=== PATIENT | male | born 1950 | race Hispanic/Latino ===

== ENCOUNTER 2016-12-25 22:29 | Observation (INO) | payer BC, MEDICARE ==
[2016-12-25 23:52] LABS: Basophils % (Auto) 1.1 % (0.0-1.8); Eosinophils % (Auto) 2.7 % (0.0-4.3); Hematocrit 34.3 % (35.5-45.6); Hemoglobin 12.1 gm/dl (11.8-15.2); Mean Corpuscular HGB Conc 35 % (32-34); Mean Corpuscular Hemoglobin 33 pg (28-32); Mean Corpuscular Volume 93 fl (84-94); Platelet Count 126 K/mm3 (140-440); Red Blood Count 3.67 M/mm3 (3.65-5.03); White Blood Count 7.4 K/mm3 (4.5-11.0)
[2016-12-26] LABS: BUN/Creatinine Ratio 14.28; Blood Urea Nitrogen 10 mg/dL (9-20); Calcium 8.1 mg/dL (8.4-10.2); Carbon Dioxide 18 mmol/L (22-30); Glucose 130 mg/dL (75-100)
[2016-12-26 00:01] LABS: Anion Gap 23 mmol/L; Chloride 103.8 mmol/L (98-107); Potassium 4.1 mmol/L (3.6-5.0); Sodium 141 mmol/L (137-145)
--- NOTE | 2016-12-26 00:54 | Emergency Department Report ---
HPI - General Chief Complaint: Chest Pain Time Seen by Provider: 12/26/16 00:36 - HPI HPI: Patient is a 66-year-old white male states that he is an alcoholic, started having chest pain today after drinking. Patient denies nausea, vomiting, diaphoresis or shortness of breath. Patient denies any alleviating or exacerbating factors. Patient is not taking any medication for his symptoms. Described pain as sharp epigastric area without radiation. ED Past Medical Hx - Past Medical History Previous Medical History?: Yes Hx Heart Attack/AMI: No Hx Congestive Heart Failure: No Hx Diabetes: Yes Hx Seizures: Yes Hx Asthma: No Hx COPD: No Additional medical history: Alcoholism, depression - Surgical History Past Surgical History?: Yes Additional Surgical History: appendix - Social History Smoking Status: Current Some Day Smoker Substance Use Type: Alcohol - Medications Home Medications: Home Medications Medication Instructions Recorded Confirmed Last Taken Type ALPRAZolam [Xanax TAB] 1 mg PO BID 09/02/15 09/02/15 Unknown History Citalopram [Celexa] 40 mg PO QDAY 09/02/15 09/02/15 Unknown History Enalapril Maleate [Vasotec] 2.5 mg PO DAILY 09/02/15 09/02/15 Unknown History Galantamine [Razadyne] 4 mg PO BID 09/02/15 09/02/15 Unknown History Ibuprofen [Motrin 800 MG tab] 800 mg PO Q8HR PRN 09/02/15 09/02/15 Unknown History hydrOXYzine PAMOATE [Vistaril] 50 mg PO Q6HR PRN 09/02/15 09/02/15 Unknown History ALPRAZolam [Xanax TAB] 1 mg PO BID #24 tablet 09/03/15 Unknown Rx Citalopram [Celexa] 40 mg PO QDAY tablet 09/03/15 Unknown Rx Enalapril Maleate [Vasotec] 2.5 mg PO DAILY 09/03/15 Unknown Rx Famotidine [Pepcid] 20 mg PO BID #60 tablet 09/03/15 Unknown Rx metFORMIN [Glucophage] 500 mg PO TID tablet 09/03/15 Unknown Rx rOPINIRole [Requip] 1 mg PO BID tablet 09/03/15 Unknown Rx traZODone [Desyrel] 50 mg PO QHS tablet 09/03/15 Unknown Rx oxyCODONE /ACETAMINOPHEN [Percocet 1 tab PO Q12H PRN #10 tablet 12/01/15 Unknown Rx 5/325 mg] ED Review of Systems ROS: Stated complaint: CHEST PAIN Other details as noted in HPI Physical Exam - Physical Exam Vital Signs: Vital Signs 12/25/16 12/26/16 22:52 00:29 Temperature 99.0 F Pulse Rate 88 81 Respiratory 18 16 Rate Blood Pressure 90/52 105/59 [Right] O2 Sat by Pulse 97 95 Oximetry Physical Exam: GENERAL APPEARANCE: Well developed, well nourished, alert and cooperative, and appears to be in no acute distress. HEAD: normocephalic. EYES: PERRL, EOMI. Fundi normal, vision is grossly intact. EARS: External auditory canals and tympanic membranes clear, hearing grossly intact. NOSE: No nasal discharge. THROAT: Oral cavity and pharynx normal. No inflammation, swelling, exudate, or lesions. Teeth and gingiva in good general condition. NECK: Neck supple, non-tender without lymphadenopathy, masses or thyromegaly. CARDIAC: Normal S1 and S2. No S3, S4 or murmurs. Rhythm is regular. There is no peripheral edema, cyanosis or pallor. Extremities are warm and well perfused. Capillary refill is less than 2 seconds. No carotid bruits. LUNGS: Clear to auscultation and percussion without rales, rhonchi, wheezing or diminished breath sounds. ABDOMEN: Positive bowel sounds. Soft, nondistended, nontender. No guarding or rebound. No masses. MUSKULOSKELETAL: Adequately aligned spine. ROM intact spine and extremities. No joint erythema or tenderness. Normal muscular development. Normal gait. BACK: Examination of the spine reveals normal gait and posture, no spinal deformity, symmetry of spinal muscles, without tenderness, decreased range of motion or muscular spasm. EXTREMITIES: No significant deformity or joint abnormality. No edema. Peripheral pulses intact. No varicosities. LOWER EXTREMITY: Examination of both feet reveals all toes to be normal in size and symmetry, normal range of motion, normal sensation with distal capillary filling of less than 2 seconds without tenderness, swelling, discoloration, nodules, weakness or deformity; examination of both ankles, knees, legs, and hips reveals normal range of motion, normal sensation without tenderness, swelling, discoloration, crepitus, weakness or deformity. NEUROLOGICAL: CN II-XII intact. Strength and sensation symmetric and intact throughout. Reflexes 2+ throughout. Cerebellar testing normal. SKIN: Skin normal color, texture and turgor with no lesions or eruptions. PSYCHIATRIC: The mental examination revealed the patient was oriented to person , place, and time. He feels depressed and suicidal with no plan ED Course Vital Signs 12/25/16 12/26/16 22:52 00:29 Temperature 99.0 F Pulse Rate 88 81 Respiratory 18 16 Rate Blood Pressure 90/52 105/59 [Right] O2 Sat by Pulse 97 95 Oximetry ED Medical Decision Making - Lab Data Result diagrams: 12/25/16 23:04 12/25/16 23:04 Critical care attestation.: If time is entered above; I have spent that time in minutes in the direct care of this critically ill patient, excluding procedure time. ED Disposition Clinical Impression: Chest pain, Chest pain, Depression, Suicidal ideations Disposition: 09 OP ADMIT IP TO THIS HOSP Is pt being admited?: Yes Does the pt Need Aspirin: Yes Condition: Stable Instructions: Chest Pain (ED) Referrals: PRIMARY CARE, [Primary Care Provider] - 3-5 Days
[2016-12-26] MEDS ORDERED: ZOFRAN IV PRN (03:58)
[2016-12-26] MEDS ORDERED: MORPHINE IV PRN (03:58)
[2016-12-26] MEDS ORDERED: VITAMIN B-1 100 MG, FOLVITE 1 MG, INFUVITE 10 ML in NACL 0.9% 1000 ML 1,000 ML IV SCH (05:00)
--- NOTE | 2016-12-26 06:06 | History and Physical Report ---
CHIEF COMPLAINT: Chest pain. HISTORY OF PRESENT ILLNESS: The patient is a 66-year-old white male who is having chest pain that started yesterday 12/25/2016 after having some alcohol ingestion. The patient said he is an alcoholic and drinks on a daily basis. He denies history of nausea or vomiting. He denies history of shortness of breath or diaphoresis. The patient described the pain as sharp in consistency and is located in the retrosternal and epigastric area. There was no associated fever or chills. No nausea or vomiting. PAST MEDICAL HISTORY: Pertinent for diabetes mellitus, seizure disorder. Also, the patient has past history of alcohol abuse or alcoholism and depression: Noncontributory. PAST SURGICAL HISTORY: Pertinent for appendectomy. SOCIAL HISTORY: The patient drinks alcohol on daily basis, smokes cigarettes, does not use illicit drugs. MEDICATIONS: The patient is on the following medications: Xanax 1 mg by mouth twice daily, Celexa 40 mg by mouth daily, Vasotec 2.5 mg by mouth daily, Razadyne or galantamine 4 mg by mouth twice daily, Motrin 800 mg by mouth every 8 hours as needed for pain, hydroxyzine pamoate or Vistaril 50 mg p.o. q.6 hours as needed for itching, famotidine or Pepcid 20 mg p.o. b.i.d., Glucophage 500 mg p.o. t.i.d., Requip or ropinirole 1 mg p.o. b.i.d., trazodone 50 mg at bedtime, and Percocet 5/325 mg 1 by mouth every 12 hours as needed for pain. ALLERGIES: There are no known drug allergies. REVIEW OF SYSTEMS: CONSTITUTIONAL: There is no fever, no chills, no diaphoresis. HEENT: There is no headache or sore throat. CARDIOVASCULAR: There is chest pain. No orthopnea. RESPIRATORY: There is no shortness of breath or cough. GASTROINTESTINAL: Epigastric abdominal pain noted. No nausea, no vomiting, no diarrhea or constipation. NEUROLOGICAL: There is no numbness, no dizziness, no altered mental status. MUSCULOSKELETAL: There is no joint pain or swelling. DERMATOLOGICAL: There is no skin rash or itching. GENITOURINARY: There is no dysuria, hematuria, or flank pain. Rest of system review is normal. PHYSICAL EXAMINATION: GENERAL: At the time of exam, the patient was found to be alert and oriented x 3 and not in acute distress. VITAL SIGNS: Shows temperature of 99 degrees Fahrenheit, pulse of 81, respirations 16, blood pressure 105/59, O2 sat of 95% on room air. HEENT: Showed pupils to be equal, round, reactive to light and accommodation. Extraocular muscles are intact. NECK: Supple with no JVD or carotid bruit. CARDIOVASCULAR: Showed normal first and second heart sounds with no gallops or murmur. RESPIRATORY: Showed good air entry on both sides of the lung with no abnormal breath sounds. GASTROINTESTINAL SYSTEM: Showed abdomen to be full, soft, nontender with no organomegaly or rigidity. NEUROLOGICAL: Shows no focal deficit. MUSCULOSKELETAL: Shows no joint swelling or tenderness. DERMATOLOGICAL: Shows no skin rash. GENITOURINARY: Showing no costovertebral angle tenderness. PERTINENT LABORATORY DATA AND IMAGING STUDIES: The patient had the following lab test done CBC showed normal white count, normal hemoglobin and slightly low hematocrit of 34.3 with an unremarkable CBC differential. Chemistry shows a slightly low CO2 with an unremarkable renal function test. Lipase level was elevated with a value of 221, troponin level came back normal. Alcohol level showed an increased level of 0.3. DIAGNOSES: 1. Chest pain. 2. Alcohol abuse. 3. Acute pancreatitis. PLAN: The patient will be admitted to medical floor on telemetry and will have cardiac enzymes checked q.6 hours x2 more levels. The patient will be on IV morphine 2 mg every 3 hours as needed for chest pain. The patient will be on nitro paste half inch to anterior chest wall t.i.d. and will be on IV Zofran 4 mg every 6 hours as needed for nausea and vomiting and will be on aspirin 325 mg by mouth daily. The patient will be on banana bag made up of thiamine 100 mg, folic acid 1 mg and multivitamin all in 1 liter of normal saline to be given once daily and patient will have a lipase level checked morning and will have Lexiscan stress test done this morning and will remain n.p.o. for the Lexiscan stress test. The patient's home medications will be reconciled and applied. JOB# [id number] OCN/NTS
[2016-12-26] MEDS: NITRO-BID 2% TP SCH ×4 (06:33→19:05)
--- NOTE | 2016-12-26 07:33 | XRay Report ---
AP CHEST: HISTORY: chest pain Compared to 11/27/15. Heart size is borderline. Normal pulmonary vascularity. The lungs are clear. No evidence for pneumonia, CHF or pneumothorax. The bony structures are within normal limits. IMPRESSION: Borderline heart size. Lungs clear.
[2016-12-26 08:59] LABS: Creatine Kinase MB 1.2 ng/mL (0.0-4.0)
[2016-12-26 09:00] LABS: Creatine Kinase 73 units/L (55-170)
[2016-12-26] MEDS ORDERED: LEXISCAN IV ONE (09:05)
--- NOTE | 2016-12-26 09:46 | Admit Criteria Form ---
Admission Criteria Documentation: CARDIOLOGY GRG Clinical Indications for Admission to Inpatient Care ( Place 'X' for any and all applicable criteria): Hospital admission is needed for appropriate care of the patient because of ANY ONE of the following (1): [ ] I. Hemodynamic instability as indicated by ALL of the following (1)(2)(3) (4)(5) [ ]a) Vital signs or other findings not as expected for chronic patient condition or baseline [ ]b) Instability indicated by ANY ONE of the following: [ ]i) Hypotension [ ]ii) Symptomatic Tachycardia unresponsive to treatment ( e.g., analgesia, fluids, sedation as indicated) [ ]iii) Inadequate perfusion indicated by ANY ONE of the following: [ ] 1) Lactic acidosis (> 2 mmol/L) [ ] 2) New abnormal capillary refill (> 3 seconds) [ ] 3) Reduced urine output [ ] 4) New altered mental status [ ]iv) Orthostatic vital sign changes unresponsive to treatment (e.g., fluids) [ ]v) IV inotropic or vasopressor medication required to maintain adequate blood pressure or perfusion [ ] II. Severe heart failure as indicated by ANY ONE of the following(17)(18) [ ]a) Respiratory distress [ ]b) Hypotension [ ]c) Anasarca (refractory to outpatient therapy) [ ]d) Cardiac arrhythmias of immediate concern [ ]e) Myocardial ischemia [ ] III. Cardiac arrhythmias or findings of immediate concern indicated by ANY ONE of the following (19)(20): [ ] a) Heart rhythms that are inherently dangerous or unstable indicated by ANY ONE of the following (21)(22)(23): [ ] i) Resuscitated ventricular fibrillation or cardiac arrest [ ] ii) Ventricular escape rhythm [ ] iii) Sustained ventricular tachycardia (30 seconds or more of ventricular rhythm at greater than 100 beats per minute) [ ] iv) Nonsustained ventricular tachycardia and ANY ONE of the following: [ ] 1) Suspected cardiac ischemia as cause or consequence of ventricular tachycardia [ ] 2) In setting of acute myocarditis [ ] b) Unstable cardiac conduction defects indicated by ANY ONE of the following(23)(24)(25) [ ] i) Type II second-degree atrioventricular block [ ]ii) Third-degree atrioventricular block [ ]iii) New-onset left bundle branch block with suspected myocardial ischemia [ ]c) Any heart rhythm and ANY ONE of the following (21)(22)(26)(27) (28) [ ] i) Continuous long-term ECG monitoring needed (e.g., initiation of drug requiring monitoring for more than 24 hours) [ ] ii) Patient has automatic implanted cardioverter defibrillator that is repeatedly firing, malfunctioning, or in need of immediate adjustment of settings beyond the scope of ambulatory or observation care [ ]d) Heart rhythms of concern due to ANY ONE of the following: [ ] i) Hypotension [ ] ii) Respiratory distress [ ] iii) Association with other significant symptoms (e.g., bradycardia with syncope or ongoing dizziness, supraventricular tachycardia with chest pain (14)(15)(17) [ ] IV. Monitoring for cardiac contusion beyond the scope of observation care needed [A](30)(31)(32) [ ] V. Surgical or device complication (e.g., valve replacement complication , pacemaker dysfunction) (35)(41)(44)(45)(46) [ ] . Inpatient palliative care needed. [B](49) Also use Inpatient Palliative Care Criteria [ ] VII. Nonbacterial thrombotic (marantic) endocarditis (36)(43)(47)(48) [X ] VIII. Cardiology condition, symptom, or finding for which emergency and observation care has failed or are not considered appropriate. [ ] IX. Acute valvular disease requiring inpatient as indicated by ANY ONE of the following (41) [ ]a) Acute valvular regurgitation (42) [ ]b) Noninfectious valvulitis (43) [ ]c) Obstructive valve thrombosis [ ]d) Paravalvular leak [ ]e) Other significant valvular disorder remaining after emergency or observation level of care (as appropriate) [ ]X. Pericardial disease requiring inpatient treatment as indicated by ANY ONE of the following (33)(34)(35)(36)(37) [ ]a) Suspected tamponade (38)(39)(40) [ ]b) Hemopericardium [ ]c) Other significant pericardial disorder remaining after emergency or observation level of care (as appropriate) [ ] XI. Cardiac ischemia beyond scope of emergency and observation care. [ ] XII. Hypertension requiring inpatient treatment as indicated by ANY ONE of the following (6)(7)(8) [ ]a) SBP greater than 220 mm Hg or DBP greater than 120 mmHg despite treatment [ ]b) SBP greater than 140 mm Hg or DBP greater than 100 mm Hg with evidence of acute end organ damage as indicated by ANY ONE of the following [ ] i) Altered mental status [ ] ii) Acute renal failure as indicated by new onset of ANY ONE of the following (9)(10)(11)(12)(13) [ ]1) 3-fold rise in serum creatinine from baseline [ ]2) Serum creatinine greater than 4 mg/dL ( 354 micromoles/L) with acute rise greater than 0.5 mg/dL (44.2 micromoles/L) [ ]3) Reduction of more than 75% in estimated glomerular filtration rate from baseline [ ]4) Estimated glomerular filtration rate less than 35 mL/min/1.73m2 (0.59 mL/sec/1.73m2) in child up to 18 years of age [ ]5) Cessation of urine output indicated by ALL of the following [ ]A. Adequate volume status [ ]B. Inadequate urine output as indicated by ANY ONE of the following [ ]a. Urine output less than 0.3 mL/kg/hr for 24 hours [ ]b. Anuria (urine output less than 0.1 mL/kg/hr) for 12 hours [ ] iii) Aortic dissection [ ] iv) Myocardial Ischemia [ ] v) Left ventricular heart failure [ ]vi) Retinal Hemorrhage [ ]vii) Other significant finding [ ]c) Hypertension in child requiring inpatient treatment as indicated by ALL of the following(14)(15)(16) [ ] i) Outpatient treatment not effective, not available, or not appropriate [ ]ii) SBP or DBP greater than 95th percentile for age [ ]iii) Evidence of acute end organ damage as indicated by ANY ONE of the following [ ]1) Altered mental status [ ]2) Acute renal failure as indicated by new onset of ANY ONE of the following(9)(10)(11)(12)(13) [ ]A. 3-fold rise in serum creatinine from baseline [ ]B. Serum creatinine greater than 4 mg/dL (354 micromoles/L) with acute rise greater than 0.5 mg/dL (44.2 micromoles/L) [ ]C. Reduction of more than 75% in estimated glomerular filtration rate from baseline [ ]D. Estimated glomerular filtration rate less than 35 mL/min/1.73m2 (0.59 mL/sec/1.73m2) in child up to 18 years of age [ ]E. Cessation of urine output indicated by ALL of the following [ ]a. Adequate volume status [ ]b. Inadequate urine output as indicated by ANY ONE of the following [ ]i) Urine output less than 0.3 mL/kg/hr for 24 hours [ ]ii) Anuria ( urine output less than 0.1 mL/kg/hr) for 12 hours [ ]3) Severe headache [ ]4) Visual disturbance [ ]5) Retinal hemorrhage [ ]6) Other significant finding [ ]XIII. Complications of transplanted heart indicated by ANY ONE of the following(61): [ ]a) Acute graft rejection requiring inpatient management (eg, intravenous immunosuppression)(62)(63) [ ]b) Acute graft heart failure indicated by ANY ONE of the following(64): [ ]i) Hemodynamic instability [ ]ii) Cardiac arrhythmias of immediate concern [ ]iii) Pulmonary edema that is very severe (eg, mechanical ventilation needed, imminent or likely, need for 100% oxygen to keep oxygen saturation above 90%) [ ]iv) Pulmonary edema that is persistent as indicated by ALL of the following: [ ]1) New need for oxygen therapy to keep oxygen saturation above 90% (or increased FiO2 need from baseline) [ ]2) Has not improved sufficiently with emergency department or observation care IV diuretics or other heart failure treatments[E] [ ]v) Altered mental status that is severe or persistent [ ]vi) Increased creatinine (new on laboratory test) with reduction of more than 50% in estimated glomerular filtration rate from baseline [ ]vii) Progressively (ongoing) rising creatinine (known from past laboratory test) with reduction of more than 25% in estimated glomerular filtration rate from baseline [ ]viii) Acute renal failure [ ]ix) Acute peripheral ischemia (eg, examination shows pulseless, cool, mottled, or cyanotic extremity) [ ]x) Pulmonary artery catheter monitoring needed [ ]xi) Other sign or symptom of heart failure requiring inpatient treatment (ie, too severe or not responsive to outpatient and observation care treatment) [ ]c) Infection requiring inpatient management (eg, Hemodynamic instability, need for intravenous antimicrobial treatment)(66)(67)(68)(69)(70) [ ]d) Cardiac allograft vasculopathy requiring inpatient management ( eg evidence of cardiac ischemia)(71) [ ]e) Other complication of transplanted heart (eg, stroke, severe pulmonary hypertension, severe valvular dysfunction) requiring inpatient management(72) The original [facility] [employer] content created by [facility] [employer] has been revised. The portions of the content which have been revised are identified through the use of italic text or in bold, and [facility] has neither reviewed nor approved the modified material. All other unmodified content is copyright [facility] [employer]. Please see references footnoted in the original [facility] [employer] edition 2016 Admission Criteria Met: Yes
[2016-12-26] MEDS ORDERED: ASPIRIN PO SCH (10:00)
[2016-12-26] MEDS: HEPARIN SUB-Q SCH ×2 (10:42→21:34)
[2016-12-26] MEDS ORDERED: ATIVAN IV PRN ×2 (11:39)
[2016-12-26 12:33] LABS: Creatine Kinase MB 1.3 ng/mL (0.0-4.0)
[2016-12-26 12:37] LABS: Creatine Kinase 83 units/L (55-170)
[2016-12-26] MEDS: ASPIRIN PO SCH (14:43)
--- NOTE | 2016-12-26 14:44 | Event Note ---
Date: 12/26/16 Patient seen and examined in no acute distress but noted with tremor and diaphoresis. Started CIWA protocol. Mental health consult placed. We'll monitor
--- NOTE | 2016-12-26 15:45 | Consultation ---
History of Present Illness - Reason for Consult Consult date: 12/26/16 Reason for consult: psychiatric evaluation - Chief Complaint Chief complaint: "I said I wanted to give up." Patient is a 66-year-old white male who presented to the hospital after calling 911 for chest pain after alcohol use. He reports relapsing on 11/24/16 after a 7 month period of sobriety. He was drinking twelve 24 oz. beers daily. He is currently on [facility] for alcohol withdrawal. He has a history of withdrawal related seizure and DTs. He reports making the comment about giving up in response to feelings of guilt about drinking. He denies suicidal ideation. He denies auditory or visual hallucinations. No signs of psychosis present. He coplains of short term memory loss. He scored 0/3 word recall. He denies having a depressed mood but reports he is unable to do anything social like he once did due to finances. He retired from [employer]. Medications and Allergies Allergies Allergy/AdvReac Type Severity Reaction Status Date / Time No Known Allergies Allergy Verified 02/27/15 02:13 Home Medications Medication Instructions Recorded Confirmed Last Taken Type ALPRAZolam [Xanax TAB] 1 mg PO BID 09/02/15 12/26/16 Unknown History Citalopram [Celexa] 40 mg PO QDAY 09/02/15 12/26/16 Unknown History Enalapril Maleate [Vasotec] 2.5 mg PO DAILY 09/02/15 12/26/16 Unknown History Galantamine [Razadyne] 4 mg PO BID 09/02/15 12/26/16 Unknown History Ibuprofen [Motrin 800 MG tab] 800 mg PO Q8HR PRN 09/02/15 12/26/16 Unknown History hydrOXYzine PAMOATE [Vistaril] 50 mg PO Q6HR PRN 09/02/15 12/26/16 Unknown History ALPRAZolam [Xanax TAB] 1 mg PO BID #24 tablet 09/03/15 12/26/16 Unknown Rx Citalopram [Celexa] 40 mg PO QDAY tablet 09/03/15 12/26/16 Unknown Rx Enalapril Maleate [Vasotec] 2.5 mg PO DAILY 09/03/15 12/26/16 Unknown Rx Famotidine [Pepcid] 20 mg PO BID #60 tablet 09/03/15 12/26/16 Unknown Rx metFORMIN [Glucophage] 500 mg PO TID tablet 09/03/15 12/26/16 Unknown Rx rOPINIRole [Requip] 1 mg PO BID tablet 09/03/15 12/26/16 Unknown Rx traZODone [Desyrel] 50 mg PO QHS tablet 09/03/15 12/26/16 Unknown Rx oxyCODONE /ACETAMINOPHEN [Percocet 1 tab PO Q12H PRN #10 tablet 12/01/15 Unknown Rx 5/325 mg] Active Meds: Active Medications Aspirin (Aspirin) 325 mg PO QDAY REPLACED BY [facility] Last Admin: 12/26/16 14:43 Dose: 325 mg Heparin Sodium (Porcine) (Heparin) 5,000 unit SUB-Q Q12HR REPLACED BY [facility] Last Admin: 12/26/16 10:42 Dose: Not Given Thiamine HCl 100 mg/ Folic Acid 1 mg/ Multivitamins/Minerals 10 ml/ Sodium Chloride 1,011.2 mls @ 125 mls/hr IV DAILY REPLACED BY [facility] Last Admin: 12/26/16 05:32 Dose: 125 mls/hr Lorazepam (Ativan) 2 mg IV Q1HR PRN PRN Reason: CIWA-Ar 8-15 Lorazepam (Ativan) 4 mg IV Q1HR PRN PRN Reason: CIWA-Ar 16-25 Last Admin: 12/26/16 12:01 Dose: 4 mg Lorazepam (Ativan) 4 mg IV Q15MIN PRN PRN Reason: CIWA-Ar >25 Morphine Sulfate (Morphine) 3 mg IV Q3H PRN PRN Reason: Pain , Severe (7-10) Nitroglycerin (Nitro-Bid 2%) 0.5 inch TP QIDNTG REPLACED BY [facility] PRN Reason: Protocol Last Admin: 12/26/16 14:57 Dose: 0.5 inch Ondansetron HCl (Zofran) 4 mg IV Q6H PRN PRN Reason: Nausea And Vomiting Past psychiatric history - Past Medical History Past Medical History: diabetes, seizures Past Surgical History: appendectomy - past Psychiatric treatment and history psychiatric treatment history: no previous suicide attempts began drinking at age 14 Longest period of sobriety was 18 months x 2 (once with treatment and once without) He denies illicit substance use Last treatment was 05/06/16. Denies history of manic symptoms He states he relapsed because his of his birthday. His live in girlfriend drinks. - Social History Social history: alcohol abuse Mental Status Exam - Vital signs Last Vital Signs Temp 98.4 F 12/26/16 11:11 Pulse 72 12/26/16 11:11 Resp 19 12/26/16 11:11 BP 134/81 12/26/16 11:11 Pulse Ox 97 12/26/16 13:19 - Exam Orientation: time, place, person Affect: normal Mood: other (guilt) Thought content: other (no suicidal or homicidal thoughts) Thought Process: Intact Perceptions: none Speech: normal rate and pattern Concentration: focused Motor activity: other (mild tremors, restless) Level of consciousness: alert Memory: Intact Sleep Symptoms: Difficulty Falling Asleep Appetite: decreased Interaction: cooperative Results Result Diagrams: 12/25/16 23:04 12/25/16 23:04 Abnormal lab results 12/26/16 Range/Units 08:10 Lipase 73 H (13-60) units/L All other labs normal. Assessment and Plan Assessment and plan: Impression: Alcohol use disorder, with withdrawal (detox by the medical team) depressive disorder, unspecified r/o MDD Recommendations: He voices the intention of going to AA meetings. He has a home group and a sponsor. At this time he is not interested in rehab Continue detox per the medical team We will follow to determine suicidal risk. Consider rescinding the 1013 if he maintains denial of SI in 24 hours.
[2016-12-26] MEDS: ATIVAN IV PRN (19:33)
[2016-12-26] MEDS ORDERED: D50W (25GM) Syringe IV PRN (20:09)
[2016-12-26] MEDS: NOVOLOG SUB-Q SCH (22:00)
--- NOTE | 2016-12-27 01:38 | Treadmill Report ---
FINDINGS: There is no scintigraphic evidence of myocardial ischemia. The left ventricle is normal in size and systolic function. The left ventricular ejection fraction is measured at 69%. Normal wall motion and wall thickening is noted on gated imaging. CONCLUSION: Normal perfusion scan. JOB# [id number] BELA/CAPRICE
[2016-12-27] MEDS: ATIVAN IV PRN (03:03)
[2016-12-27] MEDS: NITRO-BID 2% TP SCH ×2 (06:16→10:31)
[2016-12-27] MEDS: NOVOLOG SUB-Q SCH ×2 (07:30→12:00)
--- NOTE | 2016-12-27 09:28 | Discharge Summary ---
Providers - Providers Date of Admission: 12/26/16 01:18 Attending physician: JANN HINSON MD 12/26/16 11:31 Consult to Mental Health [CONS] Routine Reason For Exam: suicidal ideation Place consult to:: mental health Notified:: VANESA Phone number called:: [phone] Was contact made?: Yes If yes, spoke with:: VANESA Time called:: 11:49 Comment:: CONSULT COMPLETED - ERLIN Primary care physician: SKI MAKER Hospitalization Reason for admission: acute pancreatitis Condition: Stable Hospital course: Patient is a 66-year-old white male states that he is an alcoholic, started having chest pain today after drinking. Patient was admitted and noted to be in mild DT, started on CIWA protocol, stress test was done and was negative. Patient denies nausea, vomiting, diaphoresis or shortness of breath. Patient denies any alleviating or exacerbating factors. Patient is not taking any medication for his symptoms. Described pain as sharp epigastric area without radiation. chest and epigastric pain resolved. Patient was offered inpatient detox and seen by [facility] team. They rescinded 1013. Pateint states He will follow at the AA meetings. He resides with his girlfriend Zamzam Vargas and is very supportive. No evidence of tremor at this time. Discharge Diagnosis Atypical chest pain secondary to costochondritis Alcohol use disorder, with withdrawal Acute Pancreatits secondary to ETOH depressive disorder, unspecified Disposition: DC-01 TO HOME OR SELFCARE Time spent for discharge: 35 MINS Core Measure Documentation - Palliative Care Palliative Care/ Comfort Measures: Not Applicable - Core Measures Any of the following diagnoses?: none - VTE Discharge Requirements Deep Vein Thrombosis/Pulmonary Embolism Present on Admission: No Exam - Physical Exam Narrative exam: VITAL SIGNS: Reviewed. GENERAL: The patient appeared well nourished and normally developed. Vital signs as documented. HEAD: No signs of head trauma. EYES: Pupils are equal. Extraocular motions intact. EARS: Hearing grossly intact. MOUTH: Oropharynx is normal. NECK: No adenopathy, no JVD. CHEST: Chest with clear breath sounds bilaterally. No wheezes, rales, or rhonchi. CARDIAC: Regular rate and rhythm. S1 and S2, without murmurs, gallops, or rubs. VASCULAR: No Edema. Peripheral pulses normal and equal in all extremities. ABDOMEN: Soft, without detectable tenderness. No sign of distention. No rebound or guarding, and no masses palpated. Bowel Sounds normal. MUSCULOSKELETAL: Good range of motion of all major joints. Extremities without clubbing, cyanosis or edema. NEUROLOGIC EXAM: Alert and oriented x 3. No focal sensory or strength deficits. Speech normal. Follows commands. PSYCHIATRIC: Mood normal. SKIN: No rash or lesions. - Constitutional Vitals: Temp Pulse Resp BP Pulse Ox 98.4 F 72 20 175/83 98 12/27/16 08:29 12/27/16 08:29 12/27/16 08:29 12/27/16 08:12/27/16 08:15 Plan Activity: advance as tolerated, fall precautions Diet: low fat Special Instructions: smoking cessation, other (MUST QUIT ETOH, STRONGLY RECOMMEND INPATIENT DETOX PROGRAM) Follow up with: PRIMARY CARE,MD [Primary Care Provider] - 3-5 Days Prescriptions: ALPRAZolam [Xanax TAB] 1 mg PO BID #10 tablet hydrOXYzine PAMOATE [Vistaril] 50 mg PO Q6HR PRN #14 capsule PRN Reason: Anxiety Multivitamin with Folic Acid [One Daily Multivitamin Tablet] 400 mcg PO DAILY # 30 tablet Thiamine [Vitamin B-1] 100 mg PO QDAY #30 tablet
[2016-12-27] MEDS ORDERED: ZESTRIL PO SCH (10:00)
[2016-12-27] MEDS ORDERED: PEPCID PO SCH (10:00)
[2016-12-27] MEDS: ASPIRIN PO SCH (10:32)
[2016-12-27] MEDS: HEPARIN SUB-Q SCH (10:35)
[2016-12-27] MEDS ORDERED: GLUCOPHAGE PO SCH (11:30)
[2016-12-27 13:01] VITALS: BP 152/78
--- NOTE | 2016-12-27 14:41 | Progress Note ---
Subjective - Reason for Consult Consult date: 12/27/16 Reason for consult: Psychiatry Follow-up - Chief Complaint Chief complaint: "I definitely don't want to kill myself" Patient is a 66-year-old white male who presented to the hospital after calling 911 for chest pain after alcohol use. He reports relapsing on 11/24/16 after a 7 month period of sobriety. He was drinking twelve 24 oz. beers daily. He is currently on CIWA for alcohol withdrawal. He has a history of withdrawal related seizure and DTs. Today patient is calm and cooperative during assessment. He stated that he want to stop drinking alcohol (etoh), but know it' s a hard task to do. He stated that he have done rehab multiple times and was sober 9 months before relapsing recently. He stated that his health problems and other issues exacerbate his drinking. He stated that his depression is triggered because of lack of money and not being able to enjoy his social life like he did in the past. He rate his depression 4/10, with 10 being the worse. He denies SI/HI's and AVH's. Spoke with his girlfriend Zamzam Vargas who stated that he has never mentioned being suicidal in the past. She stated that he does attend AA weekly. Mental Status Exam - Vital signs Last Vital Signs Temp 98.7 F 12/27/16 12:56 Pulse 70 12/27/16 12:56 Resp 20 12/27/16 12:56 BP 152/78 12/27/16 12:56 Pulse Ox 97 12/27/16 12:56 - Exam Narrative exam: MSE: Appearance: calm, cooperative Behavior: regular eye contact Speech: regular rate and tone Mood: "okay" Affect: congruent to mood Thought Process: linear Thought Content: denies SI/HI's and AVH's Motor Activity: ambulatory Cognition: A/Ox 3 Insight: fair Judgment: fair Assessment and Plan Impression: Historical Dx: Depression. Alcohol Use DO, with withdrawal (detox by the medical team). Today patient is calm and cooperative during assessment. Patient is no threat to self. Patient will reside with his girlfriend Zamzam Vargas once he is discharged. Recommendation/Plan: Rescind 1013. Patient will continue to attend AA meetings. He stated that he will consider rehab for alcohol in the future. Patient prefer therapy and spiritual guidance from his [employer] than medication therapy for depression. Discussed the risk and benefits of medication therapy with patient. Patient can follow-up with his psychiatrist for outpatient psy services.
== END 2016-12-27 17:30 | disposition home or self-care (01) ==
LOC: ED 22:29 → INTOOBSV 12-26 01:18 → 4A 12-26 01:18
PROVIDERS: ADMIT Internal Medicine; ATTEND Internal Medicine
DX: R07.9 Chest pain, unspecified (principal); F10.221 Alcohol dependence with intoxication delirium; K85.20 Alcohol induced acute pancreatitis without necrosis or infection; M94.0 Chondrocostal junction syndrome [Tietze]; F10.239 Alcohol dependence with withdrawal, unspecified; E11.9 Type 2 diabetes mellitus without complications; F32.9 Major depressive disorder, single episode, unspecified; F17.200 Nicotine dependence, unspecified, uncomplicated; G40.909 Epilepsy, unspecified, not intractable, without status epilepticus
CPT/HCPCS: 36415; 71010; 78452; 80048; 82150; 82550; 82553; 82962; 83690; 84484; 85025; 93005; 93010; 93017; 96365; 96366; 96372; 96375; 96376; 99285; 99406; A9502; G0378; G0480; J1644; J2060; J2785; J3411; J7030; 80320

== ENCOUNTER 2017-02-26 02:36 | Inpatient (IN) | payer BC, MEDICARE ==
[2017-02-26 04:00] LABS: Basophils % (Auto) 0.2 % (0.0-1.8); Hematocrit 35.4 % (35.5-45.6); Hemoglobin 12.7 gm/dl (11.8-15.2); Mean Corpuscular HGB Conc 36 % (32-34); Mean Corpuscular Hemoglobin 32 pg (28-32); Mean Corpuscular Volume 89 fl (84-94); Platelet Count 135 K/mm3 (140-440); Red Blood Count 3.98 M/mm3 (3.65-5.03); Red Cell Distribution Width 15.2 % (13.2-15.2); White Blood Count 18.1 K/mm3 (4.5-11.0)
[2017-02-26 04:12] LABS: INR 1.06 (0.87-1.13)
[2017-02-26 04:13] LABS: Alanine Aminotransferase 28 units/L (7-56); Albumin 4.5 g/dL (3.9-5); Albumin/Globulin Ratio 1.4 %; Alkaline Phosphatase 74 units/L (35-129); Anion Gap 31 mmol/L; BUN/Creatinine Ratio 15; Blood Urea Nitrogen 9 mg/dL (9-20); Calcium 8.6 mg/dL (8.4-10.2); Carbon Dioxide 16 mmol/L (22-30); Chloride 70.5 mmol/L (98-107); Glucose 196 mg/dL (75-100); Partial Thromboplastin Time 27.9 Sec. (24.2-36.6); Potassium 4.2 mmol/L (3.6-5.0); Total Protein 7.8 g/dL (6.3-8.2)
[2017-02-26 04:29] LABS: Sodium 113 mmol/L (137-145)
[2017-02-26] MEDS ORDERED: ATIVAN IV ONE (04:32)
[2017-02-26] MEDS ORDERED: NACL ONE (05:15)
--- NOTE | 2017-02-26 05:31 | Emergency Department Report ---
ED Chest Pain HPI - General Chief Complaint: Chest Pain Stated Complaint: CHEST PAIN Time Seen by Provider: 02/26/17 03:02 Source: patient, EMS Mode of arrival: Stretcher Limitations: No Limitations - History of Present Illness Initial Comments: 66-year-old male presents to the emergency department by EMS from home with a complaint of some left-sided chest pain as well as left arm pain and shortness of breath as being along for the past 1-2 hours prior to presentation. It is associated with some nausea and vomiting and diaphoresis. He has a past medical history of [id number] diabetes, seizures and alcoholism. Patient received 324 mg of aspirin, 3 mg of morphine and a sublingual nitroglycerin in route without much relief. The patient had a stress test in December of this year that was negative at that time. He does admit to some alcohol use earlier in the day. He denies any history of NC, CVA , PE/DVT. - Related Data Home Medications Medication Instructions Recorded Confirmed Last Taken Citalopram [Celexa] 40 mg PO QDAY 09/02/15 12/26/16 Unknown Enalapril Maleate [Vasotec] 2.5 mg PO DAILY 09/02/15 12/26/16 Unknown Galantamine [Razadyne] 4 mg PO BID 09/02/15 12/26/16 Unknown Previous Rx's Medication Instructions Recorded Last Taken Type Famotidine [Pepcid] 20 mg PO BID #60 tablet 09/03/15 Unknown Rx metFORMIN [Glucophage] 500 mg PO TID tablet 09/03/15 Unknown Rx rOPINIRole [Requip] 1 mg PO BID tablet 09/03/15 Unknown Rx traZODone [Desyrel] 50 mg PO QHS tablet 09/03/15 Unknown Rx ALPRAZolam [Xanax TAB] 1 mg PO BID #10 tablet 12/27/16 Unknown Rx Multivitamin with Folic Acid [One 400 mcg PO DAILY #30 tablet 12/27/16 Unknown Rx Daily Multivitamin Tablet] Thiamine [Vitamin B-1] 100 mg PO QDAY #30 tablet 12/27/16 Unknown Rx hydrOXYzine PAMOATE [Vistaril] 50 mg PO Q6HR PRN #14 capsule 12/27/16 Unknown Rx Allergies Allergy/AdvReac Type Severity Reaction Status Date / Time No Known Allergies Allergy Verified 02/27/15 02:13 Heart Score - HEART Score History: Moderately suspicious EKG: Non-specific Age: 45-65 Risk factors: 1-2 risk factors Troponin: < normal limit HEART Score: 4 - Critical Actions Critical Actions: 4-6 pts:12-16.6% risk of adverse cardiac event. Should be admitted ED Review of Systems ROS: Stated complaint: CHEST PAIN Other details as noted in HPI Comment: All other systems reviewed and negative Constitutional: diaphoresis. denies: chills, fever Eyes: denies: eye pain, eye discharge, vision change ENT: denies: ear pain, throat pain Respiratory: cough, shortness of breath Cardiovascular: chest pain. denies: edema Gastrointestinal: nausea, vomiting Genitourinary: denies: urgency, dysuria Musculoskeletal: denies: back pain, joint swelling, arthralgia Skin: denies: rash, lesions Neurological: denies: headache, weakness, paresthesias ED Past Medical Hx - Past Medical History Previous Medical History?: Yes Hx Heart Attack/AMI: No Hx Congestive Heart Failure: No Hx Diabetes: Yes Hx Seizures: Yes Hx Asthma: No Hx COPD: No Additional medical history: Alcoholism, depression - Surgical History Past Surgical History?: Yes Additional Surgical History: appendix - Social History Smoking Status: Never Smoker Substance Use Type: Alcohol - Medications Home Medications: Home Medications Medication Instructions Recorded Confirmed Last Taken Type Citalopram [Celexa] 40 mg PO QDAY 09/02/15 12/26/16 Unknown History Enalapril Maleate [Vasotec] 2.5 mg PO DAILY 09/02/15 12/26/16 Unknown History Galantamine [Razadyne] 4 mg PO BID 09/02/15 12/26/16 Unknown History Famotidine [Pepcid] 20 mg PO BID #60 tablet 09/03/15 12/26/16 Unknown Rx metFORMIN [Glucophage] 500 mg PO TID tablet 09/03/15 12/26/16 Unknown Rx rOPINIRole [Requip] 1 mg PO BID tablet 09/03/15 12/26/16 Unknown Rx traZODone [Desyrel] 50 mg PO QHS tablet 09/03/15 12/26/16 Unknown Rx ALPRAZolam [Xanax TAB] 1 mg PO BID #10 tablet 12/27/16 Unknown Rx Multivitamin with Folic Acid [One 400 mcg PO DAILY #30 tablet 12/27/16 Unknown Rx Daily Multivitamin Tablet] Thiamine [Vitamin B-1] 100 mg PO QDAY #30 tablet 12/27/16 Unknown Rx hydrOXYzine PAMOATE [Vistaril] 50 mg PO Q6HR PRN #14 capsule 12/27/16 Unknown Rx ED Physical Exam - General Limitations: No Limitations - Other Other exam information: GENERAL: Patient is ill-appearing. HENT: Normocephalic. Atraumatic. Patient has moist mucous membranes. EYES: Extraocular motions are intact. Pupils equal reactive to light bilaterally. NECK: Supple. Trachea is midline. CHEST/LUNGS: Clear to auscultation. There is no respiratory distress noted. HEART/CARDIOVASCULAR: Regular. There is no tachycardia. There is no gallop rub or murmur. ABDOMEN: Abdomen is soft, nontender. Patient has normal bowel sounds. There is no abdominal distention. SKIN: Diaphoretic. NEURO: The patient is awake, alert, and oriented. The patient is cooperative. The patient has no focal neurologic deficits. The patient has normal speech. Patient has tremors. Otherwise cranial nerves II through XII grossly intact. MUSCULOSKELETAL: There is no tenderness or deformity. There is no limitation range of motion. There is no evidence of acute injury. ED Course Vital Signs 02/26/17 02/26/17 02/26/17 03:30 03:47 04:00 Temperature 98.7 F Pulse Rate 101 H 98 H 99 H Respiratory 24 26 H 23 Rate Blood Pressure 156/70 Blood Pressure 151/63 [Right] O2 Sat by Pulse 97 97 96 Oximetry 02/26/17 02/26/17 02/26/17 04:15 04:30 04:46 Temperature Pulse Rate 99 H 97 H 99 H Respiratory 30 H 18 22 Rate Blood Pressure 149/72 149/72 167/39 Blood Pressure [Right] O2 Sat by Pulse 95 95 Oximetry 02/26/17 02/26/17 02/26/17 05:00 05:16 05:30 Temperature Pulse Rate 108 H 108 H 107 H Respiratory 31 H 26 H 26 H Rate Blood Pressure 167/39 135/51 135/51 Blood Pressure [Right] O2 Sat by Pulse 97 96 97 Oximetry 02/26/17 02/26/17 02/26/17 06:32 06:46 07:00 Temperature Pulse Rate 138 H 120 H Respiratory 22 26 H Rate Blood Pressure 131/79 131/79 157/93 Blood Pressure [Right] O2 Sat by Pulse 96 97 Oximetry 02/26/17 02/26/17 02/26/17 07:12 07:16 07:30 Temperature Pulse Rate 134 H 135 H Respiratory 24 33 H Rate Blood Pressure 131/79 131/79 Blood Pressure 118/72 [Right] O2 Sat by Pulse 82 L 83 L Oximetry 02/26/17 02/26/17 02/26/17 07:46 08:05 09:00 Temperature Pulse Rate 124 H 108 H Respiratory 20 Rate Blood Pressure 118/96 Blood Pressure 136/82 [Right] O2 Sat by Pulse 78 L 98 99 Oximetry 02/26/17 02/26/17 02/26/17 09:34 11:01 12:44 Temperature 98.4 F Pulse Rate 126 H 86 86 Respiratory 24 Rate Blood Pressure Blood Pressure 96/62 [Right] O2 Sat by Pulse 97 99 99 Oximetry 02/26/17 02/26/17 02/26/17 12:57 13:47 14:00 Temperature Pulse Rate 82 77 75 Respiratory 20 18 25 H Rate Blood Pressure 91/61 91/61 Blood Pressure 155/89 [Right] O2 Sat by Pulse 99 99 99 Oximetry 02/26/17 02/26/17 02/26/17 14:14 14:16 14:30 Temperature Pulse Rate 74 75 104 H Respiratory 26 H 26 H 21 Rate Blood Pressure 94/60 94/60 Blood Pressure 94/60 [Right] O2 Sat by Pulse 99 99 98 Oximetry 02/26/17 02/26/17 02/26/17 14:46 15:00 15:16 Temperature Pulse Rate 79 76 74 Respiratory 21 24 24 Rate Blood Pressure 141/94 141/94 93/58 Blood Pressure [Right] O2 Sat by Pulse 100 100 100 Oximetry 02/26/17 02/26/17 02/26/17 15:30 15:46 16:00 Temperature Pulse Rate 73 73 71 Respiratory 24 24 24 Rate Blood Pressure 93/58 90/58 90/58 Blood Pressure [Right] O2 Sat by Pulse 99 100 100 Oximetry 02/26/17 02/26/17 02/26/17 16:16 16:30 16:46 Temperature Pulse Rate 73 73 73 Respiratory 24 24 24 Rate Blood Pressure 89/56 89/56 93/59 Blood Pressure [Right] O2 Sat by Pulse 100 99 100 Oximetry 02/26/17 02/26/17 02/26/17 17:00 17:16 17:30 Temperature Pulse Rate 70 103 H 100 H Respiratory 24 21 19 Rate Blood Pressure 93/59 88/55 136/78 Blood Pressure [Right] O2 Sat by Pulse 99 98 Oximetry 02/26/17 02/26/17 02/26/17 17:39 17:47 17:51 Temperature 99.1 F Pulse Rate 100 H 82 82 Respiratory 23 19 Rate Blood Pressure 93/59 Blood Pressure 136/78 [Right] O2 Sat by Pulse 98 99 Oximetry 02/26/17 02/26/17 02/26/17 18:00 18:15 18:30 Temperature Pulse Rate 79 76 77 Respiratory 24 24 24 Rate Blood Pressure 93/54 93/53 95/58 Blood Pressure [Right] O2 Sat by Pulse 99 100 Oximetry 02/26/17 02/26/17 02/26/17 18:45 19:00 19:15 Temperature Pulse Rate 76 76 72 Respiratory 24 24 24 Rate Blood Pressure 92/53 100/60 95/54 Blood Pressure [Right] O2 Sat by Pulse 99 99 100 Oximetry 02/26/17 02/26/17 02/26/17 19:30 19:45 19:55 Temperature Pulse Rate 72 73 97 H Respiratory 24 24 Rate Blood Pressure 102/58 97/56 150/73 Blood Pressure [Right] O2 Sat by Pulse 100 100 98 Oximetry 02/26/17 02/26/17 02/26/17 20:01 20:15 20:30 Temperature Pulse Rate 94 H 95 H 81 Respiratory 17 17 18 Rate Blood Pressure 135/72 131/73 97/56 Blood Pressure [Right] O2 Sat by Pulse 90 91 91 Oximetry 02/26/17 02/26/17 02/26/17 20:45 21:00 21:15 Temperature Pulse Rate 77 74 75 Respiratory 24 24 24 Rate Blood Pressure 88/52 83/49 85/48 Blood Pressure [Right] O2 Sat by Pulse 97 96 95 Oximetry 02/26/17 02/26/17 02/26/17 22:00 23:00 23:50 Temperature Pulse Rate 69 65 93 H Respiratory 24 24 Rate Blood Pressure 87/50 84/49 108/48 Blood Pressure [Right] O2 Sat by Pulse 94 95 98 Oximetry 02/27/17 02/27/1702/27/17 00:00 01:00 01:43 Temperature 99.1 F Pulse Rate 73 68 68 Respiratory 24 24 24 Rate Blood Pressure 86/47 88/50 Blood Pressure 136/78 [Right] O2 Sat by Pulse 93 91 91 Oximetry 02/27/17 02/27/17 02/27/17 01:45 02:00 02:15 Temperature Pulse Rate 69 68 69 Respiratory 24 24 24 Rate Blood Pressure 92/53 88/50 86/52 Blood Pressure [Right] O2 Sat by Pulse 89 Oximetry 02/27/17 02/27/17 02/27/17 02:30 02:45 03:01 Temperature Pulse Rate 66 66 101 H Respiratory 24 24 12 Rate Blood Pressure 88/51 86/50 86/52 Blood Pressure [Right] O2 Sat by Pulse 93 Oximetry 02/27/17 02/27/17 02/27/17 03:15 03:30 03:45 Temperature Pulse Rate 86 76 72 Respiratory 12 24 24 Rate Blood Pressure 107/59 88/51 87/51 Blood Pressure [Right] O2 Sat by Pulse Oximetry 02/27/17 02/27/17 02/27/17 04:00 04:15 04:30 Temperature Pulse Rate 69 67 65 Respiratory 24 24 24 Rate Blood Pressure 83/49 81/47 87/50 Blood Pressure [Right] O2 Sat by Pulse Oximetry 02/27/17 02/27/17 02/27/17 04:45 05:01 05:15 Temperature Pulse Rate 94 H 93 H 95 H Respiratory 17 18 19 Rate Blood Pressure 87/50 137/73 117/56 Blood Pressure [Right] O2 Sat by Pulse Oximetry 02/27/17 02/27/17 02/27/17 05:30 05:33 05:45 Temperature Pulse Rate 82 77 77 Respiratory 22 20 Rate Blood Pressure 96/56 96/56 88/53 Blood Pressure [Right] O2 Sat by Pulse 97 Oximetry 02/27/17 02/27/17 02/27/17 06:00 06:15 06:30 Temperature Pulse Rate 72 71 74 Respiratory 20 20 20 Rate Blood Pressure 85/52 89/52 86/52 Blood Pressure [Right] O2 Sat by Pulse Oximetry 02/27/17 02/27/17 02/27/17 06:45 07:01 07:15 Temperature Pulse Rate 70 110 H Respiratory 20 22 11 L Rate Blood Pressure 92/55 116/88 116/88 Blood Pressure [Right] O2 Sat by Pulse Oximetry 02/27/17 02/27/17 02/27/17 07:20 07:30 07:45 Temperature Pulse Rate 70 76 71 Respiratory 21 20 Rate Blood Pressure 95/54 101/56 95/54 Blood Pressure [Right] O2 Sat by Pulse 100 Oximetry 02/27/17 02/27/17 02/27/17 08:00 08:15 08:30 Temperature Pulse Rate 68 67 65 Respiratory 20 20 20 Rate Blood Pressure 94/53 91/55 94/53 Blood Pressure [Right] O2 Sat by Pulse Oximetry 02/27/17 02/27/17 02/27/17 08:45 09:01 09:15 Temperature Pulse Rate 91 H 82 88 Respiratory 11 L 19 13 Rate Blood Pressure 94/53 124/80 115/71 Blood Pressure [Right] O2 Sat by Pulse 99 Oximetry 02/27/17 02/27/17 02/27/17 09:38 09:43 09:45 Temperature 98.4 F Pulse Rate 86 94 H Respiratory 20 15 Rate Blood Pressure 115/71 108/60 Blood Pressure 115/71 [Right] O2 Sat by Pulse 98 99 98 Oximetry 02/27/17 02/27/17 02/27/17 10:00 10:15 10:31 Temperature Pulse Rate 79 70 86 Respiratory 20 15 16 Rate Blood Pressure 95/54 89/51 89/51 Blood Pressure [Right] O2 Sat by Pulse 98 98 99 Oximetry 02/27/17 02/27/17 02/27/17 10:45 11:00 11:15 Temperature Pulse Rate 92 H 93 H 86 Respiratory 14 14 12 Rate Blood Pressure 112/65 118/58 110/67 Blood Pressure [Right] O2 Sat by Pulse 99 99 99 Oximetry 02/27/17 02/27/17 02/27/17 11:29 11:31 11:35 Temperature Pulse Rate 90 95 H Respiratory 14 15 Rate Blood Pressure 98/30 113/47 Blood Pressure [Right] O2 Sat by Pulse 99 Oximetry 02/27/17 02/27/17 02/27/17 11:45 12:00 12:14 Temperature Pulse Rate 81 91 H Respiratory 21 11 L Rate Blood Pressure 112/65 104/59 Blood Pressure [Right] O2 Sat by Pulse 96 Oximetry 02/27/17 02/27/17 12:15 12:30 Temperature Pulse Rate 88 75 Respiratory 12 16 Rate Blood Pressure 104/59 94/57 Blood Pressure [Right] O2 Sat by Pulse 97 99 Oximetry STEPHANE score - Stephane Score Age > 65: (0) No Aspirin use within the Past 7 Days: (1) Yes 3 or more CAD Risk Factors: (0) No 2 or more Angina events in past 24 hrs: (1) Yes Known CAD with more than 50% Stenosis: (0) No Elevated Cardiac Markers: (0) No ST Deviation Greater than 0.5mm: (0) No STEPHANE Score: 2 ED Medical Decision Making - Lab Data Result diagrams: 02/27/17 04:50 02/27/17 08:20 - EKG Data -: EKG Interpreted by Me EKG shows normal: sinus rhythm, axis, intervals (slightly prolonged QTC), QRS complexes, ST-T waves (peaked or hyperacute T waves) Rate: normal - EKG Data When compared to previous EKG there are: changes noted (the T waves are slightly more peaked or hyperacute than previous EKG) Interpretation: other (sinus rhythm, normal rate, normal axis, slightly prolonged QTC, hyperacute or peaked T waves) - Radiology Data Radiology results: report reviewed, image reviewed interpreted by me: Chest x-ray does not show any acute process. There are no pleural effusions, obvious pneumonia and there is no pneumothorax. EXAM: CT ANGIO CHEST HISTORY: CP, SOB, Elevated dimer TECHNIQUE: CT imaging obtained through the chest in pulmonary angiographic phase following intravenous administration of contrast. Transaxial, Coronal and sagittal reformats with maximal intensity projections are provided. PRIORS: None. FINDINGS: Normal caliber main pulmonary artery. Well opacified pulmonary arterial tree. No pulmonary embolism. No pericardial effusion. Coronary artery disease. Dilated fluid-filled esophagus with mucosal enhancement and surrounding edema and stranding. No pneumomediastinum or adjacent focal fluid collection to suggest abscess formation. Thoracic aorta is mildly tortuous and normal in caliber. Mediastinal edema and stranding is most closely associated with the abnormal esophagus. No aortic wall abnormality to suggest findings of acute aortic syndrome. No pneumothorax. Small left pleural effusion. Right upper and and lower and left lower lobe nodular ground-glass attenuating airspace disease. Imaged portion of the upper abdomen is unremarkable. The superficial soft tissues are unremarkable. No acute bony abnormality or worrisome osseous lesions identified. IMPRESSION: Findings of diffuse esophagitis with surrounding stranding and edema may be infectious, inflammatory or neoplastic in etiology. Developing mediastinitis is a possibility. There is no adjacent abscess identified and no pneumomediastinum. Multifocal ground-glass nodularity involving the right upper lower lobe submitted left lower lung with small left pleural effusion is most consistent with infection. No pulmonary embolism. Coronary artery disease. - Medical Decision Making 66-year-old male presented with some shortness of breath, left-sided chest pain and radiation down the left arm. He is also diaphoretic and having some shakes/ tremors. EKG does not appear to meet criteria for ST elevation NC. First troponin was negative. Chest x-ray did not show any acute process. Throughout his ED course it became more apparent that he was suffering from alcohol withdrawals. He was placed on CIWA protocol. He had elevated d-dimer so a CT angiography of the chest was done that resulted showing esophagitis and mediastinitis. He will be admitted to the hospital for serial troponins, continued monitoring and at least a gastroenterology consult if not cardiology. - Differential Diagnosis NC, PE, esophagitis, pneumonia Critical Care Time: No Critical care attestation.: If time is entered above; I have spent that time in minutes in the direct care of this critically ill patient, excluding procedure time. ED Disposition Clinical Impression: Acute dyspnea, Hyponatremia syndrome, Esophagitis, Mediastinitis Alcohol withdrawal Qualifiers: Complication of substance-induced condition: with unspecified complication Qualified Code(s): F10.239 - Alcohol dependence with withdrawal, unspecified Chest pain Qualifiers: Chest pain type: unspecified Qualified Code(s): R07.9 - Chest pain, unspecified Disposition: 09 OP ADMIT IP TO THIS HOSP Is pt being admited?: Yes Condition: Serious Time of Disposition: 06:15
[2017-02-26] MEDS ORDERED: ROCEPHIN/NS 1 GM/50 ML 1 GM/50 ML BAG IV SCH (06:31)
--- NOTE | 2017-02-26 06:31 | Cat Scan Report ---
FINAL REPORT EXAM: CT ANGIO CHEST HISTORY: CP, SOB, Elevated dimer TECHNIQUE: CT imaging obtained through the chest in pulmonary angiographic phase following intravenous administration of contrast. Transaxial, Coronal and sagittal reformats with maximal intensity projections are provided. PRIORS: None. FINDINGS: Normal caliber main pulmonary artery. Well opacified pulmonary arterial tree. No pulmonary embolism. No pericardial effusion. Coronary artery disease. Dilated fluid-filled esophagus with mucosal enhancement and surrounding edema and stranding. No pneumomediastinum or adjacent focal fluid collection to suggest abscess formation. Thoracic aorta is mildly tortuous and normal in caliber. Mediastinal edema and stranding is most closely associated with the abnormal esophagus. No aortic wall abnormality to suggest findings of acute aortic syndrome. No pneumothorax. Small left pleural effusion. Right upper and and lower and left lower lobe nodular ground-glass attenuating airspace disease. Imaged portion of the upper abdomen is unremarkable. The superficial soft tissues are unremarkable. No acute bony abnormality or worrisome osseous lesions identified. IMPRESSION: Findings of diffuse esophagitis with surrounding stranding and edema may be infectious, inflammatory or neoplastic in etiology. Developing mediastinitis is a possibility. There is no adjacent abscess identified and no pneumomediastinum. Multifocal ground-glass nodularity involving the right upper lower lobe submitted left lower lung with small left pleural effusion is most consistent with infection. No pulmonary embolism. Coronary artery disease. Notification initiated via [facility] life support technician immediately following this dictation on 02/26/2017.
[2017-02-26] MEDS ORDERED: DULCOLAX PR PRN (06:33)
[2017-02-26] MEDS ORDERED: MILK OF MAGNESIA PO PRN (06:33)
[2017-02-26] MEDS ORDERED: TYLENOL PO PRN (06:33)
[2017-02-26] MEDS ORDERED: D50W (25GM) Syringe IV PRN (06:33)
[2017-02-26] MEDS ORDERED: ZOFRAN IV PRN (06:33)
--- NOTE | 2017-02-26 06:45 | History and Physical Report ---
History of Present Illness Date of examination: 02/26/17 History of present illness: 66-year-old man with a history of diabetes, anxiety, depression, hyperlipidemia comes emergency room with complaints of chest pain located in the left chest which she describes as a sharp pain, intermittent in nature lasting for an hour , intensity 5/10, radiating to the left arm, he cannot identify exacerbating or relieving factors. He denies nausea vomiting, shortness breath, palpitation. Patient is very tremulous, diaphoretic, his last drink was 2 days ago Review Of Systems: Constitutional: no weight loss Ears, eyes, nose, mouth and throat: no nasal congestion, no nasal discharge, no sinus pressure, blurry vision, diplopia Neck: No neck pain or rigidity. Cardiovascular: no orthopnea, palpitations Respiratory: No shortness of breath, cough Gastrointestinal: abdominal pain, hematochezia Genitourinary : no dysuria, frequency , hematuria Musculoskeletal: no muscle ache Integumentary: no rash, no pruritis Neurological: no parathesias, focal weakness Endocrine: no cold or heat intolerance, no polyuria or polydipsia Hematologic/Lymphatic: no easy bruising, no easy bleeding, no gland swelling Allergic/Immunologic: no urticaria, no angioedema. PAST MEDICAL HISTORY:diabetes, anxiety, depression, hyperlipidemia PAST SURGICAL HISTORY: Tender to me FAMILY HISTORY: Diabetes SOCIAL HISTORY: DRINK 3 tall beers a day, no tobacco or chart Medications and Allergies Allergies Allergy/AdvReac Type Severity Reaction Status Date / Time No Known Allergies Allergy Verified 02/27/15 02:13 Home Medications Medication Instructions Recorded Confirmed Last Taken Type Citalopram [Celexa] 40 mg PO QDAY 09/02/15 12/26/16 Unknown History Enalapril Maleate [Vasotec] 2.5 mg PO DAILY 09/02/15 12/26/16 Unknown History Galantamine [Razadyne] 4 mg PO BID 09/02/15 12/26/16 Unknown History Famotidine [Pepcid] 20 mg PO BID #60 tablet 09/03/15 12/26/16 Unknown Rx metFORMIN [Glucophage] 500 mg PO TID tablet 09/03/15 12/26/16 Unknown Rx rOPINIRole [Requip] 1 mg PO BID tablet 09/03/15 12/26/16 Unknown Rx traZODone [Desyrel] 50 mg PO QHS tablet 09/03/15 12/26/16 Unknown Rx ALPRAZolam [Xanax TAB] 1 mg PO BID #10 tablet 12/27/16 Unknown Rx Multivitamin with Folic Acid [One 400 mcg PO DAILY #30 tablet 12/27/16 Unknown Rx Daily Multivitamin Tablet] Thiamine [Vitamin B-1] 100 mg PO QDAY #30 tablet 12/27/16 Unknown Rx hydrOXYzine PAMOATE [Vistaril] 50 mg PO Q6HR PRN #14 capsule 12/27/16 Unknown Rx Active Meds: Active Medications Acetaminophen (Tylenol) 650 mg PO Q4H PRN PRN Reason: Pain MILD(1-3)/Fever >100.5/JOE Bisacodyl (Dulcolax) 10 mg AR QDAY PRN PRN Reason: Constipation unrelieved by MOM Citalopram Hydrobromide (Celexa) 40 mg PO QDAY IVANA Dextrose (D50w (25gm) Syringe) 50 ml IV PRN PRN PRN Reason: Hypoglycemia Famotidine (Pepcid) 20 mg PO BID IVANA Galantamine Hydrobromide (Razadyne) 4 mg PO BID IVANA Ceftriaxone Sodium (Rocephin/Ns 1 Gm/50 Ml) 1 gm in 50 mls @ 100 mls/hr IV Q24HR IVANA PRN Reason: Protocol Sodium Chloride (Nacl 0.9% 1000 Ml) 1,000 mls @ 50 mls/hr IV DIRECT IVANA Insulin Aspart (Novolog) 0 units SUB-Q ACHS IVANA PRN Reason: Protocol Lorazepam (Ativan) 2 mg IV Q1HR PRN PRN Reason: CIWA-Ar 8-15 Lorazepam (Ativan) 4 mg IV Q1HR PRN PRN Reason: CIWA-Ar 16-25 Lorazepam (Ativan) 4 mg IV Q15MIN PRN PRN Reason: CIWA-Ar >25 Magnesium Hydroxide (Milk Of Magnesia) 30 ml PO Q4H PRN PRN Reason: Constipation Miscellaneous Medication (Enalapril Maleate [Vasotec]) 2.5 mg PO DAILY IVANA Miscellaneous Medication (Multivitamin With Folic Acid [One Daily Multivitamin Tablet]) 400 mcg PO DAILY IVANA Ondansetron HCl (Zofran) 4 mg IV Q8H PRN PRN Reason: N/V unrelieved by Reglan Ropinirole HCl (Requip) 1 mg PO BID IVANA Thiamine HCl (Vitamin B-1) 100 mg PO QDAY IVANA Exam - Physical Exam Narrative exam: Gen. appearance: Patient lying in bed in no acute distress, diaphoretic HEENT: Normocephalic/atraumatic, pupils equal round reactive to light, extra alkaline movement intact, no scleral icterus, no JVD or thyromegaly or nodule, neck is supple, mucous membrane moist, no erythema or exudate Heart: S1-S2, regular rate and rhythm Lungs: Clear to auscultation bilateral breathing comfortable Abdomen: Positive bowel sounds, nontender, nondistended, no organomegaly Extremities: No edema, cyanosis, clubbing Neuro:: Tremulous, Oriented 3 , cranial nerves II-12 intact, speech, motor intact Skin: No rash, nodules, warm dry - Constitutional Vitals: Temp Pulse Resp BP Pulse Ox 98.7 F 101 H 24 151/63 97 02/26/17 03:30 02/26/17 03:30 02/26/17 03:30 02/26/17 03:30 02/26/17 03:30 Results - Labs CBC & Chem 7: 02/26/17 03:29 02/26/17 03:29 Labs: Abnormal lab results 02/26/17 02/26/17 02/26/17 Range/Units 03:29 03:29 03:29 WBC 18.1 H (4.5-11.0) K/mm3 Hct 35.4 L (35.5-45.6) % MCHC 36 H (32-34) % Plt Count 135 L (140-440) K/mm3 Lymph % (Auto) 7.2 L (13.4-35.0) % Sawyer % (Auto) 9.5 H (0.0-7.3) % Sawyer # 1.7 H (0.0-0.8) K/mm3 Seg Neutrophils % 83.1 H (40.0-70.0) % Seg Neutrophils # 15.0 H (1.8-7.7) K/mm3 D-Dimer 1145.32 H (0-234) ng/mlDDU Sodium 113 L* (137-145) mmol/L Chloride 70.5 L (98-107) mmol/L Carbon Dioxide 16 L (22-30) mmol/L Creatinine 0.6 L (0.8-1.5) mg/dL Glucose 196 H (75-100) mg/dL Total Bilirubin 1.30 H (0.1-1.2) mg/dL AST 49 H (5-40) units/L - Imaging and Cardiology Chest x-ray: image reviewed CT scan - chest: report reviewed Assessment and Plan Assessment Alcohol withdrawal with DTs Acute severe hyponatremia Esophagitis with stranding and possible infectious Chest pain, possible secondary to #3 diabetes type 2 Thrombocytopenia Plan Admit medicine Start ciwa protocol with IV Ativan , IV fluid, check serial sodium level consult renal, AWAITING CALL BACK FROM RENAL Start IV Zosyn, consult GI Check cardiac enzymes, fingersticks and initiate insulin sliding scale DVT prophylaxis
[2017-02-26] MEDS: ATIVAN IV PRN ×7 (06:56→19:55)
[2017-02-26] MEDS ORDERED: NACL 0.9% 1000 ML 1,000 ML IV SCH (07:00)
[2017-02-26] MEDS ORDERED: VITAMIN B-1 ONE (07:19)
[2017-02-26 07:47] LABS: Anion Gap 28 mmol/L; BUN/Creatinine Ratio 18; Blood Urea Nitrogen 14 mg/dL (9-20); Calcium 8.8 mg/dL (8.4-10.2); Carbon Dioxide 19 mmol/L (22-30); Chloride 72.3 mmol/L (98-107); Glucose 223 mg/dL (75-100)
--- NOTE | 2017-02-26 07:49 | XRay Report ---
PORTABLE CHEST: Chest pain An AP portable view of the chest demonstrates a normal cardiac contour considering the limits of this technique. The lungs are clear with no evidence of infiltrate, fluid or failure. No change compared to December 26, 2016. IMPRESSION: Normal portable chest.
[2017-02-26 07:56] LABS: Potassium 5.5 mmol/L (3.6-5.0); Sodium 114 mmol/L (137-145)
[2017-02-26] MEDS ORDERED: VITAMIN B-1 100 MG in NACL 0.9% 50 ML IV ONE (08:00)
[2017-02-26] MEDS ORDERED: VASELINE LIP THERAPY TP PRN (08:04)
[2017-02-26] MEDS ORDERED: ARTIFICIAL TEARS OPHTH OINT OU PRN (08:04)
[2017-02-26 08:08] LABS: Creatine Kinase MB 28.6 ng/mL (0.0-4.0)
--- NOTE | 2017-02-26 08:08 | Emergency Department Report ---
ED General Adult HPI - General Chief complaint: Chest Pain Stated complaint: CHEST PAIN Time Seen by Provider: 02/26/17 03:02 Source: patient, EMS Mode of arrival: Stretcher Limitations: No Limitations - Related Data Home Medications Medication Instructions Recorded Confirmed Last Taken Citalopram [Celexa] 40 mg PO QDAY 09/02/15 02/28/17 1 Day Ago Enalapril Maleate [Vasotec] 2.5 mg PO DAILY 09/02/15 02/28/17 1 Day Ago Galantamine [Razadyne] 4 mg PO BID 09/02/15 02/28/17 1 Day Ago Previous Rx's Medication Instructions Recorded Last Taken Type Famotidine [Pepcid] 20 mg PO BID #60 tablet 09/03/15 1 Day Ago Rx metFORMIN [Glucophage] 500 mg PO TID tablet 09/03/15 1 Day Ago Rx rOPINIRole [Requip] 1 mg PO BID tablet 09/03/15 1 Day Ago Rx traZODone [Desyrel] 50 mg PO QHS tablet 09/03/15 1 Day Ago Rx ALPRAZolam [Xanax TAB] 1 mg PO BID #10 tablet 12/27/16 1 Day Ago Rx Multivitamin with Folic Acid [One 400 mcg PO DAILY #30 tablet 12/27/16 1 Day Ago Rx Daily Multivitamin Tablet] Thiamine [Vitamin B-1] 100 mg PO QDAY #30 tablet 12/27/16 1 Day Ago Rx hydrOXYzine PAMOATE [Vistaril] 50 mg PO Q6HR PRN #14 capsule 12/27/16 1 Day Ago Rx Allergies Allergy/AdvReac Type Severity Reaction Status Date / Time No Known Allergies Allergy Verified 02/27/15 02:13 ED Review of Systems ROS: Stated complaint: CHEST PAIN Other details as noted in HPI Constitutional: diaphoresis. denies: chills, fever Eyes: denies: eye pain, eye discharge, vision change ENT: denies: ear pain, throat pain Respiratory: cough, shortness of breath Cardiovascular: chest pain. denies: edema Gastrointestinal: nausea, vomiting Genitourinary: denies: urgency, dysuria Musculoskeletal: denies: back pain, joint swelling, arthralgia Skin: denies: rash, lesions Neurological: denies: headache, weakness, paresthesias ED Past Medical Hx - Past Medical History Previous Medical History?: Yes Hx Heart Attack/AMI: No Hx Congestive Heart Failure: No Hx Diabetes: Yes Hx Seizures: Yes Hx Asthma: No Hx COPD: No Additional medical history: Alcoholism, depression - Surgical History Past Surgical History?: Yes Additional Surgical History: appendix - Social History Smoking Status: Never Smoker Substance Use Type: Alcohol - Medications Home Medications: Home Medications Medication Instructions Recorded Confirmed Last Taken Type Citalopram [Celexa] 40 mg PO QDAY 09/02/15 02/28/17 1 Day Ago History Enalapril Maleate [Vasotec] 2.5 mg PO DAILY 09/02/15 02/28/17 1 Day Ago History Galantamine [Razadyne] 4 mg PO BID 09/02/15 02/28/17 1 Day Ago History Famotidine [Pepcid] 20 mg PO BID #60 tablet 09/03/15 02/28/17 1 Day Ago Rx metFORMIN [Glucophage] 500 mg PO TID tablet 09/03/15 02/28/17 1 Day Ago Rx rOPINIRole [Requip] 1 mg PO BID tablet 09/03/15 02/28/17 1 Day Ago Rx traZODone [Desyrel] 50 mg PO QHS tablet 09/03/15 02/28/17 1 Day Ago Rx ALPRAZolam [Xanax TAB] 1 mg PO BID #10 tablet 12/27/16 02/28/17 1 Day Ago Rx Multivitamin with Folic Acid [One 400 mcg PO DAILY #30 tablet 12/27/16 02/28/17 1 Day Ago Rx Daily Multivitamin Tablet] Thiamine [Vitamin B-1] 100 mg PO QDAY #30 tablet 12/27/16 02/28/17 1 Day Ago Rx hydrOXYzine PAMOATE [Vistaril] 50 mg PO Q6HR PRN #14 capsule 12/27/16 02/28/17 1 Day Ago Rx ED Physical Exam - General Limitations: No Limitations ED Course Vital Signs 02/26/17 02/26/17 02/26/17 03:30 03:47 04:00 Temperature 98.7 F Pulse Rate 101 H 98 H 99 H Respiratory 24 26 H 23 Rate Blood Pressure 156/70 Blood Pressure 151/63 [Right] O2 Sat by Pulse 97 97 96 Oximetry 02/26/17 02/26/17 02/26/17 04:15 04:30 04:46 Temperature Pulse Rate 99 H 97 H 99 H Respiratory 30 H 18 22 Rate Blood Pressure 149/72 149/72 167/39 Blood Pressure [Right] O2 Sat by Pulse 95 95 Oximetry 02/26/17 02/26/17 02/26/17 05:00 05:16 05:30 Temperature Pulse Rate 108 H 108 H 107 H Respiratory 31 H 26 H 26 H Rate Blood Pressure 167/39 135/51 135/51 Blood Pressure [Right] O2 Sat by Pulse 97 96 97 Oximetry 02/26/17 02/26/17 02/26/17 06:32 06:46 07:00 Temperature Pulse Rate 138 H 120 H Respiratory 22 26 H Rate Blood Pressure 131/79 131/79 157/93 Blood Pressure [Right] O2 Sat by Pulse 96 97 Oximetry 02/26/17 02/26/17 02/26/17 07:12 07:16 07:30 Temperature Pulse Rate 134 H 135 H Respiratory 24 33 H Rate Blood Pressure 131/79 131/79 Blood Pressure 118/72 [Right] O2 Sat by Pulse 82 L 83 L Oximetry 02/26/17 02/26/17 02/26/17 07:46 08:05 09:00 Temperature Pulse Rate 124 H 108 H Respiratory 20 Rate Blood Pressure 118/96 Blood Pressure 136/82 [Right] O2 Sat by Pulse 78 L 98 99 Oximetry 02/26/17 02/26/17 02/26/17 09:34 11:01 12:44 Temperature 98.4 F Pulse Rate 126 H 86 86 Respiratory 24 Rate Blood Pressure Blood Pressure 96/62 [Right] O2 Sat by Pulse 97 99 99 Oximetry 02/26/17 02/26/17 02/26/17 12:57 13:47 14:00 Temperature Pulse Rate 82 77 75 Respiratory 20 18 25 H Rate Blood Pressure 91/61 91/61 Blood Pressure 155/89 [Right] O2 Sat by Pulse 99 99 99 Oximetry 02/26/17 02/26/17 02/26/17 14:14 14:16 14:30 Temperature Pulse Rate 74 75 104 H Respiratory 26 H 26 H 21 Rate Blood Pressure 94/60 94/60 Blood Pressure 94/60 [Right] O2 Sat by Pulse 99 99 98 Oximetry 02/26/17 02/26/17 02/26/17 14:46 15:00 15:16 Temperature Pulse Rate 79 76 74 Respiratory 21 24 24 Rate Blood Pressure 141/94 141/94 93/58 Blood Pressure [Right] O2 Sat by Pulse 100 100 100 Oximetry 02/26/17 02/26/17 02/26/17 15:30 15:46 16:00 Temperature Pulse Rate 73 73 71 Respiratory 24 24 24 Rate Blood Pressure 93/58 90/58 90/58 Blood Pressure [Right] O2 Sat by Pulse 99 100 100 Oximetry 02/26/17 02/26/17 02/26/17 16:16 16:30 16:46 Temperature Pulse Rate 73 73 73 Respiratory 24 24 24 Rate Blood Pressure 89/56 89/56 93/59 Blood Pressure [Right] O2 Sat by Pulse 100 99 100 Oximetry 02/26/17 02/26/17 02/26/17 17:00 17:16 17:30 Temperature Pulse Rate 70 103 H 100 H Respiratory 24 21 19 Rate Blood Pressure 93/59 88/55 136/78 Blood Pressure [Right] O2 Sat by Pulse 99 98 Oximetry 02/26/17 02/26/17 02/26/17 17:39 17:47 17:51 Temperature 99.1 F Pulse Rate 100 H 82 82 Respiratory 23 19 Rate Blood Pressure 93/59 Blood Pressure 136/78 [Right] O2 Sat by Pulse 98 99 Oximetry 02/26/17 02/26/17 02/26/17 18:00 18:15 18:30 Temperature Pulse Rate 79 76 77 Respiratory 24 24 24 Rate Blood Pressure 93/54 93/53 95/58 Blood Pressure [Right] O2 Sat by Pulse 99 100 Oximetry 02/26/17 02/26/17 02/26/17 18:45 19:00 19:15 Temperature Pulse Rate 76 76 72 Respiratory 24 24 24 Rate Blood Pressure 92/53 100/60 95/54 Blood Pressure [Right] O2 Sat by Pulse 99 99 100 Oximetry 02/26/17 02/26/17 02/26/17 19:30 19:45 19:55 Temperature Pulse Rate 72 73 97 H Respiratory 24 24 Rate Blood Pressure 102/58 97/56 150/73 Blood Pressure [Right] O2 Sat by Pulse 100 100 98 Oximetry 02/26/17 02/26/17 02/26/17 20:01 20:15 20:30 Temperature Pulse Rate 94 H 95 H 81 Respiratory 17 17 18 Rate Blood Pressure 135/72 131/73 97/56 Blood Pressure [Right] O2 Sat by Pulse 90 91 91 Oximetry 02/26/17 02/26/17 02/26/17 20:45 21:00 21:15 Temperature Pulse Rate 77 74 75 Respiratory 24 24 24 Rate Blood Pressure 88/52 83/49 85/48 Blood Pressure [Right] O2 Sat by Pulse 97 96 95 Oximetry 02/26/17 02/26/17 02/26/17 22:00 23:00 23:50 Temperature Pulse Rate 69 65 93 H Respiratory 24 24 Rate Blood Pressure 87/50 84/49 108/48 Blood Pressure [Right] O2 Sat by Pulse 94 95 98 Oximetry 02/27/17 02/27/17 02/27/17 00:00 01:00 01:43 Temperature 99.1 F Pulse Rate 73 68 68 Respiratory 24 24 24 Rate Blood Pressure 86/47 88/50 Blood Pressure 136/78 [Right] O2 Sat by Pulse 93 91 91 Oximetry 02/27/17 02/27/17 02/27/17 01:45 02:00 02:15 Temperature Pulse Rate 69 68 69 Respiratory 24 24 24 Rate Blood Pressure 92/53 88/50 86/52 Blood Pressure [Right] O2 Sat by Pulse 89 Oximetry 02/27/17 02/27/17 02/27/17 02:30 02:45 03:01 Temperature Pulse Rate 66 66 101 H Respiratory 24 24 12 Rate Blood Pressure 88/51 86/50 86/52 Blood Pressure [Right] O2 Sat by Pulse 93 Oximetry 02/27/17 02/27/17 02/27/17 03:15 03:30 03:45 Temperature Pulse Rate 86 76 72 Respiratory 12 24 24 Rate Blood Pressure 107/59 88/51 87/51 Blood Pressure [Right] O2 Sat by Pulse Oximetry 02/27/17 02/27/17 02/27/17 04:00 04:15 04:30 Temperature Pulse Rate 69 67 65 Respiratory 24 24 24 Rate Blood Pressure 83/49 81/47 87/50 Blood Pressure [Right] O2 Sat by Pulse Oximetry 02/27/17 02/27/17 02/27/17 04:45 05:01 05:15 Temperature Pulse Rate 94 H 93 H 95 H Respiratory 17 18 19 Rate Blood Pressure 87/50 137/73 117/56 Blood Pressure [Right] O2 Sat by Pulse Oximetry 02/27/17 02/27/17 02/27/17 05:30 05:33 05:45 Temperature Pulse Rate 82 77 77 Respiratory 22 20 Rate Blood Pressure 96/56 96/56 88/53 Blood Pressure [Right] O2 Sat by Pulse 97 Oximetry 02/27/17 02/27/17 02/27/17 06:00 06:15 06:30 Temperature Pulse Rate 72 71 74 Respiratory 20 20 20 Rate Blood Pressure 85/52 89/52 86/52 Blood Pressure [Right] O2 Sat by Pulse Oximetry 02/27/17 02/27/17 02/27/17 06:45 07:01 07:15 Temperature Pulse Rate 70 110 H Respiratory 20 22 11 L Rate Blood Pressure 92/55 116/88 116/88 Blood Pressure [Right] O2 Sat by Pulse Oximetry 02/27/17 02/27/17 02/27/17 07:20 07:30 07:45 Temperature Pulse Rate 70 76 71 Respiratory 21 20 Rate Blood Pressure 95/54 101/56 95/54 Blood Pressure [Right] O2 Sat by Pulse 100 Oximetry 02/27/17 02/27/17 02/27/17 08:00 08:15 08:30 Temperature Pulse Rate 68 67 65 Respiratory 20 20 20 Rate Blood Pressure 94/53 91/55 94/53 Blood Pressure [Right] O2 Sat by Pulse Oximetry 02/27/17 02/27/17 02/27/17 08:45 09:01 09:15 Temperature Pulse Rate 91 H 82 88 Respiratory 11 L 19 13 Rate Blood Pressure 94/53 124/80 115/71 Blood Pressure [Right] O2 Sat by Pulse 99 Oximetry 02/27/17 02/27/17 02/27/17 09:38 09:43 09:45 Temperature 98.4 F Pulse Rate 86 94 H Respiratory 20 15 Rate Blood Pressure 115/71 108/60 Blood Pressure 115/71 [Right] O2 Sat by Pulse 98 99 98 Oximetry 02/27/17 02/27/17 02/27/17 10:00 10:15 10:31 Temperature Pulse Rate 79 70 86 Respiratory 20 15 16 Rate Blood Pressure 95/54 89/51 89/51 Blood Pressure [Right] O2 Sat by Pulse 98 98 99 Oximetry 02/27/17 02/27/17 02/27/17 10:45 11:00 11:15 Temperature Pulse Rate 92 H 93 H 86 Respiratory 14 14 12 Rate Blood Pressure 112/65 118/58 110/67 Blood Pressure [Right] O2 Sat by Pulse 99 99 99 Oximetry 02/27/17 02/27/17 02/27/17 11:29 11:31 11:35 Temperature Pulse Rate 90 95 H Respiratory 14 15 Rate Blood Pressure 98/30 113/47 Blood Pressure [Right] O2 Sat by Pulse 99 Oximetry 02/27/17 02/27/17 02/27/17 11:45 12:00 12:14 Temperature Pulse Rate 81 91 H Respiratory 21 11 L Rate Blood Pressure 112/65 104/59 Blood Pressure [Right] O2 Sat by Pulse 96 Oximetry 02/27/17 02/27/17 02/27/17 12:15 12:30 12:45 Temperature Pulse Rate 88 75 72 Respiratory 12 16 15 Rate Blood Pressure 104/59 94/57 83/51 Blood Pressure [Right] O2 Sat by Pulse 97 99 100 Oximetry 02/27/17 02/27/17 02/27/17 13:00 13:15 13:31 Temperature Pulse Rate 72 83 79 Respiratory 15 13 18 Rate Blood Pressure 97/54 97/54 115/51 Blood Pressure [Right] O2 Sat by Pulse 100 98 97 Oximetry 02/27/17 02/27/17 02/27/17 13:45 14:01 14:15 Temperature Pulse Rate 89 90 88 Respiratory 20 13 14 Rate Blood Pressure 115/51 115/51 106/59 Blood Pressure [Right] O2 Sat by Pulse 99 99 97 Oximetry 02/27/17 02/27/17 02/27/17 14:31 14:45 15:00 Temperature Pulse Rate 100 H 91 H 93 H Respiratory 17 15 15 Rate Blood Pressure 125/88 96/55 115/60 Blood Pressure [Right] O2 Sat by Pulse 99 97 100 Oximetry 02/27/17 02/27/17 02/27/17 15:15 15:30 15:45 Temperature Pulse Rate 76 87 87 Respiratory 15 13 11 L Rate Blood Pressure 104/58 107/69 109/65 Blood Pressure [Right] O2 Sat by Pulse 99 98 98 Oximetry 02/27/17 02/27/17 02/27/17 16:01 16:15 16:30 Temperature Pulse Rate 101 H 75 75 Respiratory 16 17 15 Rate Blood Pressure 105/73 111/57 104/56 Blood Pressure [Right] O2 Sat by Pulse 98 96 100 Oximetry - Intubation Time Out Performed: Yes Sedative: Etomidate Paralytic: Succinylcholine Laryngoscope: fiberoptic video scope Size: 4 ET Tube Size: 8 Tube Secured Depth (cm): 23 Tube Secured Location: lips Tube Placement Confirmation: visualized tube passing t, equal breath sounds bilat, no breath sounds over epi, confirmation by capnometr Patient Tolerated Procedure: well Intubation Complications: none, other (significant amount of vomit in airway) ED Medical Decision Making - Lab Data Result diagrams: 02/28/17 06:39 02/28/17 06:39 Laboratory Results - last 24 hr 02/26/17 02/26/17 02/26/17 03:29 03:29 03:29 WBC 18.1 H RBC 3.98 Hgb 12.7 Hct 35.4 L MCV 89 MCH 32 MCHC 36 H RDW 15.2 Plt Count 135 L Lymph % (Auto) 7.2 L Clark % (Auto) 9.5 H Eos % (Auto) 0.0 Baso % (Auto) 0.2 Lymph # 1.3 Clark # 1.7 H Eos # 0.0 Baso # 0.0 Seg Neutrophils % 83.1 H Seg Neutrophils # 15.0 H PT 14.3 INR 1.06 APTT 27.9 D-Dimer 1145.32 H Sodium 113 L* Potassium 4.2 Chloride 70.5 L Carbon Dioxide 16 L Anion Gap 31 BUN 9 Creatinine 0.6 L Estimated GFR > 60 BUN/Creatinine Ratio 15 Glucose 196 H Calcium 8.6 Total Bilirubin 1.30 H AST 49 H ALT 28 Alkaline Phosphatase 74 Troponin T < 0.010 NT-Pro-B Natriuret Pep 351.1 Total Protein 7.8 Albumin 4.5 Albumin/Globulin Ratio 1.4 Plasma/Serum Alcohol 02/26/17 02/26/17 02/26/17 03:29 06:33 07:12 WBC RBC Hgb Hct MCV MCH MCHC RDW Plt Count Lymph % (Auto) Clark % (Auto) Eos % (Auto) Baso % (Auto) Lymph # Clark # Eos # Baso # Seg Neutrophils % Seg Neutrophils # PT INR APTT D-Dimer Sodium 114 L* Potassium 5.5 H D Chloride 72.3 L Carbon Dioxide 19 L Anion Gap 28 BUN 14 Creatinine 0.8 Estimated GFR > 60 BUN/Creatinine Ratio 18 Glucose 223 H Calcium 8.8 Total Bilirubin AST ALT Alkaline Phosphatase Troponin T < 0.010 NT-Pro-B Natriuret Pep Total Protein Albumin Albumin/Globulin Ratio Plasma/Serum Alcohol 0.04 - Medical Decision Making I was called to evaluate the patient given his continued worsening mental deterioration. He was not alert and oriented at all. He cannot answer any questions. He was agitated and moving around the bed. Nurse administered him 12mg of Ativan over the last 45 minutes and he continued to do deteriorate. Decision was made to intubate the patient for safety. Patient intubated with video laryngoscopy. Patient will be started on an Ativan drip and admitted to the ICU. Critical Care Time: Yes (45) Critical care attestation.: If time is entered above; I have spent that time in minutes in the direct care of this critically ill patient, excluding procedure time. Critical Care Time: 45 mins ED Disposition Clinical Impression: Acute dyspnea, Hyponatremia syndrome, Esophagitis, Mediastinitis Alcohol withdrawal Qualifiers: Complication of substance-induced condition: with unspecified complication Qualified Code(s): F10.239 - Alcohol dependence with withdrawal, unspecified Chest pain Qualifiers: Chest pain type: unspecified Qualified Code(s): R07.9 - Chest pain, unspecified Disposition: DC-09 OP ADMIT IP TO THIS HOSP Is pt being admited?: Yes Condition: Serious
[2017-02-26 08:09] LABS: Urine Drugs of Abuse Note Disclamer
[2017-02-26 08:09] LABS: Creatine Kinase 837 units/L (55-170)
[2017-02-26 08:23] LABS: Bilirubin,Urine NEG (Negative); Blood,Urine SM (Negative); Ketones,Urine 20 mg/dL (Negative); Leukocyte Esterase,Urine NEG (Negative); Mucus,Urine FEW /HPF; Nitrite,Urine NEG (Negative); Urobilinogen,Urine < 2.0 mg/dL (<2.0)
[2017-02-26] MEDS ORDERED: ZOFRAN IV ONE (08:23)
[2017-02-26] MEDS: ATIVAN 100 MG in NACL 0.9% 50 ML, VIAFLEX EMPTY CONTAINER 0 ML IV SCH ×2 (09:00→14:18)
[2017-02-26] MEDS: ZOSYN/NS 4.5GM/100ML 4.5 GM/100 ML VIAL IV SCH ×2 (09:00→15:51)
[2017-02-26] MEDS ORDERED: NORCURON IV ONE (09:00)
[2017-02-26] MEDS ORDERED: NACL 0.9% 500 ML IV SCH (09:00)
[2017-02-26 09:04] LABS: ISTAT Base Excess -3; ISTAT HCO3 23.8; ISTAT PCO2 50.3 (35-45); ISTAT PH 7.283 (7.35-7.45); ISTAT PO2 76 (80-105); ISTAT SO2 93; ISTAT TCO2 25
--- NOTE | 2017-02-26 09:27 | Consultation ---
History of Present Illness Consult date: 02/26/17 Requesting physician: RAYMOND REID Reason for consult: other (Severe hyponatremia, alcohol abuse disorder, thrombocytopenia ...critical care management) History of present illness: 66-year-old man with a history of diabetes, anxiety, depression, hyperlipidemia comes emergency room with complaints of chest pain located in the left chest which he describes as a sharp pain, intermittent in nature lasting for an hour, intensity 5/10, radiating to the left arm, he cannot identify exacerbating or relieving factors. He denies nausea vomiting, shortness breath, palpitation. Patient is very tremulous, diaphoretic, his last drink was 2 days ago. At the time of my evaluation, patient vomited as per ED physician became encephalopathic and required endotracheal intubation with mechanical ventilatory support. History is as obtained from the medical records and in discussion with the ED staff Medications and Allergies Allergies Allergy/AdvReac Type Severity Reaction Status Date / Time No Known Allergies Allergy Verified 02/27/15 02:13 Home Medications Medication Instructions Recorded Confirmed Last Taken Type Citalopram [Celexa] 40 mg PO QDAY 09/02/15 12/26/16 Unknown History Enalapril Maleate [Vasotec] 2.5 mg PO DAILY 09/02/15 12/26/16 Unknown History Galantamine [Razadyne] 4 mg PO BID 09/02/15 12/26/16 Unknown History Famotidine [Pepcid] 20 mg PO BID #60 tablet 09/03/15 12/26/16 Unknown Rx metFORMIN [Glucophage] 500 mg PO TID tablet 09/03/15 12/26/16 Unknown Rx rOPINIRole [Requip] 1 mg PO BID tablet 09/03/15 12/26/16 Unknown Rx traZODone [Desyrel] 50 mg PO QHS tablet 09/03/15 12/26/16 Unknown Rx ALPRAZolam [Xanax TAB] 1 mg PO BID #10 tablet 12/27/16 Unknown Rx Multivitamin with Folic Acid [One 400 mcg PO DAILY #30 tablet 12/27/16 Unknown Rx Daily Multivitamin Tablet] Thiamine [Vitamin B-1] 100 mg PO QDAY #30 tablet 12/27/16 Unknown Rx hydrOXYzine PAMOATE [Vistaril] 50 mg PO Q6HR PRN #14 capsule 12/27/16 Unknown Rx Active Meds: Active Medications Acetaminophen (Tylenol) 650 mg PO Q4H PRN PRN Reason: Pain MILD(1-3)/Fever >100.5/JOE Bisacodyl (Dulcolax) 10 mg [place] QDAY PRN PRN Reason: Constipation unrelieved by MOM Citalopram Hydrobromide (Celexa) 40 mg PO QDAY IVANA Dextrose (D50w (25gm) Syringe) 50 ml IV PRN PRN PRN Reason: Hypoglycemia Famotidine (Pepcid) 20 mg PO BID IVANA Galantamine Hydrobromide (Razadyne) 4 mg PO BID IVANA Hydrophilic Ointment (Vaseline Lip Therapy) 1 applic TP Q2HR PRN PRN Reason: Dry Lips Sodium Chloride (Nacl 0.9% 1000 Ml) 1,000 mls @ 50 mls/hr IV DIRECT VIANA Piperacillin Sod/Tazobactam Sod (Zosyn/Ns 4.5gm/100ml) 4.5 gm in 100 mls @ 200 mls/hr IV Q8HR IVANA Lorazepam 100 mg/ Sodium Chloride/ Miscellaneous Information 100 mls @ 20 mls/ hr IV TITR IVANA; 20 MG/HR PRN Reason: Protocol Insulin Aspart (Novolog) 0 units SUB-Q ACHS IVANA PRN Reason: Protocol Lisinopril (Zestril) 2.5 mg PO QDAY IVANA Lorazepam (Ativan) 2 mg IV Q1HR PRN PRN Reason: CIWA-Ar 8-15 Lorazepam (Ativan) 4 mg IV Q1HR PRN PRN Reason: CIWA-Ar 16-25 Lorazepam (Ativan) 4 mg IV Q15MIN PRN PRN Reason: CIWA-Ar >25 Last Admin: 02/26/17 06:56 Dose: 4 mg Magnesium Hydroxide (Milk Of Magnesia) 30 ml PO Q4H PRN PRN Reason: Constipation Multi-Ingred Cream/Lotion/Oil/Oint (Artificial Tears Ophth Oint) 1 applic OU Q4HR PRN PRN Reason: Dry Eye(s) Multivitamins (Theragran Tab) 1 each PO DAILY IVANA Ondansetron HCl (Zofran) 4 mg IV Q8H PRN PRN Reason: N/V unrelieved by Reglan Ropinirole HCl (Requip) 1 mg PO BID IVANA Sodium Chloride (Nacl 0.9% 500 Ml) 1 ml IV DIRECT IVANA Thiamine HCl (Vitamin B-1) 100 mg PO QDAY [facility] Review of Systems ROS unobtainable: due to endotracheal tube Physical Examination Vital signs: Vital Signs Temp Pulse Resp BP Pulse Ox 98.7 F 101 H 24 151/63 97 02/26/17 03:30 02/26/17 03:30 02/26/17 03:30 02/26/17 03:30 02/26/17 03:30 General appearance: no acute distress, other (intubated, sedated) Eyes: non-icteric ENT: oropharynx moist, other (nasogastric tube to low intermittent suction) Neck: supple, no lymphadenopathy, no JVD Effort: normal (No patietn ventilatory dyssynchrony, Size 7.5 ETT in position) Ascultation: Bilateral: diminished breath sounds, other (rhonchi bilateral upper lobes anteriorly) Cardiovascular: regular rate and rhythm, other (S1, S2, no murmurs gallops or rubs) Gastrointestinal: normoactive bowel sounds, soft, non-tender, non-distended Integumentary: normal Extremities: no cyanosis, no edema, pulses normal, no ischemia or petechiae unable to assess (sedated) Results - Laboratory Findings CBC and BMP: 02/27/17 04:50 02/27/17 08:20 ABG POC ABG pH 7.283 (7.35-7.45) L 02/26/17 09:01 POC ABG pCO2 50.3 (35-45) H 02/26/17 09:01 POC ABG pO2 76 (80-105) L 02/26/17 09:01 POC ABG HCO3 23.8 02/26/17 09:01 POC ABG Total CO2 25 02/26/17 09:01 POC ABG O2 Sat 93 02/26/17 09:01 PT/INR, D-dimer PT 14.3 Sec. (12.2-14.9) 02/26/17 03:29 INR 1.06 (0.87-1.13) 02/26/17 03:29 D-Dimer 1145.32 ng/mlDDU (0-234) H 02/26/17 03:29 Abnormal lab findings: Abnormal Labs 02/26/17 09:01 POC ABG pH 7.283 L POC ABG pCO2 50.3 H POC ABG pO2 76 L - Diagnostic Findings Chest x-ray: report reviewed Assessment and Plan - Patient Problems (1) Acute respiratory failure with hypoxia and hypercapnia Current Visit: Yes Status: Acute Plan to address problem: Adjust minute ventilation for better gas exchange Lung protective strategies Analgesia Agitation management SCD for VTE prophylaxis, documented hematemesis Sarah catheter in this critically ill patient VAP bundle addressed Therapeutic dosing of proton pump inhibitor Daily SBT and SATs to assess readiness for weaning/liberation from the ventilator Delirium management (2) Hyponatremia syndrome Current Visit: Yes Status: Acute Plan to address problem: Send urine osmolality, serum osmolality and urine sodium Start NSaline infusion while monitoring serial BMPs Renal has been consulted. (3) Alcohol withdrawal Current Visit: Yes Status: Acute Qualifiers: Complication of substance-induced condition: with unspecified complication Qualified Code(s): F10.239 - Alcohol dependence with withdrawal, unspecified Plan to address problem: Alcohol withdrawal precautions Substance abuse counselling once patient is liberated from mechanical ventilatory support (4) GI bleeding Current Visit: Yes Status: Acute Qualifiers: GI bleed type/associated pathology: unspecified gastrointestinal hemorrhage type Gastritis type: G Qualified Code(s): K92.2 - Gastrointestinal hemorrhage, unspecified Plan to address problem: PPI (5) Thrombocytopenia concurrent with and due to alcoholism Current Visit: Yes Status: Acute Plan to address problem: Monitor closely and for any bleeding tendencies. SCDs for VTE prophylaxis (6) Hypokalemia Current Visit: Yes Status: Acute Plan to address problem: Replete potassium, keep potassium levels at 4 Critical care time in (mins) excluding proc time.: 65 Critical care attestation.: If time is entered above; I have spent that time in minutes in the direct care of this critically ill patient, excluding procedure time.
--- NOTE | 2017-02-26 09:40 | XRay Report ---
Portable chest: Line placement. The lungs are clear. The aorta is tortuous with a probably normal size heart. There is no vascular congestion. The cardiopulmonary findings appear unchanged prior study of 3:13 AM. There has been interval placement of nasogastric and endotracheal tubes in good positions. Impressions: Well-positioned life support tubes.
[2017-02-26] MEDS ORDERED: ENALAPRIL MALEATE 2.5 MG PO SCH (10:00)
[2017-02-26] MEDS ORDERED: MULTIVITAMIN WITH FOLIC ACID PO SCH (10:00)
--- NOTE | 2017-02-26 10:40 | Consultation ---
History of Present Illness - Reason for Consult Consult date: 02/26/17 hyponatremia Requesting physician: ROBERT SCHNEIDER - History of Present Illness 66-year-old male presents to the emergency department by EMS from home with a complaint of some left-sided chest pain as well as left arm pain in association with shortness of breath x 1 day duration. No aggravating or relieving factors. We are consulted after initial labs showed that his sodium was at 114 and potassium of 5.5. He is now intubated in ER. Past History Past Medical History: hypertension, other ( [id number] diabetes, seizures and alcoholism) Past Surgical History: Other (none) Social history: smoking, alcohol abuse. denies: IV drug use Family history: no significant family history Medications and Allergies Allergies Allergy/AdvReac Type Severity Reaction Status Date / Time No Known Allergies Allergy Verified 02/27/15 02:13 Home Medications Medication Instructions Recorded Confirmed Last Taken Type Citalopram [Celexa] 40 mg PO QDAY 09/02/15 12/26/16 Unknown History Enalapril Maleate [Vasotec] 2.5 mg PO DAILY 09/02/15 12/26/16 Unknown History Galantamine [Razadyne] 4 mg PO BID 09/02/15 12/26/16 Unknown History Famotidine [Pepcid] 20 mg PO BID #60 tablet 09/03/15 12/26/16 Unknown Rx metFORMIN [Glucophage] 500 mg PO TID tablet 09/03/15 12/26/16 Unknown Rx rOPINIRole [Requip] 1 mg PO BID tablet 09/03/15 12/26/16 Unknown Rx traZODone [Desyrel] 50 mg PO QHS tablet 09/03/15 12/26/16 Unknown Rx ALPRAZolam [Xanax TAB] 1 mg PO BID #10 tablet 12/27/16 Unknown Rx Multivitamin with Folic Acid [One 400 mcg PO DAILY #30 tablet 12/27/16 Unknown Rx Daily Multivitamin Tablet] Thiamine [Vitamin B-1] 100 mg PO QDAY #30 tablet 12/27/16 Unknown Rx hydrOXYzine PAMOATE [Vistaril] 50 mg PO Q6HR PRN #14 capsule 12/27/16 Unknown Rx Active Meds: Active Medications Acetaminophen (Tylenol) 650 mg PO Q4H PRN PRN Reason: Pain MILD(1-3)/Fever >100.5/JOE Bisacodyl (Dulcolax) 10 mg [place] QDAY PRN PRN Reason: Constipation unrelieved by MOM Citalopram Hydrobromide (Celexa) 40 mg PO QDAY IVANA Dextrose (D50w (25gm) Syringe) 50 ml IV PRN PRN PRN Reason: Hypoglycemia Famotidine (Pepcid) 20 mg PO BID IVANA Galantamine Hydrobromide (Razadyne) 4 mg PO BID IVANA Hydrophilic Ointment (Vaseline Lip Therapy) 1 applic TP Q2HR PRN PRN Reason: Dry Lips Piperacillin Sod/Tazobactam Sod (Zosyn/Ns 4.5gm/100ml) 4.5 gm in 100 mls @ 200 mls/hr IV Q8HR IVANA Last Admin: 02/26/17 09:00 Dose: 200 mls/hr Lorazepam 100 mg/ Sodium Chloride/ Miscellaneous Information 100 mls @ 20 mls/ hr IV TITR IVANA; 20 MG/HR PRN Reason: Protocol Sodium Chloride (Nacl 0.9% 1000 Ml) 1,000 mls @ 75 mls/hr IV DIRECT IVANA Insulin Aspart (Novolog) 0 units SUB-Q ACHS IVANA PRN Reason: Protocol Lisinopril (Zestril) 2.5 mg PO QDAY IVANA Lorazepam (Ativan) 2 mg IV Q1HR PRN PRN Reason: CIWA-Ar 8-15 Lorazepam (Ativan) 4 mg IV Q1HR PRN PRN Reason: CIWA-Ar 16-25 Lorazepam (Ativan) 4 mg IV Q15MIN PRN PRN Reason: CIWA-Ar >25 Last Admin: 02/26/17 07:00 Dose: 4 mg Magnesium Hydroxide (Milk Of Magnesia) 30 ml PO Q4H PRN PRN Reason: Constipation Multi-Ingred Cream/Lotion/Oil/Oint (Artificial Tears Ophth Oint) 1 applic OU Q4HR PRN PRN Reason: Dry Eye(s) Multivitamins (Theragran Tab) 1 each PO DAILY IVANA Ondansetron HCl (Zofran) 4 mg IV Q8H PRN PRN Reason: N/V unrelieved by Reglan Ropinirole HCl (Requip) 1 mg PO BID IVANA Sodium Chloride (Nacl 0.9% 500 Ml) 1 ml IV DIRECT IVANA Thiamine HCl (Vitamin B-1) 100 mg PO QDAY IVANA Review of Systems ROS unobtainable: due to endotracheal tube Exam - Vital Signs Vital signs: Vital Signs Temp Pulse Resp BP Pulse Ox 98.7 F 101 H 24 151/63 97 02/26/17 03:30 02/26/17 03:30 02/26/17 03:30 02/26/17 03:30 02/26/17 03:30 - General Appearance General appearance: well-developed, well-nourished, appears stated age, intubated EENT: PERRL, mucous membranes moist Neck: Present: neck supple, trachea midline. Absent: JVD/HJR, Masses Respiratory: Clear to Ascultation, Other (no wheezing ) Heart: regular, normal heart rate, S1S2, no murmurs Gastrointestinal: Present: normoactive bowel sounds, other (+ BS ). Absent: tenderness, distended, masses, guarding Integumentary: no rash, warm and dry Neurologic: no focal deficit, alert and oriented x3, gait normal, strength 5/5, obtunded Musculoskeletal: Absent: deformities, joint swelling Psychiatric: mood/affect appropriate, cooperative Results - Lab Results 02/26/17 03:29 02/26/17 10:08 Most recent lab results Calcium 8.8 mg/dL (8.4-10.2) 02/26/17 07:12 Assessment and Plan 1. Severe Hyponatremia possible causes include beer potomania/ SIADH 2. Acute respiratory failure, hypoxia 3. Hyperkalemia 4. Alcohol withdrawal with DTs 5. GI bleeding 6. Chest pain, possible secondary to #3 7. Thrombocytopenia Plan: -Start IVF -Obtain Urine studies including urinelytes and OSM -Serum OSM, TSH, uric acid levels -Check sodium level Q 4 hrs -Goal is to raise sodium by 10meQ in the next 24 hrs -Further recommendations to follow.
[2017-02-26 10:42] LABS: Anion Gap 21 mmol/L; BUN/Creatinine Ratio 21; Blood Urea Nitrogen 15 mg/dL (9-20); Calcium 8.4 mg/dL (8.4-10.2); Carbon Dioxide 23 mmol/L (22-30); Chloride 73.6 mmol/L (98-107); Glucose 216 mg/dL (75-100); Potassium 4.3 mmol/L (3.6-5.0)
[2017-02-26 10:44] LABS: Creatine Kinase MB 28.4 ng/mL (0.0-4.0); Sodium 113 mmol/L (137-145)
[2017-02-26 10:45] LABS: Creatine Kinase 1053 units/L (55-170)
[2017-02-26] MEDS: NOVOLOG SUB-Q SCH ×2 (11:22→18:39)
--- NOTE | 2017-02-26 11:40 | Gastroenterology Consultation ---
<IHSAN NEVES - Last Filed: 02/26/17 11:52> History of Present Illness - Reason for Consult Consult date: 02/26/17 esophagitis w/stranding Requesting physician: RAYMOND REID - History of Present Illness Patient is a 66 y/o male with PMH of diabetes, anxiety, depression, and hyperlipidemia who was admitted with alcohol withdrawal with DTs, acute severe hyponatremia, and CP. GI has been consulted for an abnormal chest CTA that showed esophagitis w/ stranding. Currently pt is intubated and sedated on an Ativan drip. He is unable to given history and no family at bedside. Information received via chart review. OG tube to LIS with coffee-ground gastric material noted. Abd soft, non-distended. Pt is currently hemodynamically stable. HGB 12.7 on admission. Past History Past Medical History: hypertension, other ( [id number] diabetes, seizures and alcoholism) Past Surgical History: Other (none) Social history: smoking, alcohol abuse. denies: IV drug use Family history: no significant family history Medications and Allergies Allergies Allergy/AdvReac Type Severity Reaction Status Date / Time No Known Allergies Allergy Verified 02/27/15 02:13 Home Medications Medication Instructions Recorded Confirmed Last Taken Type Citalopram [Celexa] 40 mg PO QDAY 09/02/15 12/26/16 Unknown History Enalapril Maleate [Vasotec] 2.5 mg PO DAILY 09/02/15 12/26/16 Unknown History Galantamine [Razadyne] 4 mg PO BID 09/02/15 12/26/16 Unknown History Famotidine [Pepcid] 20 mg PO BID #60 tablet 09/03/15 12/26/16 Unknown Rx metFORMIN [Glucophage] 500 mg PO TID tablet 09/03/15 12/26/16 Unknown Rx rOPINIRole [Requip] 1 mg PO BID tablet 09/03/15 12/26/16 Unknown Rx traZODone [Desyrel] 50 mg PO QHS tablet 09/03/15 12/26/16 Unknown Rx ALPRAZolam [Xanax TAB] 1 mg PO BID #10 tablet 12/27/16 Unknown Rx Multivitamin with Folic Acid [One 400 mcg PO DAILY #30 tablet 12/27/16 Unknown Rx Daily Multivitamin Tablet] Thiamine [Vitamin B-1] 100 mg PO QDAY #30 tablet 12/27/16 Unknown Rx hydrOXYzine PAMOATE [Vistaril] 50 mg PO Q6HR PRN #14 capsule 12/27/16 Unknown Rx Active Meds: Active Medications Acetaminophen (Tylenol) 650 mg PO Q4H PRN PRN Reason: Pain MILD(1-3)/Fever >100.5/JOE Bisacodyl (Dulcolax) 10 mg [place] QDAY PRN PRN Reason: Constipation unrelieved by MOM Citalopram Hydrobromide (Celexa) 40 mg PO QDAY IVANA Dextrose (D50w (25gm) Syringe) 50 ml IV PRN PRN PRN Reason: Hypoglycemia Famotidine (Pepcid) 20 mg PO BID IVANA Galantamine Hydrobromide (Razadyne) 4 mg PO BID IVANA Hydrophilic Ointment (Vaseline Lip Therapy) 1 applic TP Q2HR PRN PRN Reason: Dry Lips Piperacillin Sod/Tazobactam Sod (Zosyn/Ns 4.5gm/100ml) 4.5 gm in 100 mls @ 200 mls/hr IV Q8HR IVANA Last Admin: 02/26/17 09:00 Dose: 200 mls/hr Lorazepam 100 mg/ Sodium Chloride/ Miscellaneous Information 100 mls @ 20 mls/ hr IV TITR IVANA; 20 MG/HR PRN Reason: Protocol Sodium Chloride (Nacl 0.9% 1000 Ml) 1,000 mls @ 75 mls/hr IV DIRECT IVANA Insulin Aspart (Novolog) 0 units SUB-Q ACHS IVANA PRN Reason: Protocol Last Admin: 02/26/17 11:22 Dose: 1 units Lisinopril (Zestril) 2.5 mg PO QDAY IVANA Lorazepam (Ativan) 2 mg IV Q1HR PRN PRN Reason: CIWA-Ar 8-15 Lorazepam (Ativan) 4 mg IV Q1HR PRN PRN Reason: CIWA-Ar 16-25 Lorazepam (Ativan) 4 mg IV Q15MIN PRN PRN Reason: CIWA-Ar >25 Last Admin: 02/26/17 07:00 Dose: 4 mg Magnesium Hydroxide (Milk Of Magnesia) 30 ml PO Q4H PRN PRN Reason: Constipation Multi-Ingred Cream/Lotion/Oil/Oint (Artificial Tears Ophth Oint) 1 applic OU Q4HR PRN PRN Reason: Dry Eye(s) Multivitamins (Theragran Tab) 1 each PO DAILY [facility] Ondansetron HCl (Zofran) 4 mg IV Q8H PRN PRN Reason: N/V unrelieved by Reglan Ropinirole HCl (Requip) 1 mg PO BID [facility] Sodium Chloride (Nacl 0.9% 500 Ml) 1 ml IV DIRECT IVANA Thiamine HCl (Vitamin B-1) 100 mg PO QDAY [facility] Review of Systems - Review of Systems ROS unobtainable: due to endotracheal tube, due to mental status Exam - Constitutional Vital Signs: Temp Pulse Resp BP Pulse Ox 98.4 F 86 24 96/62 99 02/26/17 11:01 02/26/17 11:01 02/26/17 11:01 02/26/17 11:01 02/26/17 11:01 General appearance: no acute distress, other (intubated and sedated) - Respiratory Respiratory: bilateral: CTA (anterior) - Cardiovascular Rhythm: regular Heart Sounds: Present: S1 & S2 Extremities: No edema - Gastrointestinal General gastrointestinal: Present: soft, non-distended, normal bowel sounds - Integumentary Integumentary: Present: warm, dry - Neurologic Neurological: other (unable to assess) - Psychiatric Psychiatric: other (unable to assess) - Labs CBC & Chem 7: 02/26/17 03:29 02/26/17 10:08 Lab Results: Laboratory Results - last 24 hr 02/26/17 02/26/17 02/26/17 09:01 09:16 10:08 POC ABG pH 7.283 L POC ABG pCO2 50.3 H POC ABG pO2 76 L POC ABG HCO3 23.8 POC ABG Total CO2 25 POC ABG O2 Sat 93 POC ABG Base Excess -3 FiO2 50 Sodium 113 L* Potassium 4.3 D Chloride 73.6 L Carbon Dioxide 23 Anion Gap 21 BUN 15 Creatinine 0.7 L Estimated GFR > 60 BUN/Creatinine Ratio 21 Glucose 216 H POC Glucose Osmolality Uric Acid Calcium 8.4 Total Creatine Kinase CK-MB (CK-2) CK-MB (CK-2) Rel Index Troponin T < 0.010 02/26/17 02/26/17 02/26/17 10:08 10:08 10:08 POC ABG pH POC ABG pCO2 POC ABG pO2 POC ABG HCO3 POC ABG Total CO2 POC ABG O2 Sat POC ABG Base Excess FiO2 Sodium Potassium Chloride Carbon Dioxide Anion Gap BUN Creatinine Estimated GFR BUN/Creatinine Ratio Glucose POC Glucose Osmolality 252 Uric Acid 8.0 H Calcium Total Creatine Kinase 1053 H CK-MB (CK-2) 28.4 H CK-MB (CK-2) Rel Index 2.6 Troponin T < 0.010 02/26/17 11:23 POC ABG pH POC ABG pCO2 POC ABG pO2 POC ABG HCO3 POC ABG Total CO2 POC ABG O2 Sat POC ABG Base Excess FiO2 Sodium Potassium Chloride Carbon Dioxide Anion Gap BUN Creatinine Estimated GFR BUN/Creatinine Ratio Glucose POC Glucose 189 H Osmolality Uric Acid Calcium Total Creatine Kinase CK-MB (CK-2) CK-MB (CK-2) Rel Index Troponin T Assessment and Plan 1.esophagitis w/stranding 2.coffee-ground emesis 3.alcohol withdrawal with DTs 4.acute severe hyponatremia -WBC 18.1 -plt 135, AST 49, ALT 28, T. earl 1.30, INR 1.06 -chest CTA showed esophagitis w/ stranding-etiology infectious vs inflammatory vs neoplastic -HGB 12.7- OG tube to LIS with coffee-ground gastric material -continue to monitor H/H and transfuse as needed -hold blood thinning medications -hemodynamically stable at this time -currently intubated and sedated on Ativan drip -will start on PPI BID -Will consider EGD once pt medically stable -will follow <HANNAH BENNETT - Last Filed: 02/26/17 17:19> Medications and Allergies Active Meds: Active Medications Acetaminophen (Tylenol) 650 mg PO Q4H PRN PRN Reason: Pain MILD(1-3)/Fever >100.5/JOE Bisacodyl (Dulcolax) 10 mg [place] QDAY PRN PRN Reason: Constipation unrelieved by MOM Citalopram Hydrobromide (Celexa) 40 mg PO QDAY [facility] Last Admin: 02/26/17 11:49 Dose: Not Given Dextrose (D50w (25gm) Syringe) 50 ml IV PRN PRN PRN Reason: Hypoglycemia Famotidine (Pepcid) 20 mg PO BID [facility] Last Admin: 02/26/17 11:49 Dose: Not Given Galantamine Hydrobromide (Razadyne) 4 mg PO BID [facility] Last Admin: 02/26/17 11:49 Dose: Not Given Hydrophilic Ointment (Vaseline Lip Therapy) 1 applic TP Q2HR PRN PRN Reason: Dry Lips Piperacillin Sod/Tazobactam Sod (Zosyn/Ns 4.5gm/100ml) 4.5 gm in 100 mls @ 200 mls/hr IV Q8HR [facility] Last Admin: 02/26/17 15:51 Dose: 200 mls/hr Lorazepam 100 mg/ Sodium Chloride/ Miscellaneous Information 100 mls @ 20 mls/ hr IV TITR IVANA; 20 MG/HR PRN Reason: Protocol Last Admin: 02/26/17 14:18 Dose: 20 mg/hr, 20 mls/hr Sodium Chloride (Nacl 0.9% 1000 Ml) 1,000 mls @ 75 mls/hr IV DIRECT IVANA Last Admin: 02/26/17 13:22 Dose: 75 mls/hr Insulin Aspart (Novolog) 0 units SUB-Q ACHS [facility] PRN Reason: Protocol Last Admin: 02/26/17 11:22 Dose: 1 units Lisinopril (Zestril) 2.5 mg PO QDAY [facility] Last Admin: 02/26/17 11:50 Dose: Not Given Lorazepam (Ativan) 2 mg IV Q1HR PRN PRN Reason: CIWA-Ar 8-15 Lorazepam (Ativan) 4 mg IV Q1HR PRN PRN Reason: CIWA-Ar 16-25 Lorazepam (Ativan) 4 mg IV Q15MIN PRN PRN Reason: CIWA-Ar >25 Last Admin: 02/26/17 12:36 Dose: 4 mg Magnesium Hydroxide (Milk Of Magnesia) 30 ml PO Q4H PRN PRN Reason: Constipation Multi-Ingred Cream/Lotion/Oil/Oint (Artificial Tears Ophth Oint) 1 applic OU Q4HR PRN PRN Reason: Dry Eye(s) Multivitamins (Theragran Tab) 1 each PO DAILY [facility] Last Admin: 02/26/17 11:49 Dose: Not Given Ondansetron HCl (Zofran) 4 mg IV Q8H PRN PRN Reason: N/V unrelieved by Gigi Pantoprazole Sodium (Protonix) 40 mg IV BID [facility] Last Admin: 02/26/17 14:24 Dose: 40 mg Ropinirole HCl (Requip) 1 mg PO BID [facility] Last Admin: 02/26/17 11:49 Dose: Not Given Sodium Chloride (Nacl 0.9% 500 Ml) 1 ml IV DIRECT [facility] Thiamine HCl (Vitamin B-1) 100 mg PO QDAY [facility] Last Admin: 02/26/17 11:50 Dose: Not Given Exam - Constitutional Vital Signs: Temp Pulse Resp BP Pulse Ox 98.4 F 74 26 H 94/60 99 02/26/17 11:01 02/26/17 16:00 02/26/17 14:14 02/26/17 14:14 02/26/17 16:00 - Labs CBC & Chem 7: 02/26/17 03:29 02/26/17 10:08 Lab Results: Laboratory Results - last 24 hr 02/26/17 02/26/17 02/26/17 09:01 09:16 10:08 POC ABG pH 7.283 L POC ABG pCO2 50.3 H POC ABG pO2 76 L POC ABG HCO3 23.8 POC ABG Total CO2 25 POC ABG O2 Sat 93 POC ABG Base Excess -3 FiO2 50 Sodium 113 L* Potassium 4.3 D Chloride 73.6 L Carbon Dioxide 23 Anion Gap 21 BUN 15 Creatinine 0.7 L Estimated GFR > 60 BUN/Creatinine Ratio 21 Glucose 216 H POC Glucose Osmolality Uric Acid Calcium 8.4 Total Creatine Kinase CK-MB (CK-2) CK-MB (CK-2) Rel Index Troponin T < 0.010 [facility] 02/26/17 02/26/17 02/26/17 10:08 10:08 10:08 POC ABG pH POC ABG pCO2 POC ABG pO2 POC ABG HCO3 POC ABG Total CO2 POC ABG O2 Sat POC ABG Base Excess FiO2 Sodium Potassium Chloride Carbon Dioxide Anion Gap BUN Creatinine Estimated GFR BUN/Creatinine Ratio Glucose POC Glucose Osmolality 252 Uric Acid 8.0 H Calcium Total Creatine Kinase 1053 H CK-MB (CK-2) 28.4 H CK-MB (CK-2) Rel Index 2.6 Troponin T < 0.010 [facility] 02/26/17 02/26/17 10:08 11:23 POC ABG pH POC ABG pCO2 POC ABG pO2 POC ABG HCO3 POC ABG Total CO2 POC ABG O2 Sat POC ABG Base Excess FiO2 Sodium Potassium Chloride Carbon Dioxide Anion Gap BUN Creatinine Estimated GFR BUN/Creatinine Ratio Glucose POC Glucose 189 H Osmolality Uric Acid Calcium Total Creatine Kinase CK-MB (CK-2) CK-MB (CK-2) Rel Index Troponin T TSH 1.820 Assessment and Plan - Patient Problems (1) Esophagitis Current Visit: Yes Status: Acute Plan to address problem: The patient was seen and examined. CT revealed suspected esophagitis. Patient is intubated currently and agitated. He is probably in alcohol withdrawl. The ER nurse reported that his girlfriend stated he drinks a lot on a daily basis. Will consider for endoscopy once improved. Thank you for this consultation.
[2017-02-26] MEDS: REQUIP PO SCH (11:49)
[2017-02-26] MEDS: PEPCID PO SCH (11:49)
[2017-02-26] MEDS: RAZADYNE PO SCH (11:49)
[2017-02-26] MEDS: THERAGRAN Tab PO SCH (11:49)
[2017-02-26] MEDS: celeXA PO SCH (11:49)
[2017-02-26] MEDS: VITAMIN B-1 PO SCH (11:50)
[2017-02-26] MEDS: ZESTRIL PO SCH (11:50)
[2017-02-26] MEDS: NACL 0.9% 1000 ML 1,000 ML IV SCH (13:22)
[2017-02-26] MEDS ORDERED: QUELICIN ONE (14:02)
[2017-02-26] MEDS ORDERED: ZEMURON IV ONE ×2 (14:02→16:00)
[2017-02-26] MEDS ORDERED: AMIDATE IV ONE ×2 (14:02→16:00)
[2017-02-26] MEDS: PROTONIX IV SCH (14:24)
--- NOTE | 2017-02-26 16:37 | Event Note ---
Date: 02/26/17 Indocin and evaluated, H&P done this morning was revised, labs and imaging were noted. Continue the management plan H&P. This morning patient was not able to take care of his airways and was intubated and on mechanical ventilation.
[2017-02-26 19:58] LABS: BUN/Creatinine Ratio 23; Blood Urea Nitrogen 16 mg/dL (9-20); Calcium 8.5 mg/dL (8.4-10.2); Carbon Dioxide 14 mmol/L (22-30); Chloride 72.4 mmol/L (98-107); Glucose 215 mg/dL (75-100); Potassium 4.4 mmol/L (3.6-5.0)
[2017-02-26 20:00] LABS: Creatine Kinase MB 22.9 ng/mL (0.0-4.0)
[2017-02-26 20:13] LABS: Anion Gap 34 mmol/L; Sodium 116 mmol/L (137-145)
[2017-02-26] MEDS ORDERED: HALDOL IM ONE (20:13)
[2017-02-26] MEDS ORDERED: HALDOL ONE (20:17)
[2017-02-26 23:37] LABS: Creatine Kinase MB 11.8 ng/mL (0.0-4.0)
[2017-02-27] MEDS: NOVOLOG SUB-Q SCH ×5 (03:45→22:52)
[2017-02-27] MEDS: PEPCID PO SCH ×3 (04:03→21:48)
[2017-02-27] MEDS: PROTONIX IV SCH ×3 (04:26→21:48)
[2017-02-27 05:08] LABS: Basophils % (Auto) 0.5 % (0.0-1.8); Eosinophils % (Auto) 0.2 % (0.0-4.3); Hematocrit 31.4 % (35.5-45.6); Hemoglobin 11.3 gm/dl (11.8-15.2); Mean Corpuscular HGB Conc 36 % (32-34); Mean Corpuscular Hemoglobin 32 pg (28-32); Mean Corpuscular Volume 90 fl (84-94); Platelet Count 88 K/mm3 (140-440); Red Blood Count 3.49 M/mm3 (3.65-5.03); Red Cell Distribution Width 15.8 % (13.2-15.2); White Blood Count 14.4 K/mm3 (4.5-11.0)
[2017-02-27] MEDS: REQUIP PO SCH ×3 (06:05→21:49)
[2017-02-27] MEDS: RAZADYNE PO SCH ×3 (06:09→21:49)
[2017-02-27] MEDS: ZOSYN/NS 4.5GM/100ML 4.5 GM/100 ML VIAL IV SCH ×4 (06:09→21:47)
[2017-02-27 08:50] LABS: BUN/Creatinine Ratio 13; Blood Urea Nitrogen 12 mg/dL (9-20); Calcium 8.1 mg/dL (8.4-10.2); Carbon Dioxide 23 mmol/L (22-30); Chloride 90.1 mmol/L (98-107); Glucose 150 mg/dL (75-100); Potassium 3.2 mmol/L (3.6-5.0); Sodium 128 mmol/L (137-145)
[2017-02-27] MEDS: ATIVAN 100 MG in NACL 0.9% 50 ML, VIAFLEX EMPTY CONTAINER 0 ML IV SCH (09:00)
[2017-02-27 09:06] LABS: Anion Gap 18 mmol/L
[2017-02-27 09:27] LABS: ISTAT Base Excess -1; ISTAT HCO3 23.9; ISTAT PCO2 36.8 (35-45); ISTAT PO2 178 (80-105); ISTAT SO2 100; ISTAT TCO2 25
--- NOTE | 2017-02-27 09:38 | Gastroenterology Progress Note ---
Assessment and Plan 1.esophagitis w/stranding 2.coffee-ground emesis 3.alcohol withdrawal with DTs 4.acute severe hyponatremia -chest CTA showed esophagitis w/ stranding-etiology infectious vs inflammatory vs neoplastic -HGB 11.3- trending down -OG tube to LIS with non-bloody gastric material- no active signs of bleeding overnight or this am per nursing -continue to monitor H/H and transfuse as needed -hold blood thinning medications -hemodynamically stable at this time -currently intubated and sedated on Ativan drip 2/2 alcohol withdrawal -continue PPI BID -Will consider EGD once pt's conditions is improved, unless overt bleeding develops -will follow Subjective Date of service: 02/27/17 Principal diagnosis: esophagitis Interval history: Patient intubated and sedated. No acute distress. No signs of active bleeding overnight or this am per nursing. Objective - Constitutional Vitals: Temp Pulse Resp BP Pulse Ox 99.1 F 77 24 96/56 97 02/27/17 01:43 02/27/17 05:33 02/27/17 01:43 02/27/17 05:33 02/27/17 05:33 General appearance: no acute distress, other (intubated and sedated) - Respiratory Respiratory: bilateral: CTA (anterior) - Cardiovascular Rhythm: regular Heart Sounds: Present: S1 & S2 - Extremities Extremities: No edema - Gastrointestinal General gastrointestinal: Present: soft, non-distended, normal bowel sounds - Integumentary Integumentary: Present: warm, dry - Neurologic Neurological: other (unable to assess) - Psychiatric Psychiatric: other (unable to assess) - Labs CBC & Chem 7: 02/27/17 04:50 02/27/17 08:20 Labs: Laboratory Results - last 24 hr 02/26/17 02/26/17 02/26/17 09:16 10:08 10:08 WBC RBC Hgb Hct MCV MCH MCHC RDW Plt Count Lymph % (Auto) [place] % (Auto) Eos % (Auto) Baso % (Auto) Lymph # [place] # Eos # Baso # Seg Neutrophils % Seg Neutrophils # POC ABG pH POC ABG pCO2 POC ABG pO2 POC ABG HCO3 POC ABG Total CO2 POC ABG O2 Sat POC ABG Base Excess FiO2 Sodium 113 L* Potassium 4.3 D Chloride 73.6 L Carbon Dioxide 23 Anion Gap 21 BUN 15 Creatinine 0.7 L Estimated GFR > 60 BUN/Creatinine Ratio 21 Glucose 216 H POC Glucose Osmolality Uric Acid Calcium 8.4 Total Creatine Kinase 1053 H CK-MB (CK-2) 28.4 H CK-MB (CK-2) Rel Index 2.6 Troponin T < 0.010 < 0.010 TSH Urine Osmolality Urine Creatinine Urine Sodium Urine Chloride 02/26/17 02/26/17 02/26/17 10:08 10:08 10:08 WBC RBC Hgb Hct MCV MCH MCHC RDW Plt Count Lymph % (Auto) [place] % (Auto) Eos % (Auto) Baso % (Auto) Lymph # [place] # Eos # Baso # Seg Neutrophils % Seg Neutrophils # POC ABG pH POC ABG pCO2 POC ABG pO2 POC ABG HCO3 POC ABG Total CO2 POC ABG O2 Sat POC ABG Base Excess FiO2 Sodium Potassium Chloride Carbon Dioxide Anion Gap BUN Creatinine Estimated GFR BUN/Creatinine Ratio Glucose POC Glucose Osmolality 252 Uric Acid 8.0 H Calcium Total Creatine Kinase CK-MB (CK-2) CK-MB (CK-2) Rel Index Troponin T TSH 1.820 Urine Osmolality Urine Creatinine Urine Sodium Urine Chloride 02/26/17 02/26/17 02/26/17 11:23 18:00 18:26 WBC RBC Hgb Hct MCV MCH MCHC RDW Plt Count Lymph % (Auto) [place] % (Auto) Eos % (Auto) Baso % (Auto) Lymph # [place] # Eos # Baso # Seg Neutrophils % Seg Neutrophils # POC ABG pH POC ABG pCO2 POC ABG pO2 POC ABG HCO3 POC ABG Total CO2 POC ABG O2 Sat POC ABG Base Excess FiO2 Sodium 116 L* Potassium 4.4 Chloride 72.4 L Carbon Dioxide 14 L D Anion Gap 34 BUN 16 Creatinine 0.7 L Estimated GFR > 60 BUN/Creatinine Ratio 23 Glucose 215 H POC Glucose 189 H Osmolality Uric Acid Calcium 8.5 Total Creatine Kinase CK-MB (CK-2) CK-MB (CK-2) Rel Index Troponin T TSH Urine Osmolality 419 Urine Creatinine 49.4 H Urine Sodium 10 Urine Chloride 10.0 L 02/26/17 02/26/17 02/26/17 18:26 18:38 22:53 WBC RBC Hgb Hct MCV MCH MCHC RDW Plt Count Lymph % (Auto) [place] % (Auto) Eos % (Auto) Baso % (Auto) Lymph # [place] # Eos # Baso # Seg Neutrophils % Seg Neutrophils # POC ABG pH POC ABG pCO2 POC ABG pO2 POC ABG HCO3 POC ABG Total CO2 POC ABG O2 Sat POC ABG Base Excess FiO2 Sodium Potassium Chloride Carbon Dioxide Anion Gap BUN Creatinine Estimated GFR BUN/Creatinine Ratio Glucose POC Glucose 138 H Osmolality Uric Acid Calcium Total Creatine Kinase 1085 H 1367 H CK-MB (CK-2) 22.9 H 11.8 H CK-MB (CK-2) Rel Index 2.1 0.8 Troponin T TSH Urine Osmolality Urine Creatinine Urine Sodium Urine Chloride 02/27/17 02/27/17 02/27/17 01:17 04:50 05:37 WBC 14.4 H RBC 3.49 L Hgb 11.3 L Hct 31.4 L MCV 90 MCH 32 MCHC 36 H RDW 15.8 H Plt Count 88 L Lymph % (Auto) 9.6 L [place] % (Auto) 9.7 H Eos % (Auto) 0.2 Baso % (Auto) 0.5 Lymph # 1.4 [place] # 1.4 H Eos # 0.0 Baso # 0.1 Seg Neutrophils % 80.0 H Seg Neutrophils # 11.6 H POC ABG pH 7.420 POC ABG pCO2 36.8 POC ABG pO2 178 H POC ABG HCO3 23.9 POC ABG Total CO2 25 POC ABG O2 Sat 100 POC ABG Base Excess -1 FiO2 50 Sodium Potassium Chloride Carbon Dioxide Anion Gap BUN Creatinine Estimated GFR BUN/Creatinine Ratio Glucose POC Glucose 161 H Osmolality Uric Acid Calcium Total Creatine Kinase CK-MB (CK-2) CK-MB (CK-2) Rel Index Troponin T TSH Urine Osmolality Urine Creatinine Urine Sodium Urine Chloride 02/27/17 02/27/17 08:20 09:14 WBC RBC Hgb Hct MCV MCH MCHC RDW Plt Count Lymph % (Auto) [place] % (Auto) Eos % (Auto) Baso % (Auto) Lymph # [place] # Eos # Baso # Seg Neutrophils % Seg Neutrophils # POC ABG pH POC ABG pCO2 POC ABG pO2 POC ABG HCO3 POC ABG Total CO2 POC ABG O2 Sat POC ABG Base Excess FiO2 Sodium 128 L D Potassium 3.2 L D Chloride 90.1 L Carbon Dioxide 23 D Anion Gap 18 BUN 12 Creatinine 0.9 Estimated GFR > 60 BUN/Creatinine Ratio 13 Glucose 150 H POC Glucose 144 H Osmolality Uric Acid Calcium 8.1 L Total Creatine Kinase CK-MB (CK-2) CK-MB (CK-2) Rel Index Troponin T TSH Urine Osmolality Urine Creatinine Urine Sodium Urine Chloride
[2017-02-27 11:32] LABS: ISTAT Base Excess -1; ISTAT PCO2 37.7 (35-45); ISTAT PH 7.413 (7.35-7.45); ISTAT PO2 119 (80-105); ISTAT SO2 99; ISTAT TCO2 25
--- NOTE | 2017-02-27 12:01 | Progress Note ---
Assessment and Plan - Patient Problems (1) Acute respiratory failure with hypoxia and hypercapnia Current Visit: Yes Status: Acute Plan to address problem: Adequate gas exchange on current settings Lung protective strategies Analgesia Agitation management SCD for VTE prophylaxis, documented hematemesis Sarah catheter in this critically ill patient VAP bundle addressed Therapeutic dosing of proton pump inhibitor For SBT and SATs to assess readiness for weaning/liberation from the ventilator Lorazepam to be held, once awake place on SBT pSv8/5. Get weaning parameters and if acceptable, will plan to liberate from mechanical ventilatory support. Delirium management (2) Thrombocytopenia concurrent with and due to alcoholism Current Visit: Yes Status: Acute Plan to address problem: Monitor closely and for any bleeding tendencies. SCDs for VTE prophylaxis (3) Alcohol withdrawal Current Visit: Yes Status: Acute Qualifiers: Complication of substance-induced condition: with unspecified complication Qualified Code(s): F10.239 - Alcohol dependence with withdrawal, unspecified Plan to address problem: Alcohol withdrawal precautions Substance abuse counselling once patient is liberated from mechanical ventilatory support (4) Hyponatremia syndrome Current Visit: Yes Status: Acute Plan to address problem: Continue NSaline infusion while monitoring serial BMPs Renal has been consulted. (5) GI bleeding Current Visit: Yes Status: Acute Qualifiers: GI bleed type/associated pathology: unspecified gastrointestinal hemorrhage type Gastritis type: G Qualified Code(s): K92.2 - Gastrointestinal hemorrhage, unspecified Plan to address problem: PPI Upper endoscopy by GI service when more stable Subjective Date of service: 02/27/17 Principal diagnosis: esophagitis Interval history: Patient seen and examined. Vitals, labs, medications, chart reviewed. No acute overnight events reported by RN Currently on a lorazepam infusion. Remains intubated on mechanical ventilatory support. Care plan discussed with RT and RN at the bedside Objective - Exam Narrative Exam: Not in cardiopulmonary distress. s/p ETT to MVS. No ventilator-patient dysynchrony The patient appeared well nourished and normally developed. Vital signs as documented. Head exam is unremarkable. No scleral icterus . Neck is without jugular venous distension, thyromegaly, or carotid bruits. Lungs are clear to auscultation. Cardiac exam reveals regular rate and Rhythm. Abdominal exam reveals normal bowel sounds, no masses, no organomegaly and no aortic enlargement. Extremities are nonedematous and both femoral and pedal pulses are normal. 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 Vital Signs - 12hr 02/27/17 02/27/17 02/27/17 00:00 01:00 01:43 Temperature 99.1 F Pulse Rate 73 68 68 Respiratory 24 24 24 Rate Blood Pressure 86/47 88/50 Blood Pressure 136/78 [Right] O2 Sat by Pulse 93 91 91 Oximetry 02/27/17 02/27/17 02/27/17 01:45 02:00 02:15 Temperature Pulse Rate 69 68 69 Respiratory 24 24 24 Rate Blood Pressure 92/53 88/50 86/52 Blood Pressure [Right] O2 Sat by Pulse 89 Oximetry 02/27/17 02/27/17 02/27/17 02:30 02:45 03:01 Temperature Pulse Rate 66 66 101 H Respiratory 24 24 12 Rate Blood Pressure 88/51 86/50 86/52 Blood Pressure [Right] O2 Sat by Pulse 93 Oximetry 02/27/17 02/27/17 02/27/17 03:15 03:30 03:45 Temperature Pulse Rate 86 76 72 Respiratory 12 24 24 Rate Blood Pressure 107/59 88/51 87/51 Blood Pressure [Right] O2 Sat by Pulse Oximetry 02/27/17 02/27/17 02/27/17 04:00 04:15 04:30 Temperature Pulse Rate 69 67 65 Respiratory 24 24 24 Rate Blood Pressure 83/49 81/47 87/50 Blood Pressure [Right] O2 Sat by Pulse Oximetry 02/27/17 02/27/17 02/27/17 04:45 05:01 05:15 Temperature Pulse Rate 94 H 93 H 95 H Respiratory 17 18 19 Rate Blood Pressure 87/50 137/73 117/56 Blood Pressure [Right] O2 Sat by Pulse Oximetry 02/27/17 02/27/17 02/27/17 05:30 05:33 05:45 Temperature Pulse Rate 82 77 77 Respiratory 22 20 Rate Blood Pressure 96/56 96/56 88/53 Blood Pressure [Right] O2 Sat by Pulse 97 Oximetry 02/27/17 02/27/17 02/27/17 06:00 06:15 06:30 Temperature Pulse Rate 72 71 74 Respiratory 20 20 20 Rate Blood Pressure 85/52 89/52 86/52 Blood Pressure [Right] O2 Sat by Pulse Oximetry 02/27/17 02/27/17 02/27/17 06:45 07:01 07:15 Temperature Pulse Rate 70 110 H Respiratory 20 22 11 L Rate Blood Pressure 92/55 116/88 116/88 Blood Pressure [Right] O2 Sat by Pulse Oximetry 02/27/17 02/27/17 02/27/17 07:20 07:30 07:45 Temperature Pulse Rate 70 76 71 Respiratory 21 20 Rate Blood Pressure 95/54 101/56 95/54 Blood Pressure [Right] O2 Sat by Pulse 100 Oximetry 02/27/17 02/27/17 02/27/17 08:00 08:15 08:30 Temperature Pulse Rate 68 67 65 Respiratory 20 20 20 Rate Blood Pressure 94/53 91/55 94/53 Blood Pressure [Right] O2 Sat by Pulse Oximetry 02/27/17 02/27/17 02/27/17 08:45 09:01 09:15 Temperature Pulse Rate 91 H 82 88 Respiratory 11 L 19 13 Rate Blood Pressure 94/53 124/80 115/71 Blood Pressure [Right] O2 Sat by Pulse 99 Oximetry 02/27/17 02/27/17 02/27/17 09:38 09:43 09:45 Temperature 98.4 F Pulse Rate 86 94 H Respiratory 20 15 Rate Blood Pressure 115/71 108/60 Blood Pressure 115/71 [Right] O2 Sat by Pulse 98 99 98 Oximetry 02/27/17 02/27/17 02/27/17 10:00 11:29 11:35 Temperature Pulse Rate 79 90 Respiratory 20 15 Rate Blood Pressure 95/54 98/30 Blood Pressure [Right] O2 Sat by Pulse 98 99 Oximetry CBC and BMP: 02/27/17 04:50 02/27/17 08:20 ABG, PT/INR, D-dimer: ABG POC ABG pH 7.413 (7.35-7.45) 02/27/17 11:28 POC ABG pCO2 37.7 (35-45) 02/27/17 11:28 POC ABG pO2 119 (80-105) H 02/27/17 11:28 POC ABG HCO3 24.0 02/27/17 11:28 POC ABG Total CO2 25 02/27/17 11:28 POC ABG O2 Sat 99 02/27/17 11:28 PT/INR, D-dimer PT 14.3 Sec. (12.2-14.9) 02/26/17 03:29 INR 1.06 (0.87-1.13) 02/26/17 03:29 D-Dimer 1145.32 ng/mlDDU (0-234) H 02/26/17 03:29 Abnormal lab findings: Abnormal Labs 02/26/17 02/26/17 02/26/17 09:01 10:08 10:08 WBC RBC Hgb Hct MCHC RDW Plt Count Lymph % (Auto) [place] % (Auto) [place] # Seg Neutrophils % Seg Neutrophils # POC ABG pH 7.283 L POC ABG pCO2 50.3 H POC ABG pO2 76 L Sodium 113 L* Potassium Chloride 73.6 L Carbon Dioxide Creatinine 0.7 L Glucose 216 H POC Glucose Uric Acid Calcium Total Creatine Kinase 1053 H CK-MB (CK-2) 28.4 H Urine Creatinine Urine Chloride 02/26/17 02/26/17 02/26/17 10:08 11:23 18:00 WBC RBC Hgb Hct MCHC RDW Plt Count Lymph % (Auto) [place] % (Auto) [place] # Seg Neutrophils % Seg Neutrophils # POC ABG pH POC ABG pCO2 POC ABG pO2 Sodium Potassium Chloride Carbon Dioxide Creatinine Glucose POC Glucose 189 H Uric Acid 8.0 H Calcium Total Creatine Kinase CK-MB (CK-2) Urine Creatinine 49.4 H Urine Chloride 10.0 L 02/26/17 02/26/17 02/26/17 18:26 18:26 18:38 WBC RBC Hgb Hct MCHC RDW Plt Count Lymph % (Auto) [place] % (Auto) [place] # Seg Neutrophils % Seg Neutrophils # POC ABG pH POC ABG pCO2 POC ABG pO2 Sodium 116 L* Potassium Chloride 72.4 L Carbon Dioxide 14 L D Creatinine 0.7 L Glucose 215 H POC Glucose 138 H Uric Acid Calcium Total Creatine Kinase 1085 H CK-MB (CK-2) 22.9 H Urine Creatinine Urine Chloride 02/26/17 02/27/17 02/27/17 22:53 01:17 04:50 WBC 14.4 H RBC 3.49 L Hgb 11.3 L Hct 31.4 L MCHC 36 H RDW 15.8 H Plt Count 88 L Lymph % (Auto) 9.6 L [place] % (Auto) 9.7 H [place] # 1.4 H Seg Neutrophils % 80.0 H Seg Neutrophils # 11.6 H POC ABG pH POC ABG pCO2 POC ABG pO2 Sodium Potassium Chloride Carbon Dioxide Creatinine Glucose POC Glucose 161 H Uric Acid Calcium Total Creatine Kinase 1367 H CK-MB (CK-2) 11.8 H Urine Creatinine Urine Chloride 02/27/17 02/27/17 02/27/17 05:37 08:20 09:14 WBC RBC Hgb Hct MCHC RDW Plt Count Lymph % (Auto) [place] % (Auto) [place] # Seg Neutrophils % Seg Neutrophils # POC ABG pH POC ABG pCO2 POC ABG pO2 178 H Sodium 128 L D Potassium 3.2 L D Chloride 90.1 L Carbon Dioxide Creatinine Glucose 150 H POC Glucose 144 H Uric Acid Calcium 8.1 L Total Creatine Kinase CK-MB (CK-2) Urine Creatinine Urine Chloride 02/27/17 11:28 WBC RBC Hgb Hct MCHC RDW Plt Count Lymph % (Auto) [place] % (Auto) [place] # Seg Neutrophils % Seg Neutrophils # POC ABG pH POC ABG pCO2 POC ABG pO2 119 H Sodium Potassium Chloride Carbon Dioxide Creatinine Glucose POC Glucose Uric Acid Calcium Total Creatine Kinase CK-MB (CK-2) Urine Creatinine Urine Chloride Allied health notes reviewed: RT Critical care time in (mins) excluding proc time.: 31 Critical care attestation.: If time is entered above; I have spent that time in minutes in the direct care of this critically ill patient, excluding procedure time.
--- NOTE | 2017-02-27 12:11 | Progress Note ---
Assessment and Plan 1. Severe Hyponatremia possible causes include beer potomania/ SIADH 2. Acute respiratory failure, hypoxia 3. Hyperkalemia 4. Alcohol withdrawal with DTs 5. GI bleeding 6. Chest pain, possible secondary to #3 7. Thrombocytopenia 8. Mild rhabdomyolysis Plan: -Sodium level improving iwth 0.9 NS -Correction by 12 meq in the last 24 hours. -Continue present management -Monitor sodium level closely -Replete potassium Subjective Date of service: 02/27/17 Principal diagnosis: esophagitis Interval history: Extubated Objective - Exam Narrative Exam: General appearance: well-developed, well-nourished, appears stated age, extubated EENT: PERRL, mucous membranes moist Neck: Present: neck supple, trachea midline. Absent: JVD/HJR, Masses Respiratory: Clear to Ascultation, Other (no wheezing ) Heart: regular, normal heart rate, S1S2, no murmurs Gastrointestinal: Present: normoactive bowel sounds, other (+ BS ). Absent: tenderness, distended, masses, guarding Integumentary: no rash, warm and dry Neurologic: no focal deficit, CN II-XII grossly intact Musculoskeletal: Absent: deformities, joint swelling Psychiatric: mood/affect appropriate, cooperative - Vital Signs Vital signs: Vital Signs - 12hr 02/27/17 02/27/17 02/27/17 01:00 01:43 01:45 Temperature 99.1 F Pulse Rate 68 68 69 Respiratory 24 24 24 Rate Blood Pressure 88/50 92/53 Blood Pressure 136/78 [Right] O2 Sat by Pulse 91 91 89 Oximetry 02/27/17 02/27/17 02/27/17 02:00 02:15 02:30 Temperature Pulse Rate 68 69 66 Respiratory 24 24 24 Rate Blood Pressure 88/50 86/52 88/51 Blood Pressure [Right] O2 Sat by Pulse Oximetry 02/27/17 02/27/17 02/27/17 02:45 03:01 03:15 Temperature Pulse Rate 66 101 H 86 Respiratory 24 12 12 Rate Blood Pressure 86/50 86/52 107/59 Blood Pressure [Right] O2 Sat by Pulse 93 Oximetry 02/27/17 02/27/17 02/27/17 03:30 03:45 04:00 Temperature Pulse Rate 76 72 69 Respiratory 24 24 24 Rate Blood Pressure 88/51 87/51 83/49 Blood Pressure [Right] O2 Sat by Pulse Oximetry 02/27/17 02/27/17 02/27/17 04:15 04:30 04:45 Temperature Pulse Rate 67 65 94 H Respiratory 24 24 17 Rate Blood Pressure 81/47 87/50 87/50 Blood Pressure [Right] O2 Sat by Pulse Oximetry 02/27/17 02/27/17 02/27/17 05:01 05:15 05:30 Temperature Pulse Rate 93 H 95 H 82 Respiratory 18 19 22 Rate Blood Pressure 137/73 117/56 96/56 Blood Pressure [Right] O2 Sat by Pulse Oximetry 02/27/17 02/27/17 02/27/17 05:33 05:45 06:00 Temperature Pulse Rate 77 77 72 Respiratory 20 20 Rate Blood Pressure 96/56 88/53 85/52 Blood Pressure [Right] O2 Sat by Pulse 97 Oximetry 02/27/17 02/27/17 02/27/17 06:15 06:30 06:45 Temperature Pulse Rate 71 74 70 Respiratory 20 20 20 Rate Blood Pressure 89/52 86/52 92/55 Blood Pressure [Right] O2 Sat by Pulse Oximetry 02/27/17 02/27/17 02/27/17 07:01 07:15 07:20 Temperature Pulse Rate 110 H 70 Respiratory 22 11 L Rate Blood Pressure 116/88 116/88 95/54 Blood Pressure [Right] O2 Sat by Pulse 100 Oximetry 02/27/17 02/27/17 02/27/17 07:30 07:45 08:00 Temperature Pulse Rate 76 71 68 Respiratory 21 20 20 Rate Blood Pressure 101/56 95/54 94/53 Blood Pressure [Right] O2 Sat by Pulse Oximetry 02/27/17 02/27/17 02/27/17 08:15 08:30 08:45 Temperature Pulse Rate 67 65 91 H Respiratory 20 20 11 L Rate Blood Pressure 91/55 94/53 94/53 Blood Pressure [Right] O2 Sat by Pulse Oximetry 02/27/17 02/27/17 02/27/17 09:01 09:15 09:38 Temperature 98.4 F Pulse Rate 82 88 86 Respiratory 19 13 20 Rate Blood Pressure 124/80 115/71 Blood Pressure 115/71 [Right] O2 Sat by Pulse 99 98 Oximetry 02/27/17 02/27/17 02/27/17 09:43 09:45 10:00 Temperature Pulse Rate 94 H 79 Respiratory 15 20 Rate Blood Pressure 115/71 108/60 95/54 Blood Pressure [Right] O2 Sat by Pulse 99 98 98 Oximetry 02/27/17 02/27/17 11:29 11:35 Temperature Pulse Rate 90 Respiratory 15 Rate Blood Pressure 98/30 Blood Pressure [Right] O2 Sat by Pulse 99 Oximetry - Lab 02/27/17 04:50 02/27/17 08:20 Most recent lab results Calcium 8.1 mg/dL (8.4-10.2) L 02/27/17 08:20 Urine Creatinine 49.4 mg/dL (0.1-20.0) H 02/26/17 18:00 Urine Sodium 10 mEq/L 02/26/17 18:00
[2017-02-27] MEDS: VITAMIN B-1 100 MG, FOLVITE 1 MG, INFUVITE 10 ML in NACL 0.9% 1000 ML 1,000 ML IV SCH (13:45)
[2017-02-27] MEDS: ATIVAN IV PRN ×2 (14:47→21:48)
--- NOTE | 2017-02-27 15:21 | Progress Note ---
Assessment and Plan Assessment and plan: 66-year-old male with past medical history significant for diabetes, anxiety, depression, alcohol abuse was presented with chest pain to the emergency department, patient was tremulous and diaphoretic. Patient's last drink was 2 days before presentation. Patient is admitted for symptom management of DT. While he was in the emergency department the patient developed progressive respiratory distress and was not able to take care of his airways and he was intubated yesterday and extubated today. Acute respiratory distress - Patient was intubated yesterday and extubated today, patient is able to take care of his airways and currently he is not in respiratory distress. - circuit clerk consult appreciated Alcohol withdrawal/DT - Patient is managed according to CIWA protocol - Patient is on banana bag Esophagitis - Agent is on IV Protonix, nothing by mouth, GI consulted and will do endoscopy once he is stable - Has upper GI bleeding, will monitor H&H closely Hyponatremia -Patient with normal saline and improving Leukocytosis/ SIRS - Patient is empirically on Zosyn DVT prophylaxis - SCDs because of patient has upper GI bleeding Disposition - Patient, transferred to telemetry the floor. The high probability of a clinically significant, sudden or life threatening deterioration of the [respiratory, neurology] system(s) required my full and direct attention, intervention and personal management. The aggregate critical care time was [32] minutes. This time is in addition to time spent performing reported procedures but includes the following: [x] Data Review and interpretation [x] Patient assessment and monitoring of vital signs [x] Documentation [x] Medication orders and management History Interval history: Patient was seen and evaluated this morning, patient was extubated this morning and tolerated well. Patient is still confused. Hospitalist Physical - Physical exam Narrative exam: Not in cardiopulmonary distress. The patient appeared well nourished and normally developed. Vital signs as documented. Head exam is unremarkable. No scleral icterus . Neck is without jugular venous distension, thyromegaly, or carotid bruits. Lungs are clear to auscultation. Cardiac exam reveals regular rate and Rhythm. Abdominal exam reveals normal bowel sounds, no masses, no organomegaly and no aortic enlargement. Extremities are nonedematous and both femoral and pedal pulses are normal. DISTILLERY MILLER: Confused. - Constitutional Vitals: Temp Pulse Resp BP Pulse Ox 98.4 F 75 16 94/57 99 02/27/17 09:38 02/27/17 12:30 02/27/17 12:30 02/27/17 12:30 02/27/17 12:30 Results - Labs CBC & Chem 7: 02/27/17 04:50 02/27/17 08:20 Labs: Laboratory Last Values WBC 14.4 K/mm3 (4.5-11.0) H 02/27/17 04:50 RBC 3.49 M/mm3 (3.65-5.03) L 02/27/17 04:50 Hgb 11.3 gm/dl (11.8-15.2) L 02/27/17 04:50 Hct 31.4 % (35.5-45.6) L 02/27/17 04:50 MCV 90 fl (84-94) 02/27/17 04:50 MCH 32 pg (28-32) 02/27/17 04:50 MCHC 36 % (32-34) H 02/27/17 04:50 RDW 15.8 % (13.2-15.2) H 02/27/17 04:50 Plt Count 88 K/mm3 (140-440) L 02/27/17 04:50 Lymph % (Auto) 9.6 % (13.4-35.0) L 02/27/17 04:50 [place] % (Auto) 9.7 % (0.0-7.3) H 02/27/17 04:50 Eos % (Auto) 0.2 % (0.0-4.3) 02/27/17 04:50 Baso % (Auto) 0.5 % (0.0-1.8) 02/27/17 04:50 Lymph # 1.4 K/mm3 (1.2-5.4) 02/27/17 04:50 [place] # 1.4 K/mm3 (0.0-0.8) H 02/27/17 04:50 Eos # 0.0 K/mm3 (0.0-0.4) 02/27/17 04:50 Baso # 0.1 K/mm3 (0.0-0.1) 02/27/17 04:50 Seg Neutrophils % 80.0 % (40.0-70.0) H 02/27/17 04:50 Seg Neutrophils # 11.6 K/mm3 (1.8-7.7) H 02/27/17 04:50 PT 14.3 Sec. (12.2-14.9) 02/26/17 03:29 INR 1.06 (0.87-1.13) 02/26/17 03:29 APTT 27.9 Sec. (24.2-36.6) 02/26/17 03:29 D-Dimer 1145.32 ng/mlDDU (0-234) H 02/26/17 03:29 POC ABG pH 7.413 (7.35-7.45) 02/27/17 11:28 POC ABG pCO2 37.7 (35-45) 02/27/17 11:28 POC ABG pO2 119 (80-105) H 02/27/17 11:28 POC ABG HCO3 24.0 02/27/17 11:28 POC ABG Total CO2 25 02/27/17 11:28 POC ABG O2 Sat 99 02/27/17 11:28 POC ABG Base Excess -1 02/27/17 11:28 FiO2 40 % 02/27/17 11:28 Sodium 128 mmol/L (137-145) L D 02/27/17 08:20 Potassium 3.2 mmol/L (3.6-5.0) L D 02/27/17 08:20 Chloride 90.1 mmol/L (98-107) L 02/27/17 08:20 Carbon Dioxide 23 mmol/L (22-30) D 02/27/17 08:20 Anion Gap 18 mmol/L 02/27/17 08:20 BUN 12 mg/dL (9-20) 02/27/17 08:20 Creatinine 0.9 mg/dL (0.8-1.5) 02/27/17 08:20 Estimated GFR > 60 ml/min 02/27/17 08:20 BUN/Creatinine Ratio 13 % 02/27/17 08:20 Glucose 150 mg/dL (75-100) H 02/27/17 08:20 POC Glucose 144 (70-105) H 02/27/17 09:14 Osmolality 252 Mosm/kg 02/26/17 10:08 Uric Acid 8.0 mg/dL (3.5-7.6) H 02/26/17 10:08 Calcium 8.1 mg/dL (8.4-10.2) L 02/27/17 08:20 Total Bilirubin 1.30 mg/dL (0.1-1.2) H 02/26/17 03:29 AST 49 units/L (5-40) H 02/26/17 03:29 ALT 28 units/L (7-56) 02/26/17 03:29 Alkaline Phosphatase 74 units/L (35-129) 02/26/17 03:29 Total Creatine Kinase 1367 units/L (55-170) H 02/26/17 22:53 CK-MB (CK-2) 11.8 ng/mL (0.0-4.0) H 02/26/17 22:53 CK-MB (CK-2) Rel Index 0.8 (0-4) 02/26/17 22:53 Troponin T < 0.010 ng/mL (0.00-0.029) 02/26/17 10:08 NT-Pro-B Natriuret Pep 351.1 pg/mL (0-900) 02/26/17 03:29 Total Protein 7.8 g/dL (6.3-8.2) 02/26/17 03:29 Albumin 4.5 g/dL (3.9-5) 02/26/17 03:29 Albumin/Globulin Ratio 1.4 % 02/26/17 03:29 TSH 1.820 mlU/mL (0.270-4.200) 02/26/17 10:08 Urine Color Yellow (Yellow) 02/26/17 08:01 Urine Turbidity Clear (Clear) 02/26/17 08:01 Urine pH 5.0 (5.0-7.0) 02/26/17 08:01 Ur Specific [place] 1.030 (1.003-1.030) 02/26/17 08:01 Urine Protein 30 mg/dl mg/dL (Negative) 02/26/17 08:01 Urine Glucose (UA) 50 mg/dL (Negative) 02/26/17 08:01 Urine Ketones 20 mg/dL (Negative) 02/26/17 08:01 Urine Blood Sm (Negative) 02/26/17 08:01 Urine Nitrite Neg (Negative) 02/26/17 08:01 Urine Bilirubin Neg (Negative) 02/26/17 08:01 Urine Urobilinogen < 2.0 mg/dL (<2.0) 02/26/17 08:01 Ur Leukocyte Esterase Neg (Negative) 02/26/17 08:01 Urine WBC (Auto) 3.0 /HPF (0.0-6.0) 02/26/17 08:01 Urine RBC (Auto) 4.0 /HPF (0.0-6.0) 02/26/17 08:01 U Epithel Cells (Auto) 1.0 /HPF (0-13.0) 02/26/17 08:01 Hyaline Casts 1 /LPF 02/26/17 08:01 Urine Mucus Few /HPF 02/26/17 08:01 Urine Osmolality 419 Mosm/kg 02/26/17 18:00 Urine Creatinine 49.4 mg/dL (0.1-20.0) H 02/26/17 18:00 Urine Sodium 10 mEq/L 02/26/17 18:00 Urine Chloride 10.0 mEq/L (110-250) L 02/26/17 18:00 Urine Opiates Screen Presumptive positive 02/26/17 08:01 Urine Methadone Screen Presumptive negative 02/26/17 08:01 Ur Barbiturates Screen Presumptive negative 02/26/17 08:01 Ur Phencyclidine Scrn Presumptive negative 02/26/17 08:01 Ur Amphetamines Screen Presumptive negative 02/26/17 08:01 U Benzodiazepines Scrn Presumptive negative 02/26/17 08:01 Urine Cocaine Screen Presumptive negative 02/26/17 08:01 U Marijuana (THC) Screen Presumptive negative 02/26/17 08:01 Drugs of Abuse Note Disclamer 02/26/17 08:01 Plasma/Serum Alcohol 0.04 gm% (0-0.07) 02/26/17 03:29
[2017-02-27] MEDS ORDERED: KCL 10MEQ/100ML 10 MEQ/100 ML BAG IV SCH (16:00)
[2017-02-27] MEDS: celeXA PO SCH (16:58)
[2017-02-27] MEDS: ZESTRIL PO SCH (16:59)
[2017-02-27] MEDS: VITAMIN B-1 PO SCH (16:59)
[2017-02-27] MEDS: THERAGRAN Tab PO SCH (16:59)
[2017-02-27] MEDS: NACL 0.9% 1000 ML 1,000 ML IV SCH (21:46)
[2017-02-27] MEDS: KCL 10MEQ/100ML 10 MEQ/100 ML BAG IV SCH ×2 (22:50→23:53)
[2017-02-28] MEDS: KCL 10MEQ/100ML 10 MEQ/100 ML BAG IV SCH ×2 (01:13→02:19)
[2017-02-28] MEDS: ATIVAN IV PRN ×2 (01:14→08:16)
[2017-02-28] MEDS: ZOSYN/NS 4.5GM/100ML 4.5 GM/100 ML VIAL IV SCH (06:01)
[2017-02-28 08:17] LABS: Basophils % (Auto) 0.6 % (0.0-1.8); Eosinophils % (Auto) 0.4 % (0.0-4.3); Hematocrit 27.9 % (35.5-45.6); Hemoglobin 9.7 gm/dl (11.8-15.2); Mean Corpuscular HGB Conc 35 % (32-34); Mean Corpuscular Hemoglobin 32 pg (28-32); Mean Corpuscular Volume 92 fl (84-94); Red Blood Count 3.03 M/mm3 (3.65-5.03); Red Cell Distribution Width 16.1 % (13.2-15.2); White Blood Count 8.8 K/mm3 (4.5-11.0)
[2017-02-28 08:27] LABS: Anion Gap 15 mmol/L; BUN/Creatinine Ratio 9; Blood Urea Nitrogen 6 mg/dL (9-20); Calcium 8.3 mg/dL (8.4-10.2); Carbon Dioxide 26 mmol/L (22-30); Chloride 100.7 mmol/L (98-107); Glucose 110 mg/dL (75-100); Platelet Count 83 K/mm3 (140-440); Sodium 138 mmol/L (137-145)
[2017-02-28] MEDS: NOVOLOG SUB-Q SCH ×3 (08:50→17:45)
[2017-02-28] MEDS: RAZADYNE PO SCH ×2 (09:35→23:34)
[2017-02-28] MEDS: PEPCID PO SCH ×2 (09:35→23:34)
[2017-02-28] MEDS: PROTONIX IV SCH ×2 (09:35→23:35)
[2017-02-28] MEDS: VITAMIN B-1 PO SCH (09:35)
[2017-02-28] MEDS: REQUIP PO SCH ×2 (09:35→23:34)
[2017-02-28] MEDS: ZESTRIL PO SCH (09:36)
[2017-02-28] MEDS: celeXA PO SCH (09:37)
[2017-02-28] MEDS: THERAGRAN Tab PO SCH (09:37)
--- NOTE | 2017-02-28 09:50 | Gastroenterology Progress Note ---
Assessment and Plan - Patient Problems (1) Esophagitis Current Visit: Yes Status: Acute (2) GI bleeding Current Visit: Yes Status: Acute Qualifiers: GI bleed type/associated pathology: unspecified gastrointestinal hemorrhage type Gastritis type: G Qualified Code(s): K92.2 - Gastrointestinal hemorrhage, unspecified Plan to address problem: The patient had coffee ground emesis and NGT output earlier this admission and has dropped Hgb from 12 to 9.7. Will plan EGD tomorrow. He is in agreement. ETOH withdrawl appears to have nearly resolved. He is now oriented and cooperative. Subjective Date of service: 02/28/17 Principal diagnosis: esophagitis Interval history: The patient denies any pain, nausea or vomiting. Objective - Exam Narrative Exam: Fully alert, oriented to self, month, year and president. - Constitutional Vitals: Temp Pulse Resp BP Pulse Ox 98.4 F 65 18 132/78 98 02/28/17 07:54 02/28/17 09:36 02/28/17 07:54 02/28/17 09:36 02/28/17 07:54 General appearance: no acute distress - EENT Eyes: PERRL, EOM intact - Respiratory Respiratory effort: normal Respiratory: bilateral: CTA - Cardiovascular Rhythm: regular - Gastrointestinal General gastrointestinal: Present: soft, non-tender, non-distended, normal bowel sounds - Integumentary Integumentary: Present: clear, warm, dry - Neurologic Neurological: alert and oriented x3 - Labs CBC & Chem 7: 02/28/17 06:39 02/28/17 06:39 Labs: Laboratory Results - last 24 hr 02/27/17 02/27/17 02/27/17 11:28 17:22 21:00 WBC RBC Hgb Hct MCV MCH MCHC RDW Plt Count Lymph % (Auto) [place] % (Auto) Eos % (Auto) Baso % (Auto) Lymph # [place] # Eos # Baso # Seg Neutrophils % Seg Neutrophils # POC ABG pH 7.413 POC ABG pCO2 37.7 POC ABG pO2 119 H POC ABG HCO3 24.0 POC ABG Total CO2 25 POC ABG O2 Sat 99 POC ABG Base Excess -1 FiO2 40 Sodium Potassium Chloride Carbon Dioxide Anion Gap BUN Creatinine Estimated GFR BUN/Creatinine Ratio Glucose POC Glucose 116 H 113 H Calcium 02/28/17 02/28/17 06:39 06:39 WBC 8.8 RBC 3.03 L Hgb 9.7 L Hct 27.9 L MCV 92 MCH 32 MCHC 35 H RDW 16.1 H Plt Count 83 L Lymph % (Auto) 9.5 L [place] % (Auto) 12.4 H Eos % (Auto) 0.4 Baso % (Auto) 0.6 Lymph # 0.8 L [place] # 1.1 H Eos # 0.0 Baso # 0.1 Seg Neutrophils % 77.1 H Seg Neutrophils # 6.8 POC ABG pH POC ABG pCO2 POC ABG pO2 POC ABG HCO3 POC ABG Total CO2 POC ABG O2 Sat POC ABG Base Excess FiO2 Sodium 138 D Potassium 4.0 D Chloride 100.7 Carbon Dioxide 26 Anion Gap 15 BUN 6 L Creatinine 0.7 L Estimated GFR > 60 BUN/Creatinine Ratio 9 Glucose 110 H POC Glucose Calcium 8.3 L
--- NOTE | 2017-02-28 13:31 | Progress Note ---
Assessment and Plan - Patient Problems (1) Acute respiratory failure with hypoxia and hypercapnia Current Visit: Yes Status: Acute Plan to address problem: Adequate gas exchange s/p extubation Aspiration precautions Supplemental oxygen prn for O2 sats>92% (2) Alcohol withdrawal Current Visit: Yes Status: Acute Qualifiers: Complication of substance-induced condition: with unspecified complication Qualified Code(s): F10.239 - Alcohol dependence with withdrawal, unspecified Plan to address problem: Alcohol withdrawal precautions Substance abuse counselling (3) Hyponatremia syndrome Current Visit: Yes Status: Acute Plan to address problem: Continue NSaline infusion while monitoring serial BMPs Renal has been consulted. (4) Thrombocytopenia concurrent with and due to alcoholism Current Visit: Yes Status: Acute Plan to address problem: Continue to monitor closely and for any bleeding tendencies. Subjective Date of service: 02/28/17 Principal diagnosis: esophagitis Interval history: Patient seen and examined. Vitals, labs, medications, chart reviewed. No acute overnight events reported by RN s/p mechanical ventilatory support. Agitated and states he wants to get out of bed. Denies any chest pain, no shortness of breath, no fevers or chills. Denies any abdominal pain, no nausea or vomiting Objective - Exam Narrative Exam: General appearance: well-developed, well-nourished, appears stated age, extubated EENT: PERRL, mucous membranes moist Neck: Present: neck supple, trachea midline. Absent: JVD/HJR, Masses Respiratory: Clear to Ascultation, Other (no wheezing ) Heart: regular, normal heart rate, S1S2, no murmurs Gastrointestinal: Present: normoactive bowel sounds, other (+ BS ). Absent: tenderness, distended, masses, guarding Integumentary: no rash, warm and dry Neurologic: no focal deficit, CN II-XII grossly intact , confused AO x1 Musculoskeletal: Absent: deformities, joint swelling Psychiatric: mood/affect appropriate, cooperative Vital Signs - 12hr 02/28/17 02/28/17 02/28/17 05:16 07:54 09:36 Temperature 97.9 F 98.4 F Pulse Rate 74 74 65 Respiratory 18 18 Rate Blood Pressure 118/71 108/65 132/78 O2 Sat by Pulse 98 98 Oximetry 02/28/17 11:29 Temperature 98.4 F Pulse Rate 68 Respiratory 18 Rate Blood Pressure 115/58 O2 Sat by Pulse 97 Oximetry Constitutional: no acute distress, other (intubated, sedated) Eyes: non-icteric ENT: oropharynx moist, other (nasogastric tube to low intermittent suction) Neck: supple, no lymphadenopathy, no JVD Effort: normal (No patietn ventilatory dyssynchrony, Size 7.5 ETT in position) Ascultation: Bilateral: diminished breath sounds, other (rhonchi bilateral upper lobes anteriorly) Cardiovascular: regular rate and rhythm, other (S1, S2, no murmurs gallops or rubs) Gastrointestinal: normoactive bowel sounds, soft, non-tender, non-distended Integumentary: normal Extremities: no cyanosis, no edema, pulses normal, no ischemia or petechiae Neurologic: unable to assess (sedated) CBC and BMP: 03/03/17 09:19 03/03/17 09:19 ABG, PT/INR, D-dimer: ABG POC ABG pH 7.413 (7.35-7.45) 02/27/17 11:28 POC ABG pCO2 37.7 (35-45) 02/27/17 11:28 POC ABG pO2 119 (80-105) H 02/27/17 11:28 POC ABG HCO3 24.0 02/27/17 11:28 POC ABG Total CO2 25 02/27/17 11:28 POC ABG O2 Sat 99 02/27/17 11:28 PT/INR, D-dimer PT 14.3 Sec. (12.2-14.9) 02/26/17 03:29 INR 1.06 (0.87-1.13) 02/26/17 03:29 D-Dimer 1145.32 ng/mlDDU (0-234) H 02/26/17 03:29 Abnormal lab findings: Abnormal Labs 02/26/17 02/26/17 02/26/17 09:01 10:08 10:08 WBC RBC Hgb Hct MCHC RDW Plt Count Lymph % (Auto) [place] % (Auto) Lymph # [place] # Seg Neutrophils % Seg Neutrophils # POC ABG pH 7.283 L POC ABG pCO2 50.3 H POC ABG pO2 76 L Sodium 113 L* Potassium Chloride 73.6 L Carbon Dioxide BUN Creatinine 0.7 L Glucose 216 H POC Glucose Uric Acid Calcium Total Creatine Kinase 1053 H CK-MB (CK-2) 28.4 H Urine Creatinine Urine Chloride 02/26/17 02/26/17 02/26/17 10:08 11:23 18:00 WBC RBC Hgb Hct MCHC RDW Plt Count Lymph % (Auto) [place] % (Auto) Lymph # [place] # Seg Neutrophils % Seg Neutrophils # POC ABG pH POC ABG pCO2 POC ABG pO2 Sodium Potassium Chloride Carbon Dioxide BUN Creatinine Glucose POC Glucose 189 H Uric Acid 8.0 H Calcium Total Creatine Kinase CK-MB (CK-2) Urine Creatinine 49.4 H Urine Chloride 10.0 L 02/26/17 02/26/17 02/26/17 18:26 18:26 18:38 WBC RBC Hgb Hct MCHC RDW Plt Count Lymph % (Auto) [place] % (Auto) Lymph # [place] # Seg Neutrophils % Seg Neutrophils # POC ABG pH POC ABG pCO2 POC ABG pO2 Sodium 116 L* Potassium Chloride 72.4 L Carbon Dioxide 14 L D BUN Creatinine 0.7 L Glucose 215 H POC Glucose 138 H Uric Acid Calcium Total Creatine Kinase 1085 H CK-MB (CK-2) 22.9 H Urine Creatinine Urine Chloride 02/26/17 02/27/17 02/27/17 22:53 01:17 04:50 WBC 14.4 H RBC 3.49 L Hgb 11.3 L Hct 31.4 L MCHC 36 H RDW 15.8 H Plt Count 88 L Lymph % (Auto) 9.6 L [place] % (Auto) 9.7 H Lymph # [place] # 1.4 H Seg Neutrophils % 80.0 H Seg Neutrophils # 11.6 H POC ABG pH POC ABG pCO2 POC ABG pO2 Sodium Potassium Chloride Carbon Dioxide BUN Creatinine Glucose POC Glucose 161 H Uric Acid Calcium Total Creatine Kinase 1367 H CK-MB (CK-2) 11.8 H Urine Creatinine Urine Chloride 02/27/17 02/27/17 02/27/17 05:37 08:20 09:14 WBC RBC Hgb Hct MCHC RDW Plt Count Lymph % (Auto) [place] % (Auto) Lymph # [place] # Seg Neutrophils % Seg Neutrophils # POC ABG pH POC ABG pCO2 POC ABG pO2 178 H Sodium 128 L D Potassium 3.2 L D Chloride 90.1 L Carbon Dioxide BUN Creatinine Glucose 150 H POC Glucose 144 H Uric Acid Calcium 8.1 L Total Creatine Kinase CK-MB (CK-2) Urine Creatinine Urine Chloride 02/27/17 02/27/17 02/27/17 11:28 17:22 21:00 WBC RBC Hgb Hct MCHC RDW Plt Count Lymph % (Auto) [place] % (Auto) Lymph # [place] # Seg Neutrophils % Seg Neutrophils # POC ABG pH POC ABG pCO2 POC ABG pO2 119 H Sodium Potassium Chloride Carbon Dioxide BUN Creatinine Glucose POC Glucose 116 H 113 H Uric Acid Calcium Total Creatine Kinase CK-MB (CK-2) Urine Creatinine Urine Chloride 02/28/17 02/28/17 06:39 06:39 WBC RBC 3.03 L Hgb 9.7 L Hct 27.9 L MCHC 35 H RDW 16.1 H Plt Count 83 L Lymph % (Auto) 9.5 L [place] % (Auto) 12.4 H Lymph # 0.8 L [place] # 1.1 H Seg Neutrophils % 77.1 H Seg Neutrophils # POC ABG pH POC ABG pCO2 POC ABG pO2 Sodium Potassium Chloride Carbon Dioxide BUN 6 L Creatinine 0.7 L Glucose 110 H POC Glucose Uric Acid Calcium 8.3 L Total Creatine Kinase CK-MB (CK-2) Urine Creatinine Urine Chloride Allied health notes reviewed: RT
--- NOTE | 2017-02-28 14:26 | Progress Note ---
Assessment and Plan Assessment and plan: 66-year-old male with past medical history significant for diabetes, anxiety, depression, alcohol abuse was presented with chest pain to the emergency department, patient was tremulous and diaphoretic. Patient's last drink was 2 days before presentation. Patient is admitted for symptom management of DT. While he was in the emergency department the patient developed progressive respiratory distress and was not able to take care of his airways and he was intubated and extubated the day after. Acute respiratory distress - S/P extubation - Resolved - director of women's services consult appreciated Alcohol withdrawal/DT - Patient is managed according to CIWA protocol - Patient is on banana bag - On restraints, per nurses patient has been agitated Esophagitis - Agent is on IV Protonix, GI consulted and will do endoscopy once he is stable - Has upper GI bleeding, will monitor H&H closely - Patient will have EGD tomorrow Hyponatremia - Resolved Leukocytosis/ SIRS - Patient was empirically on Zosyn - No source of infection and D/C the zosyn DVT prophylaxis - SCDs because of patient has upper GI bleeding Disposition - Continue inpatient care History Interval history: Patient was seen and evaluated this morning, s/p extubation. Patient was alert and oriented. Hospitalist Physical - Physical exam Narrative exam: Not in cardiopulmonary distress. The patient appeared well nourished and normally developed. Vital signs as documented. Head exam is unremarkable. No scleral icterus . Neck is without jugular venous distension, thyromegaly, or carotid bruits. Lungs are clear to auscultation. Cardiac exam reveals regular rate and Rhythm. Abdominal exam reveals normal bowel sounds, no masses, no organomegaly and no aortic enlargement. Extremities are nonedematous and both femoral and pedal pulses are normal. GROUP BILLING COORDINATOR:Alert and oriented. - Constitutional Vitals: Temp Pulse Resp BP Pulse Ox 98.4 F 68 18 115/58 97 02/28/17 11:29 02/28/17 11:29 02/28/17 11:29 02/28/17 11:29 02/28/17 11:29 Results - Labs CBC & Chem 7: 02/28/17 06:39 02/28/17 06:39 Labs: Laboratory Last Values WBC 8.8 K/mm3 (4.5-11.0) 02/28/17 06:39 RBC 3.03 M/mm3 (3.65-5.03) L 02/28/17 06:39 Hgb 9.7 gm/dl (11.8-15.2) L 02/28/17 06:39 Hct 27.9 % (35.5-45.6) L 02/28/17 06:39 MCV 92 fl (84-94) 02/28/17 06:39 MCH 32 pg (28-32) 02/28/17 06:39 MCHC 35 % (32-34) H 02/28/17 06:39 RDW 16.1 % (13.2-15.2) H 02/28/17 06:39 Plt Count 83 K/mm3 (140-440) L 02/28/17 06:39 Lymph % (Auto) 9.5 % (13.4-35.0) L 02/28/17 06:39 [place] % (Auto) 12.4 % (0.0-7.3) H 02/28/17 06:39 Eos % (Auto) 0.4 % (0.0-4.3) 02/28/17 06:39 Baso % (Auto) 0.6 % (0.0-1.8) 02/28/17 06:39 Lymph # 0.8 K/mm3 (1.2-5.4) L 02/28/17 06:39 [place] # 1.1 K/mm3 (0.0-0.8) H 02/28/17 06:39 Eos # 0.0 K/mm3 (0.0-0.4) 02/28/17 06:39 Baso # 0.1 K/mm3 (0.0-0.1) 02/28/17 06:39 Seg Neutrophils % 77.1 % (40.0-70.0) H 02/28/17 06:39 Seg Neutrophils # 6.8 K/mm3 (1.8-7.7) 02/28/17 06:39 PT 14.3 Sec. (12.2-14.9) 02/26/17 03:29 INR 1.06 (0.87-1.13) 02/26/17 03:29 APTT 27.9 Sec. (24.2-36.6) 02/26/17 03:29 D-Dimer 1145.32 ng/mlDDU (0-234) H 02/26/17 03:29 POC ABG pH 7.413 (7.35-7.45) 02/27/17 11:28 POC ABG pCO2 37.7 (35-45) 02/27/17 11:28 POC ABG pO2 119 (80-105) H 02/27/17 11:28 POC ABG HCO3 24.0 02/27/17 11:28 POC ABG Total CO2 25 02/27/17 11:28 POC ABG O2 Sat 99 02/27/17 11:28 POC ABG Base Excess -1 02/27/17 11:28 FiO2 40 % 02/27/17 11:28 Sodium 138 mmol/L (137-145) D 02/28/17 06:39 Potassium 4.0 mmol/L (3.6-5.0) D 02/28/17 06:39 Chloride 100.7 mmol/L (98-107) 02/28/17 06:39 Carbon Dioxide 26 mmol/L (22-30) 02/28/17 06:39 Anion Gap 15 mmol/L 02/28/17 06:39 BUN 6 mg/dL (9-20) L 02/28/17 06:39 Creatinine 0.7 mg/dL (0.8-1.5) L 02/28/17 06:39 Estimated GFR > 60 ml/min 02/28/17 06:39 BUN/Creatinine Ratio 9 % 02/28/17 06:39 Glucose 110 mg/dL (75-100) H 02/28/17 06:39 POC Glucose 113 (70-105) H 02/27/17 21:00 Osmolality 252 Mosm/kg 02/26/17 10:08 Uric Acid 8.0 mg/dL (3.5-7.6) H 02/26/17 10:08 Calcium 8.3 mg/dL (8.4-10.2) L 02/28/17 06:39 Total Bilirubin 1.30 mg/dL (0.1-1.2) H 02/26/17 03:29 AST 49 units/L (5-40) H 02/26/17 03:29 ALT 28 units/L (7-56) 02/26/17 03:29 Alkaline Phosphatase 74 units/L (35-129) 02/26/17 03:29 Total Creatine Kinase 1367 units/L (55-170) H 02/26/17 22:53 CK-MB (CK-2) 11.8 ng/mL (0.0-4.0) H 02/26/17 22:53 CK-MB (CK-2) Rel Index 0.8 (0-4) 02/26/17 22:53 Troponin T < 0.010 ng/mL (0.00-0.029) 02/26/17 10:08 NT-Pro-B Natriuret Pep 351.1 pg/mL (0-900) 02/26/17 03:29 Total Protein 7.8 g/dL (6.3-8.2) 02/26/17 03:29 Albumin 4.5 g/dL (3.9-5) 02/26/17 03:29 Albumin/Globulin Ratio 1.4 % 02/26/17 03:29 TSH 1.820 mlU/mL (0.270-4.200) 02/26/17 10:08 Urine Color Yellow (Yellow) 02/26/17 08:01 Urine Turbidity Clear (Clear) 02/26/17 08:01 Urine pH 5.0 (5.0-7.0) 02/26/17 08:01 Ur Specific [place] 1.030 (1.003-1.030) 02/26/17 08:01 Urine Protein 30 mg/dl mg/dL (Negative) 02/26/17 08:01 Urine Glucose (UA) 50 mg/dL (Negative) 02/26/17 08:01 Urine Ketones 20 mg/dL (Negative) 02/26/17 08:01 Urine Blood Sm (Negative) 02/26/17 08:01 Urine Nitrite Neg (Negative) 02/26/17 08:01 Urine Bilirubin Neg (Negative) 02/26/17 08:01 Urine Urobilinogen < 2.0 mg/dL (<2.0) 02/26/17 08:01 Ur Leukocyte Esterase Neg (Negative) 02/26/17 08:01 Urine WBC (Auto) 3.0 /HPF (0.0-6.0) 02/26/17 08:01 Urine RBC (Auto) 4.0 /HPF (0.0-6.0) 02/26/17 08:01 U Epithel Cells (Auto) 1.0 /HPF (0-13.0) 02/26/17 08:01 Hyaline Casts 1 /LPF 02/26/17 08:01 Urine Mucus Few /HPF 02/26/17 08:01 Urine Osmolality 419 Mosm/kg 02/26/17 18:00 Urine Creatinine 49.4 mg/dL (0.1-20.0) H 02/26/17 18:00 Urine Sodium 10 mEq/L 02/26/17 18:00 Urine Chloride 10.0 mEq/L (110-250) L 02/26/17 18:00 Urine Opiates Screen Presumptive positive 02/26/17 08:01 Urine Methadone Screen Presumptive negative 02/26/17 08:01 Ur Barbiturates Screen Presumptive negative 02/26/17 08:01 Ur Phencyclidine Scrn Presumptive negative 02/26/17 08:01 Ur Amphetamines Screen Presumptive negative 02/26/17 08:01 U Benzodiazepines Scrn Presumptive negative 02/26/17 08:01 Urine Cocaine Screen Presumptive negative 02/26/17 08:01 U Marijuana (THC) Screen Presumptive negative 02/26/17 08:01 Drugs of Abuse Note Disclamer 02/26/17 08:01 Plasma/Serum Alcohol 0.04 gm% (0-0.07) 02/26/17 03:29
[2017-02-28] MEDS: VITAMIN B-1 100 MG, FOLVITE 1 MG, INFUVITE 10 ML in NACL 0.9% 1000 ML 1,000 ML IV SCH (15:11)
--- NOTE | 2017-02-28 17:06 | Progress Note ---
Assessment and Plan 1. Severe Hyponatremia possible causes include beer potomania/ SIADH 2. Acute respiratory failure, hypoxia, resolved 3. Hyperkalemia, resolved 4. Alcohol withdrawal with DTs 5. GI bleeding 6. Chest pain, possible secondary to #3 7. Thrombocytopenia 8. Mild rhabdomyolysis Plan: -Sodium level improved, now at 138 -Rate of correction appropriate. -Continue present management -Will follow as needed, please call with questions. Subjective Date of service: 02/28/17 Principal diagnosis: esophagitis Interval history: Confused Objective - Exam Narrative Exam: General appearance: well-developed, well-nourished, appears stated age, extubated EENT: PERRL, mucous membranes moist Neck: Present: neck supple, trachea midline. Absent: JVD/HJR, Masses Respiratory: Clear to Ascultation, Other (no wheezing ) Heart: regular, normal heart rate, S1S2, no murmurs Gastrointestinal: Present: normoactive bowel sounds, other (+ BS ). Absent: tenderness, distended, masses, guarding Integumentary: no rash, warm and dry Neurologic: no focal deficit, CN II-XII grossly intact , confused AO x1 Musculoskeletal: Absent: deformities, joint swelling Psychiatric: mood/affect appropriate, cooperative - Vital Signs Vital signs: Vital Signs - 12hr 02/28/17 02/28/17 02/28/17 05:16 07:54 09:17 Temperature 97.9 F 98.4 F Pulse Rate 74 74 90 Respiratory 18 18 Rate Blood Pressure 118/71 108/65 O2 Sat by Pulse 98 98 Oximetry 02/28/17 02/28/17 02/28/17 09:36 10:00 11:29 Temperature 98.4 F Pulse Rate 65 68 Respiratory 18 Rate Blood Pressure 132/78 115/58 O2 Sat by Pulse 95 97 Oximetry - Lab 02/28/17 06:39 02/28/17 06:39 Most recent lab results Calcium 8.3 mg/dL (8.4-10.2) L 02/28/17 06:39 Urine Creatinine 49.4 mg/dL (0.1-20.0) H 02/26/17 18:00 Urine Sodium 10 mEq/L 02/26/17 18:00
[2017-03-01] MEDS: NOVOLOG SUB-Q SCH ×3 (05:46→13:34)
--- NOTE | 2017-03-01 09:34 | Progress Note ---
Subjective Date of service: 03/01/17 Principal diagnosis: Acute Hypoxemic Hypercapnic Respiratory Failure Interval history: Patient is being seen today for: Seen and examined at bedside; 24hour events reviewed; nursing and respiratory care staff consulted; no adverse overnight events reported to me; Objective Vital Signs - 12hr 02/28/17 03/01/17 03/01/17 22:00 00:22 04:01 Temperature 99.0 F 99.5 F Pulse Rate 65 63 Respiratory 18 20 20 Rate Respiratory 16 Rate [chest] Blood Pressure 135/77 149/69 O2 Sat by Pulse 100 100 97 Oximetry Constitutional: no acute distress, other (intubated, sedated) Eyes: non-icteric ENT: oropharynx moist, other (nasogastric tube to low intermittent suction) Neck: supple, no lymphadenopathy, no JVD Effort: normal (No patietn ventilatory dyssynchrony, Size 7.5 ETT in position) Ascultation: Bilateral: diminished breath sounds, other (rhonchi bilateral upper lobes anteriorly) Cardiovascular: regular rate and rhythm, other (S1, S2, no murmurs gallops or rubs) Gastrointestinal: normoactive bowel sounds, soft, non-tender, non-distended Integumentary: normal Extremities: no cyanosis, no edema, pulses normal, no ischemia or petechiae Neurologic: unable to assess (sedated) CBC and BMP: 02/28/17 06:39 02/28/17 06:39 ABG, PT/INR, D-dimer: ABG POC ABG pH 7.413 (7.35-7.45) 02/27/17 11:28 POC ABG pCO2 37.7 (35-45) 02/27/17 11:28 POC ABG pO2 119 (80-105) H 02/27/17 11:28 POC ABG HCO3 24.0 02/27/17 11:28 POC ABG Total CO2 25 02/27/17 11:28 POC ABG O2 Sat 99 02/27/17 11:28 PT/INR, D-dimer PT 14.3 Sec. (12.2-14.9) 02/26/17 03:29 INR 1.06 (0.87-1.13) 02/26/17 03:29 D-Dimer 1145.32 ng/mlDDU (0-234) H 02/26/17 03:29 Abnormal lab findings: Abnormal Labs 02/26/17 02/26/17 02/26/17 09:01 10:08 10:08 WBC RBC Hgb Hct MCHC RDW Plt Count Lymph % (Auto) Walker % (Auto) Lymph # Walker # Seg Neutrophils % Seg Neutrophils # POC ABG pH 7.283 L POC ABG pCO2 50.3 H POC ABG pO2 76 L Sodium 113 L* Potassium Chloride 73.6 L Carbon Dioxide BUN Creatinine 0.7 L Glucose 216 H POC Glucose Uric Acid Calcium Total Creatine Kinase 1053 H CK-MB (CK-2) 28.4 H Urine Creatinine Urine Chloride 02/26/17 02/26/17 02/26/17 10:08 11:23 18:00 WBC RBC Hgb Hct MCHC RDW Plt Count Lymph % (Auto) [place] % (Auto) Lymph # Walker # Seg Neutrophils % Seg Neutrophils # POC ABG pH POC ABG pCO2 POC ABG pO2 Sodium Potassium Chloride Carbon Dioxide BUN Creatinine Glucose POC Glucose 189 H Uric Acid 8.0 H Calcium Total Creatine Kinase CK-MB (CK-2) Urine Creatinine 49.4 H Urine Chloride 10.0 L 02/26/17 02/26/17 02/26/17 18:26 18:26 18:38 WBC RBC Hgb Hct MCHC RDW Plt Count Lymph % (Auto) [place] % (Auto) Lymph # Walker # Seg Neutrophils % Seg Neutrophils # POC ABG pH POC ABG pCO2 POC ABG pO2 Sodium 116 L* Potassium Chloride 72.4 L Carbon Dioxide 14 L D BUN Creatinine 0.7 L Glucose 215 H POC Glucose 138 H Uric Acid Calcium Total Creatine Kinase 1085 H CK-MB (CK-2) 22.9 H Urine Creatinine Urine Chloride 02/26/17 02/27/17 02/27/17 22:53 01:17 04:50 WBC 14.4 H RBC 3.49 L Hgb 11.3 L Hct 31.4 L MCHC 36 H RDW 15.8 H Plt Count 88 L Lymph % (Auto) 9.6 L [place] % (Auto) 9.7 H Lymph # Walker # 1.4 H Seg Neutrophils % 80.0 H Seg Neutrophils # 11.6 H POC ABG pH POC ABG pCO2 POC ABG pO2 Sodium Potassium Chloride Carbon Dioxide BUN Creatinine Glucose POC Glucose 161 H Uric Acid Calcium Total Creatine Kinase 1367 H CK-MB (CK-2) 11.8 H Urine Creatinine Urine Chloride 02/27/17 02/27/17 02/27/17 05:37 08:20 09:14 WBC RBC Hgb Hct MCHC RDW Plt Count Lymph % (Auto) [place] % (Auto) Lymph # Walker # Seg Neutrophils % Seg Neutrophils # POC ABG pH POC ABG pCO2 POC ABG pO2 178 H Sodium 128 L D Potassium 3.2 L D Chloride 90.1 L Carbon Dioxide BUN Creatinine Glucose 150 H POC Glucose 144 H Uric Acid Calcium 8.1 L Total Creatine Kinase CK-MB (CK-2) Urine Creatinine Urine Chloride 02/27/17 02/27/17 02/27/17 11:28 17:22 21:00 WBC RBC Hgb Hct MCHC RDW Plt Count Lymph % (Auto) [place] % (Auto) Lymph # Walker # Seg Neutrophils % Seg Neutrophils # POC ABG pH POC ABG pCO2 POC ABG pO2 119 H Sodium Potassium Chloride Carbon Dioxide BUN Creatinine Glucose POC Glucose 116 H 113 H Uric Acid Calcium Total Creatine Kinase CK-MB (CK-2) Urine Creatinine Urine Chloride 02/28/17 02/28/17 02/28/17 06:39 06:39 08:32 WBC RBC 3.03 L Hgb 9.7 L Hct 27.9 L MCHC 35 H RDW 16.1 H Plt Count 83 L Lymph % (Auto) 9.5 L Walker % (Auto) 12.4 H Lymph # 0.8 L Walker # 1.1 H Seg Neutrophils % 77.1 H Seg Neutrophils # POC ABG pH POC ABG pCO2 POC ABG pO2 Sodium Potassium Chloride Carbon Dioxide BUN 6 L Creatinine 0.7 L Glucose 110 H POC Glucose 120 H Uric Acid Calcium 8.3 L Total Creatine Kinase CK-MB (CK-2) Urine Creatinine Urine Chloride 02/28/17 11:37 WBC RBC Hgb Hct MCHC RDW Plt Count Lymph % (Auto) [place] % (Auto) Lymph # Walker # Seg Neutrophils % Seg Neutrophils # POC ABG pH POC ABG pCO2 POC ABG pO2 Sodium Potassium Chloride Carbon Dioxide BUN Creatinine Glucose POC Glucose 120 H Uric Acid Calcium Total Creatine Kinase CK-MB (CK-2) Urine Creatinine Urine Chloride Allied health notes reviewed: RT
[2017-03-01] MEDS: celeXA PO SCH (09:44)
[2017-03-01] MEDS: PEPCID PO SCH ×2 (09:44→21:07)
[2017-03-01] MEDS: ZESTRIL PO SCH (09:44)
[2017-03-01] MEDS: THERAGRAN Tab PO SCH (09:44)
[2017-03-01] MEDS: REQUIP PO SCH ×2 (09:45→21:07)
[2017-03-01] MEDS: VITAMIN B-1 PO SCH (09:45)
[2017-03-01] MEDS: RAZADYNE PO SCH ×2 (09:50→21:07)
[2017-03-01] MEDS: PROTONIX IV SCH ×2 (09:51→21:07)
--- NOTE | 2017-03-01 10:37 | Progress Note ---
Assessment and Plan Assessment and plan: 66-year-old male with past medical history significant for diabetes, anxiety, depression, alcohol abuse was presented with chest pain to the emergency department, patient was tremulous and diaphoretic. Patient's last drink was 2 days before presentation. Patient is admitted for symptom management of DT. While he was in the emergency department the patient developed progressive respiratory distress and was not able to take care of his airways and he was intubated and extubated the day after. Acute respiratory failure, on MV <96 hours - S/P extubation on 02/27 - Resolved - resident program specialist consult appreciated Alcohol withdrawal/DT - Patient is managed according to CIWA protocol - Patient is on banana bag - On restraints, per nurses patient has been agitated Esophagitis -EGD, Mary esophagitis, continue PPI Acute blood loss anemia, due to UGIB-esophagitis -Hemoglobin now stable, transfuse to keep hemoglobin above 7 Hyponatremia - Resolved with hydration Sepsis/PNA -continue ABX DVT prophylaxis - SCDs given upper GI bleeding History Interval history: c/o confusion and agitation. RN states that he gets agitated and delireus Hospitalist Physical - Physical exam Narrative exam: General.: Appears well, no distress, nontoxic HEENT: Moist mucous membranes, extraocular muscles intact, no lymphadenopathy Neck: supple Cardiac: S1-S2 heard Lungs: clear to auscultation bilaterally Abdomen: soft , nontender, nondistended, bowel sounds positive Extremities: no edema clubbing or cyanosis Skin: no rash or lesions Neurologic: confused - Constitutional Vitals: Temp Pulse Resp BP Pulse Ox 99.5 F 63 20 149/69 98 03/01/17 04:01 03/01/17 04:01 03/01/17 04:01 03/01/17 04:01 03/01/17 10:32 Results - Labs CBC & Chem 7: 03/03/17 09:19 03/03/17 09:19 Labs: Laboratory Last Values WBC 8.8 K/mm3 (4.5-11.0) 02/28/17 06:39 RBC 3.03 M/mm3 (3.65-5.03) L 02/28/17 06:39 Hgb 9.7 gm/dl (11.8-15.2) L 02/28/17 06:39 Hct 27.9 % (35.5-45.6) L 02/28/17 06:39 MCV 92 fl (84-94) 02/28/17 06:39 MCH 32 pg (28-32) 02/28/17 06:39 MCHC 35 % (32-34) H 02/28/17 06:39 RDW 16.1 % (13.2-15.2) H 02/28/17 06:39 Plt Count 83 K/mm3 (140-440) L 02/28/17 06:39 Lymph % (Auto) 9.5 % (13.4-35.0) L 02/28/17 06:39 [place] % (Auto) 12.4 % (0.0-7.3) H 02/28/17 06:39 Eos % (Auto) 0.4 % (0.0-4.3) 02/28/17 06:39 Baso % (Auto) 0.6 % (0.0-1.8) 02/28/17 06:39 Lymph # 0.8 K/mm3 (1.2-5.4) L 02/28/17 06:39 [place] # 1.1 K/mm3 (0.0-0.8) H 02/28/17 06:39 Eos # 0.0 K/mm3 (0.0-0.4) 02/28/17 06:39 Baso # 0.1 K/mm3 (0.0-0.1) 02/28/17 06:39 Seg Neutrophils % 77.1 % (40.0-70.0) H 02/28/17 06:39 Seg Neutrophils # 6.8 K/mm3 (1.8-7.7) 02/28/17 06:39 PT 14.3 Sec. (12.2-14.9) 02/26/17 03:29 INR 1.06 (0.87-1.13) 02/26/17 03:29 APTT 27.9 Sec. (24.2-36.6) 02/26/17 03:29 D-Dimer 1145.32 ng/mlDDU (0-234) H 02/26/17 03:29 POC ABG pH 7.413 (7.35-7.45) 02/27/17 11:28 POC ABG pCO2 37.7 (35-45) 02/27/17 11:28 POC ABG pO2 119 (80-105) H 02/27/17 11:28 POC ABG HCO3 24.0 02/27/17 11:28 POC ABG Total CO2 25 02/27/17 11:28 POC ABG O2 Sat 99 02/27/17 11:28 POC ABG Base Excess -1 02/27/17 11:28 FiO2 40 % 02/27/17 11:28 Sodium 138 mmol/L (137-145) D 02/28/17 06:39 Potassium 4.0 mmol/L (3.6-5.0) D 02/28/17 06:39 Chloride 100.7 mmol/L (98-107) 02/28/17 06:39 Carbon Dioxide 26 mmol/L (22-30) 02/28/17 06:39 Anion Gap 15 mmol/L 02/28/17 06:39 BUN 6 mg/dL (9-20) L 02/28/17 06:39 Creatinine 0.7 mg/dL (0.8-1.5) L 02/28/17 06:39 Estimated GFR > 60 ml/min 02/28/17 06:39 BUN/Creatinine Ratio 9 % 02/28/17 06:39 Glucose 110 mg/dL (75-100) H 02/28/17 06:39 POC Glucose 97 (70-105) 03/01/17 06:26 Osmolality 252 Mosm/kg 02/26/17 10:08 Uric Acid 8.0 mg/dL (3.5-7.6) H 02/26/17 10:08 Calcium 8.3 mg/dL (8.4-10.2) L 02/28/17 06:39 Total Bilirubin 1.30 mg/dL (0.1-1.2) H 02/26/17 03:29 AST 49 units/L (5-40) H 02/26/17 03:29 ALT 28 units/L (7-56) 02/26/17 03:29 Alkaline Phosphatase 74 units/L (35-129) 02/26/17 03:29 Total Creatine Kinase 1367 units/L (55-170) H 02/26/17 22:53 CK-MB (CK-2) 11.8 ng/mL (0.0-4.0) H 02/26/17 22:53 CK-MB (CK-2) Rel Index 0.8 (0-4) 02/26/17 22:53 Troponin T < 0.010 ng/mL (0.00-0.029) 02/26/17 10:08 NT-Pro-B Natriuret Pep 351.1 pg/mL (0-900) 02/26/17 03:29 Total Protein 7.8 g/dL (6.3-8.2) 02/26/17 03:29 Albumin 4.5 g/dL (3.9-5) 02/26/17 03:29 Albumin/Globulin Ratio 1.4 % 02/26/17 03:29 TSH 1.820 mlU/mL (0.270-4.200) 02/26/17 10:08 Urine Color Yellow (Yellow) 02/26/17 08:01 Urine Turbidity Clear (Clear) 02/26/17 08:01 Urine pH 5.0 (5.0-7.0) 02/26/17 08:01 Ur Specific [place] 1.030 (1.003-1.030) 02/26/17 08:01 Urine Protein 30 mg/dl mg/dL (Negative) 02/26/17 08:01 Urine Glucose (UA) 50 mg/dL (Negative) 02/26/17 08:01 Urine Ketones 20 mg/dL (Negative) 02/26/17 08:01 Urine Blood Sm (Negative) 02/26/17 08:01 Urine Nitrite Neg (Negative) 02/26/17 08:01 Urine Bilirubin Neg (Negative) 02/26/17 08:01 Urine Urobilinogen < 2.0 mg/dL (<2.0) 02/26/17 08:01 Ur Leukocyte Esterase Neg (Negative) 02/26/17 08:01 Urine WBC (Auto) 3.0 /HPF (0.0-6.0) 02/26/17 08:01 Urine RBC (Auto) 4.0 /HPF (0.0-6.0) 02/26/17 08:01 U Epithel Cells (Auto) 1.0 /HPF (0-13.0) 02/26/17 08:01 Hyaline Casts 1 /LPF 02/26/17 08:01 Urine Mucus Few /HPF 02/26/17 08:01 Urine Osmolality 419 Mosm/kg 02/26/17 18:00 Urine Creatinine 49.4 mg/dL (0.1-20.0) H 02/26/17 18:00 Urine Sodium 10 mEq/L 02/26/17 18:00 Urine Chloride 10.0 mEq/L (110-250) L 02/26/17 18:00 Urine Opiates Screen Presumptive positive 02/26/17 08:01 Urine Methadone Screen Presumptive negative 02/26/17 08:01 Ur Barbiturates Screen Presumptive negative 02/26/17 08:01 Ur Phencyclidine Scrn Presumptive negative 02/26/17 08:01 Ur Amphetamines Screen Presumptive negative 02/26/17 08:01 U Benzodiazepines Scrn Presumptive negative 02/26/17 08:01 Urine Cocaine Screen Presumptive negative 02/26/17 08:01 U Marijuana (THC) Screen Presumptive negative 02/26/17 08:01 Drugs of Abuse Note Disclamer 02/26/17 08:01 Plasma/Serum Alcohol 0.04 gm% (0-0.07) 02/26/17 03:29
[2017-03-01] MEDS ORDERED: DIPRIVAN 10 MG/ML IV ONE ×2 (13:43)
[2017-03-01] MEDS: NACL 0.9% 1000 ML 1,000 ML IV SCH ×2 (14:04→14:22)
--- NOTE | 2017-03-01 14:05 | Anesthesia Consultation ---
Anesthesia Consult and Med Hx Date of service: 03/01/17 - Airway Anesthetic Teeth Evaluation: Poor ROM Head & Neck: Adequate Mental/Hyoid Distance: Adequate Mallampati Class: Class III Intubation Access Assessment: Possibly Difficult - Pulmonary Exam CTA: Yes - Cardiac Exam Cardiac Exam: RRR - Pre-Operative Health Status ASA Pre-Surgery Classification: ASA3 Proposed Anesthetic Plan: MAC - Pulmonary Hx Smoking: Yes (quitted 2 m ago) Hx Asthma: No COPD: No Hx Sleep Apnea: No - Cardiovascular System Hx Hypertension: Yes (high cholesterol) Hx Angina: No - Central Nervous System Hx Seizures: Yes (2014 or 2016, not on meds) Hx Psychiatric Problems: Yes (depression) - Other Systems Hx Alcohol Use: Yes (abuser, SIADH) Hx Cancer: No - Additional Comments Anesthesia Medical History Comments: NAC
--- NOTE | 2017-03-01 14:05 | Anesthesia Day of Surgery ---
Anesthesia Day of Surgery - Day of Surgery Patient Examined: Yes Patient H&P Reviewed: Yes Patient is NPO: Yes
--- NOTE | 2017-03-01 15:29 | Operative Report ---
Operative Report Operative Report: Date of procedure: 03/01/2017 Procedure: Esophagogastroduodenoscopy Preprocedure diagnosis: Recent upper GI bleeding. Cirrhosis secondary to alcohol. Post procedure diagnosis: Severe confluent esophagitis encompassing the lower half. No varices. Patchy gastritis and duodenitis. Endoscopist: Dr. Lawrence Anesthesia: Monitored anesthesia care per anesthesia department Medications: Propofol per anesthesia Estimated blood loss: 0 After careful discussion of the nature and purpose of the procedure as well as details the technique risks benefits and alternatives consent was obtained. The patient was placed in the left lateral decubitus position and medicated per anesthesia. The tip of the [employer] EQ 570 video scope was passed per orum under direct vision into the esophagus and advanced into the stomach and descending duodenum. The descending duodenum the duodenal bulb and pylorus were symmetrical and normal except for patchy erosions in the bulb. The scope was withdrawn into the stomach and the stomach then gently insufflated with air. The antrum was normal. The stomach was further insufflated and the scope was then retroflexed and partially withdrawn. The cardia, fundus, and body of the stomach were easily distensible and revealed patchy erosions. There were no varices in the cardia. The scope was then withdrawn in the forward position. The esophagogastric junction was at 40 cm. The lower half of the esophagus revealed confluence ulceration with some exudates consistent with either vomiting, reflux or local toxic effects due to alcohol. The proximal esophagus was normal. No varices were evident. The procedure was was well tolerated and the patient was observed in recovery. Impressions: Severe confluent esophagitis likely peptic in nature. Mild patchy gastritis and duodenitis. No varices. Plan: Continue high-dose acid suppression therapy. Advance diet. Electronically signed: Keaton Lawrence MD
--- NOTE | 2017-03-01 15:31 | Post Anesthesia Evaluation ---
- Post Anesthesia Evaluation Patient Participated: Yes Airway Patent: Yes Stable Respiratory Function: Yes Nausea/Vomiting: No Temp > 96.8F: Yes Pain Manageable: Yes Adequeate Hydration: Yes Anesthesia Complications: No Block Receding Appropriately: Not Applicable Patient on Ventilator: No
[2017-03-01] MEDS ORDERED: MORPHINE IV ONE (18:00)
[2017-03-02] MEDS: NOVOLOG SUB-Q SCH ×4 (01:27→17:06)
[2017-03-02] MEDS: VITAMIN B-1 100 MG, FOLVITE 1 MG, INFUVITE 10 ML in NACL 0.9% 1000 ML 1,000 ML IV SCH ×2 (01:27→17:04)
[2017-03-02] MEDS: FIORICET PO PRN ×2 (05:25→22:15)
[2017-03-02] MEDS: VITAMIN B-1 PO SCH (11:01)
[2017-03-02] MEDS: REQUIP PO SCH ×2 (11:01→22:15)
[2017-03-02] MEDS: PEPCID PO SCH ×2 (11:02→22:15)
[2017-03-02] MEDS: celeXA PO SCH (11:02)
[2017-03-02] MEDS: ZESTRIL PO SCH (11:02)
[2017-03-02] MEDS: RAZADYNE PO SCH ×2 (11:02→22:15)
[2017-03-02] MEDS: THERAGRAN Tab PO SCH (11:02)
[2017-03-02] MEDS: PROTONIX IV SCH ×2 (11:03→22:15)
[2017-03-02] MEDS: PERCOCET 5/325 PO PRN ×2 (11:58→18:10)
--- NOTE | 2017-03-02 14:17 | Progress Note ---
Assessment and Plan Assessment and plan: 66-year-old male with past medical history significant for diabetes, anxiety, depression, alcohol abuse was presented with chest pain to the emergency department, patient was tremulous and diaphoretic. Patient's last drink was 2 days before presentation. Patient is admitted for symptom management of DT. While he was in the emergency department the patient developed progressive respiratory distress and was not able to take care of his airways and he was intubated and extubated the day after. Acute respiratory failure, on MV <96 hours - S/P extubation on 02/27 - Resolved - lehr cutter consult appreciated Alcohol withdrawal/DT - Patient is managed according to CIWA protocol - Patient is on banana bag - On restraints, per nurses patient has been agitated Esophagitis -EGD, Mary esophagitis, continue PPI Acute blood loss anemia, due to UGIB-esophagitis -Hemoglobin now stable, transfuse to keep hemoglobin above 7 Hyponatremia - Resolved with hydration Sepsis/PNA -continue ABX DVT prophylaxis - SCDs given upper GI bleeding History Interval history: c/o confusion and agitation. RN states that he gets agitated and delireus Hospitalist Physical - Physical exam Narrative exam: General.: Appears well, no distress, nontoxic HEENT: Moist mucous membranes, extraocular muscles intact, no lymphadenopathy Neck: supple Cardiac: S1-S2 heard Lungs: clear to auscultation bilaterally Abdomen: soft , nontender, nondistended, bowel sounds positive Extremities: no edema clubbing or cyanosis Skin: no rash or lesions Neurologic: confused - Constitutional Vitals: Temp Pulse Resp BP Pulse Ox 97.4 F L 58 L 20 162/79 97 03/02/17 05:28 03/02/17 10:00 03/02/17 05:28 03/02/17 05:28 03/02/17 10:00 Results - Labs CBC & Chem 7: 03/03/17 09:19 03/03/17 09:19 Labs: Laboratory Last Values WBC 8.8 K/mm3 (4.5-11.0) 02/28/17 06:39 RBC 3.03 M/mm3 (3.65-5.03) L 02/28/17 06:39 Hgb 9.7 gm/dl (11.8-15.2) L 02/28/17 06:39 Hct 27.9 % (35.5-45.6) L 02/28/17 06:39 MCV 92 fl (84-94) 02/28/17 06:39 MCH 32 pg (28-32) 02/28/17 06:39 MCHC 35 % (32-34) H 02/28/17 06:39 RDW 16.1 % (13.2-15.2) H 02/28/17 06:39 Plt Count 83 K/mm3 (140-440) L 02/28/17 06:39 Lymph % (Auto) 9.5 % (13.4-35.0) L 02/28/17 06:39 [place] % (Auto) 12.4 % (0.0-7.3) H 02/28/17 06:39 Eos % (Auto) 0.4 % (0.0-4.3) 02/28/17 06:39 Baso % (Auto) 0.6 % (0.0-1.8) 02/28/17 06:39 Lymph # 0.8 K/mm3 (1.2-5.4) L 02/28/17 06:39 [place] # 1.1 K/mm3 (0.0-0.8) H 02/28/17 06:39 Eos # 0.0 K/mm3 (0.0-0.4) 02/28/17 06:39 Baso # 0.1 K/mm3 (0.0-0.1) 02/28/17 06:39 Seg Neutrophils % 77.1 % (40.0-70.0) H 02/28/17 06:39 Seg Neutrophils # 6.8 K/mm3 (1.8-7.7) 02/28/17 06:39 PT 14.3 Sec. (12.2-14.9) 02/26/17 03:29 INR 1.06 (0.87-1.13) 02/26/17 03:29 APTT 27.9 Sec. (24.2-36.6) 02/26/17 03:29 D-Dimer 1145.32 ng/mlDDU (0-234) H 02/26/17 03:29 POC ABG pH 7.413 (7.35-7.45) 02/27/17 11:28 POC ABG pCO2 37.7 (35-45) 02/27/17 11:28 POC ABG pO2 119 (80-105) H 02/27/17 11:28 POC ABG HCO3 24.0 02/27/17 11:28 POC ABG Total CO2 25 02/27/17 11:28 POC ABG O2 Sat 99 02/27/17 11:28 POC ABG Base Excess -1 02/27/17 11:28 FiO2 40 % 02/27/17 11:28 Sodium 138 mmol/L (137-145) D 02/28/17 06:39 Potassium 4.0 mmol/L (3.6-5.0) D 02/28/17 06:39 Chloride 100.7 mmol/L (98-107) 02/28/17 06:39 Carbon Dioxide 26 mmol/L (22-30) 02/28/17 06:39 Anion Gap 15 mmol/L 02/28/17 06:39 BUN 6 mg/dL (9-20) L 02/28/17 06:39 Creatinine 0.7 mg/dL (0.8-1.5) L 02/28/17 06:39 Estimated GFR > 60 ml/min 02/28/17 06:39 BUN/Creatinine Ratio 9 % 02/28/17 06:39 Glucose 110 mg/dL (75-100) H 02/28/17 06:39 POC Glucose 159 (70-105) H 03/02/17 12:19 Osmolality 252 Mosm/kg 02/26/17 10:08 Uric Acid 8.0 mg/dL (3.5-7.6) H 02/26/17 10:08 Calcium 8.3 mg/dL (8.4-10.2) L 02/28/17 06:39 Total Bilirubin 1.30 mg/dL (0.1-1.2) H 02/26/17 03:29 AST 49 units/L (5-40) H 02/26/17 03:29 ALT 28 units/L (7-56) 02/26/17 03:29 Alkaline Phosphatase 74 units/L (35-129) 02/26/17 03:29 Total Creatine Kinase 1367 units/L (55-170) H 02/26/17 22:53 CK-MB (CK-2) 11.8 ng/mL (0.0-4.0) H 02/26/17 22:53 CK-MB (CK-2) Rel Index 0.8 (0-4) 02/26/17 22:53 Troponin T < 0.010 ng/mL (0.00-0.029) 02/26/17 10:08 NT-Pro-B Natriuret Pep 351.1 pg/mL (0-900) 02/26/17 03:29 Total Protein 7.8 g/dL (6.3-8.2) 02/26/17 03:29 Albumin 4.5 g/dL (3.9-5) 02/26/17 03:29 Albumin/Globulin Ratio 1.4 % 02/26/17 03:29 TSH 1.820 mlU/mL (0.270-4.200) 02/26/17 10:08 Urine Color Yellow (Yellow) 02/26/17 08:01 Urine Turbidity Clear (Clear) 02/26/17 08:01 Urine pH 5.0 (5.0-7.0) 02/26/17 08:01 Ur Specific [place] 1.030 (1.003-1.030) 02/26/17 08:01 Urine Protein 30 mg/dl mg/dL (Negative) 02/26/17 08:01 Urine Glucose (UA) 50 mg/dL (Negative) 02/26/17 08:01 Urine Ketones 20 mg/dL (Negative) 02/26/17 08:01 Urine Blood Sm (Negative) 02/26/17 08:01 Urine Nitrite Neg (Negative) 02/26/17 08:01 Urine Bilirubin Neg (Negative) 02/26/17 08:01 Urine Urobilinogen < 2.0 mg/dL (<2.0) 02/26/17 08:01 Ur Leukocyte Esterase Neg (Negative) 02/26/17 08:01 Urine WBC (Auto) 3.0 /HPF (0.0-6.0) 02/26/17 08:01 Urine RBC (Auto) 4.0 /HPF (0.0-6.0) 02/26/17 08:01 U Epithel Cells (Auto) 1.0 /HPF (0-13.0) 02/26/17 08:01 Hyaline Casts 1 /LPF 02/26/17 08:01 Urine Mucus Few /HPF 02/26/17 08:01 Urine Osmolality 419 Mosm/kg 02/26/17 18:00 Urine Creatinine 49.4 mg/dL (0.1-20.0) H 02/26/17 18:00 Urine Sodium 10 mEq/L 02/26/17 18:00 Urine Chloride 10.0 mEq/L (110-250) L 02/26/17 18:00 Urine Opiates Screen Presumptive positive 02/26/17 08:01 Urine Methadone Screen Presumptive negative 02/26/17 08:01 Ur Barbiturates Screen Presumptive negative 02/26/17 08:01 Ur Phencyclidine Scrn Presumptive negative 02/26/17 08:01 Ur Amphetamines Screen Presumptive negative 02/26/17 08:01 U Benzodiazepines Scrn Presumptive negative 02/26/17 08:01 Urine Cocaine Screen Presumptive negative 02/26/17 08:01 U Marijuana (THC) Screen Presumptive negative 02/26/17 08:01 Drugs of Abuse Note Disclamer 02/26/17 08:01 Plasma/Serum Alcohol 0.04 gm% (0-0.07) 02/26/17 03:29
--- NOTE | 2017-03-02 15:08 | Gastroenterology Progress Note ---
Assessment and Plan 1. Severe esophagitis 2. Alcohol withdrawal 3. Respiratory failure 4. Hyponatremia -s/p EGD showing severe esophagitis (suspected peptic etiology), no signs of varices. No signs of active GI bleeding at this time. -cont PPI BID dosing -discussed importance of alcohol cessation with pt -repeat EGD as outpatient in 2 months (along with screening colonoscopy if not up to date) Will sign off, please call as needed or with questions. Pt should follow-up in GI clinic 1 month after discharge. Subjective Date of service: 03/02/17 Principal diagnosis: Respiratory failure, alcohol withdrawal, AMS Interval history: Patient seen and examined. He is sleeping but arousable and able to answer questions appropriately. He c/o headache. Denies n/v, hematemesis, abd pain, dysphagia, or bloody bm's. Objective - Constitutional Vitals: Temp Pulse Resp BP Pulse Ox 98.1 F 58 L 22 148/81 97 03/02/17 09:31 03/02/17 10:00 03/02/17 09:31 03/02/17 09:31 03/02/17 10:00 General appearance: no acute distress - Respiratory Respiratory effort: normal Respiratory: bilateral: CTA - Cardiovascular Rhythm: regular Heart Sounds: Present: S1 & S2 - Gastrointestinal General gastrointestinal: Present: soft, non-tender, non-distended - Neurologic Neurological: alert and oriented x3 - Psychiatric Psychiatric: appropriate mood/affect - Labs CBC & Chem 7: 02/28/17 06:39 02/28/17 06:39 Labs: Laboratory Results - last 24 hr 03/01/17 03/01/17 03/02/17 14:32 19:53 07:51 POC Glucose 94 133 H 92 03/02/17 12:19 POC Glucose 159 H - Imaging CT scan: report reviewed
--- NOTE | 2017-03-02 22:57 | Progress Note ---
Assessment and Plan - Patient Problems (1) Acute respiratory failure with hypoxia and hypercapnia Current Visit: Yes Status: Acute Plan to address problem: Improved. O2 2 litres Prn for shortness of breath and for hypoxemia. Albuterol/atrovent aerosol treatments q 6 hours prn for shortness of breath. (2) Alcohol withdrawal Current Visit: Yes Status: Acute Qualifiers: Complication of substance-induced condition: with unspecified complication Qualified Code(s): F10.239 - Alcohol dependence with withdrawal, unspecified Plan to address problem: Management as per primary care. (3) Chest pain Current Visit: Yes Status: Acute Qualifiers: Chest pain type: unspecified Ischemic chest pain type: I Qualified Code(s ): R07.9 - Chest pain, unspecified Plan to address problem: Management as per primary care. (4) Esophagitis Current Visit: Yes Status: Acute (5) GI bleeding Current Visit: Yes Status: Acute Qualifiers: GI bleed type/associated pathology: unspecified gastrointestinal hemorrhage type Gastritis type: G Qualified Code(s): K92.2 - Gastrointestinal hemorrhage, unspecified Plan to address problem: Management as per primary care GI specialists. Subjective Date of service: 03/02/17 Principal diagnosis: Respiratory failure, alcohol withdrawal, AMS Interval history: Patient alert, awake. Resting on room air.No acute respiratory distress. O2 saturation 97%. Objective Vital Signs - 12hr 03/02/17 03/02/17 03/02/17 16:30 18:06 21:24 Temperature 98.6 F 98.0 F 98.8 F Pulse Rate 64 67 65 Respiratory 20 18 Rate Blood Pressure 143/74 Blood Pressure 140/70 [Right] O2 Sat by Pulse 98 93 Oximetry Constitutional: no acute distress, other (intubated, sedated) Eyes: non-icteric ENT: oropharynx moist, other (nasogastric tube to low intermittent suction) Neck: supple, no lymphadenopathy, no JVD Effort: normal (No patietn ventilatory dyssynchrony, Size 7.5 ETT in position) Ascultation: Bilateral: diminished breath sounds, other (rhonchi bilateral upper lobes anteriorly) Cardiovascular: regular rate and rhythm, other (S1, S2, no murmurs gallops or rubs) Gastrointestinal: normoactive bowel sounds, soft, non-tender, non-distended Integumentary: normal Extremities: no cyanosis, no edema, pulses normal, no ischemia or petechiae Neurologic: unable to assess (sedated) CBC and BMP: 02/28/17 06:39 02/28/17 06:39 ABG, PT/INR, D-dimer: ABG POC ABG pH 7.413 (7.35-7.45) 02/27/17 11:28 POC ABG pCO2 37.7 (35-45) 02/27/17 11:28 POC ABG pO2 119 (80-105) H 02/27/17 11:28 POC ABG HCO3 24.0 02/27/17 11:28 POC ABG Total CO2 25 02/27/17 11:28 POC ABG O2 Sat 99 02/27/17 11:28 PT/INR, D-dimer PT 14.3 Sec. (12.2-14.9) 02/26/17 03:29 INR 1.06 (0.87-1.13) 02/26/17 03:29 D-Dimer 1145.32 ng/mlDDU (0-234) H 02/26/17 03:29 Abnormal lab findings: Abnormal Labs 02/26/17 02/26/17 02/26/17 09:01 10:08 10:08 WBC RBC Hgb Hct MCHC RDW Plt Count Lymph % (Auto) [place] % (Auto) Lymph # [place] # Seg Neutrophils % Seg Neutrophils # POC ABG pH 7.283 L POC ABG pCO2 50.3 H POC ABG pO2 76 L Sodium 113 L* Potassium Chloride 73.6 L Carbon Dioxide BUN Creatinine 0.7 L Glucose 216 H POC Glucose Uric Acid Calcium Total Creatine Kinase 1053 H CK-MB (CK-2) 28.4 H Urine Creatinine Urine Chloride 02/26/17 02/26/17 02/26/17 10:08 11:23 18:00 WBC RBC Hgb Hct MCHC RDW Plt Count Lymph % (Auto) [place] % (Auto) Lymph # [place] # Seg Neutrophils % Seg Neutrophils # POC ABG pH POC ABG pCO2 POC ABG pO2 Sodium Potassium Chloride Carbon Dioxide BUN Creatinine Glucose POC Glucose 189 H Uric Acid 8.0 H Calcium Total Creatine Kinase CK-MB (CK-2) Urine Creatinine 49.4 H Urine Chloride 10.0 L 10/03/17 10/03/17 10/03/17 18:26 18:26 18:38 WBC RBC Hgb Hct MCHC RDW Plt Count Lymph % (Auto) [place] % (Auto) Lymph # [place] # Seg Neutrophils % Seg Neutrophils # POC ABG pH POC ABG pCO2 POC ABG pO2 Sodium 116 L* Potassium Chloride 72.4 L Carbon Dioxide 14 L D BUN Creatinine 0.7 L Glucose 215 H POC Glucose 138 H Uric Acid Calcium Total Creatine Kinase 1085 H CK-MB (CK-2) 22.9 H Urine Creatinine Urine Chloride 02/26/17 02/27/17 02/27/17 22:53 01:17 04:50 WBC 14.4 H RBC 3.49 L Hgb 11.3 L Hct 31.4 L MCHC 36 H RDW 15.8 H Plt Count 88 L Lymph % (Auto) 9.6 L [place] % (Auto) 9.7 H Lymph # [place] # 1.4 H Seg Neutrophils % 80.0 H Seg Neutrophils # 11.6 H POC ABG pH POC ABG pCO2 POC ABG pO2 Sodium Potassium Chloride Carbon Dioxide BUN Creatinine Glucose POC Glucose 161 H Uric Acid Calcium Total Creatine Kinase 1367 H CK-MB (CK-2) 11.8 H Urine Creatinine Urine Chloride 02/27/17 02/27/17 02/27/17 05:37 08:20 09:14 WBC RBC Hgb Hct MCHC RDW Plt Count Lymph % (Auto) [place] % (Auto) Lymph # [place] # Seg Neutrophils % Seg Neutrophils # POC ABG pH POC ABG pCO2 POC ABG pO2 178 H Sodium 128 L D Potassium 3.2 L D Chloride 90.1 L Carbon Dioxide BUN Creatinine Glucose 150 H POC Glucose 144 H Uric Acid Calcium 8.1 L Total Creatine Kinase CK-MB (CK-2) Urine Creatinine Urine Chloride 02/27/17 02/27/17 02/27/17 11:28 17:22 21:00 WBC RBC Hgb Hct MCHC RDW Plt Count Lymph % (Auto) [place] % (Auto) Lymph # [place] # Seg Neutrophils % Seg Neutrophils # POC ABG pH POC ABG pCO2 POC ABG pO2 119 H Sodium Potassium Chloride Carbon Dioxide BUN Creatinine Glucose POC Glucose 116 H 113 H Uric Acid Calcium Total Creatine Kinase CK-MB (CK-2) Urine Creatinine Urine Chloride 02/28/17 02/28/17 02/28/17 06:39 06:39 08:32 WBC RBC 3.03 L Hgb 9.7 L Hct 27.9 L MCHC 35 H RDW 16.1 H Plt Count 83 L Lymph % (Auto) 9.5 L Mccone % (Auto) 12.4 H Lymph # 0.8 L Mccone # 1.1 H Seg Neutrophils % 77.1 H Seg Neutrophils # POC ABG pH POC ABG pCO2 POC ABG pO2 Sodium Potassium Chloride Carbon Dioxide BUN 6 L Creatinine 0.7 L Glucose 110 H POC Glucose 120 H Uric Acid Calcium 8.3 L Total Creatine Kinase CK-MB (CK-2) Urine Creatinine Urine Chloride 02/28/17 03/01/17 03/02/17 11:37 19:53 12:19 WBC RBC Hgb Hct MCHC RDW Plt Count Lymph % (Auto) [place] % (Auto) Lymph # [place] # Seg Neutrophils % Seg Neutrophils # POC ABG pH POC ABG pCO2 POC ABG pO2 Sodium Potassium Chloride Carbon Dioxide BUN Creatinine Glucose POC Glucose 120 H 133 H 159 H Uric Acid Calcium Total Creatine Kinase CK-MB (CK-2) Urine Creatinine Urine Chloride 03/02/17 21:56 WBC RBC Hgb Hct MCHC RDW Plt Count Lymph % (Auto) [place] % (Auto) Lymph # Mccone # Seg Neutrophils % Seg Neutrophils # POC ABG pH POC ABG pCO2 POC ABG pO2 Sodium Potassium Chloride Carbon Dioxide BUN Creatinine Glucose POC Glucose 121 H Uric Acid Calcium Total Creatine Kinase CK-MB (CK-2) Urine Creatinine Urine Chloride Chest x-ray: report reviewed (No acute pulmonary process.) CT scan - chest: report reviewed (No pulmonary emboli.) [facility] notes reviewed: RT
[2017-03-03] MEDS: PERCOCET 5/325 PO PRN (05:35)
[2017-03-03] MEDS: NOVOLOG SUB-Q SCH ×3 (07:32→17:33)
--- NOTE | 2017-03-03 08:50 | Progress Note ---
Hospitalist Physical - Constitutional Vitals: Temp Pulse Resp BP Pulse Ox 97.6 F 60 18 136/74 94 03/03/17 03:10 03/03/17 06:00 03/03/17 03:10 03/03/17 03:10 03/03/17 03:10 Results - Labs CBC & Chem 7: 02/28/17 06:39 02/28/17 06:39 Labs: Laboratory Last Values WBC 8.8 K/mm3 (4.5-11.0) 02/28/17 06:39 RBC 3.03 M/mm3 (3.65-5.03) L 02/28/17 06:39 Hgb 9.7 gm/dl (11.8-15.2) L 02/28/17 06:39 Hct 27.9 % (35.5-45.6) L 02/28/17 06:39 MCV 92 fl (84-94) 02/28/17 06:39 MCH 32 pg (28-32) 02/28/17 06:39 MCHC 35 % (32-34) H 02/28/17 06:39 RDW 16.1 % (13.2-15.2) H 02/28/17 06:39 Plt Count 83 K/mm3 (140-440) L 02/28/17 06:39 Lymph % (Auto) 9.5 % (13.4-35.0) L 02/28/17 06:39 [place] % (Auto) 12.4 % (0.0-7.3) H 02/28/17 06:39 Eos % (Auto) 0.4 % (0.0-4.3) 02/28/17 06:39 Baso % (Auto) 0.6 % (0.0-1.8) 02/28/17 06:39 Lymph # 0.8 K/mm3 (1.2-5.4) L 02/28/17 06:39 [place] # 1.1 K/mm3 (0.0-0.8) H 02/28/17 06:39 Eos # 0.0 K/mm3 (0.0-0.4) 02/28/17 06:39 Baso # 0.1 K/mm3 (0.0-0.1) 02/28/17 06:39 Seg Neutrophils % 77.1 % (40.0-70.0) H 02/28/17 06:39 Seg Neutrophils # 6.8 K/mm3 (1.8-7.7) 02/28/17 06:39 PT 14.3 Sec. (12.2-14.9) 02/26/17 03:29 INR 1.06 (0.87-1.13) 02/26/17 03:29 APTT 27.9 Sec. (24.2-36.6) 02/26/17 03:29 D-Dimer 1145.32 ng/mlDDU (0-234) H 02/26/17 03:29 POC ABG pH 7.413 (7.35-7.45) 02/27/17 11:28 POC ABG pCO2 37.7 (35-45) 02/27/17 11:28 POC ABG pO2 119 (80-105) H 02/27/17 11:28 POC ABG HCO3 24.0 02/27/17 11:28 POC ABG Total CO2 25 02/27/17 11:28 POC ABG O2 Sat 99 02/27/17 11:28 POC ABG Base Excess -1 02/27/17 11:28 FiO2 40 % 02/27/17 11:28 Sodium 138 mmol/L (137-145) D 02/28/17 06:39 Potassium 4.0 mmol/L (3.6-5.0) D 02/28/17 06:39 Chloride 100.7 mmol/L (98-107) 02/28/17 06:39 Carbon Dioxide 26 mmol/L (22-30) 02/28/17 06:39 Anion Gap 15 mmol/L 02/28/17 06:39 BUN 6 mg/dL (9-20) L 02/28/17 06:39 Creatinine 0.7 mg/dL (0.8-1.5) L 02/28/17 06:39 Estimated GFR > 60 ml/min 02/28/17 06:39 BUN/Creatinine Ratio 9 % 02/28/17 06:39 Glucose 110 mg/dL (75-100) H 02/28/17 06:39 POC Glucose 121 (70-105) H 03/02/17 21:56 Osmolality 252 Mosm/kg 02/26/17 10:08 Uric Acid 8.0 mg/dL (3.5-7.6) H 02/26/17 10:08 Calcium 8.3 mg/dL (8.4-10.2) L 02/28/17 06:39 Total Bilirubin 1.30 mg/dL (0.1-1.2) H 02/26/17 03:29 AST 49 units/L (5-40) H 02/26/17 03:29 ALT 28 units/L (7-56) 02/26/17 03:29 Alkaline Phosphatase 74 units/L (35-129) 02/26/17 03:29 Total Creatine Kinase 1367 units/L (55-170) H 02/26/17 22:53 CK-MB (CK-2) 11.8 ng/mL (0.0-4.0) H 02/26/17 22:53 CK-MB (CK-2) Rel Index 0.8 (0-4) 02/26/17 22:53 Troponin T < 0.010 ng/mL (0.00-0.029) 02/26/17 10:08 NT-Pro-B Natriuret Pep 351.1 pg/mL (0-900) 02/26/17 03:29 Total Protein 7.8 g/dL (6.3-8.2) 02/26/17 03:29 Albumin 4.5 g/dL (3.9-5) 02/26/17 03:29 Albumin/Globulin Ratio 1.4 % 02/26/17 03:29 TSH 1.820 mlU/mL (0.270-4.200) 02/26/17 10:08 Urine Color Yellow (Yellow) 02/26/17 08:01 Urine Turbidity Clear (Clear) 02/26/17 08:01 Urine pH 5.0 (5.0-7.0) 02/26/17 08:01 Ur Specific [place] 1.030 (1.003-1.030) 02/26/17 08:01 Urine Protein 30 mg/dl mg/dL (Negative) 02/26/17 08:01 Urine Glucose (UA) 50 mg/dL (Negative) 02/26/17 08:01 Urine Ketones 20 mg/dL (Negative) 02/26/17 08:01 Urine Blood Sm (Negative) 02/26/17 08:01 Urine Nitrite Neg (Negative) 02/26/17 08:01 Urine Bilirubin Neg (Negative) 02/26/17 08:01 Urine Urobilinogen < 2.0 mg/dL (<2.0) 02/26/17 08:01 Ur Leukocyte Esterase Neg (Negative) 02/26/17 08:01 Urine WBC (Auto) 3.0 /HPF (0.0-6.0) 02/26/17 08:01 Urine RBC (Auto) 4.0 /HPF (0.0-6.0) 02/26/17 08:01 U Epithel Cells (Auto) 1.0 /HPF (0-13.0) 02/26/17 08:01 Hyaline Casts 1 /LPF 02/26/17 08:01 Urine Mucus Few /HPF 02/26/17 08:01 Urine Osmolality 419 Mosm/kg 02/26/17 18:00 Urine Creatinine 49.4 mg/dL (0.1-20.0) H 02/26/17 18:00 Urine Sodium 10 mEq/L 02/26/17 18:00 Urine Chloride 10.0 mEq/L (110-250) L 02/26/17 18:00 Urine Opiates Screen Presumptive positive 02/26/17 08:01 Urine Methadone Screen Presumptive negative 02/26/17 08:01 Ur Barbiturates Screen Presumptive negative 02/26/17 08:01 Ur Phencyclidine Scrn Presumptive negative 02/26/17 08:01 Ur Amphetamines Screen Presumptive negative 02/26/17 08:01 U Benzodiazepines Scrn Presumptive negative 02/26/17 08:01 Urine Cocaine Screen Presumptive negative 02/26/17 08:01 U Marijuana (THC) Screen Presumptive negative 02/26/17 08:01 Drugs of Abuse Note Disclamer 02/26/17 08:01 Plasma/Serum Alcohol 0.04 gm% (0-0.07) 02/26/17 03:29
[2017-03-03] MEDS ORDERED: ATIVAN IV PRN ×2 (08:58)
[2017-03-03 09:51] LABS: Hematocrit 29.1 % (35.5-45.6); Hemoglobin 10.2 gm/dl (11.8-15.2); Mean Corpuscular HGB Conc 35 % (32-34); Mean Corpuscular Hemoglobin 32 pg (28-32); Mean Corpuscular Volume 92 fl (84-94); Platelet Count 134 K/mm3 (140-440); Red Blood Count 3.17 M/mm3 (3.65-5.03); Red Cell Distribution Width 16.6 % (13.2-15.2); White Blood Count 6.3 K/mm3 (4.5-11.0)
--- NOTE | 2017-03-03 09:53 | Consultation ---
History of Present Illness - Reason for Consult Consult date: 03/03/17 Reason for consult: Mental Health Evaluation Requesting physician: RANDOLPH CARLISLE - Chief Complaint Chief complaint: "Thanks for coming" - History of Present Psychiatric Illness 66-year-old male presents to the emergency department by EMS from home with a complaint of some left-sided chest pain. Today patient is calm and cooperative during the assessment. He stated that he has an addiction to alcohol (etoh). He stated that he been drinking alcohol over 30+ years. He stated that he drink everyday because he "ace" with depression. He stated that he feel "depressed" when he think about his overall decision making. He stated that he should have accomplished more in comparison to his colleagues. 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 When asked to ID the current [place] President and tell me his , he was successful doing both. He stated that he was brought to the hospital for chest pain. He stated that he plan to attend AA once he is discharged. He stated that he has a psychiatrist and take Celexa for depression. He denies SI/HI's and AVH's. He denies sleep disturbances and a poor appetite. He could not tell me if he takes opiates for pain. UDS positive for opiates. Medications and Allergies Allergies Allergy/AdvReac Type Severity Reaction Status Date / Time No Known Allergies Allergy Verified 02/27/15 02:13 Home Medications Medication Instructions Recorded Confirmed Last Taken Type Citalopram [Celexa] 40 mg PO QDAY 09/02/15 02/28/17 1 Day Ago History Enalapril Maleate [Vasotec] 2.5 mg PO DAILY 09/02/15 02/28/17 1 Day Ago History Galantamine [Razadyne] 4 mg PO BID 09/02/15 02/28/17 1 Day Ago History Famotidine [Pepcid] 20 mg PO BID #60 tablet 09/03/15 02/28/17 1 Day Ago Rx metFORMIN [Glucophage] 500 mg PO TID tablet 09/03/15 02/28/17 1 Day Ago Rx rOPINIRole [Requip] 1 mg PO BID tablet 09/03/15 02/28/17 1 Day Ago Rx traZODone [Desyrel] 50 mg PO QHS tablet 09/03/15 02/28/17 1 Day Ago Rx ALPRAZolam [Xanax TAB] 1 mg PO BID #10 tablet 12/27/16 02/28/17 1 Day Ago Rx Multivitamin with Folic Acid [One 400 mcg PO DAILY #30 tablet 12/27/16 02/28/17 1 Day Ago Rx Daily Multivitamin Tablet] Thiamine [Vitamin B-1] 100 mg PO QDAY #30 tablet 12/27/16 02/28/17 1 Day Ago Rx hydrOXYzine PAMOATE [Vistaril] 50 mg PO Q6HR PRN #14 capsule 12/27/16 02/28/17 1 Day Ago Rx Active Meds: Active Medications Acetaminophen (Tylenol) 650 mg PO Q4H PRN PRN Reason: Pain MILD(1-3)/Fever >100.5/JOE Acetaminophen/Butalbital/Caffeine (Fioricet) 2 tab PO Q4H PRN PRN Reason: Headache Last Admin: 03/02/17 22:15 Dose: 2 tab Bisacodyl (Dulcolax) 10 mg DC QDAY PRN PRN Reason: Constipation unrelieved by MOM Citalopram Hydrobromide (Celexa) 40 mg PO QDAY [facility] Last Admin: 03/02/17 11:02 Dose: 40 mg Dextrose (D50w (25gm) Syringe) 50 ml IV PRN PRN PRN Reason: Hypoglycemia Famotidine (Pepcid) 20 mg PO BID [facility] Last Admin: 03/02/17 22:15 Dose: 20 mg Galantamine Hydrobromide (Razadyne) 4 mg PO BID [facility] Last Admin: 03/02/17 22:15 Dose: 4 mg Hydrophilic Ointment (Vaseline Lip Therapy) 1 applic TP Q2HR PRN PRN Reason: Dry Lips Thiamine HCl 100 mg/ Folic Acid 1 mg/ Multivitamins/Minerals 10 ml/ Sodium Chloride 1,011.2 mls @ 125 mls/hr IV Q24H [facility] Last Admin: 03/02/17 17:04 Dose: Not Given Sodium Chloride (Nacl 0.9% 1000 Ml) 1,000 mls @ 50 mls/hr IV DIRECT [facility] Last Admin: 03/01/17 14:22 Dose: 50 mls/hr Levofloxacin/Dextrose (Levaquin 750mg/150ml) 750 mg in 150 mls @ 100 mls/hr IV Q24HR IVANA PRN Reason: Protocol Insulin Aspart (Novolog) 0 units SUB-Q ACHS IVANA PRN Reason: Protocol Last Admin: 03/02/17 17:06 Dose: Not Given Lisinopril (Zestril) 2.5 mg PO QDAY [facility] Last Admin: 03/02/17 11:02 Dose: 2.5 mg Lorazepam (Ativan) 4 mg IV Q1H PRN PRN Reason: CIWA-Ar 16-25 Lorazepam (Ativan) 2 mg PO Q1H PRN PRN Reason: CIWA-Ar 8-15 Lorazepam (Ativan) 4 mg IV Q15MIN PRN PRN Reason: CIWA-Ar >25 Stop: 03/08/17 08:59 Magnesium Hydroxide (Milk Of Magnesia) 30 ml PO Q4H PRN PRN Reason: Constipation Multi-Ingred Cream/Lotion/Oil/Oint (Artificial Tears Ophth Oint) 1 applic OU Q4HR PRN PRN Reason: Dry Eye(s) Multivitamins (Theragran Tab) 1 each PO DAILY [facility] Last Admin: 03/02/17 11:02 Dose: 1 each Ondansetron HCl (Zofran) 4 mg IV Q8H PRN PRN Reason: N/V unrelieved by Reglan Oxycodone/Acetaminophen (Percocet 5/325) 1 tab PO Q6H PRN PRN Reason: Pain, Moderate (4-6) Last Admin: 03/03/17 05:35 Dose: 1 tab Pantoprazole Sodium (Protonix) 40 mg IV BID [facility] Last Admin: 03/02/17 22:15 Dose: 40 mg Ropinirole HCl (Requip) 1 mg PO BID [facility] Last Admin: 03/02/17 22:15 Dose: 1 mg Sodium Chloride (Nacl 0.9% 500 Ml) 1 ml IV DIRECT [facility] Thiamine HCl (Vitamin B-1) 100 mg PO QDAY [facility] Last Admin: 03/02/17 11:01 Dose: 100 mg Past psychiatric history - Past Medical History Past Medical History: diabetes Past Surgical History: No surgical history - past Psychiatric treatment and history Psych: Depression psychiatric treatment history: He stated that he has a psychiatrist for outpatient psy services. He denies a fam psy hx. - Social History Social history: other (Resides with his girlfriend) Mental Status Exam - Vital signs Last Vital Signs Temp 98.7 F 03/03/17 08:52 Pulse 60 03/03/17 08:52 Resp 18 03/03/17 08:52 BP 145/78 03/03/17 08:52 Pulse Ox 95 03/03/17 08:52 - Exam Narrative exam: MSE: Appearance: calm, cooperative Behavior: regular eye contact Speech: regular rate and tone Mood: "better" Affect: congruent to mood Thought Process: circumstantial Thought Content: denies SI/HI's and AVH's Motor Activity: sitting up in bed Cognition: A/Ox 3 Insight: fair Judgment: fair Results Result Diagrams: 03/03/17 09:19 03/03/17 09:19 Abnormal lab results 03/02/17 03/02/17 03/03/17 Range/Units 12:19 21:56 09:19 RBC 3.17 L (3.65-5.03) M/mm3 Hgb 10.2 L (11.8-15.2) gm/dl Hct 29.1 L (35.5-45.6) % MCHC 35 H (32-34) % RDW 16.6 H (13.2-15.2) % Plt Count 134 L (140-440) K/mm3 POC Glucose 159 H 121 H (70-105) All other labs normal. Assessment and Plan Assessment and plan: Impression: Historical Dx: Depression. Alcohol Use DO. Today patient is calm and cooperative during the assessment. No acute withdrawals noted DDx: R/O Bipolar Recommendation/Plan: Continue Celexa 40 mg PO daily for depression. Assess the need for CIWA. Patient plan to attend once discharged. Discussed [facility] with patient. He stated that he would inform me in 24 hours if he would like to attend [facility]. Discussed suicidality/medication induced marleni with patient reference Celexa. Discussed the importance to abstain from alcohol consumption (etoh).
[2017-03-03] MEDS ORDERED: LEVAQUIN 750MG/150ML 750 MG/150 ML BAG IV SCH (10:00)
[2017-03-03 10:03] LABS: Anion Gap 14 mmol/L; BUN/Creatinine Ratio 16; Blood Urea Nitrogen 8 mg/dL (9-20); Calcium 8.2 mg/dL (8.4-10.2); Carbon Dioxide 28 mmol/L (22-30); Chloride 99.3 mmol/L (98-107); Glucose 116 mg/dL (75-100); Magnesium 1.7 mg/dL (1.7-2.3); Phosphorous 3.4 mg/dL (2.5-4.5); Potassium 3.6 mmol/L (3.6-5.0); Sodium 138 mmol/L (137-145)
--- NOTE | 2017-03-03 10:17 | Progress Note ---
Assessment and Plan Assessment and plan: 66-year-old male with past medical history significant for diabetes, anxiety, depression, alcohol abuse was presented with chest pain to the emergency department, patient was tremulous and diaphoretic. Patient's last drink was 2 days before presentation. Patient is admitted for symptom management of DT. While he was in the emergency department the patient developed progressive respiratory distress and was not able to take care of his airways and he was intubated and extubated the day after. Acute respiratory failure, on MV <96 hours - S/P extubation on 02/27 - Resolved - racket stringer consult appreciated Alcohol withdrawal/DT - Patient is managed according to CIWA protocol Esophagitis -EGD, c/w esophagitis, continue PPI GI input appreciated Acute blood loss anemia, due to UGIB-esophagitis -Hemoglobin now stable, transfuse to keep hemoglobin above 7 Hyponatremia - Resolved with hydration Sepsis/ aspiration PNA -continue ABX DVT prophylaxis - SCDs given upper GI bleeding Tentative dc home tomorrow if keeps improving History Interval history: He feels much better, he has less episodes of agitation, he admits that he usually has alcohol withdrawal if he stops drinking. Hospitalist Physical - Physical exam Narrative exam: General.: Appears well, no distress, nontoxic HEENT: Moist mucous membranes, extraocular muscles intact, no lymphadenopathy Neck: supple Cardiac: S1-S2 heard Lungs: clear to auscultation bilaterally Abdomen: soft , nontender, nondistended, bowel sounds positive Extremities: no edema clubbing or cyanosis Skin: no rash or lesions Neurologic: oriented and pleasant, moves all extremities - Constitutional Vitals: Temp Pulse Resp BP Pulse Ox 98.7 F 60 18 145/78 95 03/03/17 08:52 03/03/17 08:52 03/03/17 08:52 03/03/17 08:52 03/03/17 08:52 Results - Labs CBC & Chem 7: 03/03/17 09:19 03/03/17 09:19 Labs: Laboratory Last Values WBC 6.3 K/mm3 (4.5-11.0) 03/03/17 09:19 RBC 3.17 M/mm3 (3.65-5.03) L 03/03/17 09:19 Hgb 10.2 gm/dl (11.8-15.2) L 03/03/17 09:19 Hct 29.1 % (35.5-45.6) L 03/03/17 09:19 MCV 92 fl (84-94) 03/03/17 09:19 MCH 32 pg (28-32) 03/03/17 09:19 MCHC 35 % (32-34) H 03/03/17 09:19 RDW 16.6 % (13.2-15.2) H 03/03/17 09:19 Plt Count 134 K/mm3 (140-440) L 03/03/17 09:19 Lymph % (Auto) 9.5 % (13.4-35.0) L 02/28/17 06:39 [place] % (Auto) 12.4 % (0.0-7.3) H 02/28/17 06:39 Eos % (Auto) 0.4 % (0.0-4.3) 02/28/17 06:39 Baso % (Auto) 0.6 % (0.0-1.8) 02/28/17 06:39 Lymph # 0.8 K/mm3 (1.2-5.4) L 02/28/17 06:39 [place] # 1.1 K/mm3 (0.0-0.8) H 02/28/17 06:39 Eos # 0.0 K/mm3 (0.0-0.4) 02/28/17 06:39 Baso # 0.1 K/mm3 (0.0-0.1) 02/28/17 06:39 Seg Neutrophils % 77.1 % (40.0-70.0) H 02/28/17 06:39 Seg Neutrophils # 6.8 K/mm3 (1.8-7.7) 02/28/17 06:39 PT 14.3 Sec. (12.2-14.9) 02/26/17 03:29 INR 1.06 (0.87-1.13) 02/26/17 03:29 APTT 27.9 Sec. (24.2-36.6) 02/26/17 03:29 D-Dimer 1145.32 ng/mlDDU (0-234) H 02/26/17 03:29 POC ABG pH 7.413 (7.35-7.45) 02/27/17 11:28 POC ABG pCO2 37.7 (35-45) 02/27/17 11:28 POC ABG pO2 119 (80-105) H 02/27/17 11:28 POC ABG HCO3 24.0 02/27/17 11:28 POC ABG Total CO2 25 02/27/17 11:28 POC ABG O2 Sat 99 02/27/17 11:28 POC ABG Base Excess -1 02/27/17 11:28 FiO2 40 % 02/27/17 11:28 Sodium 138 mmol/L (137-145) 03/03/17 09:19 Potassium 3.6 mmol/L (3.6-5.0) 03/03/17 09:19 Chloride 99.3 mmol/L (98-107) 03/03/17 09:19 Carbon Dioxide 28 mmol/L (22-30) 03/03/17 09:19 Anion Gap 14 mmol/L 03/03/17 09:19 BUN 8 mg/dL (9-20) L 03/03/17 09:19 Creatinine 0.5 mg/dL (0.8-1.5) L 03/03/17 09:19 Estimated GFR > 60 ml/min 03/03/17 09:19 BUN/Creatinine Ratio 16 % 03/03/17 09:19 Glucose 116 mg/dL (75-100) H 03/03/17 09:19 POC Glucose 121 (70-105) H 03/02/17 21:56 Osmolality 252 Mosm/kg 02/26/17 10:08 Uric Acid 8.0 mg/dL (3.5-7.6) H 02/26/17 10:08 Calcium 8.2 mg/dL (8.4-10.2) L 03/03/17 09:19 Phosphorus 3.40 mg/dL (2.5-4.5) 03/03/17 09:19 Magnesium 1.70 mg/dL (1.7-2.3) 03/03/17 09:19 Total Bilirubin 1.30 mg/dL (0.1-1.2) H 02/26/17 03:29 AST 49 units/L (5-40) H 02/26/17 03:29 ALT 28 units/L (7-56) 02/26/17 03:29 Alkaline Phosphatase 74 units/L (35-129) 02/26/17 03:29 Total Creatine Kinase 1367 units/L (55-170) H 02/26/17 22:53 CK-MB (CK-2) 11.8 ng/mL (0.0-4.0) H 02/26/17 22:53 CK-MB (CK-2) Rel Index 0.8 (0-4) 02/26/17 22:53 Troponin T < 0.010 ng/mL (0.00-0.029) 02/26/17 10:08 NT-Pro-B Natriuret Pep 351.1 pg/mL (0-900) 02/26/17 03:29 Total Protein 7.8 g/dL (6.3-8.2) 02/26/17 03:29 Albumin 4.5 g/dL (3.9-5) 02/26/17 03:29 Albumin/Globulin Ratio 1.4 % 02/26/17 03:29 TSH 1.820 mlU/mL (0.270-4.200) 02/26/17 10:08 Urine Color Yellow (Yellow) 02/26/17 08:01 Urine Turbidity Clear (Clear) 02/26/17 08:01 Urine pH 5.0 (5.0-7.0) 02/26/17 08:01 Ur Specific [place] 1.030 (1.003-1.030) 02/26/17 08:01 Urine Protein 30 mg/dl mg/dL (Negative) 02/26/17 08:01 Urine Glucose (UA) 50 mg/dL (Negative) 02/26/17 08:01 Urine Ketones 20 mg/dL (Negative) 02/26/17 08:01 Urine Blood Sm (Negative) 02/26/17 08:01 Urine Nitrite Neg (Negative) 02/26/17 08:01 Urine Bilirubin Neg (Negative) 02/26/17 08:01 Urine Urobilinogen < 2.0 mg/dL (<2.0) 02/26/17 08:01 Ur Leukocyte Esterase Neg (Negative) 02/26/17 08:01 Urine WBC (Auto) 3.0 /HPF (0.0-6.0) 02/26/17 08:01 Urine RBC (Auto) 4.0 /HPF (0.0-6.0) 02/26/17 08:01 U Epithel Cells (Auto) 1.0 /HPF (0-13.0) 02/26/17 08:01 Hyaline Casts 1 /LPF 02/26/17 08:01 Urine Mucus Few /HPF 02/26/17 08:01 Urine Osmolality 419 Mosm/kg 02/26/17 18:00 Urine Creatinine 49.4 mg/dL (0.1-20.0) H 02/26/17 18:00 Urine Sodium 10 mEq/L 02/26/17 18:00 Urine Chloride 10.0 mEq/L (110-250) L 02/26/17 18:00 Urine Opiates Screen Presumptive positive 02/26/17 08:01 Urine Methadone Screen Presumptive negative 02/26/17 08:01 Ur Barbiturates Screen Presumptive negative 02/26/17 08:01 Ur Phencyclidine Scrn Presumptive negative 02/26/17 08:01 Ur Amphetamines Screen Presumptive negative 02/26/17 08:01 U Benzodiazepines Scrn Presumptive negative 02/26/17 08:01 Urine Cocaine Screen Presumptive negative 02/26/17 08:01 U Marijuana (THC) Screen Presumptive negative 02/26/17 08:01 Drugs of Abuse Note Disclamer 02/26/17 08:01 Plasma/Serum Alcohol 0.04 gm% (0-0.07) 02/26/17 03:29
[2017-03-03] MEDS: PROTONIX IV SCH ×2 (11:35→21:07)
[2017-03-03] MEDS: ZESTRIL PO SCH (11:36)
[2017-03-03] MEDS: RAZADYNE PO SCH ×2 (11:36→21:07)
[2017-03-03] MEDS: VITAMIN B-1 PO SCH (11:36)
[2017-03-03] MEDS: REQUIP PO SCH ×2 (11:37→21:07)
[2017-03-03] MEDS: THERAGRAN Tab PO SCH (11:38)
[2017-03-03] MEDS: celeXA PO SCH (11:38)
[2017-03-03] MEDS: PEPCID PO SCH ×2 (11:39→21:07)
[2017-03-03] MEDS: ATIVAN PO PRN ×2 (13:39→23:43)
[2017-03-03] MEDS: NACL 0.9% 1000 ML 1,000 ML IV SCH ×2 (13:40→23:45)
--- NOTE | 2017-03-03 17:08 | Progress Note ---
Assessment and Plan Patient alert, awake. Resting on room air.No acute respiratory distress. O2 saturation 95% on 2 litres O2. Appears confusing at times. - Patient Problems (1) Acute respiratory failure with hypoxia and hypercapnia Current Visit: Yes Status: Acute Plan to address problem: Improved. O2 2 litres Prn for shortness of breath and for hypoxemia. Albuterol/atrovent aerosol treatments q 6 hours prn for shortness of breath. (2) Alcohol withdrawal Current Visit: Yes Status: Acute Qualifiers: Complication of substance-induced condition: with unspecified complication Qualified Code(s): F10.239 - Alcohol dependence with withdrawal, unspecified Plan to address problem: Management as per primary care. (3) Chest pain Current Visit: Yes Status: Acute Qualifiers: Chest pain type: unspecified Ischemic chest pain type: I Qualified Code(s ): R07.9 - Chest pain, unspecified Plan to address problem: Management as per primary care. (4) Esophagitis Current Visit: Yes Status: Acute (5) GI bleeding Current Visit: Yes Status: Acute Qualifiers: GI bleed type/associated pathology: unspecified gastrointestinal hemorrhage type Gastritis type: G Qualified Code(s): K92.2 - Gastrointestinal hemorrhage, unspecified Plan to address problem: Management as per primary care GI specialists. Subjective Date of service: 03/03/17 Principal diagnosis: Respiratory failure, alcohol withdrawal, AMS Interval history: Patient alert, awake. Resting on room air.No acute respiratory distress. O2 saturation 95% on 2 litres O2. Appears confusing at times. Objective Vital Signs - 12hr 03/03/17 03/03/17 03/03/17 06:00 08:03 08:04 Temperature 98.7 F Pulse Rate 60 62 65 Respiratory 20 Rate Blood Pressure 145/78 145/78 Blood Pressure [Right] O2 Sat by Pulse 94 96 Oximetry 03/03/17 03/03/17 03/03/17 08:52 12:13 15:08 Temperature 98.7 F 97.9 F Pulse Rate 60 64 101 H Respiratory 18 Rate Blood Pressure Blood Pressure 145/78 146/77 [Right] O2 Sat by Pulse 95 95 Oximetry Constitutional: no acute distress, alert Eyes: non-icteric ENT: oropharynx moist, other (nasogastric tube to low intermittent suction) Neck: supple, no lymphadenopathy, no JVD Effort: normal (No patietn ventilatory dyssynchrony, Size 7.5 ETT in position) Ascultation: Bilateral: diminished breath sounds, other (rhonchi bilateral upper lobes anteriorly) Cardiovascular: regular rate and rhythm, other (S1, S2, no murmurs gallops or rubs) Gastrointestinal: normoactive bowel sounds, soft, non-tender, non-distended Integumentary: normal Extremities: no cyanosis, no edema, pulses normal, no ischemia or petechiae Neurologic: unable to assess (sedated) CBC and BMP: 03/03/17 09:19 03/03/17 09:19 ABG, PT/INR, D-dimer: ABG POC ABG pH 7.413 (7.35-7.45) 02/27/17 11:28 POC ABG pCO2 37.7 (35-45) 02/27/17 11:28 POC ABG pO2 119 (80-105) H 02/27/17 11:28 POC ABG HCO3 24.0 02/27/17 11:28 POC ABG Total CO2 25 02/27/17 11:28 POC ABG O2 Sat 99 02/27/17 11:28 PT/INR, D-dimer PT 14.3 Sec. (12.2-14.9) 02/26/17 03:29 INR 1.06 (0.87-1.13) 02/26/17 03:29 D-Dimer 1145.32 ng/mlDDU (0-234) H 02/26/17 03:29 Abnormal lab findings: Abnormal Labs 02/26/17 02/26/17 02/26/17 09:01 10:08 10:08 WBC RBC Hgb Hct MCHC RDW Plt Count Lymph % (Auto) [place] % (Auto) Lymph # [place] # Seg Neutrophils % Seg Neutrophils # POC ABG pH 7.283 L POC ABG pCO2 50.3 H POC ABG pO2 76 L Sodium 113 L* Potassium Chloride 73.6 L Carbon Dioxide BUN Creatinine 0.7 L Glucose 216 H POC Glucose Uric Acid Calcium Total Creatine Kinase 1053 H CK-MB (CK-2) 28.4 H Urine Creatinine Urine Chloride 02/26/17 02/26/17 02/26/17 10:08 11:23 18:00 WBC RBC Hgb Hct MCHC RDW Plt Count Lymph % (Auto) [place] % (Auto) Lymph # [place] # Seg Neutrophils % Seg Neutrophils # POC ABG pH POC ABG pCO2 POC ABG pO2 Sodium Potassium Chloride Carbon Dioxide BUN Creatinine Glucose POC Glucose 189 H Uric Acid 8.0 H Calcium Total Creatine Kinase CK-MB (CK-2) Urine Creatinine 49.4 H Urine Chloride 10.0 L 02/26/17 02/26/17 02/26/17 18:26 18:26 18:38 WBC RBC Hgb Hct MCHC RDW Plt Count Lymph % (Auto) [place] % (Auto) Lymph # [place] # Seg Neutrophils % Seg Neutrophils # POC ABG pH POC ABG pCO2 POC ABG pO2 Sodium 116 L* Potassium Chloride 72.4 L Carbon Dioxide 14 L D BUN Creatinine 0.7 L Glucose 215 H POC Glucose 138 H Uric Acid Calcium Total Creatine Kinase 1085 H CK-MB (CK-2) 22.9 H Urine Creatinine Urine Chloride 02/26/17 02/27/17 02/27/17 22:53 01:17 04:50 WBC 14.4 H RBC 3.49 L Hgb 11.3 L Hct 31.4 L MCHC 36 H RDW 15.8 H Plt Count 88 L Lymph % (Auto) 9.6 L [place] % (Auto) 9.7 H Lymph # [place] # 1.4 H Seg Neutrophils % 80.0 H Seg Neutrophils # 11.6 H POC ABG pH POC ABG pCO2 POC ABG pO2 Sodium Potassium Chloride Carbon Dioxide BUN Creatinine Glucose POC Glucose 161 H Uric Acid Calcium Total Creatine Kinase 1367 H CK-MB (CK-2) 11.8 H Urine Creatinine Urine Chloride 02/27/17 02/27/17 02/27/17 05:37 08:20 09:14 WBC RBC Hgb Hct MCHC RDW Plt Count Lymph % (Auto) [place] % (Auto) Lymph # [place] # Seg Neutrophils % Seg Neutrophils # POC ABG pH POC ABG pCO2 POC ABG pO2 178 H Sodium 128 L D Potassium 3.2 L D Chloride 90.1 L Carbon Dioxide BUN Creatinine Glucose 150 H POC Glucose 144 H Uric Acid Calcium 8.1 L Total Creatine Kinase CK-MB (CK-2) Urine Creatinine Urine Chloride 02/27/17 02/27/17 02/27/17 11:28 17:22 21:00 WBC RBC Hgb Hct MCHC RDW Plt Count Lymph % (Auto) [place] % (Auto) Lymph # [place] # Seg Neutrophils % Seg Neutrophils # POC ABG pH POC ABG pCO2 POC ABG pO2 119 H Sodium Potassium Chloride Carbon Dioxide BUN Creatinine Glucose POC Glucose 116 H 113 H Uric Acid Calcium Total Creatine Kinase CK-MB (CK-2) Urine Creatinine Urine Chloride 02/28/17 02/28/17 02/28/17 06:39 06:39 08:32 WBC RBC 3.03 L Hgb 9.7 L Hct 27.9 L MCHC 35 H RDW 16.1 H Plt Count 83 L Lymph % (Auto) 9.5 L [place] % (Auto) 12.4 H Lymph # 0.8 L [place] # 1.1 H Seg Neutrophils % 77.1 H Seg Neutrophils # POC ABG pH POC ABG pCO2 POC ABG pO2 Sodium Potassium Chloride Carbon Dioxide BUN 6 L Creatinine 0.7 L Glucose 110 H POC Glucose 120 H Uric Acid Calcium 8.3 L Total Creatine Kinase CK-MB (CK-2) Urine Creatinine Urine Chloride 02/28/17 03/01/17 03/02/17 11:37 19:53 12:19 WBC RBC Hgb Hct MCHC RDW Plt Count Lymph % (Auto) [place] % (Auto) Lymph # [place] # Seg Neutrophils % Seg Neutrophils # POC ABG pH POC ABG pCO2 POC ABG pO2 Sodium Potassium Chloride Carbon Dioxide BUN Creatinine Glucose POC Glucose 120 H 133 H 159 H Uric Acid Calcium Total Creatine Kinase CK-MB (CK-2) Urine Creatinine Urine Chloride 03/02/17 03/03/17 03/03/17 21:56 09:19 09:19 WBC RBC 3.17 L Hgb 10.2 L Hct 29.1 L MCHC 35 H RDW 16.6 H Plt Count 134 L Lymph % (Auto) [place] % (Auto) Lymph # [place] # Seg Neutrophils % Seg Neutrophils # POC ABG pH POC ABG pCO2 POC ABG pO2 Sodium Potassium Chloride Carbon Dioxide BUN 8 L Creatinine 0.5 L Glucose 116 H POC Glucose 121 H Uric Acid Calcium 8.2 L Total Creatine Kinase CK-MB (CK-2) Urine Creatinine Urine Chloride Allied health notes reviewed: RT
[2017-03-03] MEDS: VITAMIN B-1 100 MG, FOLVITE 1 MG, INFUVITE 10 ML in NACL 0.9% 1000 ML 1,000 ML IV SCH (20:34)
[2017-03-03] MEDS: FIORICET PO PRN (21:15)
--- NOTE | 2017-03-04 07:24 | Vascular Lab Report ---
LOWER EXTREMITY VENOUS DUPLEX: REASON FOR EXAM: Edema of the lower extremities. COMMENTS ON THE RIGHT: All veins visualized are freely compressible without evidence of internal echogenicity. Flow is spontaneous and phasic throughout. COMMENTS ON THE LEFT: All veins visualized are freely compressible without evidence of internal echogenicity. Flow is spontaneous and phasic throughout. IMPRESSION: No evidence of acute or chronic deep venous thrombosis in either lower extremity.
--- NOTE | 2017-03-04 08:51 | Discharge Summary ---
Providers - Providers Date of Admission: 02/26/17 08:50 Attending physician: JOANA ARAMBULA MD 02/27/17 12:09 Consult to Mental Health [CONS] Routine Reason For Exam: alcohol withdrawal Place consult to:: mental health Notified:: Y If yes, spoke with:: VANESA Time called:: 12:25 03/01/17 17:17 Physical Therapy Evaluation and Treat [CONS] Routine Comment: Reason For Exam: debility Primary care physician: [employer] Hospitalization Condition: Serious Hospital course: 66-year-old male with past medical history significant for diabetes, anxiety, depression, alcohol abuse was presented with chest pain to the emergency department, patient was tremulous and diaphoretic. Patient's last drink was 2 days before presentation. Patient is admitted for symptom management of DT. While he was in the emergency department the patient developed progressive respiratory distress and was not able to take care of his airways and he was intubated and extubated the day after. 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 Alcohol withdrawal/DT - Patient is managed according to CIWA protocol Esophagitis -EGD, c/w esophagitis, continue PPI GI input appreciated Acute blood loss anemia, due to UGIB-esophagitis -Hemoglobin now stable, transfuse to keep hemoglobin above 7 Hyponatremia - Resolved with hydration Sepsis/ aspiration PNA -continue ABX DVT prophylaxis - SCDs given upper GI bleeding Tentative dc home tomorrow if keeps improving Disposition: DC-01 TO HOME OR SELFCARE Time spent for discharge: 32 minutes Core Measure Documentation - Palliative Care Palliative Care/ Comfort Measures: Not Applicable - Core Measures Any of the following diagnoses?: none Exam - Constitutional Vitals: Temp Pulse Resp BP Pulse Ox 99.1 F 63 18 167/77 98 03/03/17 20:07 03/03/17 23:12 03/04/17 05:28 03/04/17 05:28 03/03/17 23:12 General appearance: Present: no acute distress, well-nourished - EENT Eyes: Present: PERRL ENT: hearing intact, clear oral mucosa - Neck Neck: Present: supple, normal ROM - Respiratory Respiratory effort: normal Respiratory: bilateral: CTA - Cardiovascular Heart Sounds: Present: S1 & S2. Absent: rub, click - Extremities Extremities: pulses symmetrical, No edema Peripheral Pulses: within normal limits - Abdominal General gastrointestinal: Present: soft, non-tender, non-distended, normal bowel sounds Male genitourinary: Present: normal - Integumentary Integumentary: Present: clear, warm, dry - Musculoskeletal Musculoskeletal: gait normal, strength equal bilaterally - Psychiatric Psychiatric: appropriate mood/affect, intact judgment & insight - Neurologic Neurologic: CNII-XII intact, moves all extremities Plan Follow up with: PRIMARY CARE,MD [Primary Care Provider] - 3-5 Days Prescriptions: traZODone [Desyrel] 50 mg PO QHS #30 tablet chlordiazePOXIDE [Librium] 10 mg PO Q8H PRN #30 capsule PRN Reason: for withdrawal symptoms Citalopram [Celexa] 40 mg PO QDAY 30 Days Enalapril Maleate [Vasotec] 2.5 mg PO DAILY #30 tablet Galantamine [Razadyne] 4 mg PO BID #60 tablet Levofloxacin [Levaquin] 750 mg PO QDAY #5 tablet metFORMIN [Glucophage] 500 mg PO TID #90 tablet Multivitamin with Folic Acid [One Daily Multivitamin Tablet] 400 mcg PO DAILY # 30 tablet rOPINIRole [Requip] 1 mg PO BID #60 tablet Thiamine [Vitamin B-1] 100 mg PO QDAY #30 tablet
[2017-03-04] MEDS: celeXA PO SCH (11:29)
[2017-03-04] MEDS: VITAMIN B-1 PO SCH (11:29)
[2017-03-04] MEDS: ZESTRIL PO SCH (11:30)
[2017-03-04] MEDS: THERAGRAN Tab PO SCH (11:30)
[2017-03-04] MEDS: REQUIP PO SCH (11:30)
[2017-03-04] MEDS: PEPCID PO SCH (11:31)
[2017-03-04] MEDS: PROTONIX IV SCH (11:32)
[2017-03-04] MEDS: RAZADYNE PO SCH (11:32)
[2017-03-04] MEDS: NOVOLOG SUB-Q SCH (11:34)
[2017-03-04] MEDS: FIORICET PO PRN (11:40)
--- NOTE | 2017-03-04 12:48 | Progress Note ---
Subjective - Reason for Consult Consult date: 03/04/17 Reason for consult: Psychiatry Follow-up - Chief Complaint Chief complaint: "Landonlo" 66-year-old male presents to the emergency department by EMS from home with a complaint of some left-sided chest pain. Today patient was calm and cooperative, but confused during the assessment. He did not remember speaking with me yesterday. He could ID the current [place] President, but could not confirm his current location. He recalled 1/3 numbers (2,8,11) within 5 mins. Per his night RN, she stated that patient pulled out his IV and wandered the hallway early this morning. She stated that he was very confused, so the patient was moved closer to the nurses station. He denies SI/HI's and AVH's. Mental Status Exam - Vital signs Last Vital Signs Temp 98.6 F 03/04/17 09:27 Pulse 70 03/04/17 10:00 Resp 20 03/04/17 11:40 BP 128/73 03/04/17 09:27 Pulse Ox 98 03/04/17 10:00 - Exam Narrative exam: MSE: Appearance: calm, cooperative Behavior: regular eye contact Speech: regular rate and tone Mood: "okay" Affect: flat Thought Process: circumstantial Thought Content: denies SI/HI's and AVH's Motor Activity: sitting up in bed Cognition: A/Ox 2 Insight: variable Judgment: variable Assessment and Plan Impression: Historical Dx: Depression. Alcohol Use DO. Today patient is calm, but confused during the assessment. Patient experiencing possible delirium. DDx: R/O Bipolar Recommendation/Plan: Continue Celexa 40 mg PO daily for depression. Use Ativan for CIWA Protocol only. Discussed suicidality/medication induced marleni with patient reference Celexa. Discussed the importance to abstain from alcohol consumption (etoh). Delirium precautions as follows: 1. Frequently reorient patient and involve him/her in their care (simple explanations of procedures, tests, medications). 2. Lights on and shades open during daytime hours. 3. Try to avoid unnecessary interruptions to sleep during nighttime hours. 4. Obtain glasses, hearing aids from home if patient uses these at baseline. 5. Avoid medications that may exacerbate delirium (especially narcotics, barbiturates, ambien, lunesta, benzos (CIWA Protocol only) and medications with excessive anticholinergic properties). 6. Recommend Haldol 2 mg IM Q6hrs PRN for acute agitation.
[2017-03-04 13:26] VITALS: BP 129/85
== END 2017-03-04 16:56 | disposition home or self-care (01) | DRG 871 ==
LOC: SUATTDRO 02:36 → ED 02:36 → CC1 08:50 → 4A 02-27 14:35
PROVIDERS: ADMIT Internal Medicine; ATTEND Internal Medicine
PROC: 5A1945Z Respiratory Ventilation, 24-96 Consecutive Hours (ICD-10-PCS; principal; 2017-02-26)
PROC: 0BH17EZ Insertion of Endotracheal Airway into Trachea, Via Natural or Artificial Opening (ICD-10-PCS; 2017-02-26)
PROC: HZ99ZZZ Pharmacotherapy for Substance Abuse Treatment, Other Replacement Medication (ICD-10-PCS; 2017-02-26)
PROC: 4A033R1 Measurement of Arterial Saturation, Peripheral, Percutaneous Approach (ICD-10-PCS; 2017-02-27)
PROC: 0DJ08ZZ Inspection of Upper Intestinal Tract, Via Natural or Artificial Opening Endoscopic (ICD-10-PCS; 2017-03-01)
DX: A41.9 Sepsis, unspecified organism (principal); J96.02 Acute respiratory failure with hypercapnia; J98.51 Mediastinitis; J69.0 Pneumonitis due to inhalation of food and vomit; J96.01 Acute respiratory failure with hypoxia; K92.2 Gastrointestinal hemorrhage, unspecified; E22.2 Syndrome of inappropriate secretion of antidiuretic hormone; F10.231 Alcohol dependence with withdrawal delirium; M62.82 Rhabdomyolysis; D62 Acute posthemorrhagic anemia; D69.6 Thrombocytopenia, unspecified; E87.6 Hypokalemia; K20.9 Esophagitis, unspecified; E11.9 Type 2 diabetes mellitus without complications; F32.9 Major depressive disorder, single episode, unspecified; E78.5 Hyperlipidemia, unspecified; Z83.3 Family history of diabetes mellitus; K29.80 Duodenitis without bleeding
CPT/HCPCS: 36415; 36600; 71010; 71275; 80048; 80053; 80307; 80320; 81001; 82436; 82550; 82553; 82570; 82803; 82962; 83735; 83880; 83930; 83935; 84100; 84300; 84443; 84484; 84550; 85025; 85027; 85379; 85610; 85730; 87040; 87070; 87205; 93005; 93010; 93970; 94002; 94003; 94760; 96365; 96375; C9113; G0480; J0330; J0696; J1630; J1956; J2060; J2405; J2543; J2704; J3411; J3480; J7030; J7040; Q9967

== ENCOUNTER 2017-07-16 10:41 | Emergency (ER) | payer BC, MEDICARE ==
--- NOTE | 2017-07-16 11:22 | Emergency Department Report ---
ED General Adult HPI - General Stated complaint: CHEST PAIN Time Seen by Provider: 07/16/17 11:07 Source: patient, EMS - History of Present Illness Initial comments: Mr. Rivera is a 66-year-old male with history of [id number] diabetes and alcoholism. He presents with 2-3 days of right-sided chest pain after fall. He also has head trauma. He does not recall loss of consciousness. Patient has moderately severe sharp pain right-sided chest pain which is worse with movement. Pain is moderately severe. He is worried about his heart. He stated that he has had heart trouble in the past. He does not have cardiac stents. Gradual onset of chest pain at the fall. No radiation of the pain. Pain has been constant. Patient drank 2 beers prior to arrival this morning. I reviewed electronic medical. Patient had normal myocardial perfusion scan December 2016. - Related Data Previous Rx's Medication Instructions Recorded Last Taken Type Citalopram [Celexa] 40 mg PO QDAY 30 Days tablet 03/04/17 Unknown Rx Enalapril Maleate [Vasotec] 2.5 mg PO DAILY #30 tablet 03/04/17 Unknown Rx Galantamine [Razadyne] 4 mg PO BID #60 tablet 03/04/17 Unknown Rx Levofloxacin [Levaquin] 750 mg PO QDAY #5 tablet 03/04/17 Unknown Rx Multivitamin with Folic Acid [One 400 mcg PO DAILY #30 tablet 03/04/17 Unknown Rx Daily Multivitamin Tablet] Pantoprazole [Protonix] 40 mg PO BID #60 tablet 03/04/17 Unknown Rx Thiamine [Vitamin B-1] 100 mg PO QDAY #30 tablet 03/04/17 Unknown Rx chlordiazePOXIDE [Librium] 10 mg PO Q8H PRN #30 capsule 03/04/17 Unknown Rx metFORMIN [Glucophage] 500 mg PO TID #90 tablet 03/04/17 Unknown Rx rOPINIRole [Requip] 1 mg PO BID #60 tablet 03/04/17 Unknown Rx traZODone [Desyrel] 50 mg PO QHS #30 tablet 03/04/17 Unknown Rx oxyCODONE /ACETAMINOPHEN [Percocet 1 tab PO Q6HR PRN #5 tablet 07/16/17 Unknown Rx 5/325] Allergies Allergy/AdvReac Type Severity Reaction Status Date / Time No Known Allergies Allergy Verified 02/27/15 02:13 ED Review of Systems ROS: Stated complaint: CHEST PAIN Other details as noted in HPI Comment: All other systems reviewed and negative Constitutional: denies: fever, malaise Respiratory: denies: cough Cardiovascular: chest pain. denies: palpitations Gastrointestinal: denies: abdominal pain ED Past Medical Hx - Past Medical History Hx Hypertension: Yes (high cholesterol) Hx Heart Attack/AMI: No Hx Congestive Heart Failure: No Hx Diabetes: Yes Hx Seizures: Yes Hx Asthma: No Hx COPD: No Additional medical history: Alcoholism, depression - Surgical History Additional Surgical History: appendix - Social History Smoking Status: Never Smoker Substance Use Type: Alcohol - Medications Home Medications: Home Medications Medication Instructions Recorded Confirmed Last Taken Type Citalopram [Celexa] 40 mg PO QDAY 30 Days tablet 03/04/17 Unknown Rx Enalapril Maleate [Vasotec] 2.5 mg PO DAILY #30 tablet 03/04/17 Unknown Rx Galantamine [Razadyne] 4 mg PO BID #60 tablet 03/04/17 Unknown Rx Levofloxacin [Levaquin] 750 mg PO QDAY #5 tablet 03/04/17 Unknown Rx Multivitamin with Folic Acid [One 400 mcg PO DAILY #30 tablet 03/04/17 Unknown Rx Daily Multivitamin Tablet] Pantoprazole [Protonix] 40 mg PO BID #60 tablet 03/04/17 Unknown Rx Thiamine [Vitamin B-1] 100 mg PO QDAY #30 tablet 03/04/17 Unknown Rx chlordiazePOXIDE [Librium] 10 mg PO Q8H PRN #30 capsule 03/04/17 Unknown Rx metFORMIN [Glucophage] 500 mg PO TID #90 tablet 03/04/17 Unknown Rx rOPINIRole [Requip] 1 mg PO BID #60 tablet 03/04/17 Unknown Rx traZODone [Desyrel] 50 mg PO QHS #30 tablet 03/04/17 Unknown Rx oxyCODONE /ACETAMINOPHEN [Percocet 1 tab PO Q6HR PRN #5 tablet 07/16/17 Unknown Rx 5/325] ED Physical Exam - General Limitations: No Limitations General appearance: alert, in no apparent distress, other (slightly slurred speech but able to give a full coherent history) - Head Head exam: Present: other (large left forehead hematoma with healing abrasions) - Eye Eye exam: Present: other (right pupil 7 mm to 5 mm reactive, left pupil reactive 5 mm to 3 mm reactive). Absent: EOMI, scleral icterus, conjunctival injection, nystagmus Pupils: Present: normal accommodation, unequal - ENT ENT exam: Present: normal exam, normal orophraynx - Neck Neck exam: Present: normal inspection. Absent: tenderness, meningismus - Respiratory Respiratory exam: Present: normal lung sounds bilaterally, chest wall tenderness. Absent: respiratory distress, wheezes, rales, rhonchi, stridor - Cardiovascular Cardiovascular Exam: Present: regular rate, normal rhythm, normal heart sounds. Absent: bradycardia, tachycardia, irregular rhythm, systolic murmur, diastolic murmur - GI/Abdominal GI/Abdominal exam: Present: soft. Absent: distended, tenderness, guarding, rebound, rigid - Extremities Exam Extremities exam: Present: normal inspection, full ROM. Absent: tenderness - Neurological Exam Neurological exam: Present: alert, oriented X3 - Psychiatric Psychiatric exam: Present: normal affect, normal mood - Skin Skin exam: Present: warm, intact ED Course Vital Signs 07/16/17 07/16/17 07/16/17 10:51 11:00 11:08 Temperature 98.5 F Pulse Rate 86 80 Respiratory 10 L 14 Rate Blood Pressure 137/76 141/82 130/96 O2 Sat by Pulse 96 98 97 Oximetry 07/16/17 07/16/17 07/16/17 11:16 11:31 12:25 Temperature Pulse Rate 82 74 Respiratory 14 17 11 L Rate Blood Pressure 137/76 137/76 115/70 O2 Sat by Pulse 97 90 99 Oximetry 07/16/17 07/16/17 07/16/17 12:31 12:45 13:00 Temperature Pulse Rate 70 74 78 Respiratory 14 6 L 10 L Rate Blood Pressure 115/70 115/70 123/76 O2 Sat by Pulse 99 93 96 Oximetry 07/16/17 13:15 Temperature Pulse Rate 83 Respiratory 16 Rate Blood Pressure 115/70 O2 Sat by Pulse 97 Oximetry ED Medical Decision Making - Lab Data Result diagrams: 07/16/17 12:08 07/16/17 12:08 Laboratory Results - last 24 hr 07/16/17 07/16/17 12:08 12:08 WBC 6.9 RBC 3.74 Hgb 11.5 L Hct 33.2 L MCV 89 MCH 31 MCHC 35 H RDW 14.2 Plt Count 225 Lymph % (Auto) 26.0 Reeves % (Auto) 14.7 H Eos % (Auto) 0.5 Baso % (Auto) 1.4 Lymph # 1.8 Reeves # 1.0 H Eos # 0.0 Baso # 0.1 Seg Neutrophils % 57.4 Seg Neutrophils # 4.0 Sodium 128 L Potassium 4.8 Chloride 93.1 L Carbon Dioxide 19 L Anion Gap 21 BUN 10 Creatinine 0.6 L Estimated GFR > 60 BUN/Creatinine Ratio 17 Glucose 133 H Calcium 8.5 Troponin T < 0.010 Vital Signs - 24 hr 07/16/17 07/16/17 07/16/17 10:51 11:00 11:08 Temperature 98.5 F Pulse Rate 86 80 Respiratory 10 L 14 Rate Blood Pressure 137/76 141/82 130/96 O2 Sat by Pulse 96 98 97 Oximetry 07/16/17 07/16/17 07/16/17 11:16 11:31 12:25 Temperature Pulse Rate 82 74 Respiratory 14 17 11 L Rate Blood Pressure 137/76 137/76 115/70 O2 Sat by Pulse 97 90 99 Oximetry 07/16/17 07/16/17 07/16/17 12:31 12:45 13:00 Temperature Pulse Rate 70 74 78 Respiratory 14 6 L 10 L Rate Blood Pressure 115/70 115/70 123/76 O2 Sat by Pulse 99 93 96 Oximetry 07/16/17 13:15 Temperature Pulse Rate 83 Respiratory 16 Rate Blood Pressure 115/70 O2 Sat by Pulse 97 Oximetry - EKG Data -: EKG Interpreted by Ia - EKG Data 07/16/17 11:22 EKG obtained 1104 Normal sinus rhythm rate of 80 beats per minute left axis deviation right bundle branch block normal QT interval normal OK interval no ST elevation no signs of ischemia 07/16/17 11:30 - Medical Decision Making Mr. Rivera presents with right-sided chest wall pain secondary to fall. Pain did improve with Percocet given in the ED. No indication of pneumothorax or pulmonary embolism. No indication of ACS. Mr. Rivera had normal myocardial perfusion scan December 2016 Patient has obvious head trauma from the fall. No intracranial abnormality seen on head CT. Mr. Rivera stated to the nurse that he has been depressed. He takes Xanax twice a day for symptoms of depression. He denies suicidal ideation or plan to harm himself. Patient will be discharged home with prescription for 5 tablets of Percocet. Patient understands that he should not drink alcohol while taking this medication. Critical care attestation.: If time is entered above; I have spent that time in minutes in the direct care of this critically ill patient, excluding procedure time. ED Disposition Clinical Impression: Chest wall pain, Closed head injury, History of fall Disposition: DC- TO HOME OR SELFCARE Is pt being admited?: No Does the pt Need Aspirin: No Condition: Stable Instructions: Chest Pain (ED), Thoracic Pain (ED) Prescriptions: oxyCODONE /ACETAMINOPHEN [Percocet 5/325] 1 tab PO Q6HR PRN #5 tablet PRN Reason: Pain Referrals: PRIMARY CARE, [Primary Care Provider] - 3-5 Days Time of Disposition: 14:08
[2017-07-16] MEDS ORDERED: PERCOCET 5/325 PO ONE ×2 (11:27→14:07)
--- NOTE | 2017-07-16 12:13 | Cat Scan Report ---
CT HEAD WITHOUT CONTRAST: HISTORY: Fall, head trauma. TECHNIQUE: Sequential 2.5mm CT images. COMPARISON: none. FINDINGS: Cerebral Parenchyma: Within normal limits. Cerebellum: Within normal limits. Brainstem: Within normal limits. Ventricles: Normal. Sella: Normal. Extra-axial spaces: Normal. Basal Cisterns: Normal. Intracranial Hemorrhage: None. Midline Shift: None. Calvarium: Normal. Mild left frontal soft tissue swelling. Sinuses: Normal. Mastoid Air Cells: Normal. Visualized Orbits: Normal. IMPRESSION: Cranial CT scan within normal limits.
[2017-07-16 12:22] LABS: Basophils # (Auto) 0.1 K/mm3 (0.0-0.1); Basophils % (Auto) 1.4 % (0.0-1.8); Eosinophils % (Auto) 0.5 % (0.0-4.3); Hematocrit 33.2 % (35.5-45.6); Hemoglobin 11.5 gm/dl (11.8-15.2); Lymphocytes # (Auto) 1.8 K/mm3 (1.2-5.4); Mean Corpuscular HGB Conc 35 % (32-34); Mean Corpuscular Hemoglobin 31 pg (28-32); Mean Corpuscular Volume 89 fl (84-94); Monocytes % (Auto) 14.7 % (0.0-7.3); Red Blood Count 3.74 M/mm3 (3.65-5.03); Red Cell Distribution Width 14.2 % (13.2-15.2)
[2017-07-16 12:40] LABS: BUN/Creatinine Ratio 17; Blood Urea Nitrogen 10 mg/dL (9-20); Calcium 8.5 mg/dL (8.4-10.2); Hemolysis Index 14
[2017-07-16] MEDS ORDERED: NACL 0.9% 1000 ML 1,000 ML IV ONE (12:42)
--- NOTE | 2017-07-16 12:45 | XRay Report ---
ROUTINE CHEST, TWO VIEWS: HISTORY: chest pain. The trachea, heart, mediastinal contour, lung reilly and bony thorax are unremarkable. The aorta is mildly ectatic. No significant change since 02/26/17. IMPRESSION: No acute cardiopulmonary process identified.
[2017-07-16 13:26] LABS: Platelet Count 225 K/mm3 (140-440)
[2017-07-16 14:43] VITALS: BP 117/57
== END 2017-07-16 14:45 | disposition home or self-care (01) ==
LOC: ED 10:41
DX: S09.8XXA Other specified injuries of head, initial encounter (principal); R07.89 Other chest pain; E78.00 Pure hypercholesterolemia, unspecified; E11.9 Type 2 diabetes mellitus without complications; W17.89XA Other fall from one level to another, initial encounter; Y93.89 Activity, other specified; Y92.89 Other specified places as the place of occurrence of the external cause; Y99.8 Other external cause status
CPT/HCPCS: 36415; 70450; 71046; 80048; 84484; 85025; 93005; 93010; 96360; 99285; G0480; J7030; 80320

== ENCOUNTER 2018-02-14 18:59 | Inpatient (IN) | payer MEDICARE ==
[2018-02-14] MEDS ORDERED: ATIVAN IV STA (20:50)
[2018-02-14] MEDS ORDERED: VITAMIN B-1 100 MG, FOLVITE 1 MG, INFUVITE 10 ML in NACL 0.9% 1000 ML 1,000 ML IV ONE (20:50)
--- NOTE | 2018-02-14 20:53 | Emergency Department Report ---
ED General Adult HPI - General Chief complaint: Seizure Stated complaint: SEIZURE Time Seen by Provider: 02/14/18 20:42 Source: patient, EMS (ems notes not available at time of chart dictation), RN notes reviewed, old records reviewed Mode of arrival: Stretcher Limitations: Other (patient is intoxicated) - History of Present Illness Initial comments: This is a 67-year-old gentleman who is not known to this provider previously. Has past medical history includes diabetes, anxiety, depression, alcohol abuse. Patient presents to the ER with seizures. He reports that he had seizures today. He reports that his girlfriend contacted 911. The patient indicates that he has no pain at this time. He indicates that he's been drinking. He indicates that he is not homicidal or suicidal. He denies headache, neck pain, chest pain, back pain, abdominal pain, weakness, numbness. -: Sudden Severity scale (0 -10): 0 Improves with: none Worsens with: none Associated Symptoms: confusion, headaches, seizure, syncope, weakness. denies: chest pain, cough, diaphoresis, fever/chills, loss of appetite, malaise, nausea/ vomiting, rash, shortness of breath - Related Data Previous Rx's Medication Instructions Recorded Last Taken Type Citalopram [Celexa] 40 mg PO QDAY 30 Days tablet 03/04/17 Unknown Rx Enalapril Maleate [Vasotec] 2.5 mg PO DAILY #30 tablet 03/04/17 Unknown Rx Galantamine [Razadyne] 4 mg PO BID #60 tablet 03/04/17 Unknown Rx Multivitamin with Folic Acid [One 400 mcg PO DAILY #30 tablet 03/04/17 Unknown Rx Daily Multivitamin Tablet] Pantoprazole [Protonix] 40 mg PO BID #60 tablet 03/04/17 Unknown Rx Thiamine [Vitamin B-1] 100 mg PO QDAY #30 tablet 03/04/17 Unknown Rx chlordiazePOXIDE [Librium] 10 mg PO Q8H PRN #30 capsule 03/04/17 Unknown Rx levoFLOXacin [Levaquin] 750 mg PO QDAY #5 tablet 03/04/17 Unknown Rx metFORMIN [Glucophage] 500 mg PO TID #90 tablet 03/04/17 Unknown Rx rOPINIRole [Requip] 1 mg PO BID #60 tablet 10/09/17 Unknown Rx traZODone [Desyrel] 50 mg PO QHS #30 tablet 03/04/17 Unknown Rx oxyCODONE /ACETAMINOPHEN [Percocet 1 tab PO Q6HR PRN #5 tablet 07/16/17 Unknown Rx 5/325] Allergies Allergy/AdvReac Type Severity Reaction Status Date / Time No Known Allergies Allergy Verified 02/27/15 02:13 ED Review of Systems ROS: Stated complaint: SEIZURE Other details as noted in HPI Comment: All other systems reviewed and negative ED Past Medical Hx - Past Medical History Previous Medical History?: Yes Hx Hypertension: Yes (high cholesterol) Hx Heart Attack/AMI: No Hx Congestive Heart Failure: No Hx Diabetes: Yes Hx Seizures: Yes Hx Asthma: No Hx COPD: No Additional medical history: Alcoholism, depression - Surgical History Past Surgical History?: Yes Additional Surgical History: appendix - Social History Smoking Status: Current Some Day Smoker Substance Use Type: Alcohol - Medications Home Medications: Home Medications Medication Instructions Recorded Confirmed Last Taken Type Citalopram [Celexa] 40 mg PO QDAY 30 Days tablet 03/04/17 Unknown Rx Enalapril Maleate [Vasotec] 2.5 mg PO DAILY #30 tablet 03/04/17 Unknown Rx Galantamine [Razadyne] 4 mg PO BID #60 tablet 03/04/17 Unknown Rx Multivitamin with Folic Acid [One 400 mcg PO DAILY #30 tablet 03/04/17 Unknown Rx Daily Multivitamin Tablet] Pantoprazole [Protonix] 40 mg PO BID #60 tablet 03/04/17 Unknown Rx Thiamine [Vitamin B-1] 100 mg PO QDAY #30 tablet 03/04/17 Unknown Rx chlordiazePOXIDE [Librium] 10 mg PO Q8H PRN #30 capsule 03/04/17 Unknown Rx levoFLOXacin [Levaquin] 750 mg PO QDAY #5 tablet 03/04/17 Unknown Rx metFORMIN [Glucophage] 500 mg PO TID #90 tablet 03/04/17 Unknown Rx rOPINIRole [Requip] 1 mg PO BID #60 tablet 03/04/17 Unknown Rx traZODone [Desyrel] 50 mg PO QHS #30 tablet 03/04/17 Unknown Rx oxyCODONE /ACETAMINOPHEN [Percocet 1 tab PO Q6HR PRN #5 tablet 07/16/17 Unknown Rx 5/325] ED Physical Exam - General Limitations: Other (intoxication) General appearance: alert, appears intoxicated - Head Head exam: Present: atraumatic, normocephalic - Eye Eye exam: Present: normal appearance, EOMI. Absent: nystagmus - ENT ENT exam: Present: mucous membranes dry, other (patient has active tongue fasciculation). Absent: normal orophraynx - Neck Neck exam: Present: normal inspection, full ROM. Absent: tenderness, meningismus - Respiratory Respiratory exam: Present: normal lung sounds bilaterally. Absent: respiratory distress - Cardiovascular Cardiovascular Exam: Present: tachycardia, irregular rhythm, normal heart sounds. Absent: systolic murmur, diastolic murmur, rubs, gallop - GI/Abdominal GI/Abdominal exam: Present: soft, normal bowel sounds. Absent: distended, tenderness, guarding, rebound, rigid, pulsatile mass - Rectal Rectal exam: Present: deferred - Extremities Exam Extremities exam: Present: normal inspection, full ROM, other (2+ pulses noted in the bilateral upper, lower extremities. Compartments soft. No long bony tenderness. The pelvis is stable.). Absent: tenderness, pedal edema, calf tenderness - Back Exam Back exam: Present: full ROM. Absent: normal inspection (patient has multiple areas of ecchymosis on his back.), tenderness, CVA tenderness (R), paraspinal tenderness, vertebral tenderness - Neurological Exam Neurological exam: Present: alert, oriented X3, CN II-XII intact, other ( Extraocular movements intact. Tongue midline. No facial droop. Facial sensation intact to light touch in the V1, V2, V3 distribution bilaterally. 5 and 5 strength in 4 extremities.. Sensation is intact to light touch in 4 extremities.). Absent: motor sensory deficit - Psychiatric Psychiatric exam: Present: anxious. Absent: homicidal ideation, suicidal ideation - Skin Skin exam: Present: warm, dry, intact, normal color. Absent: rash ED Course Vital Signs 02/14/18 02/14/18 02/14/18 20:10 20:30 21:01 Temperature 98.7 F Pulse Rate 103 H 110 H 109 H Respiratory 12 12 13 Rate Blood Pressure 108/74 109/40 106/64 Blood Pressure 108/74 [Left] O2 Sat by Pulse 98 97 97 Oximetry 02/14/18 02/14/18 22:08 22:24 Temperature Pulse Rate 120 H Respiratory 16 18 Rate Blood Pressure 106/64 Blood Pressure [Left] O2 Sat by Pulse Oximetry - Reevaluation(s) Reevaluation #1: 02/14/18 22:18 Differential diagnosis, including but not limited to: Alcohol withdrawal, alcohol withdrawal seizure, electrolyte derangement, malnutrition, intracranial injury, cervical spine injury, back injury, soft tissue injury, alcohol-related A. fib Assessment and plan: 67-year-old male with tongue fasciculations, tachycardia, seizure today, most likely expressing alcohol withdrawal. When going from a prone to seated position, his heart rate increases dramatically. He is also somewhat hypotensive with a blood pressure in the mid 90s. A. fib appears to be new. Patient will be treated supportively for presumed alcohol withdrawal according to the ciwa pathway. Ativan is ordered. Seizure precautions ordered. Banana bag and dextrose fluids are ordered. Patient will require admission. Reevaluation #2: 02/14/18 22:20 New-onset A. fib is appreciated, however given alcohol withdrawal, seizures, patient is a fall risk and I'm reluctant to anticoagulate given risk of fall and risk of subsequent bleeding. Reevaluation #3: 02/14/18 22:47 Laboratory studies show profound hyponatremia. May be related to beer podomania. Nephrology consult. The Hospital physician, Dr. Estrada accepted the patient to the medical service. Reevaluation #4: 02/14/18 22:[address] scan of the brain is negative. Discussed with nephrology, Dr. Urias, who recommends D5 normal saline at 100 mL per hour, and his group will follow in consultation. Reevaluation #5: 02/14/18 23:11 CT the abdomen and pelvis negative for acute traumatic disease. Multiple incidental findings noted. - Consultations Consultation #1: 02/14/18 23:27 CT scan of the cervical spine is negative for fracture and dislocation. Multiple incidental findings noted. Patient has no motor weakness or sensory deficits on my exam. Clinically not consistent with cord compression. Has no neck pain. Has full range of motion of the neck. ED Medical Decision Making - Lab Data Result diagrams: 02/14/18 21:11 02/14/18 21:11 Vital Signs 02/14/18 20:10 Temperature 98.7 F Pulse Rate 103 H Respiratory 12 Rate Blood Pressure 108/74 Blood Pressure 108/74 [Left] O2 Sat by Pulse 98 Oximetry Lab Results 02/14/18 02/14/18 Range/Units 21:11 21:11 WBC 6.4 (4.5-11.0) K/mm3 RBC 3.91 (3.65-5.03) M/mm3 Hgb 12.9 (11.8-15.2) gm/dl Hct 35.5 (35.5-45.6) % MCV 91 (84-94) fl MCH 33 H (28-32) pg MCHC 36 H (32-34) % RDW 13.2 (13.2-15.2) % Plt Count 87 L (140-440) K/mm3 PT 13.5 (12.2-14.9) Sec. INR 0.98 (0.87-1.13) - EKG Data -: EKG Interpreted by Me - EKG Data 02/14/18 22:21 Atrial fibrillation, 102 bpm, QTC prolonged, left axis deviation, motion artifact, not a STEMI Critical care attestation.: If time is entered above; I have spent that time in minutes in the direct care of this critically ill patient, excluding procedure time. ED Disposition Clinical Impression: Hyponatremia syndrome, Thrombocytopenia concurrent with and due to alcoholism Alcohol intoxication Qualifiers: Complication of substance-induced condition: with unspecified complication Qualified Code(s): F10.929 - Alcohol use, unspecified with intoxication, unspecified Disposition: DC-09 OP ADMIT IP TO THIS HOSP Is pt being admited?: Yes Condition: Fair Referrals: PRIMARY CARE, [Primary Care Provider] - 3-5 Days
[2018-02-14] MEDS ORDERED: D5/0.45NS 1,000 ML IV SCH (21:00)
[2018-02-14 21:29] LABS: Mean Corpuscular HGB Conc 36 % (32-34); Mean Corpuscular Hemoglobin 33 pg (28-32); Mean Corpuscular Volume 91 fl (84-94); Red Blood Count 3.91 M/mm3 (3.65-5.03); Red Cell Distribution Width 13.2 % (13.2-15.2)
[2018-02-14 21:34] LABS: Hematocrit 35.5 % (35.5-45.6); Hemoglobin 12.9 gm/dl (11.8-15.2); Platelet Count 87 K/mm3 (140-440)
[2018-02-14 21:40] LABS: INR 0.98 (0.87-1.13)
[2018-02-14 22:21] LABS: BUN/Creatinine Ratio 9; Blood Urea Nitrogen 6 mg/dL (9-20); Calcium 7.6 mg/dL (8.4-10.2); Hemolysis Index 7
--- NOTE | 2018-02-14 22:22 | XRay Report ---
FINAL REPORT EXAM: XR CHEST 1V AP HISTORY: sz, tachycardia ? aspiration pna TECHNIQUE: upright single view chest PRIORS: None. FINDINGS: Cardiac and mediastinal contours are unremarkable. No focal pulmonary infiltrate is identified. No pleural fluid collection seen. Pulmonary vasculature is unremarkable. IMPRESSION: Negative single-view chest
[2018-02-14 22:45] LABS: Albumin 3.8 g/dL (3.9-5); Bilirubin,Direct 0.3 mg/dL (0-0.2)
--- NOTE | 2018-02-14 22:47 | Cat Scan Report ---
FINAL REPORT EXAM: CT HEAD/BRAIN WO CON HISTORY: etoh head trauma sz TECHNIQUE: CT head without contrast PRIORS: None. FINDINGS: No acute intra-axial or extra-axial hemorrhage is identified. There is no evidence of midline shift or mass effect. The ventricles and sulci are within normal limits. Dean-white matter differentiation is intact. No acute parenchymal abnormalities seen. There is deviation the nasal bone toward the right this appears chronic. There is opacity within the left maxillary sinus sub some of which is hyperdense consistent with sinusitis which could be bacterial or fungal. IMPRESSION: No acute intracranial abnormality seen Left maxillary sinusitis may be acute or chronic Deviation of the nasal bone toward the right which appears chronic.
--- NOTE | 2018-02-14 23:04 | Cat Scan Report ---
FINAL REPORT PROCEDURE: CT ABDOMEN PELVIS WO CON TECHNIQUE: Computerized axial tomography of the abdomen and pelvis was performed without intravenous contrast. This study is performed without intravascular contrast material and its sensitivity for abdominal and pelvic pathology, including neoplasms, inflammation, abscess, free fluid, thrombosis, organ laceration, arterial dissection and infarction, is reduced compared with a contrast enhanced study. HISTORY: etoh fall back ecchyosis back pain COMPARISON: No prior studies are available for comparison. FINDINGS: Lower Lung reilly: No focal abnormality seen. Upper Abdomen: Liver density is mildly diffusely decreased. The appearance suggest fatty infiltration. No discrete liver lesions are identified. Gallbladder showed no focal abnormalities. The adrenal glands and the pancreas as well as the spleen are unremarkable. Kidneys, Ureters and Urinary bladder: No abnormalities are seen. Retroperitoneum: Atherosclerotic changes are seen in the abdominal aorta. No aneurysm is visualized. No retroperitoneal hemorrhage is seen. Nonspecific subcentimeter lymph nodes are seen in the retroperitoneum. No pathologically enlarged lymph nodes are identified. Bowel: No abnormalities are seen. No evidence of bowel obstruction ascites or free intraperitoneal gas. No abnormal fluid collections are seen. The appendix is not visualized. Reproductive organs: Prostate gland does not appear to be enlarged. Other: No acute bony abnormalities are seen. Degenerative disc changes are seen throughout the lumbar spine. No fracture or subluxation is identified. IMPRESSION: No acute abnormalities are identified. Fatty infiltration of the liver. Degenerative changes seen lumbar spine. No acute fractures are identified..
--- NOTE | 2018-02-14 23:16 | Cat Scan Report ---
FINAL REPORT PROCEDURE: CT CERVICAL SPINE WO CON TECHNIQUE: Computerized tomography of the cervical spine was performed from the skull base to T1 without contrast material. HISTORY: etoh head trauma sz COMPARISON: No prior studies are available for comparison. FINDINGS: No fracture is visualized. There is approximately 2.8 millimeter anterior subluxation C3 in relation to C4. Moderate facet arthritis visualized diffusely bilaterally. Posterior elements are intact. Nonspecific calcification of the ligamentum nuchae is seen. There is diffuse disc space narrowing. Posterior osteophytic spurring is visualized at C4-5, C5-6 C6-7 disc spaces. This is largest C5-C6 which obscures the anterior epidural space and appears to be lying on the anterior surface of the cord. I cannot exclude mild cord compression. Calcifications are visualized in the garner of the carotid arteries indicating atherosclerotic disease per IMPRESSION: No fractures seen. Mild anterior subluxation C3 in relation to C4 as described. This may be degenerative given the moderate facet arthritis. Correlation with physical exam recommended. Moderate diffuse degenerative disc disease is present as described above. Atherosclerosis carotid arteries..
[2018-02-14] MEDS ORDERED: SODIUM CHLORIDE FLUSH SYRINGE 10 ML IV PRN (23:37)
[2018-02-14] MEDS ORDERED: TYLENOL PO PRN (23:37)
[2018-02-14] MEDS ORDERED: ZOFRAN IV PRN (23:37)
--- NOTE | 2018-02-14 23:39 | History and Physical Report ---
History of Present Illness Date of examination: 02/14/18 History of present illness: 67-year-old man with a history of diabetes, anxiety, hyperlipidemia comes emergency room with complaints of having 2 seizures yesterday lasting for less than 5 minute Review of systems Constitutional: no weight loss, chills, fever Ears, eyes, nose, mouth and throat: no nasal congestion, no nasal discharge, no sinus pressure, no vision change, no red eye. Neck: No neck pain or rigidity. Cardiovascular: no chest pain, palpitations Respiratory: no cough, shortness of breath Gastrointestinal: no abdominal pain hematochezia Genitourinary : no frequency , no hematuria Musculoskeletal: no joint swelling or muscle ache Integumentary: no rash, no pruritis Neurological: no parathesias, no numbness, no focal weakness Endocrine: no cold or heat intolerance, no polyuria or polydipsia Hematologic/Lymphatic: no easy bruising, no easy bleeding, no gland swelling Allergic/Immunologic: no urticaria, no angioedema. PAST MEDICAL HISTORY:diabetes, anxiety, depression, hyperlipidemia PAST SURGICAL HISTORY: None FAMILY HISTORY: Diabetes SOCIAL HISTORY: Drink 2-4 beers a day, no tobacco or drugs Medications and Allergies Allergies Allergy/AdvReac Type Severity Reaction Status Date / Time No Known Allergies Allergy Verified 02/27/15 02:13 Home Medications Medication Instructions Recorded Confirmed Last Taken Type Citalopram [Celexa] 40 mg PO QDAY 30 Days tablet 03/04/17 Unknown Rx Enalapril Maleate [Vasotec] 2.5 mg PO DAILY #30 tablet 03/04/17 Unknown Rx Galantamine [Razadyne] 4 mg PO BID #60 tablet 03/04/17 Unknown Rx Multivitamin with Folic Acid [One 400 mcg PO DAILY #30 tablet 03/04/17 Unknown Rx Daily Multivitamin Tablet] Pantoprazole [Protonix] 40 mg PO BID #60 tablet 03/04/17 Unknown Rx Thiamine [Vitamin B-1] 100 mg PO QDAY #30 tablet 03/04/17 Unknown Rx chlordiazePOXIDE [Librium] 10 mg PO Q8H PRN #30 capsule 03/04/17 Unknown Rx levoFLOXacin [Levaquin] 750 mg PO QDAY #5 tablet 03/04/17 Unknown Rx metFORMIN [Glucophage] 500 mg PO TID #90 tablet 03/04/17 Unknown Rx rOPINIRole [Requip] 1 mg PO BID #60 tablet 03/04/17 Unknown Rx traZODone [Desyrel] 50 mg PO QHS #30 tablet 03/04/17 Unknown Rx oxyCODONE /ACETAMINOPHEN [Percocet 1 tab PO Q6HR PRN #5 tablet 07/16/17 Unknown Rx 5/325] Active Meds: Active Medications Thiamine HCl 100 mg/ Folic Acid 1 mg/ Multivitamins/Minerals 10 ml/ Sodium Chloride 1,011.2 mls @ 250 mls/hr IV ONCE ONE Stop: 02/15/18 00:52 Last Admin: 02/14/18 21:28 Dose: 250 mls/hr Dextrose/Sodium Chloride (D5ns) 1,000 mls @ 100 mls/hr IV DIRECT IVANA Lorazepam (Ativan) 2 mg IV Q1HR PRN PRN Reason: CIWA-Ar 8-15 Lorazepam (Ativan) 4 mg IV Q1HR PRN PRN Reason: CIWA-Ar 16-25 Lorazepam (Ativan) 4 mg IV Q15MIN PRN PRN Reason: CIWA-Ar >25 Exam - Physical Exam Narrative exam: Gen. appearance: Patient lying in bed, no apparent distress HEENT: Normocephalic, atraumatic, pupils equally round and reactive to light, extraocular movement intact, and no sclericterus,. No JVD or thyromegaly or nodule,neck supple, no carotid bruit ,mucous membranes moist, no exudate or erythema Heart: S1, S2, regular rate and rhythm Lungs: Clear bilaterally, breathing comfortable Abdomen: Positive bowel sounds, non-tender, nondistended, no organomegaly Extremity:no edema cyanosis, clubbing Skin: no rash, dry, warm Neuro: Oriented 3, cranial nerves II-12 intact, speech is fluent, motor and sensory intact - Constitutional Vitals: Temp Pulse Resp BP Pulse Ox 98.7 F 120 H 18 106/64 97 02/14/18 20:10 02/14/18 22:08 02/14/18 22:24 02/14/18 22:08 02/14/18 21:01 Results - Labs CBC & Chem 7: 02/15/18 03:54 02/15/18 03:54 Labs: Abnormal lab results 02/14/18 02/14/18 02/14/18 Range/Units 21:11 21:11 21:11 MCH 33 H (28-32) pg MCHC 36 H (32-34) % Plt Count 87 L (140-440) K/mm3 Sodium 116 L* (137-145) mmol/L Potassium 3.5 L (3.6-5.0) mmol/L Chloride 77.4 L (98-107) mmol/L Carbon Dioxide 18 L (22-30) mmol/L BUN 6 L (9-20) mg/dL Creatinine 0.7 L (0.8-1.5) mg/dL Glucose 153 H (75-100) mg/dL Calcium 7.6 L (8.4-10.2) mg/dL Direct Bilirubin 0.3 H (0-0.2) mg/dL AST 95 H (5-40) units/L Total Creatine Kinase 388 H (55-170) units/L Albumin 3.8 L (3.9-5) g/dL Salicylates (2.8-20.0) mg/dL Acetaminophen (10.0-30.0) ug/mL Plasma/Serum Alcohol (0-0.07) % 02/14/18 02/14/18 02/14/18 Range/Units 21:11 21:11 21:11 MCH (28-32) pg MCHC (32-34) % Plt Count (140-440) K/mm3 Sodium (137-145) mmol/L Potassium (3.6-5.0) mmol/L Chloride (98-107) mmol/L Carbon Dioxide (22-30) mmol/L BUN (9-20) mg/dL Creatinine (0.8-1.5) mg/dL Glucose (75-100) mg/dL Calcium (8.4-10.2) mg/dL Direct Bilirubin (0-0.2) mg/dL AST (5-40) units/L Total Creatine Kinase (55-170) units/L Albumin (3.9-5) g/dL Salicylates 1.0 L (2.8-20.0) mg/dL Acetaminophen < 5.0 L (10.0-30.0) ug/mL Plasma/Serum Alcohol 0.33 H (0-0.07) % - Imaging and Cardiology EKG: image reviewed Chest x-ray: image reviewed CT scan - abdomen: report reviewed CT Scan - head: report reviewed CT scan - pelvis: report reviewed Assessment and Plan cervical c/spine ct Assessment Severe Hyponatrwemia Seizure, new onset, ?alcohol vs sodium related New A. Fib Alcohol intoxication Diabetes Anxiety Plan Admit to medicine Start IVF, monitor sodium, consult renal Check cardiac enzymes, TSH echo, consult cardiology Start CIWA protocol wit ativan Check fingersticks initiate insulin sliding scale DVT prophalaxis
[2018-02-15] MEDS: D5NS 1,000 ML IV SCH ×3 (00:02→09:30)
[2018-02-15 00:05] LABS: BUN/Creatinine Ratio 9; Blood Urea Nitrogen 6 mg/dL (9-20); Calcium 7.5 mg/dL (8.4-10.2); Hemolysis Index 22
[2018-02-15] MEDS ORDERED: K-DUR PO ONE (01:12)
[2018-02-15 02:40] LABS: Creatine Kinase MB 8.2 ng/mL (0.0-4.0)
[2018-02-15 03:46] LABS: BUN/Creatinine Ratio 9; Blood Urea Nitrogen 6 mg/dL (9-20); Calcium 7.2 mg/dL (8.4-10.2); Hemolysis Index 24
[2018-02-15 04:39] LABS: Basophils % (Auto) 0.2 % (0.0-1.8); Eosinophils % (Auto) 0.1 % (0.0-4.3); Hematocrit 34.7 % (35.5-45.6); Hemoglobin 12.5 gm/dl (11.8-15.2); Lymphocytes # (Auto) 1.5 K/mm3 (1.2-5.4); Lymphocytes % (Auto) 16.9 % (13.4-35.0); Mean Corpuscular HGB Conc 36 % (32-34); Mean Corpuscular Hemoglobin 33 pg (28-32); Mean Corpuscular Volume 92 fl (84-94); Monocytes % (Auto) 11.4 % (0.0-7.3); Red Blood Count 3.77 M/mm3 (3.65-5.03); Red Cell Distribution Width 13.3 % (13.2-15.2)
[2018-02-15 05:06] LABS: BUN/Creatinine Ratio 9; Blood Urea Nitrogen 6 mg/dL (9-20); Calcium 7.2 mg/dL (8.4-10.2); Hemolysis Index 20
[2018-02-15 06:24] LABS: Platelet Count 79 K/mm3 (140-440)
--- NOTE | 2018-02-15 06:39 | Consultation ---
History of Present Illness - Reason for Consult Consult date: 02/15/18 hyponatremia, hypokalemia - History of Present Illness The patient is a 67 YO male with medical history significant for DM-2, HTN, Anxiety, Depression and Alcohol abuse who presented to the ER with seizures. Patient is a very poor historian. He had 2 episodes of seizures at home. Patient has been drinking beer at home. He denies any pain, N, V, D, abd pain, JOE, dizziness, chest pain, back pain, weakness, dysuria or hematuria. Nephrology consulted for Sodium level of 116 on admission. Past History Past Medical History: diabetes, hypertension, hyperlipidemia Medications and Allergies Allergies Allergy/AdvReac Type Severity Reaction Status Date / Time No Known Allergies Allergy Verified 02/27/15 02:13 Home Medications Medication Instructions Recorded Confirmed Last Taken Type Citalopram [Celexa] 40 mg PO QDAY 30 Days tablet 03/04/17 Unknown Rx Enalapril Maleate [Vasotec] 2.5 mg PO DAILY #30 tablet 03/04/17 Unknown Rx Galantamine [Razadyne] 4 mg PO BID #60 tablet 03/04/17 Unknown Rx Multivitamin with Folic Acid [One 400 mcg PO DAILY #30 tablet 03/04/17 Unknown Rx Daily Multivitamin Tablet] Pantoprazole [Protonix] 40 mg PO BID #60 tablet 03/04/17 Unknown Rx Thiamine [Vitamin B-1] 100 mg PO QDAY #30 tablet 03/04/17 Unknown Rx chlordiazePOXIDE [Librium] 10 mg PO Q8H PRN #30 capsule 03/04/17 Unknown Rx levoFLOXacin [Levaquin] 750 mg PO QDAY #5 tablet 03/04/17 Unknown Rx metFORMIN [Glucophage] 500 mg PO TID #90 tablet 03/04/17 Unknown Rx rOPINIRole [Requip] 1 mg PO BID #60 tablet 03/04/17 Unknown Rx traZODone [Desyrel] 50 mg PO QHS #30 tablet 03/04/17 Unknown Rx oxyCODONE /ACETAMINOPHEN [Percocet 1 tab PO Q6HR PRN #5 tablet 07/16/17 Unknown Rx 5/325] Active Meds: Active Medications Acetaminophen (Tylenol) 650 mg PO Q4H PRN PRN Reason: Pain MILD(1-3)/Fever >100.5/JOE Enoxaparin Sodium (Lovenox) 40 mg SUB-Q QDAY IVANA Dextrose/Sodium Chloride (D5ns) 1,000 mls @ 100 mls/hr IV DIRECT IVANA Last Admin: 02/15/18 00:03 Dose: 100 mls/hr Lorazepam (Ativan) 2 mg IV Q1HR PRN PRN Reason: CIWA-Ar 8-15 Lorazepam (Ativan) 4 mg IV Q1HR PRN PRN Reason: CIWA-Ar 16-25 Lorazepam (Ativan) 4 mg IV Q15MIN PRN PRN Reason: CIWA-Ar >25 Ondansetron HCl (Zofran) 4 mg IV Q8H PRN PRN Reason: Nausea And Vomiting Sodium Chloride (Sodium Chloride Flush Syringe 10 Ml) 10 ml IV BID IVANA Sodium Chloride (Sodium Chloride Flush Syringe 10 Ml) 10 ml IV PRN PRN PRN Reason: LINE FLUSH Review of Systems ROS unobtainable: due to mental status Exam - Vital Signs Vital signs: Vital Signs Temp Pulse Resp BP Pulse Ox 98.7 F 103 H 12 108/74 98 02/14/18 20:10 02/14/18 20:10 02/14/18 20:10 02/14/18 20:10 02/14/18 20:10 - General Appearance General appearance: well-developed, well-nourished, appears stated age, other ( not in distress) EENT: ATNC, PERRL, mucous membranes moist, hearing diminished Neck: Present: neck supple, trachea midline Respiratory: Clear to Ascultation Heart: irregularly irregular, tachycardia, S1S2, no murmurs Gastrointestinal: Present: normoactive bowel sounds. Absent: tenderness, distended Integumentary: no rash, warm and dry Neurologic: no focal deficit, no asterixis, disoriented Musculoskeletal: Present: other (no edema) Results - Lab Results 02/15/18 03:54 02/15/18 07:05 Most recent lab results Calcium 7.2 mg/dL (8.4-10.2) L 02/15/18 03:54 Magnesium 1.90 mg/dL (1.7-2.3) 02/14/18 23:04 - Image Kidney/bladder ultrasound: other Assessment and Plan 1. Hyponatremia: Significant hyponatremia in the setting of alcohol abuse. Patient was on SSRI at home. Continue IV fluids. Sodium level is improving appropriately. Serial Sodium level. 2. Metabolic acidosis: Start on Sodium bicarbonate. 3. Volume depletion: Continue IV fluids. 4. Seizures. 5. Alcohol intoxication.
[2018-02-15] MEDS ORDERED: D50W (25GM) Syringe IV PRN (06:59)
[2018-02-15 07:39] LABS: BUN/Creatinine Ratio 7; Blood Urea Nitrogen 5 mg/dL (9-20); Calcium 7.6 mg/dL (8.4-10.2); Hemolysis Index 18
[2018-02-15 07:44] LABS: Creatine Kinase MB 7.4 ng/mL (0.0-4.0)
[2018-02-15] MEDS ORDERED: SODIUM CHLORIDE PO SCH (08:00)
[2018-02-15] MEDS ORDERED: KPHOS 30 MMOL in NACL 0.9% 500 ML 500 ML IV ONE (09:00)
[2018-02-15] MEDS: ATIVAN IV PRN ×8 (09:14→23:20)
[2018-02-15] MEDS: HumaLOG SUB-Q SCH ×4 (09:16→23:50)
[2018-02-15] MEDS: LOVENOX SUB-Q SCH (09:42)
[2018-02-15] MEDS: SODIUM CHLORIDE FLUSH SYRINGE 10 ML IV SCH ×2 (09:43→23:51)
--- NOTE | 2018-02-15 09:49 | Consultation ---
History of Present Illness Consult date: 02/15/18 Consult reason: atrial fibrillation History of present illness: 67 year old male admitted with seizures and found to have atrial fibrillation on ECG and tele. Patient denies previous history of atrial fibrillation. Patient states that 1-2 years ago he had a cardiac work-up at [facility] revealing no cardiac abnormalities. Patient is currently having breakfast, denies chest pain or shortness of breath. Tele is showing afib with RVR Past History Past Medical History: diabetes, hyperlipidemia, other (anxiety and depression) Past Surgical History: No surgical history Social history: alcohol abuse Family history: diabetes Medications and Allergies Allergies Allergy/AdvReac Type Severity Reaction Status Date / Time No Known Allergies Allergy Verified 02/27/15 02:13 Home Medications Medication Instructions Recorded Confirmed Last Taken Type Citalopram [Celexa] 40 mg PO QDAY 30 Days tablet 03/04/17 Unknown Rx Enalapril Maleate [Vasotec] 2.5 mg PO DAILY #30 tablet 03/04/17 Unknown Rx Galantamine [Razadyne] 4 mg PO BID #60 tablet 03/04/17 Unknown Rx Multivitamin with Folic Acid [One 400 mcg PO DAILY #30 tablet 03/04/17 Unknown Rx Daily Multivitamin Tablet] Pantoprazole [Protonix] 40 mg PO BID #60 tablet 03/04/17 Unknown Rx Thiamine [Vitamin B-1] 100 mg PO QDAY #30 tablet 03/04/17 Unknown Rx chlordiazePOXIDE [Librium] 10 mg PO Q8H PRN #30 capsule 03/04/17 Unknown Rx levoFLOXacin [Levaquin] 750 mg PO QDAY #5 tablet 03/04/17 Unknown Rx metFORMIN [Glucophage] 500 mg PO TID #90 tablet 03/04/17 Unknown Rx rOPINIRole [Requip] 1 mg PO BID #60 tablet 03/04/17 Unknown Rx traZODone [Desyrel] 50 mg PO QHS #30 tablet 03/04/17 Unknown Rx oxyCODONE /ACETAMINOPHEN [Percocet 1 tab PO Q6HR PRN #5 tablet 07/16/17 Unknown Rx 5/325] Active Meds: Active Medications Acetaminophen (Tylenol) 650 mg PO Q4H PRN PRN Reason: Pain MILD(1-3)/Fever >100.5/JOE Last Admin: 02/15/18 08:40 Dose: 650 mg Dextrose (D50w (25gm) Syringe) 50 ml IV PRN PRN PRN Reason: Hypoglycemia Digoxin (Lanoxin) 0.25 mg PO DAILY@1700 IVANA Diltiazem HCl (Cardizem) 30 mg PO Q6HR [facility] Enoxaparin Sodium (Lovenox) 40 mg SUB-Q QDAY [facility] Last Admin: 02/15/18 09:42 Dose: 40 mg Dextrose/Sodium Chloride (D5ns) 1,000 mls @ 100 mls/hr IV DIRECT IVANA Last Admin: 02/15/18 09:30 Dose: 100 mls/hr Potassium Phosphate 30 mmol/ (Sodium Chloride) 510 mls @ 83 mls/hr IV ONCE ONE Stop: 02/15/18 15:08 Last Admin: 02/15/18 09:31 Dose: 83 mls/hr Insulin Human Lispro (Humalog) 0 unit SUB-Q ACHS [facility]; Protocol Last Admin: 02/15/18 09:16 Dose: 2 unit Lorazepam (Ativan) 2 mg IV Q1HR PRN PRN Reason: CIWA-Ar 8-15 Lorazepam (Ativan) 4 mg IV Q1HR PRN PRN Reason: CIWA-Ar 16-25 Last Admin: 02/15/18 09:14 Dose: 4 mg Lorazepam (Ativan) 4 mg IV Q15MIN PRN PRN Reason: CIWA-Ar >25 Ondansetron HCl (Zofran) 4 mg IV Q8H PRN PRN Reason: Nausea And Vomiting Sodium Chloride (Sodium Chloride Flush Syringe 10 Ml) 10 ml IV BID [facility] Last Admin: 02/15/18 09:43 Dose: 10 ml Sodium Chloride (Sodium Chloride Flush Syringe 10 Ml) 10 ml IV PRN PRN PRN Reason: LINE FLUSH Sodium Chloride (Sodium Chloride) 2 gm PO TID [facility] Last Admin: 02/15/18 09:37 Dose: 2 gm Review of Systems All systems: negative Physical Examination Vital Signs Temp Pulse Resp BP Pulse Ox 98.7 F 103 H 12 108/74 98 02/14/18 20:10 02/14/18 20:10 02/14/18 20:10 02/14/18 20:10 02/14/18 20:10 General appearance: disheveled Neck: Positive: neck supple Cardiac: Positive: irregularly irregular Lungs: Positive: Decreased Breath Sounds Abdomen: Positive: Soft Extremities: Absent: edema Results 02/15/18 03:54 02/15/18 07:05 Cardiac Enzymes 02/14/18 02/15/18 02/15/18 Range/Units 21:11 01:22 07:05 AST 95 H (5-40) units/L CK-MB (CK-2) 8.2 H 7.4 H (0.0-4.0) ng/mL Coagulation 02/14/18 Range/Units 21:11 PT 13.5 (12.2-14.9) Sec. INR 0.98 (0.87-1.13) CBC 02/14/18 02/15/18 Range/Units 21:11 03:54 WBC 6.4 8.7 (4.5-11.0) K/mm3 RBC 3.91 3.77 (3.65-5.03) M/mm3 Hgb 12.9 12.5 (11.8-15.2) gm/dl Hct 35.5 34.7 L (35.5-45.6) % Plt Count 87 L 79 L (140-440) K/mm3 Lymph # 1.5 (1.2-5.4) K/mm3 [place] # 1.0 H (0.0-0.8) K/mm3 Eos # 0.0 (0.0-0.4) K/mm3 Baso # 0.0 (0.0-0.1) K/mm3 Comprehensive Metabolic Panel 02/14/18 02/14/18 02/14/18 Range/Units 21:11 21:11 23:04 Sodium 116 L* 118 L* (137-145) mmol/L Potassium 3.5 L 3.5 L (3.6-5.0) mmol/L Chloride 77.4 L 76.2 L (98-107) mmol/L Carbon Dioxide 18 L 16 L (22-30) mmol/L BUN 6 L 6 L (9-20) mg/dL Creatinine 0.7 L 0.7 L (0.8-1.5) mg/dL Glucose 153 H 156 H (75-100) mg/dL Calcium 7.6 L 7.5 L (8.4-10.2) mg/dL Direct Bilirubin 0.3 H (0-0.2) mg/dL Indirect Bilirubin 0.7 mg/dL AST 95 H (5-40) units/L ALT 45 (7-56) units/L Alkaline Phosphatase 69 (35-129) units/L Total Protein 6.8 (6.3-8.2) g/dL Albumin 3.8 L (3.9-5) g/dL 02/15/18 02/15/18 02/15/18 Range/Units 02:51 03:54 07:05 Sodium 119 L* 118 L* 120 L (137-145) mmol/L Potassium 3.2 L 3.2 L 3.6 (3.6-5.0) mmol/L Chloride 80.1 L 79.3 L 83.9 L (98-107) mmol/L Carbon Dioxide 17 L 17 L 16 L (22-30) mmol/L BUN 6 L 6 L 5 L (9-20) mg/dL Creatinine 0.7 L 0.7 L 0.7 L (0.8-1.5) mg/dL Glucose 152 H 141 H 163 H (75-100) mg/dL Calcium 7.2 L 7.2 L 7.6 L (8.4-10.2) mg/dL Direct Bilirubin (0-0.2) mg/dL Indirect Bilirubin mg/dL AST (5-40) units/L ALT (7-56) units/L Alkaline Phosphatase (35-129) units/L Total Protein (6.3-8.2) g/dL Albumin (3.9-5) g/dL EKG interpretations - Telemetry EKG Rhythm: Atrial Fibrillation Assessment and Plan Atrial fibrillation with RVR Normal TSH Alcohol abuse Fatty liver on CT abdomen Seizure disorder NAP on brain CT Hyponatremia Thrombocytopenia History of negative cardiac work-up at [facility] 1-2 years ago per patient Recommendations: Rate control with po diltiazem and digoxin Not an anticoagulation candidate due to history of alcohol abuse and thrombocytopenia Echocardiogram Will continue to follow
[2018-02-15] MEDS: LANOXIN PO SCH ×2 (10:45→17:29)
--- NOTE | 2018-02-15 12:00 | Progress Note ---
<JEAN JONES - Last Filed: 02/15/18 14:52> Assessment and Plan Assessment and plan: 1. Severe Hyponatremia (etiology unclear) Continue IVF with NS Monitor Sodium level Nephrology following 2. New onset Seizure(ETOH withdrawal vs hyponatremia) CIMD protocol with ativan Start thiamine, folic acid, multi-vit Seizure precaution 3. New onset A. Fib with RVR Start cardizem drip Monitor HR 4. Alcohol intoxication CIWA protocol with ativan Start thiamine, folic acid, multi-vit Monitor for seizure 5. DM type 2 Continue Accu check ACHS insulin coverage per sliding scale PRN 6. Anxiety (likely due to alcohol withdrawal) Fall precaution Continue GI/DVT prophylasix Supportive care History Interval history: pt is awake in bed, appears to be disorientated, fine tremor noted, Hospitalist Physical - Constitutional Vitals: Temp Pulse Resp BP Pulse Ox 98.7 F 120 H 18 106/64 97 02/15/18 03:42 02/14/18 22:08 02/15/18 03:10 02/14/18 22:08 02/14/18 21:01 General appearance: Present: mild distress, disheveled - EENT Eyes: Present: EOM intact ENT: hearing intact - Neck Neck: Present: normal ROM - Respiratory Respiratory effort: normal - Cardiovascular Rhythm: regular (tachycardia) - Extremities Extremities: No edema Peripheral Pulses: within normal limits - Abdominal General gastrointestinal: non-tender - Integumentary Integumentary: Present: warm, dry - Neurologic Neurologic: moves all extremities Results - Labs CBC & Chem 7: 02/15/18 03:54 02/15/18 11:52 Labs: Laboratory Last Values WBC 8.7 K/mm3 (4.5-11.0) 02/15/18 03:54 RBC 3.77 M/mm3 (3.65-5.03) 02/15/18 03:54 Hgb 12.5 gm/dl (11.8-15.2) 02/15/18 03:54 Hct 34.7 % (35.5-45.6) L 02/15/18 03:54 MCV 92 fl (84-94) 02/15/18 03:54 MCH 33 pg (28-32) H 02/15/18 03:54 MCHC 36 % (32-34) H 02/15/18 03:54 RDW 13.3 % (13.2-15.2) 02/15/18 03:54 Plt Count 79 K/mm3 (140-440) L 02/15/18 03:54 Lymph % (Auto) 16.9 % (13.4-35.0) 02/15/18 03:54 [place] % (Auto) 11.4 % (0.0-7.3) H 02/15/18 03:54 Eos % (Auto) 0.1 % (0.0-4.3) 02/15/18 03:54 Baso % (Auto) 0.2 % (0.0-1.8) 02/15/18 03:54 Lymph # 1.5 K/mm3 (1.2-5.4) 02/15/18 03:54 [place] # 1.0 K/mm3 (0.0-0.8) H 02/15/18 03:54 Eos # 0.0 K/mm3 (0.0-0.4) 02/15/18 03:54 Baso # 0.0 K/mm3 (0.0-0.1) 02/15/18 03:54 Seg Neutrophils % 71.4 % (40.0-70.0) H 02/15/18 03:54 Seg Neutrophils # 6.2 K/mm3 (1.8-7.7) 02/15/18 03:54 PT 13.5 Sec. (12.2-14.9) 02/14/18 21:11 INR 0.98 (0.87-1.13) 02/14/18 21:11 Sodium 120 mmol/L (137-145) L 02/15/18 07:05 Potassium 3.6 mmol/L (3.6-5.0) 02/15/18 07:05 Chloride 83.9 mmol/L (98-107) L 02/15/18 07:05 Carbon Dioxide 16 mmol/L (22-30) L 02/15/18 07:05 Anion Gap 24 mmol/L 02/15/18 07:05 BUN 5 mg/dL (9-20) L 02/15/18 07:05 Creatinine 0.7 mg/dL (0.8-1.5) L 02/15/18 07:05 Estimated GFR > 60 ml/min 02/15/18 07:05 BUN/Creatinine Ratio 7 % 02/15/18 07:05 Glucose 163 mg/dL (75-100) H 02/15/18 07:05 POC Glucose 171 (70-105) H 02/15/18 05:04 Osmolality 279 Mosm/kg 02/15/18 07:05 Calcium 7.6 mg/dL (8.4-10.2) L 02/15/18 07:05 Phosphorus 2.20 mg/dL (2.5-4.5) L 02/15/18 07:05 Magnesium 1.90 mg/dL (1.7-2.3) 02/14/18 23:04 Total Bilirubin 1.00 mg/dL (0.1-1.2) 02/14/18 21:11 Direct Bilirubin 0.3 mg/dL (0-0.2) H 02/14/18 21:11 Indirect Bilirubin 0.7 mg/dL 02/14/18 21:11 AST 95 units/L (5-40) H 02/14/18 21:11 ALT 45 units/L (7-56) 02/14/18 21:11 Alkaline Phosphatase 69 units/L (35-129) 02/14/18 21:11 Ammonia 40.0 umol/L (25-60) 02/14/18 23:04 Total Creatine Kinase 364 units/L (55-170) H 02/15/18 07:05 CK-MB (CK-2) 7.4 ng/mL (0.0-4.0) H 02/15/18 07:05 CK-MB (CK-2) Rel Index 2.0 (0-4) 02/15/18 07:05 Troponin T < 0.010 ng/mL (0.00-0.029) 02/15/18 07:05 Total Protein 6.8 g/dL (6.3-8.2) 02/14/18 21:11 Albumin 3.8 g/dL (3.9-5) L 02/14/18 21:11 Albumin/Globulin Ratio 1.3 % 02/14/18 21:11 TSH 2.620 mlU/mL (0.270-4.200) 02/15/18 03:54 Salicylates 1.0 mg/dL (2.8-20.0) L 02/14/18 21:11 Acetaminophen < 5.0 ug/mL (10.0-30.0) L 02/14/18 21:11 Plasma/Serum Alcohol 0.33 % (0-0.07) H 02/14/18 21:11 <JANN HINSON - Last Filed: 02/15/18 22:24> Assessment and Plan Assessment and plan: I saw and evaluated the patient. I agree with the findings and the plan of care as documented in the Nurse Practitioner's~note, with the following corrections and additions. Hospitalist Physical - Constitutional Vitals: Temp Pulse Resp BP Pulse Ox 98.7 F 150 H 13 104/62 95 02/15/18 03:42 02/15/18 20:31 02/15/18 20:31 02/15/18 20:31 02/15/18 20:21 Results - Labs CBC & Chem 7: 02/15/18 03:54 02/15/18 19:11 Labs: Laboratory Last Values WBC 8.7 K/mm3 (4.5-11.0) 02/15/18 03:54 RBC 3.77 M/mm3 (3.65-5.03) 02/15/18 03:54 Hgb 12.5 gm/dl (11.8-15.2) 02/15/18 03:54 Hct 34.7 % (35.5-45.6) L 02/15/18 03:54 MCV 92 fl (84-94) 02/15/18 03:54 MCH 33 pg (28-32) H 02/15/18 03:54 MCHC 36 % (32-34) H 02/15/18 03:54 RDW 13.3 % (13.2-15.2) 02/15/18 03:54 Plt Count 79 K/mm3 (140-440) L 02/15/18 03:54 Lymph % (Auto) 16.9 % (13.4-35.0) 02/15/18 03:54 [place] % (Auto) 11.4 % (0.0-7.3) H 02/15/18 03:54 Eos % (Auto) 0.1 % (0.0-4.3) 02/15/18 03:54 Baso % (Auto) 0.2 % (0.0-1.8) 02/15/18 03:54 Lymph # 1.5 K/mm3 (1.2-5.4) 02/15/18 03:54 [place] # 1.0 K/mm3 (0.0-0.8) H 02/15/18 03:54 Eos # 0.0 K/mm3 (0.0-0.4) 02/15/18 03:54 Baso # 0.0 K/mm3 (0.0-0.1) 02/15/18 03:54 Seg Neutrophils % 71.4 % (40.0-70.0) H 02/15/18 03:54 Seg Neutrophils # 6.2 K/mm3 (1.8-7.7) 02/15/18 03:54 PT 13.5 Sec. (12.2-14.9) 02/14/18 21:11 INR 0.98 (0.87-1.13) 02/14/18 21:11 Sodium 125 mmol/L (137-145) L D 02/15/18 19:11 Potassium 4.2 mmol/L (3.6-5.0) 02/15/18 19:11 Chloride 90.8 mmol/L (98-107) L 02/15/18 19:11 Carbon Dioxide 23 mmol/L (22-30) 02/15/18 19:11 Anion Gap 15 mmol/L 02/15/18 19:11 BUN 16 mg/dL (9-20) 02/15/18 19:11 Creatinine 0.8 mg/dL (0.8-1.5) 02/15/18 19:11 Estimated GFR > 60 ml/min 02/15/18 19:11 BUN/Creatinine Ratio 20 % 02/15/18 19:11 Glucose 147 mg/dL (75-100) H 02/15/18 19:11 POC Glucose 170 (70-105) H 02/15/18 17:11 Osmolality 279 Mosm/kg 02/15/18 07:05 Calcium 7.7 mg/dL (8.4-10.2) L 02/15/18 19:11 Phosphorus 2.20 mg/dL (2.5-4.5) L 02/15/18 07:05 Magnesium 1.90 mg/dL (1.7-2.3) 02/14/18 23:04 Total Bilirubin 1.00 mg/dL (0.1-1.2) 02/14/18 21:11 Direct Bilirubin 0.3 mg/dL (0-0.2) H 02/14/18 21:11 Indirect Bilirubin 0.7 mg/dL 02/14/18 21:11 AST 95 units/L (5-40) H 02/14/18 21:11 ALT 45 units/L (7-56) 02/14/18 21:11 Alkaline Phosphatase 69 units/L (35-129) 02/14/18 21:11 Ammonia 40.0 umol/L (25-60) 02/14/18 23:04 Total Creatine Kinase 364 units/L (55-170) H 02/15/18 07:05 CK-MB (CK-2) 7.4 ng/mL (0.0-4.0) H 02/15/18 07:05 CK-MB (CK-2) Rel Index 2.0 (0-4) 02/15/18 07:05 Troponin T < 0.010 ng/mL (0.00-0.029) 02/15/18 07:05 Total Protein 6.8 g/dL (6.3-8.2) 02/14/18 21:11 Albumin 3.8 g/dL (3.9-5) L 02/14/18 21:11 Albumin/Globulin Ratio 1.3 % 02/14/18 21:11 TSH 2.620 mlU/mL (0.270-4.200) 02/15/18 03:54 Salicylates 1.0 mg/dL (2.8-20.0) L 02/14/18 21:11 Acetaminophen < 5.0 ug/mL (10.0-30.0) L 02/14/18 21:11 Plasma/Serum Alcohol 0.33 % (0-0.07) H 02/14/18 21:11
[2018-02-15] MEDS: CARDIZEM PO SCH ×3 (12:31→23:53)
[2018-02-15 12:33] LABS: BUN/Creatinine Ratio 11; Blood Urea Nitrogen 8 mg/dL (9-20); Calcium 7.7 mg/dL (8.4-10.2); Hemolysis Index 14
[2018-02-15] MEDS: SODIUM BICARBONATE PO SCH (16:30)
[2018-02-15] MEDS: SODIUM CHLORIDE PO SCH ×2 (16:30→23:49)
[2018-02-15 20:15] LABS: BUN/Creatinine Ratio 20; Blood Urea Nitrogen 16 mg/dL (9-20); Calcium 7.7 mg/dL (8.4-10.2); Hemolysis Index 11
[2018-02-16] MEDS: D5NS 1,000 ML IV SCH (00:15)
[2018-02-16] MEDS: SODIUM BICARBONATE PO SCH (00:18)
[2018-02-16] MEDS: ATIVAN IV PRN (05:28)
[2018-02-16 05:37] LABS: BUN/Creatinine Ratio 27; Blood Urea Nitrogen 19 mg/dL (9-20); Calcium 7.7 mg/dL (8.4-10.2); Hemolysis Index 3
[2018-02-16] MEDS: CARDIZEM PO SCH (05:47)
[2018-02-16] MEDS ORDERED: MAGNESIUM SULFATE 2GM/50ML 2 GM/50 ML BAG IV ONE (06:32)
[2018-02-16] MEDS: D5/0.45NS 1,000 ML IV SCH ×2 (07:00→22:55)
--- NOTE | 2018-02-16 07:55 | Progress Note ---
Assessment and Plan 1. Hyponatremia: Significant hyponatremia in the setting of alcohol abuse. Sodium level is improving appropriately. IV fluids changed to D5 1/2NS. Serial Sodium level. 2. Metabolic acidosis: Improved. 3. Volume depletion: Continue IV fluids. 4. A.fib with RVR. 5. Seizures. 6. Alcohol intoxication. Subjective Date of service: 02/16/18 Interval history: Patient was seen and examined at the bedside. Objective - Vital Signs Vital signs: Vital Signs - 12hr 02/15/18 02/15/18 02/15/18 20:00 20:11 20:21 Temperature 98.8 F Pulse Rate 142 H 133 H 154 H Respiratory 15 16 27 H Rate Blood Pressure 104/62 104/62 O2 Sat by Pulse 98 99 95 Oximetry 02/15/18 02/15/18 02/15/18 20:31 20:41 20:51 Temperature Pulse Rate 150 H 148 H 148 H Respiratory 13 14 18 Rate Blood Pressure 104/62 104/62 104/62 O2 Sat by Pulse Oximetry 02/15/18 02/15/18 02/15/18 21:00 21:11 21:21 Temperature Pulse Rate 120 H 133 H 116 H Respiratory 20 18 19 Rate Blood Pressure 104/62 104/62 104/62 O2 Sat by Pulse 100 Oximetry 02/15/18 02/15/18 02/15/18 21:31 21:41 21:51 Temperature Pulse Rate 132 H 130 H 151 H Respiratory 21 16 19 Rate Blood Pressure 104/62 104/62 104/62 O2 Sat by Pulse 100 99 Oximetry 02/15/18 02/15/18 02/15/18 22:00 22:01 22:11 Temperature Pulse Rate 137 H 156 H 146 H Respiratory 16 13 Rate Blood Pressure 104/62 104/62 O2 Sat by Pulse 100 100 Oximetry 02/15/18 02/15/18 02/15/18 22:21 22:31 22:40 Temperature Pulse Rate 134 H 144 H 133 H Respiratory 22 12 10 L Rate Blood Pressure 104/62 104/62 104/62 O2 Sat by Pulse 100 99 Oximetry 02/15/18 02/15/18 02/15/18 22:51 23:01 23:11 Temperature Pulse Rate 148 H 124 H 137 H Respiratory 12 13 15 Rate Blood Pressure 153/131 153/131 124/84 O2 Sat by Pulse 99 100 Oximetry 02/15/18 02/15/18 02/15/18 23:21 23:31 23:41 Temperature Pulse Rate 120 H 129 H 115 H Respiratory 15 17 21 Rate Blood Pressure 124/84 124/84 124/84 O2 Sat by Pulse 100 100 100 Oximetry 02/15/18 02/15/18 02/16/18 23:51 23:53 00:00 Temperature 98.7 F Pulse Rate 99 H 116 H Respiratory 21 Rate Blood Pressure 124/84 124/84 O2 Sat by Pulse 100 Oximetry 02/16/18 02/16/18 02/16/18 00:01 00:05 00:11 Temperature Pulse Rate 120 H 120 H 120 H Respiratory 12 18 19 Rate Blood Pressure 124/84 118/57 118/57 O2 Sat by Pulse Oximetry 02/16/18 02/16/18 02/16/18 00:21 00:31 00:41 Temperature Pulse Rate 116 H 127 H 130 H Respiratory 16 11 L 16 Rate Blood Pressure 118/57 118/57 118/57 O2 Sat by Pulse Oximetry 02/16/18 02/16/18 02/16/18 00:51 01:01 01:11 Temperature Pulse Rate 130 H 116 H 114 H Respiratory 15 19 14 Rate Blood Pressure 118/57 125/53 125/53 O2 Sat by Pulse Oximetry 02/16/18 02/16/18 02/16/18 01:21 01:31 01:41 Temperature Pulse Rate 128 H 124 H 129 H Respiratory 15 13 15 Rate Blood Pressure 125/53 118/57 118/57 O2 Sat by Pulse Oximetry 02/16/18 02/16/18 02/16/18 01:51 02:01 02:11 Temperature Pulse Rate 129 H 140 H 122 H Respiratory 16 18 19 Rate Blood Pressure 118/57 118/57 121/58 O2 Sat by Pulse 100 Oximetry 02/16/18 02/16/18 02/16/18 02:21 02:31 02:41 Temperature Pulse Rate 119 H 103 H 112 H Respiratory 23 18 12 Rate Blood Pressure 121/58 121/58 121/58 O2 Sat by Pulse Oximetry 02/16/18 02/16/18 02/16/18 02:51 03:01 03:11 Temperature Pulse Rate 115 H 130 H 123 H Respiratory 15 15 21 Rate Blood Pressure 121/58 120/50 120/50 O2 Sat by Pulse Oximetry 02/16/18 02/16/18 02/16/18 03:21 03:31 03:41 Temperature Pulse Rate 126 H 124 H 129 H Respiratory 14 13 18 Rate Blood Pressure 120/50 120/50 120/50 O2 Sat by Pulse Oximetry 02/16/18 02/16/18 02/16/18 03:51 04:00 04:11 Temperature 98.9 F Pulse Rate 108 H 111 H 109 H Respiratory 23 16 19 Rate Blood Pressure 120/50 123/61 123/61 O2 Sat by Pulse Oximetry 02/16/18 02/16/18 02/16/18 04:21 04:31 04:41 Temperature Pulse Rate 127 H 108 H 112 H Respiratory 12 15 21 Rate Blood Pressure 123/61 123/61 123/61 O2 Sat by Pulse Oximetry 02/16/18 02/16/18 02/16/18 04:51 05:00 05:11 Temperature Pulse Rate 125 H 115 H 110 H Respiratory 13 16 23 Rate Blood Pressure 123/61 123/61 123/61 O2 Sat by Pulse Oximetry 02/16/18 02/16/18 02/16/18 05:21 05:31 05:41 Temperature Pulse Rate 110 H 122 H 115 H Respiratory 19 19 19 Rate Blood Pressure 123/61 123/61 123/61 O2 Sat by Pulse 100 100 Oximetry 02/16/18 02/16/18 02/16/18 05:47 05:51 06:01 Temperature Pulse Rate 112 H 112 H 100 H Respiratory 10 L 13 Rate Blood Pressure 132/62 123/61 131/53 O2 Sat by Pulse 100 100 Oximetry 02/16/18 06:11 Temperature Pulse Rate Respiratory Rate Blood Pressure 132/62 O2 Sat by Pulse 100 Oximetry - General Appearance General appearance: well-developed, well-nourished, appears stated age, other ( on restrains) EENT: ATNC, PERRL, mucous membranes moist Neck: supple Respiratory: Present: Clear to Ascultation Cardiology: irregularly irregular, S1S2 Gastrointestinal: normoactive bowel sounds, no tenderness, obese Integumentary: no rash, warm and dry Neurologic: other (somnolent, non-verbral, able to move all 4 extremities) Musculoskeletal: other (no edema) - Lab 02/15/18 03:54 02/16/18 09:29 Most recent lab results Calcium 7.7 mg/dL (8.4-10.2) L 02/16/18 04:34 Phosphorus 1.50 mg/dL (2.5-4.5) L D 02/16/18 04:34 Magnesium 2.00 mg/dL (1.7-2.3) 02/16/18 04:34
--- NOTE | 2018-02-16 08:49 | Progress Note ---
<JEAN JONES - Last Filed: 02/16/18 12:05> Assessment and Plan Assessment and plan: 1. Hyponatremia (Na 133, improving) Continue IVF with NS Monitor Sodium level Nephrology following 2. New onset Seizure(ETOH withdrawal vs hyponatremia) CIWA protocol with ativan Start thiamine, folic acid, multi-vit Seizure precaution 3. New onset A. Fib with RVR continue Cardizem drip Monitor HR 4. Alcohol intoxication CIWA protocol with ativan Start thiamine, folic acid, multi-vit Monitor for seizure 5. DM type 2 Continue Accu check ACHS insulin coverage per sliding scale PRN 6. Anxiety (likely due to alcohol withdrawal) Fall precaution Continue GI/DVT prophylaxis Supportive care History Interval history: pt is asleep in bed, awaked with stimulation, (O2 sat 100% in 2L nc) Hospitalist Physical - Constitutional Vitals: Temp Pulse Resp BP Pulse Ox 98.9 F 100 H 13 132/62 100 02/16/18 08:00 02/16/18 06:01 02/16/18 06:01 02/16/18 06:11 02/16/18 06:11 General appearance: Present: mild distress, disheveled - EENT Eyes: Present: EOM intact ENT: hearing intact - Neck Neck: Present: normal ROM - Respiratory Respiratory effort: normal - Cardiovascular Rhythm: irregularly irregular (RVR) - Extremities Extremities: No edema Peripheral Pulses: within normal limits - Abdominal General gastrointestinal: soft, non-tender, non-distended - Integumentary Integumentary: Present: warm, dry - Psychiatric Psychiatric: other (unavle to evaluate) - Neurologic Neurologic: moves all extremities Results - Labs CBC & Chem 7: 02/15/18 03:54 02/16/18 09:29 Labs: Laboratory Last Values WBC 8.7 K/mm3 (4.5-11.0) 02/15/18 03:54 RBC 3.77 M/mm3 (3.65-5.03) 02/15/18 03:54 Hgb 12.5 gm/dl (11.8-15.2) 02/15/18 03:54 Hct 34.7 % (35.5-45.6) L 02/15/18 03:54 MCV 92 fl (84-94) 02/15/18 03:54 MCH 33 pg (28-32) H 02/15/18 03:54 MCHC 36 % (32-34) H 02/15/18 03:54 RDW 13.3 % (13.2-15.2) 02/15/18 03:54 Plt Count 79 K/mm3 (140-440) L 02/15/18 03:54 Lymph % (Auto) 16.9 % (13.4-35.0) 02/15/18 03:54 [place] % (Auto) 11.4 % (0.0-7.3) H 02/15/18 03:54 Eos % (Auto) 0.1 % (0.0-4.3) 02/15/18 03:54 Baso % (Auto) 0.2 % (0.0-1.8) 02/15/18 03:54 Lymph # 1.5 K/mm3 (1.2-5.4) 02/15/18 03:54 [place] # 1.0 K/mm3 (0.0-0.8) H 02/15/18 03:54 Eos # 0.0 K/mm3 (0.0-0.4) 02/15/18 03:54 Baso # 0.0 K/mm3 (0.0-0.1) 02/15/18 03:54 Seg Neutrophils % 71.4 % (40.0-70.0) H 02/15/18 03:54 Seg Neutrophils # 6.2 K/mm3 (1.8-7.7) 02/15/18 03:54 PT 13.5 Sec. (12.2-14.9) 02/14/18 21:11 INR 0.98 (0.87-1.13) 02/14/18 21:11 Sodium 132 mmol/L (137-145) L D 02/16/18 04:34 Potassium 3.9 mmol/L (3.6-5.0) 02/16/18 04:34 Chloride 98.3 mmol/L (98-107) 02/16/18 04:34 Carbon Dioxide 23 mmol/L (22-30) 02/16/18 04:34 Anion Gap 15 mmol/L 02/16/18 04:34 BUN 19 mg/dL (9-20) 02/16/18 04:34 Creatinine 0.7 mg/dL (0.8-1.5) L 02/16/18 04:34 Estimated GFR > 60 ml/min 02/16/18 04:34 BUN/Creatinine Ratio 27 % 02/16/18 04:34 Glucose 170 mg/dL (75-100) H 02/16/18 04:34 POC Glucose 152 (70-105) H 02/16/18 08:08 Osmolality 279 Mosm/kg 02/15/18 07:05 Calcium 7.7 mg/dL (8.4-10.2) L 02/16/18 04:34 Phosphorus 1.50 mg/dL (2.5-4.5) L D 02/16/18 04:34 Magnesium 2.00 mg/dL (1.7-2.3) 02/16/18 04:34 Total Bilirubin 1.00 mg/dL (0.1-1.2) 02/14/18 21:11 Direct Bilirubin 0.3 mg/dL (0-0.2) H 02/14/18 21:11 Indirect Bilirubin 0.7 mg/dL 02/14/18 21:11 AST 95 units/L (5-40) H 02/14/18 21:11 ALT 45 units/L (7-56) 02/14/18 21:11 Alkaline Phosphatase 69 units/L (35-129) 02/14/18 21:11 Ammonia 40.0 umol/L (25-60) 02/14/18 23:04 Total Creatine Kinase 364 units/L (55-170) H 02/15/18 07:05 CK-MB (CK-2) 7.4 ng/mL (0.0-4.0) H 02/15/18 07:05 CK-MB (CK-2) Rel Index 2.0 (0-4) 02/15/18 07:05 Troponin T < 0.010 ng/mL (0.00-0.029) 02/15/18 07:05 Total Protein 6.8 g/dL (6.3-8.2) 02/14/18 21:11 Albumin 3.8 g/dL (3.9-5) L 02/14/18 21:11 Albumin/Globulin Ratio 1.3 % 02/14/18 21:11 TSH 2.620 mlU/mL (0.270-4.200) 02/15/18 03:54 Salicylates 1.0 mg/dL (2.8-20.0) L 02/14/18 21:11 Acetaminophen < 5.0 ug/mL (10.0-30.0) L 02/14/18 21:11 Plasma/Serum Alcohol 0.33 % (0-0.07) H 02/14/18 21:11 <JANN HINSON - Last Filed: 02/16/18 16:22> Assessment and Plan Assessment and plan: I saw and evaluated the patient. I agree with the findings and the plan of care as documented in the Nurse Practitioner's~note, with the following corrections and additions. Metabolic Encephalopathy -continue safety restraints Hospitalist Physical - Constitutional Vitals: Temp Pulse Resp BP Pulse Ox 98.8 F 131 H 22 108/77 100 02/16/18 12:00 02/16/18 15:01 02/16/18 15:01 02/16/18 15:01 02/16/18 15:01 Results - Labs CBC & Chem 7: 02/15/18 03:54 02/16/18 09:29 Labs: Laboratory Last Values WBC 8.7 K/mm3 (4.5-11.0) 02/15/18 03:54 RBC 3.77 M/mm3 (3.65-5.03) 02/15/18 03:54 Hgb 12.5 gm/dl (11.8-15.2) 02/15/18 03:54 Hct 34.7 % (35.5-45.6) L 02/15/18 03:54 MCV 92 fl (84-94) 02/15/18 03:54 MCH 33 pg (28-32) H 02/15/18 03:54 MCHC 36 % (32-34) H 02/15/18 03:54 RDW 13.3 % (13.2-15.2) 02/15/18 03:54 Plt Count 79 K/mm3 (140-440) L 02/15/18 03:54 Lymph % (Auto) 16.9 % (13.4-35.0) 02/15/18 03:54 [place] % (Auto) 11.4 % (0.0-7.3) H 02/15/18 03:54 Eos % (Auto) 0.1 % (0.0-4.3) 02/15/18 03:54 Baso % (Auto) 0.2 % (0.0-1.8) 02/15/18 03:54 Lymph # 1.5 K/mm3 (1.2-5.4) 02/15/18 03:54 [place] # 1.0 K/mm3 (0.0-0.8) H 02/15/18 03:54 Eos # 0.0 K/mm3 (0.0-0.4) 02/15/18 03:54 Baso # 0.0 K/mm3 (0.0-0.1) 02/15/18 03:54 Seg Neutrophils % 71.4 % (40.0-70.0) H 02/15/18 03:54 Seg Neutrophils # 6.2 K/mm3 (1.8-7.7) 02/15/18 03:54 PT 13.5 Sec. (12.2-14.9) 02/14/18 21:11 INR 0.98 (0.87-1.13) 02/14/18 21:11 Sodium 133 mmol/L (137-145) L 02/16/18 09:29 Potassium 3.9 mmol/L (3.6-5.0) 02/16/18 04:34 Chloride 98.3 mmol/L (98-107) 02/16/18 04:34 Carbon Dioxide 23 mmol/L (22-30) 02/16/18 04:34 Anion Gap 15 mmol/L 02/16/18 04:34 BUN 19 mg/dL (9-20) 02/16/18 04:34 Creatinine 0.7 mg/dL (0.8-1.5) L 02/16/18 04:34 Estimated GFR > 60 ml/min 02/16/18 04:34 BUN/Creatinine Ratio 27 % 02/16/18 04:34 Glucose 170 mg/dL (75-100) H 02/16/18 04:34 POC Glucose 136 (70-105) H 02/16/18 11:52 Osmolality 279 Mosm/kg 02/15/18 07:05 Calcium 7.7 mg/dL (8.4-10.2) L 02/16/18 04:34 Phosphorus 1.50 mg/dL (2.5-4.5) L D 02/16/18 04:34 Magnesium 2.00 mg/dL (1.7-2.3) 02/16/18 04:34 Total Bilirubin 1.00 mg/dL (0.1-1.2) 02/14/18 21:11 Direct Bilirubin 0.3 mg/dL (0-0.2) H 02/14/18 21:11 Indirect Bilirubin 0.7 mg/dL 02/14/18 21:11 AST 95 units/L (5-40) H 02/14/18 21:11 ALT 45 units/L (7-56) 02/14/18 21:11 Alkaline Phosphatase 69 units/L (35-129) 02/14/18 21:11 Ammonia 40.0 umol/L (25-60) 02/14/18 23:04 Total Creatine Kinase 364 units/L (55-170) H 02/15/18 07:05 CK-MB (CK-2) 7.4 ng/mL (0.0-4.0) H 02/15/18 07:05 CK-MB (CK-2) Rel Index 2.0 (0-4) 02/15/18 07:05 Troponin T < 0.010 ng/mL (0.00-0.029) 02/15/18 07:05 Total Protein 6.8 g/dL (6.3-8.2) 02/14/18 21:11 Albumin 3.8 g/dL (3.9-5) L 02/14/18 21:11 Albumin/Globulin Ratio 1.3 % 02/14/18 21:11 TSH 2.620 mlU/mL (0.270-4.200) 02/15/18 03:54 Salicylates 1.0 mg/dL (2.8-20.0) L 02/14/18 21:11 Acetaminophen < 5.0 ug/mL (10.0-30.0) L 02/14/18 21:11 Plasma/Serum Alcohol 0.33 % (0-0.07) H 02/14/18 21:11
[2018-02-16] MEDS: HumaLOG SUB-Q SCH ×4 (08:57→22:12)
[2018-02-16] MEDS ORDERED: SODIUM PHOSPHATE 30 MMOL in NACL 0.9% 500 ML 500 ML IV ONE (09:11)
--- NOTE | 2018-02-16 10:42 | Progress Note ---
Assessment and Plan Atrial fibrillation with RVR Rate is better controlled Normal TSH Alcohol abuse/withdrawal Fatty liver on CT abdomen Seizure disorder NAP on brain CT Hyponatremia - resolved Thrombocytopenia History of negative cardiac work-up at [facility] 1-2 years ago per patient Recommendations: Change digoxin to IV and discontinue po diltiazem Prn IV metoprolol for Heart rate > 110 Not an anticoagulation candidate due to history of alcohol abuse and thrombocytopenia Echocardiogram Will continue to follow Subjective Date of service: 02/16/18 Principal diagnosis: Alcohol withdrawal Interval history: Patient is altered this morning RN is concerned that patient would not be able to take pills Objective Vital Signs Temp Pulse Resp BP Pulse Ox 02/16/18 09:31 87 14 93/60 100 02/16/18 09:21 77 17 93/60 100 02/16/18 09:11 86 16 93/60 100 02/16/18 09:01 76 15 93/60 100 02/16/18 08:50 90 17 130/58 100 02/16/18 08:41 94 H 14 130/58 100 02/16/18 08:31 82 18 130/58 98 02/16/18 08:21 87 12 130/58 100 02/16/18 08:11 102 H 17 130/58 87 02/16/18 08:00 98.9 F 100 H 14 130/58 95 02/16/18 07:51 77 15 126/45 100 02/16/18 07:41 92 H 20 126/45 100 02/16/18 07:31 97 H 21 126/45 100 02/16/18 07:21 122 H 13 126/45 97 02/16/18 07:11 109 H 15 126/45 100 02/16/18 07:01 86 19 126/45 100 02/16/18 06:51 97 H 17 132/62 100 02/16/18 06:41 121 H 15 132/62 100 02/16/18 06:31 104 H 11 L 132/62 98 02/16/18 06:21 132/62 100 02/16/18 06:11 132/62 100 02/16/18 06:01 100 H 13 131/53 100 02/16/18 05:51 112 H 10 L 123/61 100 02/16/18 05:47 112 H 132/62 02/16/18 05:41 115 H 19 123/61 100 09/23/18 05:31 122 H 19 123/61 100 18 05:21 110 H 19 123/61 18 05:11 110 H 23 123/61 18 05:00 115 H 16 123/61 18 04:51 125 H 13 123/61 18 04:41 112 H 21 123/61 18 04:31 108 H 15 123/61 18 04:21 127 H 12 123/61 18 04:11 109 H 19 123/61 18 04:00 98.9 F 111 H 16 123/61 18 03:51 108 H 23 120/50 02/16/18 03:41 129 H 18 120/50 02/16/18 03:31 124 H 13 120/50 18 03:21 126 H 14 120/50 02/16/18 03:11 123 H 21 120/50 02/16/18 03:01 130 H 15 120/50 02/16/18 02:51 115 H 15 121/58 18 02:41 112 H 12 121/58 02/16/18 02:31 103 H 18 121/58 18 02:21 119 H 23 121/58 02/16/18 02:11 122 H 19 121/58 100 02/16/18 02:01 140 H 18 118/57 02/16/18 01:51 129 H 16 118/57 18 01:41 129 H 15 118/57 02/16/18 01:31 124 H 13 118/57 02/16/18 01:21 128 H 15 125/53 18 01:11 114 H 14 125/53 02/16/18 01:01 116 H 19 125/53 18 00:51 130 H 15 118/57 18 00:41 130 H 16 118/57 18 00:31 127 H 11 L 118/57 18 00:21 116 H 16 118/57 02/16/18 00:11 120 H 19 118/57 18 00:05 120 H 18 118/57 02/16/18 00:01 120 H 12 124/84 02/16/18 00:00 98.7 F 02/15/18 23:53 116 H 124/84 02/15/18 23:51 99 H 21 124/84 100 02/15/18 23:41 115 H 21 124/84 100 02/15/18 23:31 129 H 17 124/84 100 02/15/18 23:21 120 H 15 124/84 100 02/15/18 23:11 137 H 15 124/84 100 02/15/18 23:01 124 H 13 153/131 99 02/15/18 22:51 148 H 12 153/131 02/15/18 22:40 133 H 10 L 104/62 02/15/18 22:31 144 H 12 104/62 99 02/15/18 22:21 134 H 22 104/62 100 02/15/18 22:11 146 H 13 104/62 100 02/15/18 22:01 156 H 16 104/62 100 02/15/18 22:00 137 H 02/15/18 21:51 151 H 19 104/62 99 02/15/18 21:41 130 H 16 104/62 100 02/15/18 21:31 132 H 21 104/62 02/15/18 21:21 116 H 19 104/62 02/15/18 21:11 133 H 18 104/62 100 02/15/18 21:00 120 H 20 104/62 02/15/18 20:51 148 H 18 104/62 02/15/18 20:41 148 H 14 104/62 02/15/18 20:31 150 H 13 104/62 02/15/18 20:21 154 H 27 H 104/62 95 02/15/18 20:11 133 H 16 99 02/15/18 20:00 98.8 F 142 H 15 104/62 98 02/15/18 19:51 157 H 12 125/63 84 02/15/18 19:41 129 H 17 125/63 02/15/18 19:31 143 H 25 H 125/63 02/15/18 19:21 147 H 21 119/60 56 L 02/15/18 19:11 140 H 19 104/62 86 02/15/18 19:00 123 H 20 104/62 98 02/15/18 18:51 132 H 20 125/63 97 02/15/18 18:41 17 125/63 18 18:31 141 H 16 125/63 18 18:23 134 H 16 119/60 18 18:11 18 119/60 18 18:00 133 H 19 119/60 18 17:51 125 H 20 132/73 18 17:41 133 H 24 47/29 18 17:31 140 H 17 93/57 18 17:29 150 H 02/15/18 17:21 143 H 24 103/44 18 17:11 147 H 22 103/44 18 17:01 152 H 15 103/44 18 16:51 147 H 22 103/44 18 16:45 156 H 103/44 18 16:11 127 H 11 L 93/57 02/15/18 16:01 123 H 19 93/57 18 15:51 126 H 19 103/44 18 15:41 125 H 16 103/44 18 15:31 119 H 14 103/44 18 15:21 128 H 20 91/46 18 15:11 139 H 22 91/46 18 15:01 129 H 23 91/46 18 14:51 119 H 15 112/71 18 14:41 149 H 22 112/71 18 14:30 115 H 19 112/71 18 14:21 128 H 21 93/58 18 14:11 126 H 12 108/74 18 14:01 134 H 22 108/74 18 13:51 126 H 23 93/58 18 13:41 134 H 19 93/58 18 13:31 142 H 16 93/58 18 13:21 135 H 20 114/66 18 13:11 145 H 14 114/66 18 13:01 156 H 17 101/55 18 12:51 144 H 19 101/55 18 12:41 147 H 14 101/55 18 12:31 139 H 16 101/55 02/15/18 12:21 129 H 14 144/72 02/15/18 12:11 129 H 18 144/72 02/15/18 12:01 146 H 18 144/72 02/15/18 11:55 90 19 02/15/18 11:43 133 H 19 114/79 - Physical Examination Neck: Positive: neck supple, trachea midline Cardiac: Positive: irregularly irregular Lungs: Positive: Decreased Breath Sounds Abdomen: Positive: Soft Extremities: Absent: edema - Labs and Meds Comprehensive Metabolic Panel 02/15/18 02/15/18 02/16/18 Range/Units 11:52 19:11 04:34 Sodium 119 L* 125 L D 132 L D (137-145) mmol/L Potassium 4.2 4.2 3.9 (3.6-5.0) mmol/L Chloride 86.4 L 90.8 L 98.3 (98-107) mmol/L Carbon Dioxide 19 L 23 23 (22-30) mmol/L BUN 8 L 16 19 (9-20) mg/dL Creatinine 0.7 L 0.8 0.7 L (0.8-1.5) mg/dL Glucose 180 H 147 H 170 H (75-100) mg/dL Calcium 7.7 L 7.7 L 7.7 L (8.4-10.2) mg/dL 02/16/18 Range/Units 09:29 Sodium 133 L (137-145) mmol/L Potassium (3.6-5.0) mmol/L Chloride (98-107) mmol/L Carbon Dioxide (22-30) mmol/L BUN (9-20) mg/dL Creatinine (0.8-1.5) mg/dL Glucose (75-100) mg/dL Calcium (8.4-10.2) mg/dL - Imaging and Cardiology EKG: image reviewed
[2018-02-16] MEDS ORDERED: LOPRESSOR IV PRN (10:43)
[2018-02-16] MEDS: SODIUM CHLORIDE FLUSH SYRINGE 10 ML IV SCH ×2 (10:44→22:13)
[2018-02-16] MEDS: LOVENOX SUB-Q SCH (11:03)
[2018-02-16] MEDS: LANOXIN IV SCH (13:12)
--- NOTE | 2018-02-16 19:36 | Consultation ---
History of Present Illness - Reason for Consult Consult date: 02/16/18 Reason for consult: psychiatric evaluation - Chief Complaint Chief complaint: "I haven't had alcohol in 5 days." - History of Present Psychiatric Illness Mr. Rivera is a 67 yo WM admitted to [facility], given a consult for "psych". He presented to the hospital for seizure. He is alert and oriented to person, place, date, and time at the time of the interview. He was focused on having the restraints removed. He states he had stopped drinking and now has not had any alcohol for 5 days. He did not specify how much he usually drinks. He states he has been drinking since he was 14 years old and his longest period of sobriety was 1 year. This was in the last 3 years. He has been to detox three times in the past 5 years. He is interested in outpatient treatment for substance abuse. He reports being diagnosed with major depression and anxiety. He states his depression is 7/10, with 10 being the worst. He denies suicidal ideation. He states his medications of trazodone, celexa, and xanax help him. Medications and Allergies Allergies Allergy/AdvReac Type Severity Reaction Status Date / Time No Known Allergies Allergy Verified 02/27/15 02:13 Home Medications Medication Instructions Recorded Confirmed Last Taken Type Citalopram [Celexa] 40 mg PO QDAY 30 Days tablet 03/04/17 Unknown Rx Enalapril Maleate [Vasotec] 2.5 mg PO DAILY #30 tablet 03/04/17 Unknown Rx Galantamine [Razadyne] 4 mg PO BID #60 tablet 03/04/17 Unknown Rx Multivitamin with Folic Acid [One 400 mcg PO DAILY #30 tablet 03/04/17 Unknown Rx Daily Multivitamin Tablet] Pantoprazole [Protonix] 40 mg PO BID #60 tablet 03/04/17 Unknown Rx Thiamine [Vitamin B-1] 100 mg PO QDAY #30 tablet 03/04/17 Unknown Rx chlordiazePOXIDE [Librium] 10 mg PO Q8H PRN #30 capsule 03/04/17 Unknown Rx levoFLOXacin [Levaquin] 750 mg PO QDAY #5 tablet 03/04/17 Unknown Rx metFORMIN [Glucophage] 500 mg PO TID #90 tablet 03/04/17 Unknown Rx rOPINIRole [Requip] 1 mg PO BID #60 tablet 03/04/17 Unknown Rx traZODone [Desyrel] 50 mg PO QHS #30 tablet 03/04/17 Unknown Rx oxyCODONE /ACETAMINOPHEN [Percocet 1 tab PO Q6HR PRN #5 tablet 07/16/17 Unknown Rx 5/325] Active Meds: Active Medications Acetaminophen (Tylenol) 650 mg PO Q4H PRN PRN Reason: Pain MILD(1-3)/Fever >100.5/JOE Last Admin: 02/15/18 08:40 Dose: 650 mg Dextrose (D50w (25gm) Syringe) 50 ml IV PRN PRN PRN Reason: Hypoglycemia Digoxin (Lanoxin) 0.25 mg IV DAILY [facility] Last Admin: 02/16/18 13:12 Dose: 0.25 mg Enoxaparin Sodium (Lovenox) 40 mg SUB-Q QDAY [facility] Last Admin: 02/16/18 11:03 Dose: 40 mg Dextrose/Sodium Chloride (D5/0.45ns) 1,000 mls @ 75 mls/hr IV DIRECT IVANA Last Admin: 02/16/18 07:00 Dose: 75 mls/hr Insulin Human Lispro (Humalog) 0 unit SUB-Q ACHS [facility]; Protocol Last Admin: 02/16/18 17:20 Dose: 2 unit Lorazepam (Ativan) 2 mg IV Q1HR PRN PRN Reason: CIWA-Ar 8-15 Last Admin: 02/16/18 05:28 Dose: 2 mg Lorazepam (Ativan) 4 mg IV Q1HR PRN PRN Reason: CIWA-Ar 16-25 Last Admin: 02/15/18 15:24 Dose: 4 mg Lorazepam (Ativan) 4 mg IV Q15MIN PRN PRN Reason: CIWA-Ar >25 Last Admin: 02/15/18 23:20 Dose: 4 mg Metoprolol Tartrate (Lopressor) 5 mg IV Q6HR PRN PRN Reason: Tachyarrhythmias Ondansetron HCl (Zofran) 4 mg IV Q8H PRN PRN Reason: Nausea And Vomiting Sodium Chloride (Sodium Chloride Flush Syringe 10 Ml) 10 ml IV BID [facility] Last Admin: 02/16/18 10:44 Dose: 10 ml Sodium Chloride (Sodium Chloride Flush Syringe 10 Ml) 10 ml IV PRN PRN PRN Reason: LINE FLUSH Past psychiatric history - Past Medical History Past Medical History: seizures - past Psychiatric treatment and history Psych: Anxiety, Addictions, Depression - Social History Social history: alcohol abuse, other (lives with girlfriend) Mental Status Exam - Vital signs Last Vital Signs Temp 98.8 F 02/16/18 12:00 Pulse 113 H 02/16/18 19:21 Resp 22 02/16/18 19:21 BP 100/71 02/16/18 19:21 Pulse Ox 100 02/16/18 19:21 - Exam Narrative exam: staff report he is intermittently confused Orientation: time, place, person Affect: anxious Mood: congruent with affect Thought content: other (denies suicidal ideation) Thought Process: Intact Perceptions: none Speech: normal rate and pattern Concentration: distractible Motor activity: restless Level of consciousness: alert Memory: Intact Sleep Symptoms: Restless Appetite: decreased Interaction: cooperative Results Result Diagrams: 02/15/18 03:54 02/16/18 16:38 Abnormal lab results 02/15/18 02/15/18 02/16/18 Range/Units 19:11 23:37 04:34 Sodium 125 L D 132 L D (137-145) mmol/L Chloride 90.8 L (98-107) mmol/L Creatinine 0.7 L (0.8-1.5) mg/dL Glucose 147 H 170 H (75-100) mg/dL POC Glucose 209 H (70-105) Calcium 7.7 L 7.7 L (8.4-10.2) mg/dL Phosphorus 1.50 L D (2.5-4.5) mg/dL 02/16/18 02/16/18 02/16/18 Range/Units 08:08 09:29 11:52 Sodium 133 L (137-145) mmol/L Chloride (98-107) mmol/L Creatinine (0.8-1.5) mg/dL Glucose (75-100) mg/dL POC Glucose 152 H 136 H (70-105) Calcium (8.4-10.2) mg/dL Phosphorus (2.5-4.5) mg/dL 02/16/18 02/16/18 Range/Units 16:26 16:38 Sodium 134 L (137-145) mmol/L Chloride (98-107) mmol/L Creatinine (0.8-1.5) mg/dL Glucose (75-100) mg/dL POC Glucose 192 H (70-105) Calcium (8.4-10.2) mg/dL Phosphorus (2.5-4.5) mg/dL All other labs normal. Assessment and Plan Assessment and plan: Impression: alcohol use disorder, severe, in recent withdrawal-managed by the medical team r/o DTs major depressive disorder, moderate. no suicidal ideation He is open to outpatient referrals for substance abuse Recommendations: The medical team should continue to manage alcohol withdrawal. He was informed xanax is not appropriate for anxiety since he has alcohol use disorder. Continue celexa at 20mg daily. Hold trazodone and monitor for sleep complaints. He will need outpatient referrals for substance abuse prior to discharge. He is recommended to discuss use of medications for alcohol use disorder with his outpatient psychiatric provider once discharged.
[2018-02-17 06:36] LABS: Alanine Aminotransferase 27 units/L (7-56); BUN/Creatinine Ratio 20; Blood Urea Nitrogen 12 mg/dL (9-20); Calcium 7.6 mg/dL (8.4-10.2); Hemolysis Index 19
--- NOTE | 2018-02-17 09:08 | Progress Note ---
Assessment and Plan 1. Hyponatremia: Significant hyponatremia in the setting of alcohol abuse. Sodium level continue to improve appropriately. Continue D5 1/2NS. Monitor. 2. Metabolic acidosis: Improved. 3. Volume depletion: Continue IV fluids. 4. A.fib with RVR. 5. Seizures. 6. Alcohol intoxication. Subjective Date of service: 02/17/18 Principal diagnosis: Alcohol withdrawal Interval history: Patient was seen and examined at the bedside. Objective - Vital Signs Vital signs: Vital Signs - 12hr 02/16/18 02/16/18 02/16/18 21:11 21:21 21:31 Temperature Pulse Rate 96 H 95 H 94 H Respiratory 19 18 17 Rate Blood Pressure 89/51 89/51 89/51 O2 Sat by Pulse 100 99 94 Oximetry 02/16/18 02/16/18 02/16/18 21:41 21:51 22:00 Temperature Pulse Rate 102 H 104 H 93 H Respiratory 20 18 26 H Rate Blood Pressure 89/51 89/51 83/47 O2 Sat by Pulse 90 96 100 Oximetry 02/16/18 02/16/18 02/16/18 22:11 22:21 22:31 Temperature Pulse Rate 83 112 H 114 H Respiratory 19 20 22 Rate Blood Pressure 91/56 91/56 89/51 O2 Sat by Pulse 98 95 88 Oximetry 02/16/18 02/16/18 02/16/18 22:41 22:51 23:00 Temperature Pulse Rate 99 H 121 H 101 H Respiratory 17 17 21 Rate Blood Pressure 89/51 89/51 97/59 O2 Sat by Pulse 88 94 Oximetry 02/16/18 02/16/18 02/16/18 23:11 23:21 23:29 Temperature Pulse Rate 112 H 120 H 97 H Respiratory 26 H 14 21 Rate Blood Pressure 97/59 97/59 97/59 O2 Sat by Pulse 93 87 Oximetry 02/16/18 02/16/18 02/16/18 23:31 23:41 23:51 Temperature Pulse Rate 106 H 110 H 101 H Respiratory 24 23 12 Rate Blood Pressure 97/59 97/59 97/59 O2 Sat by Pulse Oximetry 02/17/18 02/17/18 02/17/18 00:00 00:01 00:11 Temperature 99.1 F Pulse Rate 86 100 H Respiratory 17 16 Rate Blood Pressure 109/71 109/71 O2 Sat by Pulse 83 L 82 L Oximetry 02/17/18 02/17/18 02/17/18 00:21 00:31 00:41 Temperature Pulse Rate 97 H 103 H 87 Respiratory 16 12 15 Rate Blood Pressure 109/71 109/71 109/71 O2 Sat by Pulse 92 92 82 L Oximetry 02/17/18 02/17/18 02/17/18 00:51 01:00 01:11 Temperature Pulse Rate 94 H 115 H 92 H Respiratory 18 18 17 Rate Blood Pressure 109/71 109/71 109/71 O2 Sat by Pulse 94 84 Oximetry 02/17/18 02/17/18 02/17/18 01:21 01:31 01:41 Temperature Pulse Rate 100 H 109 H 113 H Respiratory 21 24 20 Rate Blood Pressure 109/71 109/71 123/78 O2 Sat by Pulse 92 92 Oximetry 02/17/18 02/17/18 02/17/18 01:51 02:00 02:11 Temperature Pulse Rate 110 H 99 H 115 H Respiratory 21 13 30 H Rate Blood Pressure 123/78 97/66 97/66 O2 Sat by Pulse 94 89 99 Oximetry 02/17/18 02/17/18 02/17/18 02:21 02:31 02:41 Temperature Pulse Rate 103 H 88 86 Respiratory 25 H 15 17 Rate Blood Pressure 97/66 97/66 97/66 O2 Sat by Pulse 99 89 92 Oximetry 02/17/18 02/17/18 02/17/18 02:51 03:00 03:11 Temperature Pulse Rate 85 85 90 Respiratory 16 17 17 Rate Blood Pressure 97/66 105/63 105/63 O2 Sat by Pulse 88 100 94 Oximetry 02/17/18 02/17/18 02/17/18 03:21 03:31 03:41 Temperature Pulse Rate 89 85 97 H Respiratory 17 18 21 Rate Blood Pressure 105/63 105/63 97/66 O2 Sat by Pulse 89 91 94 Oximetry 02/17/18 02/17/18 02/17/18 03:51 04:00 04:11 Temperature 98.9 F Pulse Rate 108 H 87 95 H Respiratory 18 17 17 Rate Blood Pressure 97/66 116/73 116/73 O2 Sat by Pulse 90 100 86 Oximetry 02/17/18 02/17/18 02/17/18 04:21 04:31 04:41 Temperature Pulse Rate 96 H 98 H 93 H Respiratory 18 19 16 Rate Blood Pressure 116/73 116/73 116/73 O2 Sat by Pulse 95 98 90 Oximetry 02/17/18 02/17/18 02/17/18 04:51 05:00 05:11 Temperature Pulse Rate 93 H 98 H 91 H Respiratory 17 18 15 Rate Blood Pressure 116/73 116/73 102/76 O2 Sat by Pulse 100 100 100 Oximetry 02/17/18 02/17/18 02/17/18 05:21 05:31 05:41 Temperature Pulse Rate 105 H 98 H 89 Respiratory 25 H 14 15 Rate Blood Pressure 102/76 102/76 102/76 O2 Sat by Pulse 100 100 99 Oximetry 02/17/18 02/17/18 02/17/18 05:51 06:00 06:11 Temperature Pulse Rate 93 H 90 97 H Respiratory 17 16 19 Rate Blood Pressure 102/76 105/69 102/76 O2 Sat by Pulse 100 100 100 Oximetry 02/17/18 02/17/18 02/17/18 06:21 06:31 06:41 Temperature Pulse Rate 104 H 91 H 93 H Respiratory 13 25 H 16 Rate Blood Pressure 102/76 102/76 102/76 O2 Sat by Pulse 100 100 100 Oximetry 02/17/18 02/17/18 02/17/18 06:51 07:00 07:11 Temperature Pulse Rate 81 102 H 108 H Respiratory 15 17 18 Rate Blood Pressure 102/76 114/71 105/69 O2 Sat by Pulse 99 100 Oximetry 02/17/18 02/17/18 07:21 08:00 Temperature 99.1 F Pulse Rate 85 Respiratory 16 Rate Blood Pressure 105/69 O2 Sat by Pulse 100 Oximetry - General Appearance General appearance: well-developed, well-nourished, appears stated age, other ( not in distress) EENT: ATNC, PERRL, mucous membranes moist, hearing intact Neck: supple Respiratory: Present: Clear to Ascultation Cardiology: irregularly irregular, S1S2, no murmurs Gastrointestinal: normoactive bowel sounds, no tenderness Integumentary: no rash, warm and dry Neurologic: no focal deficit, no asterixis, disoriented Musculoskeletal: other (no edema) - Lab 02/15/18 03:54 02/17/18 05:12 Most recent lab results Calcium 7.6 mg/dL (8.4-10.2) L 02/17/18 05:12 Phosphorus 3.40 mg/dL (2.5-4.5) D 02/17/18 05:12 Magnesium 2.20 mg/dL (1.7-2.3) 02/17/18 05:12
[2018-02-17] MEDS: LOVENOX SUB-Q SCH (09:49)
[2018-02-17] MEDS: celeXA PO SCH (09:50)
[2018-02-17] MEDS: LANOXIN IV SCH (09:51)
[2018-02-17] MEDS: HumaLOG SUB-Q SCH ×4 (09:56→21:45)
[2018-02-17] MEDS: SODIUM CHLORIDE FLUSH SYRINGE 10 ML IV SCH ×2 (09:56→21:37)
[2018-02-17] MEDS: ATIVAN IV PRN ×2 (12:38→21:39)
--- NOTE | 2018-02-17 12:42 | Progress Note ---
Subjective - Reason for Consult Consult date: 02/17/18 Reason for consult: Psychiatry Follow-up - Chief Complaint Chief complaint: "I need to stop drinking" 67 yo WM admitted to [facility], given a consult for "psych". He presented to the hospital for seizure. Today the patient is calm and cooperative during the the assessment. He stated that he must stop drinking alcohol. He stated that his health will not get better if he continue to drink (etoh). He stated that he is part of AA group and plan to attend sessions. He stated that he has a psychiatrist Dr Joseph and will see him once discharged. He denies SI/HI's and AVH 's. He denies any side effects of his medication. Mental Status Exam - Vital signs Last Vital Signs Temp 99.0 F 02/17/18 12:00 Pulse 91 H 02/17/18 11:10 Resp 19 02/17/18 11:10 BP 91/62 02/17/18 10:51 Pulse Ox 100 02/17/18 11:10 - Exam Narrative exam: MSE: Appearance: calm, cooperative Behavior: regular eye contact Speech: regular rate and tone Mood: "okay" Affect: congruent to mood Thought Process: linear Thought Content: denies SI/HI's and AVH's Motor Activity: ambulatory Cognition: A/O x 3 Insight: appropriate Judgment: appropriate Assessment and Plan Impression: Alcohol Use DO. Hx of Depression. Today the patient is calm and cooperative during the the assessment. Mild tremors noted (ETOH). Recommendations/Plan: Continue CIWA. Continue Celexa 20 mg PO daily for depression. Discussed possible suicidality/medication induced marleni with the patient reference Celexa. Recommended [facility], the patient stated that he prefer to go to and follow up with his psychiatrist Dr Delgado for outpatient psy/rehab services. Discussed the services of rehab with the patient if he had chosen to attend [facility] at [facility]. Psychiatry sign off.
--- NOTE | 2018-02-17 13:48 | Progress Note ---
Assessment and Plan Atrial fibrillation, rate controlled Normal TSH Not an anticoagulation candidate due to history of alcohol abuse and thrombocytopenia Alcohol abuse/withdrawal Fatty liver on CT abdomen Seizure disorder NAP on brain CT Hyponatremia - resolved Thrombocytopenia Echocardiogram shows a normal LVEF. Continue rate controlling agents for persistent atrial fibrillation. Subjective Date of service: 02/17/18 Principal diagnosis: Alcohol withdrawal Interval history: Patient has no cardiac complaints. Objective Vital Signs Temp Pulse Pulse Resp BP Pulse Ox 02/17/18 12:50 108 H 8 L 97/68 80 L 02/17/18 12:40 110 H 18 97/68 79 L 02/17/18 12:30 100 H 14 97/68 78 L 02/17/18 12:20 88 18 97/68 100 02/17/18 12:10 102 H 21 97/68 100 02/17/18 12:00 99.0 F 109 H 108 H 15 97/68 82 L 02/17/18 11:50 103 H 24 117/71 97 02/17/18 11:40 97 H 16 117/71 93 02/17/18 11:30 91 H 23 117/71 100 02/17/18 11:20 100 H 18 117/71 100 02/17/18 11:10 91 H 19 100 02/17/18 11:08 97 H 23 100 02/17/18 10:51 97 H 14 91/62 97 02/17/18 10:41 97 H 16 109/72 95 18 10:31 104 H 21 109/72 88 02/17/18 10:21 103 H 19 94/53 100 02/17/18 10:11 106 H 12 91/62 93 02/17/18 10:00 101 H 13 91/62 85 18 09:51 93 H 18 115/67 92 02/17/18 09:41 104 H 18 115/67 100 02/17/18 09:31 100 H 22 115/67 99 02/17/18 09:21 108 H 19 115/67 100 02/17/18 09:11 104 H 15 94/53 99 02/17/18 09:00 109 H 22 115/67 100 02/17/18 08:51 119 H 12 115/67 85 02/17/18 08:41 131 H 10 L 115/67 79 L 02/17/18 08:31 113 H 19 115/67 84 09/24/18 08:21 88 14 115/67 100 18 08:11 90 19 115/67 100 18 08:01 86 18 115/67 86 18 08:00 99.1 F 98 H 15 100 18 07:51 113 H 20 114/71 92 18 07:41 97 H 15 114/71 96 02/17/18 07:31 91 H 20 105/69 100 18 07:21 85 16 105/69 100 18 07:11 108 H 18 105/69 02/17/18 07:00 102 H 17 114/71 100 02/17/18 06:51 81 15 102/76 99 02/17/18 06:41 93 H 16 102/76 100 02/17/18 06:31 91 H 25 H 102/76 100 02/17/18 06:21 104 H 13 102/76 100 18 06:11 97 H 19 102/76 100 02/17/18 06:00 90 16 105/69 100 02/17/18 05:51 93 H 17 102/76 100 02/17/18 05:41 89 15 102/76 99 02/17/18 05:31 98 H 14 102/76 100 02/17/18 05:21 105 H 25 H 102/76 100 02/17/18 05:11 91 H 15 102/76 100 18 05:00 98 H 18 116/73 100 18 04:51 93 H 17 116/73 100 18 04:41 93 H 16 116/73 90 02/17/18 04:31 98 H 19 116/73 98 18 04:21 96 H 18 116/73 95 18 04:11 95 H 17 116/73 86 18 04:00 98.9 F 87 17 116/73 100 18 03:51 108 H 18 97/66 90 18 03:41 97 H 21 97/66 94 18 03:31 85 18 105/63 91 2418 03:21 89 17 105/63 89 18 03:11 90 17 105/63 94 18 03:00 85 17 105/63 100 02/17/18 02:51 85 16 97/66 88 02/17/18 02:41 86 17 97/66 92 02/17/18 02:31 88 15 97/66 89 02/17/18 02:21 103 H 25 H 97/66 99 02/17/18 02:11 115 H 30 H 97/66 99 02/17/18 02:00 99 H 13 97/66 89 02/17/18 01:51 110 H 21 123/78 94 02/17/18 01:41 113 H 20 123/78 92 02/17/18 01:31 109 H 24 109/71 02/17/18 01:21 100 H 21 109/71 92 02/17/18 01:11 92 H 17 109/71 84 02/17/18 01:00 115 H 18 109/71 94 02/17/18 00:51 94 H 18 109/71 02/17/18 00:41 87 15 109/71 82 L 02/17/18 00:31 103 H 12 109/71 92 02/17/18 00:21 97 H 16 109/71 92 02/17/18 00:11 100 H 16 109/71 82 L 02/17/18 00:01 86 17 109/71 83 L 02/17/18 00:00 99.1 F 02/16/18 23:51 101 H 12 97/59 18 23:41 110 H 23 97/59 18 23:31 106 H 24 97/59 18 23:29 97 H 21 97/59 18 23:21 120 H 14 97/59 87 02/16/18 23:11 112 H 26 H 97/59 93 18 23:00 101 H 21 97/59 18 22:51 121 H 17 89/51 94 18 22:41 99 H 17 89/51 88 18 22:31 114 H 22 89/51 88 18 22:21 112 H 20 91/56 95 18 22:11 83 19 91/56 98 02/16/18 22:00 93 H 26 H 83/47 100 02/16/18 21:51 104 H 18 89/51 96 02/16/18 21:41 102 H 20 89/51 90 09/23/18 21:31 94 H 17 89/51 94 18 21:21 95 H 18 89/51 99 18 21:11 96 H 19 89/51 100 18 21:00 96 H 18 89/51 100 18 20:54 100 18 20:51 91 H 18 104/77 100 02/16/18 20:41 94 H 18 104/77 100 02/16/18 20:31 104 H 22 104/77 100 18 20:21 110 H 22 104/77 90 02/16/18 20:11 109 H 21 104/77 79 L 02/16/18 20:00 100.0 F H 96 H 18 104/77 100 02/16/18 19:51 97 H 18 100/71 99 02/16/18 19:41 102 H 21 100/71 95 02/16/18 19:31 96 H 22 100/71 100 02/16/18 19:21 113 H 22 100/71 100 02/16/18 19:11 103 H 18 100/71 100 02/16/18 19:00 91 H 16 100/71 100 18 18:51 96 H 17 104/66 100 02/16/18 18:41 104 H 20 104/66 100 02/16/18 18:31 115 H 24 104/66 100 02/16/18 18:21 104 H 14 104/66 100 02/16/18 18:11 107 H 15 104/66 100 02/16/18 18:00 104 H 19 104/66 100 02/16/18 17:51 128 H 12 107/60 99 18 17:41 89 18 107/60 100 18 17:31 94 H 18 107/60 99 18 17:21 98 H 17 107/60 100 18 17:10 88 16 103/64 98 02/16/18 17:00 102 H 19 107/60 100 18 16:51 114 H 12 108/73 100 18 16:41 113 H 22 108/73 100 18 16:31 118 H 24 108/73 100 18 16:21 125 H 20 108/73 88 09/23/18 16:11 110 H 15 108/73 02/16/18 16:00 92 H 17 108/73 02/16/18 15:51 104 H 24 108/77 02/16/18 15:41 130 H 20 108/77 02/16/18 15:31 126 H 16 108/77 02/16/18 15:21 105 H 21 108/77 02/16/18 15:11 111 H 21 108/77 02/16/18 15:01 131 H 22 108/77 02/16/18 14:51 89 17 98/74 02/16/18 14:41 91 H 16 98/74 02/16/18 14:31 90 19 98/74 99 02/16/18 14:21 102 H 24 98/74 02/16/18 14:11 105 H 22 98/74 02/16/18 14:01 114 H 19 98/74 02/16/18 13:51 105 H 20 103/64 100 - Physical Examination General: No Apparent Distress HEENT: Positive: PERRL Cardiac: Positive: irregularly irregular Abdomen: Positive: Soft Extremities: Absent: edema - Labs and Meds Cardiac Enzymes 02/17/18 Range/Units 05:12 AST 39 (5-40) units/L Comprehensive Metabolic Panel 02/16/18 02/17/18 Range/Units 16:38 05:12 Sodium 134 L 136 L (137-145) mmol/L Potassium 3.7 (3.6-5.0) mmol/L Chloride 97.4 L (98-107) mmol/L Carbon Dioxide 27 (22-30) mmol/L BUN 12 (9-20) mg/dL Creatinine 0.6 L (0.8-1.5) mg/dL Glucose 107 H (75-100) mg/dL Calcium 7.6 L (8.4-10.2) mg/dL AST 39 (5-40) units/L ALT 27 (7-56) units/L Alkaline Phosphatase 51 (35-129) units/L Total Protein 5.7 L (6.3-8.2) g/dL Albumin 3.0 L (3.9-5) g/dL
[2018-02-17] MEDS ORDERED: K-DUR PO ONE (16:40)
[2018-02-17] MEDS: D5/0.45NS 1,000 ML IV SCH (17:14)
--- NOTE | 2018-02-17 18:40 | Progress Note ---
Assessment and Plan Assessment and plan: 1. Hyponatremia (Na 133, improving) Continue IVF with NS Monitor Sodium level Nephrology following 2. New onset Seizure(ETOH withdrawal vs hyponatremia) CIWA protocol with ativan Start thiamine, folic acid, multi-vit Seizure precaution 3. New onset A. Fib with RVR continue Cardizem drip Monitor HR 4. Alcohol intoxication CIWA protocol with ativan Start thiamine, folic acid, multi-vit Monitor for seizure 5. DM type 2 Continue Accu check ACHS insulin coverage per sliding scale PRN 6. Anxiety (likely due to alcohol withdrawal) Fall precaution 7. Metabolic Encephalopathy -continue safety restraints Continue GI/DVT prophylaxis History Interval history: Patient seen and examined, resting comfortably. no new complaints Hospitalist Physical - Physical exam Narrative exam: General appearance: Present: mild distress, disheveled - EENT Eyes: Present: EOM intact ENT: hearing intact - Neck Neck: Present: normal ROM - Respiratory Respiratory effort: normal - Cardiovascular Rhythm: irregularly irregular (RVR)-controlled rate - Extremities Extremities: No edema Peripheral Pulses: within normal limits - Abdominal General gastrointestinal: soft, non-tender, non-distended - Integumentary Integumentary: Present: warm, dry - Psychiatric Psychiatric: other (unavle to evaluate) - Neurologic Neurologic: moves all extremities - Constitutional Vitals: Temp Pulse Resp BP Pulse Ox 99.6 F 103 H 15 104/57 82 L 02/17/18 16:00 02/17/18 18:00 02/17/18 18:00 02/17/18 18:00 02/17/18 18:00 General appearance: Present: mild distress, disheveled Results - Labs CBC & Chem 7: 02/15/18 03:54 02/17/18 05:12 Labs: Laboratory Last Values WBC 8.7 K/mm3 (4.5-11.0) 02/15/18 03:54 RBC 3.77 M/mm3 (3.65-5.03) 02/15/18 03:54 Hgb 12.5 gm/dl (11.8-15.2) 02/15/18 03:54 Hct 34.7 % (35.5-45.6) L 02/15/18 03:54 MCV 92 fl (84-94) 02/15/18 03:54 MCH 33 pg (28-32) H 02/15/18 03:54 MCHC 36 % (32-34) H 02/15/18 03:54 RDW 13.3 % (13.2-15.2) 02/15/18 03:54 Plt Count 79 K/mm3 (140-440) L 02/15/18 03:54 Lymph % (Auto) 16.9 % (13.4-35.0) 02/15/18 03:54 [place] % (Auto) 11.4 % (0.0-7.3) H 02/15/18 03:54 Eos % (Auto) 0.1 % (0.0-4.3) 02/15/18 03:54 Baso % (Auto) 0.2 % (0.0-1.8) 02/15/18 03:54 Lymph # 1.5 K/mm3 (1.2-5.4) 02/15/18 03:54 [place] # 1.0 K/mm3 (0.0-0.8) H 02/15/18 03:54 Eos # 0.0 K/mm3 (0.0-0.4) 02/15/18 03:54 Baso # 0.0 K/mm3 (0.0-0.1) 02/15/18 03:54 Seg Neutrophils % 71.4 % (40.0-70.0) H 02/15/18 03:54 Seg Neutrophils # 6.2 K/mm3 (1.8-7.7) 02/15/18 03:54 PT 13.5 Sec. (12.2-14.9) 02/14/18 21:11 INR 0.98 (0.87-1.13) 02/14/18 21:11 Sodium 136 mmol/L (137-145) L 02/17/18 05:12 Potassium 3.7 mmol/L (3.6-5.0) 02/17/18 05:12 Chloride 97.4 mmol/L (98-107) L 02/17/18 05:12 Carbon Dioxide 27 mmol/L (22-30) 02/17/18 05:12 Anion Gap 15 mmol/L 02/17/18 05:12 BUN 12 mg/dL (9-20) 02/17/18 05:12 Creatinine 0.6 mg/dL (0.8-1.5) L 02/17/18 05:12 Estimated GFR > 60 ml/min 02/17/18 05:12 BUN/Creatinine Ratio 20 % 02/17/18 05:12 Glucose 107 mg/dL (75-100) H 02/17/18 05:12 POC Glucose 296 (70-105) H 02/17/18 16:03 Osmolality 279 Mosm/kg 02/15/18 07:05 Calcium 7.6 mg/dL (8.4-10.2) L 02/17/18 05:12 Phosphorus 3.40 mg/dL (2.5-4.5) D 02/17/18 05:12 Magnesium 2.20 mg/dL (1.7-2.3) 02/17/18 05:12 Total Bilirubin 0.60 mg/dL (0.1-1.2) 02/17/18 05:12 Direct Bilirubin 0.3 mg/dL (0-0.2) H 02/14/18 21:11 Indirect Bilirubin 0.7 mg/dL 02/14/18 21:11 AST 39 units/L (5-40) 02/17/18 05:12 ALT 27 units/L (7-56) 02/17/18 05:12 Alkaline Phosphatase 51 units/L (35-129) 02/17/18 05:12 Ammonia 40.0 umol/L (25-60) 02/14/18 23:04 Total Creatine Kinase 364 units/L (55-170) H 02/15/18 07:05 CK-MB (CK-2) 7.4 ng/mL (0.0-4.0) H 02/15/18 07:05 CK-MB (CK-2) Rel Index 2.0 (0-4) 02/15/18 07:05 Troponin T < 0.010 ng/mL (0.00-0.029) 02/15/18 07:05 Total Protein 5.7 g/dL (6.3-8.2) L 02/17/18 05:12 Albumin 3.0 g/dL (3.9-5) L 02/17/18 05:12 Albumin/Globulin Ratio 1.1 % 02/17/18 05:12 TSH 2.620 mlU/mL (0.270-4.200) 09/22/18 03:54 Salicylates 1.0 mg/dL (2.8-20.0) L 02/14/18 21:11 Acetaminophen < 5.0 ug/mL (10.0-30.0) L 02/14/18 21:11 Plasma/Serum Alcohol 0.33 % (0-0.07) H 02/14/18 21:11
[2018-02-18] MEDS: ATIVAN IV PRN (04:47)
[2018-02-18 04:57] LABS: Hematocrit 24.6 % (35.5-45.6); Hemoglobin 8.5 gm/dl (11.8-15.2); Mean Corpuscular HGB Conc 35 % (32-34); Mean Corpuscular Hemoglobin 33 pg (28-32); Mean Corpuscular Volume 96 fl (84-94); Red Blood Count 2.56 M/mm3 (3.65-5.03); Red Cell Distribution Width 13.3 % (13.2-15.2)
[2018-02-18 05:00] LABS: Platelet Count 85 K/mm3 (140-440)
[2018-02-18 05:38] LABS: Alanine Aminotransferase 26 units/L (7-56); Albumin 3.1 g/dL (3.9-5); BUN/Creatinine Ratio 11; Blood Urea Nitrogen 8 mg/dL (9-20); Calcium 8.5 mg/dL (8.4-10.2); Hemolysis Index 3
[2018-02-18] MEDS: D5/0.45NS 1,000 ML IV SCH (07:14)
[2018-02-18] MEDS: HumaLOG SUB-Q SCH ×4 (07:42→21:47)
--- NOTE | 2018-02-18 08:51 | Progress Note ---
Assessment and Plan 1. Hyponatremia: Significant hyponatremia in the setting of alcohol abuse. Slight decrease in the Sodium level. Will stop the IV fluids and monitor. 2. Metabolic acidosis: Improved. 3. Volume depletion: Improved. 4. A.fib with RVR: Controlled. 5. Seizures. 6. Alcohol intoxication. Subjective Date of service: 02/18/18 Principal diagnosis: Alcohol withdrawal Interval history: Patient was seen and examined at the bedside. Doing better and eating well. Objective - Vital Signs Vital signs: Vital Signs - 12hr 02/17/18 02/17/18 02/17/18 21:00 21:10 21:20 Temperature Pulse Rate 94 H 92 H 99 H Respiratory 18 24 11 L Rate Blood Pressure 119/72 119/72 119/72 O2 Sat by Pulse 100 100 100 Oximetry 02/17/18 02/17/18 02/17/18 21:30 21:40 21:50 Temperature Pulse Rate 90 99 H 88 Respiratory 14 20 15 Rate Blood Pressure 119/72 119/72 119/72 O2 Sat by Pulse 100 100 100 Oximetry 02/17/18 02/17/18 02/17/18 22:00 22:10 22:20 Temperature Pulse Rate 95 H 89 93 H Respiratory 21 19 13 Rate Blood Pressure 95/69 119/72 119/72 O2 Sat by Pulse 84 95 100 Oximetry 02/17/18 02/17/18 02/17/18 22:30 22:40 22:50 Temperature Pulse Rate 88 88 97 H Respiratory 16 19 13 Rate Blood Pressure 119/72 95/69 95/69 O2 Sat by Pulse 100 100 93 Oximetry 02/17/18 02/17/18 02/17/18 23:00 23:10 23:20 Temperature Pulse Rate 98 H 97 H 96 H Respiratory 13 16 16 Rate Blood Pressure 95/69 137/86 137/86 O2 Sat by Pulse 95 100 92 Oximetry 02/17/18 02/17/18 02/17/18 23:30 23:40 23:57 Temperature Pulse Rate 90 114 H Respiratory 18 10 L Rate Blood Pressure 137/86 137/86 137/86 O2 Sat by Pulse 100 100 Oximetry 02/18/18 02/18/18 02/18/18 00:00 00:03 00:10 Temperature 98.1 F Pulse Rate 109 H 100 H 100 H Respiratory 15 15 17 Rate Blood Pressure 137/86 84/40 94/50 O2 Sat by Pulse 100 100 100 Oximetry 02/18/18 02/18/18 02/18/18 00:20 00:30 00:40 Temperature Pulse Rate 88 99 H 87 Respiratory 15 12 12 Rate Blood Pressure 94/50 94/50 94/50 O2 Sat by Pulse 100 100 100 Oximetry 02/18/18 02/18/18 02/18/18 00:50 01:00 01:10 Temperature Pulse Rate 94 H 86 81 Respiratory 16 14 11 L Rate Blood Pressure 94/50 108/62 108/62 O2 Sat by Pulse 100 100 100 Oximetry 02/18/18 02/18/18 02/18/18 01:20 01:30 01:40 Temperature Pulse Rate 97 H 91 H 83 Respiratory 12 13 17 Rate Blood Pressure 108/62 108/62 108/62 O2 Sat by Pulse 100 100 99 Oximetry 02/18/18 02/18/18 02/18/18 01:50 02:00 02:10 Temperature Pulse Rate 82 97 H 92 H Respiratory 17 14 18 Rate Blood Pressure 108/62 107/45 107/45 O2 Sat by Pulse 100 100 100 Oximetry 02/18/18 02/18/18 02/18/18 02:20 02:30 02:40 Temperature Pulse Rate 88 96 H 81 Respiratory 16 11 L 12 Rate Blood Pressure 107/45 107/45 107/45 O2 Sat by Pulse 100 83 L 99 Oximetry 02/18/18 02/18/18 02/18/18 02:50 03:00 03:10 Temperature Pulse Rate 86 90 Respiratory 13 15 Rate Blood Pressure 107/45 119/62 119/62 O2 Sat by Pulse 100 100 100 Oximetry 02/18/18 02/18/18 02/18/18 03:20 03:30 03:40 Temperature Pulse Rate 87 91 H 97 H Respiratory 16 13 13 Rate Blood Pressure 107/45 107/45 107/45 O2 Sat by Pulse 100 100 100 Oximetry 02/18/18 02/18/18 02/18/18 03:50 03:56 04:00 Temperature 98.4 F Pulse Rate 92 H 90 Respiratory 15 8 L Rate Blood Pressure 107/45 100/42 O2 Sat by Pulse 100 100 Oximetry 02/18/18 02/18/18 02/18/18 04:10 04:20 04:30 Temperature Pulse Rate 99 H 94 H 93 H Respiratory 14 16 15 Rate Blood Pressure 100/42 119/62 119/62 O2 Sat by Pulse 100 100 100 Oximetry 02/18/18 02/18/18 02/18/18 04:40 04:50 05:00 Temperature Pulse Rate 91 H 96 H 88 Respiratory 11 L 12 11 L Rate Blood Pressure 119/62 119/62 100/42 O2 Sat by Pulse 100 100 100 Oximetry 02/18/18 02/18/18 02/18/18 05:10 05:20 05:30 Temperature Pulse Rate 92 H 86 87 Respiratory 12 11 L 15 Rate Blood Pressure 126/74 100/42 100/42 O2 Sat by Pulse 100 100 100 Oximetry 02/18/18 02/18/18 02/18/18 05:40 05:50 06:00 Temperature Pulse Rate 103 H 91 H 96 H Respiratory 13 10 L 12 Rate Blood Pressure 100/42 126/74 135/83 O2 Sat by Pulse 100 99 Oximetry 02/18/18 02/18/18 02/18/18 06:10 06:20 06:30 Temperature Pulse Rate 92 H 90 92 H Respiratory 15 17 12 Rate Blood Pressure 135/83 135/83 135/83 O2 Sat by Pulse 86 96 Oximetry 02/18/18 02/18/18 02/18/18 06:40 06:50 07:00 Temperature Pulse Rate 89 88 108 H Respiratory 13 15 15 Rate Blood Pressure 135/83 135/83 135/83 O2 Sat by Pulse 99 99 96 Oximetry 02/18/18 02/18/18 07:10 07:39 Temperature 98.4 F Pulse Rate 92 H Respiratory 15 Rate Blood Pressure 128/75 O2 Sat by Pulse 84 Oximetry - General Appearance General appearance: well-developed, well-nourished, appears stated age, other ( not in distress) EENT: ATNC, PERRL, mucous membranes moist, hearing intact, vision intact Neck: supple Respiratory: Present: Clear to Ascultation Cardiology: irregularly irregular, S1S2, no murmurs Gastrointestinal: normoactive bowel sounds, no tenderness, no distended Integumentary: no rash, warm and dry Neurologic: no focal deficit, no asterixis, alert and oriented x3 Musculoskeletal: other (no edema) Psychiatric: cooperative - Lab 02/18/18 04:42 02/18/18 04:42 Most recent lab results Calcium 8.5 mg/dL (8.4-10.2) 02/18/18 04:42 Phosphorus 3.40 mg/dL (2.5-4.5) D 02/17/18 05:12 Magnesium 2.20 mg/dL (1.7-2.3) 02/17/18 05:12
[2018-02-18] MEDS: LANOXIN IV SCH (09:07)
[2018-02-18] MEDS: LOVENOX SUB-Q SCH (09:07)
[2018-02-18] MEDS: celeXA PO SCH (09:07)
[2018-02-18] MEDS: SODIUM CHLORIDE FLUSH SYRINGE 10 ML IV SCH ×2 (09:08→21:50)
[2018-02-18] MEDS: PHOS-NAK PO SCH ×3 (10:40→21:50)
--- NOTE | 2018-02-18 10:45 | Progress Note ---
Assessment and Plan Atrial fibrillation, rate controlled Normal TSH Not a candidate for oral anticoagulation due to history of alcohol abuse and thrombocytopenia Alcohol abuse/withdrawal Fatty liver on CT abdomen Seizure disorder NAP on brain CT Hyponatremia - resolved Thrombocytopenia Echocardiogram shows a normal LVEF. Continue rate controlling agents for persistent atrial fibrillation. Otherwise, conservative cardiac management. Subjective Date of service: 02/18/18 Principal diagnosis: Alcohol withdrawal Interval history: Patient has no cardiac complaints. Afib with a well controlled ventricular rate on telemetry. Objective Vital Signs Temp Pulse Pulse Resp BP Pulse Ox 02/18/18 09:59 100 02/18/18 09:07 104 H 101/57 02/18/18 08:50 100 H 16 133/78 99 02/18/18 08:40 109 H 12 133/78 02/18/18 08:30 103 H 20 133/78 02/18/18 08:20 102 H 16 133/78 02/18/18 08:10 72 12 133/78 84 02/18/18 08:00 90 100 H 16 133/78 84 02/18/18 07:50 89 14 128/75 80 L 02/18/18 07:40 89 17 128/75 82 L 02/18/18 07:39 98.4 F 02/18/18 07:30 95 H 15 128/75 02/18/18 07:20 95 H 17 128/75 98 02/18/18 07:10 92 H 15 128/75 84 02/18/18 07:00 108 H 15 135/83 96 02/18/18 06:50 88 15 135/83 99 02/18/18 06:40 89 13 135/83 99 02/18/18 06:30 92 H 12 135/83 02/18/18 06:20 90 17 135/83 96 02/18/18 06:10 92 H 15 135/83 86 02/18/18 06:00 96 H 12 135/83 99 02/18/18 05:50 91 H 10 L 126/74 100 02/18/18 05:40 103 H 13 100/42 02/18/18 05:30 87 15 100/42 100 02/18/18 05:20 86 11 L 100/42 100 02/18/18 05:10 92 H 12 126/74 100 02/18/18 05:00 88 11 L 100/42 100 02/18/18 04:50 96 H 12 119/62 100 18 04:40 91 H 11 L 119/62 100 18 04:30 93 H 15 119/62 100 02/18/18 04:20 94 H 16 119/62 100 02/18/18 04:10 99 H 14 100/42 100 02/18/18 04:00 90 8 L 100/42 100 02/18/18 03:56 98.4 F 02/18/18 03:50 92 H 15 107/45 100 02/18/18 03:40 97 H 13 107/45 100 02/18/18 03:30 91 H 13 107/45 100 02/18/18 03:20 87 16 107/45 100 02/18/18 03:10 90 15 119/62 100 02/18/18 03:00 86 13 119/62 100 02/18/18 02:50 107/45 100 02/18/18 02:40 81 12 107/45 99 02/18/18 02:30 96 H 11 L 107/45 83 L 02/18/18 02:20 88 16 107/45 100 02/18/18 02:10 92 H 18 107/45 100 02/18/18 02:00 97 H 14 107/45 100 02/18/18 01:50 82 17 108/62 100 02/18/18 01:40 83 17 108/62 99 02/18/18 01:30 91 H 13 108/62 100 02/18/18 01:20 97 H 12 108/62 100 02/18/18 01:10 81 11 L 108/62 100 02/18/18 01:00 86 14 108/62 100 02/18/18 00:50 94 H 16 94/50 100 18 00:40 87 12 94/50 100 18 00:30 99 H 12 94/50 100 02/18/18 00:20 88 15 94/50 100 02/18/18 00:10 100 H 17 94/50 100 02/18/18 00:03 100 H 15 84/40 100 02/18/18 00:00 98.1 F 109 H 15 137/86 100 18 23:57 114 H 10 L 137/86 02/17/18 23:40 137/86 100 02/17/18 23:30 90 18 137/86 100 09/24/18 23:20 96 H 16 137/86 92 18 23:10 97 H 16 137/86 100 18 23:00 98 H 13 95/69 95 18 22:50 97 H 13 95/69 93 18 22:40 88 19 95/69 100 18 22:30 88 16 119/72 100 18 22:20 93 H 13 119/72 100 18 22:10 89 19 119/72 95 18 22:00 95 H 21 95/69 84 18 21:50 88 15 119/72 100 18 21:40 99 H 20 119/72 100 18 21:30 90 14 119/72 100 18 21:20 99 H 11 L 119/72 100 18 21:10 92 H 24 119/72 100 18 21:00 94 H 18 119/72 100 18 20:50 87 16 125/62 99 18 20:40 89 17 125/62 100 18 20:30 95 H 16 125/62 97 18 20:20 94 H 20 125/62 100 18 20:10 87 20 125/62 100 18 20:00 98.8 F 97 H 26 H 125/62 100 18 19:50 92 H 20 103/62 100 18 19:40 93 H 21 103/62 100 18 19:30 95 H 22 103/62 100 18 19:20 101 H 21 103/62 85 18 19:10 108 H 23 103/62 18 19:00 97 H 21 103/62 97 18 18:50 99 H 23 104/57 97 02/17/18 18:40 88 19 104/57 97 02/17/18 18:30 100 H 19 104/57 84 02/17/18 18:20 98 H 18 104/57 76 L 02/17/18 18:10 102 H 11 L 104/57 78 L 02/17/18 18:00 103 H 15 104/57 82 L 02/17/18 17:50 109 H 17 100/39 99 18 17:40 118 H 15 100/39 02/17/18 17:30 125 H 13 126/63 02/17/18 17:20 120 H 15 126/63 81 L 02/17/18 17:10 118 H 10 L 126/63 85 02/17/18 17:00 110 H 11 L 126/63 81 L 02/17/18 16:50 113 H 12 126/63 100 02/17/18 16:42 108 H 13 126/63 86 02/17/18 16:30 104 H 14 126/63 96 02/17/18 16:20 90 19 126/63 99 02/17/18 16:10 94 H 17 126/63 96 02/17/18 16:00 99.6 F 109 H 105 H 19 126/63 80 L 02/17/18 15:50 91 H 18 104/65 02/17/18 15:40 93 H 19 104/65 93 02/17/18 15:30 96 H 18 104/65 99 02/17/18 15:20 100 H 19 104/65 100 02/17/18 15:10 101 H 16 104/65 64 L 02/17/18 15:00 102 H 19 104/65 80 L 02/17/18 14:50 98 H 18 90/54 99 18 14:40 95 H 17 90/54 02/17/18 14:30 107 H 22 90/54 77 L 02/17/18 14:20 103 H 20 115/71 100 02/17/18 14:10 109 H 21 115/71 80 L 02/17/18 14:00 116 H 24 115/71 02/17/18 13:50 110 H 21 97/68 80 L 02/17/18 13:40 109 H 19 97/68 02/17/18 13:30 102 H 19 97/68 02/17/18 13:20 104 H 19 79/45 100 18 13:10 100 H 23 79/45 94 02/17/18 13:00 104 H 20 97/68 90 02/17/18 12:50 108 H 8 L 97/68 80 L 02/17/18 12:40 110 H 18 97/68 79 L 02/17/18 12:30 100 H 14 97/68 78 L 02/17/18 12:20 88 18 97/68 100 02/17/18 12:10 102 H 21 /68 100 02/17/18 12:00 99.0 F 109 H 108 H 15 82 L 02/17/18 11:50 103 H 24 117/71 97 02/17/18 11:40 97 H 16 117/71 93 02/17/18 11:30 91 H 23 117/71 100 02/17/18 11:20 100 H 18 117/71 100 02/17/18 11:10 91 H 19 100 02/17/18 11:08 97 H 23 100 02/17/18 10:51 97 H 14 91/62 97 - Physical Examination General: No Apparent Distress HEENT: Positive: PERRL Neck: Positive: trachea midline Cardiac: Positive: irregularly irregular - Labs and Meds Cardiac Enzymes 02/18/18 Range/Units 04:42 AST 32 (5-40) units/L CBC 02/18/18 Range/Units 04:42 WBC 3.7 L (4.5-11.0) K/mm3 RBC 2.56 L (3.65-5.03) M/mm3 Hgb 8.5 L (11.8-15.2) gm/dl Hct 24.6 L (35.5-45.6) % Plt Count 85 L (140-440) K/mm3 Comprehensive Metabolic Panel 02/18/18 Range/Units 04:42 Sodium 131 L (137-145) mmol/L Potassium 3.9 (3.6-5.0) mmol/L Chloride 94.5 L (98-107) mmol/L Carbon Dioxide 27 (22-30) mmol/L BUN 8 L (9-20) mg/dL Creatinine 0.7 L (0.8-1.5) mg/dL Glucose 125 H (75-100) mg/dL Calcium 8.5 (8.4-10.2) mg/dL AST 32 (5-40) units/L ALT 26 (7-56) units/L Alkaline Phosphatase 57 (35-129) units/L Total Protein 5.8 L (6.3-8.2) g/dL Albumin 3.1 L (3.9-5) g/dL
--- NOTE | 2018-02-18 15:48 | Progress Note ---
Assessment and Plan Assessment and plan: Hyponatremia - Continue IVF with NS - Monitor Sodium level New onset Seizure likely due to ETOH withdrawal - CIWA protocol with ativan - On thiamine, folic acid, multi-vit - Seizure precaution New onset A. Fib with RVR - rate control - Cardiology said he is not a candidate for anticoagulation Alcohol intoxication - CIWA protocol with ativan, patient is confused in the morning and need Ativan - Start thiamine, folic acid, multi-vit DM type 2 - Continue Accu check ACHS - insulin coverage per sliding scale PRN Anxiety - Likely due to alcohol withdrawal, we'll monitor Metabolic Encephalopathy - Improving Thrombocytopenia - Likely due to alcohol DVT prophylaxis - SCDs because of thrombocytopenia Disposition - Possible discharge tomorrow History Interval history: Patient was seen and evaluated at the bedside, patient was sleepy, but alert and oriented after he woke up. Per the nurse patient is confused and agitated this morning and was given Ativan. Hospitalist Physical - Physical exam Narrative exam: Not in cardiopulmonary distress. The patient appeared well nourished and normally developed. Vital signs as documented. Head exam is unremarkable. No scleral icterus . Neck is without jugular venous distension, thyromegaly, or carotid bruits. Lungs are clear to auscultation. Cardiac exam reveals regular rate and Rhythm. First and second heart sounds normal. No murmurs, rubs or gallops. Abdominal exam reveals normal bowel sounds, no masses, no organomegaly and no aortic enlargement. Extremities are nonedematous and both femoral and pedal pulses are normal. HARDBOARD GRINDER: Alert and oriented 3. No focal weakness. - Constitutional Vitals: Temp Pulse Resp BP Pulse Ox 98.9 F 82 15 101/58 100 02/18/18 12:00 02/18/18 15:20 02/18/18 15:20 02/18/18 15:20 02/18/18 15:20 General appearance: Present: mild distress, disheveled Results - Labs CBC & Chem 7: 02/18/18 04:42 02/18/18 04:42 Labs: Laboratory Last Values WBC 3.7 K/mm3 (4.5-11.0) L 02/18/18 04:42 RBC 2.56 M/mm3 (3.65-5.03) L 02/18/18 04:42 Hgb 8.5 gm/dl (11.8-15.2) L 02/18/18 04:42 Hct 24.6 % (35.5-45.6) L 02/18/18 04:42 MCV 96 fl (84-94) H 02/18/18 04:42 MCH 33 pg (28-32) H 02/18/18 04:42 MCHC 35 % (32-34) H 02/18/18 04:42 RDW 13.3 % (13.2-15.2) 02/18/18 04:42 Plt Count 85 K/mm3 (140-440) L 02/18/18 04:42 Lymph % (Auto) 16.9 % (13.4-35.0) 02/15/18 03:54 [place] % (Auto) 11.4 % (0.0-7.3) H 02/15/18 03:54 Eos % (Auto) 0.1 % (0.0-4.3) 02/15/18 03:54 Baso % (Auto) 0.2 % (0.0-1.8) 02/15/18 03:54 Lymph # 1.5 K/mm3 (1.2-5.4) 02/15/18 03:54 [place] # 1.0 K/mm3 (0.0-0.8) H 02/15/18 03:54 Eos # 0.0 K/mm3 (0.0-0.4) 02/15/18 03:54 Baso # 0.0 K/mm3 (0.0-0.1) 02/15/18 03:54 Seg Neutrophils % 71.4 % (40.0-70.0) H 02/15/18 03:54 Seg Neutrophils # 6.2 K/mm3 (1.8-7.7) 02/15/18 03:54 PT 13.5 Sec. (12.2-14.9) 02/14/18 21:11 INR 0.98 (0.87-1.13) 02/14/18 21:11 Sodium 131 mmol/L (137-145) L 02/18/18 04:42 Potassium 3.9 mmol/L (3.6-5.0) 02/18/18 04:42 Chloride 94.5 mmol/L (98-107) L 02/18/18 04:42 Carbon Dioxide 27 mmol/L (22-30) 02/18/18 04:42 Anion Gap 13 mmol/L 02/18/18 04:42 BUN 8 mg/dL (9-20) L 02/18/18 04:42 Creatinine 0.7 mg/dL (0.8-1.5) L 02/18/18 04:42 Estimated GFR > 60 ml/min 02/18/18 04:42 BUN/Creatinine Ratio 11 % 02/18/18 04:42 Glucose 125 mg/dL (75-100) H 02/18/18 04:42 POC Glucose 152 (70-105) H 02/18/18 11:59 Osmolality 279 Mosm/kg 02/15/18 07:05 Calcium 8.5 mg/dL (8.4-10.2) 02/18/18 04:42 Phosphorus 3.40 mg/dL (2.5-4.5) D 02/17/18 05:12 Magnesium 2.20 mg/dL (1.7-2.3) 02/17/18 05:12 Total Bilirubin 0.50 mg/dL (0.1-1.2) 02/18/18 04:42 Direct Bilirubin 0.3 mg/dL (0-0.2) H 02/14/18 21:11 Indirect Bilirubin 0.7 mg/dL 02/14/18 21:11 AST 32 units/L (5-40) 02/18/18 04:42 ALT 26 units/L (7-56) 02/18/18 04:42 Alkaline Phosphatase 57 units/L (35-129) 02/18/18 04:42 Ammonia 40.0 umol/L (25-60) 02/14/18 23:04 Total Creatine Kinase 364 units/L (55-170) H 02/15/18 07:05 CK-MB (CK-2) 7.4 ng/mL (0.0-4.0) H 02/15/18 07:05 CK-MB (CK-2) Rel Index 2.0 (0-4) 02/15/18 07:05 Troponin T < 0.010 ng/mL (0.00-0.029) 02/15/18 07:05 Total Protein 5.8 g/dL (6.3-8.2) L 02/18/18 04:42 Albumin 3.1 g/dL (3.9-5) L 02/18/18 04:42 Albumin/Globulin Ratio 1.1 % 02/18/18 04:42 TSH 2.620 mlU/mL (0.270-4.200) 02/15/18 03:54 Salicylates 1.0 mg/dL (2.8-20.0) L 02/14/18 21:11 Acetaminophen < 5.0 ug/mL (10.0-30.0) L 02/14/18 21:11 Plasma/Serum Alcohol 0.33 % (0-0.07) H 02/14/18 21:11
[2018-02-18] MEDS: DESYREL PO SCH (21:49)
[2018-02-19] MEDS: PHOS-NAK PO SCH (05:21)
[2018-02-19 05:36] LABS: BUN/Creatinine Ratio 10; Blood Urea Nitrogen 7 mg/dL (9-20); Calcium 8.4 mg/dL (8.4-10.2); Hemolysis Index 12
--- NOTE | 2018-02-19 07:36 | Progress Note ---
Assessment and Plan 1. Hyponatremia: Significant hyponatremia in the setting of alcohol abuse. Sodium level has improved. 2. Metabolic acidosis: Improved. 3. Volume depletion: Improved. 4. A.fib with RVR: Controlled. 5. Seizures. 6. Alcohol intoxication. Subjective Date of service: 02/19/18 Principal diagnosis: Alcohol withdrawal Interval history: Patient was seen and examined at the bedside. Doing better and eating well. Objective - Vital Signs Vital signs: Vital Signs - 12hr 02/18/18 02/18/18 02/18/18 19:40 19:50 20:00 Temperature 98.1 F Pulse Rate 89 87 94 H Respiratory 8 L 12 16 Rate Blood Pressure 100/64 100/64 100/64 O2 Sat by Pulse 99 100 99 Oximetry 02/18/18 02/18/18 02/18/18 20:10 20:20 20:30 Temperature Pulse Rate 85 87 89 Respiratory 11 L 15 12 Rate Blood Pressure 129/74 129/74 129/74 O2 Sat by Pulse 99 100 100 Oximetry 02/18/18 02/18/18 02/18/18 20:40 20:50 21:00 Temperature Pulse Rate 86 83 96 H Respiratory 17 13 14 Rate Blood Pressure 129/74 129/74 132/79 O2 Sat by Pulse 100 100 99 Oximetry 02/18/18 02/18/18 02/18/18 21:10 21:20 21:30 Temperature Pulse Rate 86 86 94 H Respiratory 13 10 L 11 L Rate Blood Pressure 132/79 132/79 132/79 O2 Sat by Pulse 100 100 99 Oximetry 02/18/18 02/18/18 02/18/18 21:40 21:50 22:00 Temperature Pulse Rate 91 H 90 92 H Respiratory 15 12 14 Rate Blood Pressure 132/79 132/79 126/82 O2 Sat by Pulse 99 99 100 Oximetry 02/18/18 02/18/18 02/18/18 22:10 22:20 22:30 Temperature Pulse Rate 84 91 H 103 H Respiratory 13 11 L 13 Rate Blood Pressure 126/82 126/82 126/82 O2 Sat by Pulse 100 100 100 Oximetry 02/18/18 02/18/18 02/18/18 22:40 22:50 23:00 Temperature Pulse Rate 98 H 89 96 H Respiratory 14 15 14 Rate Blood Pressure 126/82 126/82 126/82 O2 Sat by Pulse 99 98 98 Oximetry 02/18/18 02/18/18 02/18/18 23:10 23:20 23:30 Temperature Pulse Rate 87 90 89 Respiratory 11 L 11 L 14 Rate Blood Pressure 111/51 111/51 111/51 O2 Sat by Pulse 99 100 99 Oximetry 02/18/18 02/18/18 02/19/18 23:40 23:50 00:00 Temperature 98.4 F Pulse Rate 94 H 90 94 H Respiratory 14 12 8 L Rate Blood Pressure 111/51 111/51 80/43 O2 Sat by Pulse 98 99 97 Oximetry 02/19/18 02/19/18 02/19/18 00:02 00:10 00:20 Temperature Pulse Rate 96 H 90 92 H Respiratory 13 13 15 Rate Blood Pressure 78/39 84/39 97/50 O2 Sat by Pulse 97 97 100 Oximetry 02/19/18 02/19/18 02/19/18 00:30 00:40 00:50 Temperature Pulse Rate 80 81 78 Respiratory 14 8 L 14 Rate Blood Pressure 97/50 97/50 97/50 O2 Sat by Pulse 99 98 98 Oximetry 02/19/18 02/19/18 02/19/18 01:00 01:10 01:20 Temperature Pulse Rate 102 H 99 H 81 Respiratory 14 13 11 L Rate Blood Pressure 97/50 97/50 97/50 O2 Sat by Pulse 93 100 98 Oximetry 02/19/18 02/19/18 02/19/18 01:30 01:40 01:50 Temperature Pulse Rate 82 79 81 Respiratory 13 12 13 Rate Blood Pressure 97/50 90/56 90/56 O2 Sat by Pulse 99 99 98 Oximetry 02/19/18 02/19/18 02/19/18 02:00 02:10 02:20 Temperature Pulse Rate 79 81 80 Respiratory 13 11 L 14 Rate Blood Pressure 105/62 105/62 105/62 O2 Sat by Pulse 98 98 98 Oximetry 02/19/18 02/19/18 02/19/18 02:30 02:40 02:50 Temperature Pulse Rate 84 78 80 Respiratory 13 13 12 Rate Blood Pressure 105/62 105/62 105/62 O2 Sat by Pulse 99 98 100 Oximetry 02/19/18 02/19/18 02/19/18 03:00 03:10 03:20 Temperature Pulse Rate 84 81 83 Respiratory 12 14 14 Rate Blood Pressure 105/62 105/62 105/62 O2 Sat by Pulse 99 97 98 Oximetry 02/19/18 02/19/18 02/19/18 03:30 03:40 03:50 Temperature Pulse Rate 85 79 Respiratory 12 13 13 Rate Blood Pressure 105/62 115/72 115/72 O2 Sat by Pulse 99 99 99 Oximetry 02/19/18 02/19/18 02/19/18 04:00 04:10 04:20 Temperature 98.5 F Pulse Rate 83 80 81 Respiratory 13 10 L 8 L Rate Blood Pressure 115/72 117/68 117/68 O2 Sat by Pulse 98 100 100 Oximetry 02/19/18 02/19/18 02/19/18 04:30 04:40 04:50 Temperature Pulse Rate 87 83 79 Respiratory 11 L 14 14 Rate Blood Pressure 117/68 117/68 117/68 O2 Sat by Pulse 100 97 98 Oximetry 02/19/18 02/19/18 02/19/18 05:00 05:10 05:20 Temperature Pulse Rate 84 90 96 H Respiratory 12 11 L 14 Rate Blood Pressure 117/68 117/68 117/68 O2 Sat by Pulse 100 85 100 Oximetry 02/19/18 02/19/18 02/19/18 05:30 05:40 05:50 Temperature Pulse Rate 90 86 86 Respiratory 10 L 12 13 Rate Blood Pressure 141/78 141/78 141/78 O2 Sat by Pulse 100 100 97 Oximetry 02/19/18 06:00 Temperature Pulse Rate 100 H Respiratory 14 Rate Blood Pressure 141/78 O2 Sat by Pulse 84 Oximetry - General Appearance General appearance: well-developed, well-nourished, appears stated age, other ( not in distress) EENT: ATNC, PERRL, mucous membranes moist, hearing intact, vision intact Neck: supple Respiratory: Present: Clear to Ascultation Cardiology: irregularly irregular, S1S2, no murmurs Gastrointestinal: normoactive bowel sounds, no tenderness Integumentary: no rash, warm and dry Neurologic: no focal deficit, no asterixis, alert and oriented x3 Musculoskeletal: other (no edema) Psychiatric: cooperative - Lab 02/18/18 04:42 02/19/18 05:05 Most recent lab results Calcium 8.4 mg/dL (8.4-10.2) 02/19/18 05:05 Phosphorus 4.60 mg/dL (2.5-4.5) H 09/26/18 05:05 Magnesium 1.90 mg/dL (1.7-2.3) 02/19/18 05:05
[2018-02-19] MEDS: HumaLOG SUB-Q SCH ×4 (08:21→22:05)
[2018-02-19] MEDS: LANOXIN IV SCH (09:14)
[2018-02-19] MEDS: SODIUM CHLORIDE FLUSH SYRINGE 10 ML IV SCH ×2 (09:15→22:04)
[2018-02-19] MEDS: celeXA PO SCH (09:15)
--- NOTE | 2018-02-19 09:43 | Progress Note ---
Assessment and Plan Atrial fibrillation, rate controlled Normal TSH Not a candidate for oral anticoagulation due to history of alcohol abuse and thrombocytopenia Alcohol abuse/withdrawal Fatty liver on CT abdomen Seizure disorder NAP on brain CT Hyponatremia - resolved Thrombocytopenia Echocardiogram shows a normal LVEF. Continue rate controlling agents for persistent atrial fibrillation. We will transition from IV digoxin to oral diltiazem. Otherwise, conservative cardiac management. Subjective Date of service: 02/19/18 Principal diagnosis: Alcohol withdrawal Interval history: Patient has no cardiac complaints. Afib with a well controlled ventricular rate on telemetry. Objective Vital Signs Temp Pulse Pulse Resp BP Pulse Ox 02/19/18 09:14 90 113/68 02/19/18 08:10 91 H 11 L 118/62 100 02/19/18 08:00 98.9 F 78 92 H 12 118/62 98 02/19/18 07:50 88 9 L 111/67 98 02/19/18 07:40 100 H 15 111/67 100 02/19/18 07:30 75 9 L 111/67 100 02/19/18 07:20 81 9 L 111/67 99 02/19/18 07:10 82 15 111/67 98 02/19/18 07:00 81 13 111/67 97 02/19/18 06:50 77 15 145/78 100 02/19/18 06:40 82 12 141/78 100 02/19/18 06:30 81 13 141/78 100 02/19/18 06:20 75 10 L 141/78 99 02/19/18 06:10 85 13 145/78 90 02/19/18 06:00 100 H 14 141/78 84 02/19/18 05:50 86 13 141/78 97 02/19/18 05:40 86 12 141/78 100 02/19/18 05:30 90 10 L 141/78 100 02/19/18 05:20 96 H 14 117/68 100 02/19/18 05:10 90 11 L 117/68 85 02/19/18 05:00 84 12 117/68 100 02/19/18 04:50 79 14 117/68 98 02/19/18 04:40 83 14 117/68 97 02/19/18 04:30 87 11 L 117/68 100 02/19/18 04:20 81 8 L 117/68 100 02/19/18 04:10 80 10 L 117/68 100 02/19/18 04:00 98.5 F 83 13 115/72 98 02/19/18 03:50 79 13 115/72 99 02/19/18 03:40 85 13 115/72 99 18 03:30 12 105/62 99 02/19/18 03:20 83 14 105/62 98 02/19/18 03:10 81 14 105/62 97 02/19/18 03:00 84 12 105/62 99 02/19/18 02:50 80 12 105/62 100 02/19/18 02:40 78 13 105/62 98 02/19/18 02:30 84 13 105/62 99 02/19/18 02:20 80 14 105/62 98 02/19/18 02:10 81 11 L 105/62 98 02/19/18 02:00 79 13 105/62 98 02/19/18 01:50 81 13 90/56 98 02/19/18 01:40 79 12 90/56 99 02/19/18 01:30 82 13 97/50 99 02/19/18 01:20 81 11 L 97/50 98 02/19/18 01:10 99 H 13 97/50 100 02/19/18 01:00 102 H 14 97/50 93 02/19/18 00:50 78 14 97/50 98 02/19/18 00:40 81 8 L 97/50 98 02/19/18 00:30 80 14 97/50 99 02/19/18 00:20 92 H 15 97/50 100 02/19/18 00:10 90 13 84/39 97 02/19/18 00:02 96 H 13 78/39 97 02/19/18 00:00 98.4 F 94 H 8 L 80/43 97 18 23:50 90 12 111/51 99 18 23:40 94 H 14 111/51 98 18 23:30 89 14 111/51 99 18 23:20 90 11 L 111/51 100 18 23:10 87 11 L 111/51 99 18 23:00 96 H 14 126/82 98 18 22:50 89 15 126/82 98 02/18/18 22:40 98 H 14 126/82 99 02/18/18 22:30 103 H 13 126/82 100 02/18/18 22:20 91 H 11 L 126/82 100 02/18/18 22:10 84 13 126/82 100 02/18/18 22:00 92 H 14 126/82 100 02/18/18 21:50 90 12 132/79 99 02/18/18 21:40 91 H 15 132/79 99 02/18/18 21:30 94 H 11 L 132/79 99 02/18/18 21:20 86 10 L 132/79 100 02/18/18 21:10 86 13 132/79 100 02/18/18 21:00 96 H 14 132/79 99 02/18/18 20:50 83 13 129/74 100 02/18/18 20:40 86 17 129/74 100 02/18/18 20:30 89 12 129/74 100 02/18/18 20:20 87 15 129/74 100 02/18/18 20:10 85 11 L 129/74 99 02/18/18 20:00 98.1 F 94 H 16 100/64 99 02/18/18 19:50 87 12 100/64 100 02/18/18 19:40 89 8 L 100/64 99 02/18/18 19:30 90 13 100/64 99 02/18/18 19:20 90 14 100/64 99 02/18/18 19:10 93 H 19 100/64 97 02/18/18 19:00 93 H 16 100/64 98 02/18/18 18:50 88 16 108/65 99 02/18/18 18:40 92 H 17 98 02/18/18 18:39 96 H 16 99 02/18/18 18:20 105 H 17 108/65 100 02/18/18 18:14 121 H 108/65 02/18/18 18:00 103 H 14 108/65 100 02/18/18 17:50 113 H 21 126/73 99 02/18/18 17:40 103 H 30 H 126/73 100 02/18/18 17:30 86 17 126/73 100 02/18/18 17:20 91 H 25 H 126/73 98 02/18/18 17:10 90 12 126/73 96 02/18/18 17:00 94 H 14 126/73 99 09/25/18 16:50 96 H 15 119/71 98 02/18/18 16:40 96 H 9 L 119/71 99 02/18/18 16:30 87 17 119/71 97 02/18/18 16:20 93 H 14 119/71 99 02/18/18 16:10 93 H 17 119/71 98 02/18/18 16:00 94 H 96 H 13 119/71 98 02/18/18 15:50 90 15 101/58 99 02/18/18 15:48 98.9 F 02/18/18 15:40 98 H 16 101/58 100 18 15:34 96 H 18 15:30 110 H 13 101/58 99 02/18/18 15:20 82 15 101/58 100 02/18/18 15:10 86 14 101/58 98 02/18/18 15:00 84 13 101/58 98 02/18/18 14:50 97 H 16 95/64 97 18 14:40 84 16 95/64 97 02/18/18 14:30 83 15 92/57 98 18 14:20 79 15 92/57 98 18 14:10 96 H 11 L 92/57 100 18 14:00 118/61 100 18 13:50 110/67 99 18 13:40 87 14 110/67 100 18 13:30 92 H 16 110/67 100 18 13:20 91 H 16 110/67 100 18 13:10 96 H 18 110/67 100 18 13:00 99 H 15 92/57 100 02/18/18 12:50 94 H 15 110/67 100 18 12:40 99 H 18 110/67 100 18 12:30 98 H 18 110/67 100 18 12:20 96 H 14 110/67 100 18 12:10 90 15 110/67 100 18 12:00 98.9 F 87 15 110/67 92 02/18/18 11:50 81 13 109/58 98 18 11:40 80 14 109/58 99 18 11:34 100 H 02/18/18 11:30 92 H 15 109/58 100 02/18/18 11:20 77 17 109/58 99 02/18/18 11:10 85 13 109/58 100 02/18/18 11:00 93 H 12 109/58 95 02/18/18 10:50 105 H 15 86/61 100 02/18/18 10:40 97 H 15 86/61 100 02/18/18 10:30 81 18 86/61 100 02/18/18 10:20 89 17 86/61 99 02/18/18 10:10 87 17 86/61 100 02/18/18 10:00 93 H 14 86/61 100 02/18/18 09:59 100 02/18/18 09:50 97 H 13 101/57 99 - Physical Examination General: No Apparent Distress HEENT: Positive: PERRL Neck: Positive: trachea midline Cardiac: Positive: irregularly irregular Lungs: Positive: Decreased Breath Sounds Extremities: Absent: edema - Labs and Meds Comprehensive Metabolic Panel 02/19/18 Range/Units 05:05 Sodium 134 L (137-145) mmol/L Potassium 4.2 (3.6-5.0) mmol/L Chloride 95.0 L (98-107) mmol/L Carbon Dioxide 28 (22-30) mmol/L BUN 7 L (9-20) mg/dL Creatinine 0.7 L (0.8-1.5) mg/dL Glucose 101 H (75-100) mg/dL Calcium 8.4 (8.4-10.2) mg/dL
[2018-02-19] MEDS: CARDIZEM PO SCH (11:52)
--- NOTE | 2018-02-19 16:19 | Progress Note ---
Assessment and Plan Assessment and plan: Hyponatremia - Continue IVF with NS - Monitor Sodium level New onset Seizure likely due to ETOH withdrawal - CIWA protocol with ativan - On thiamine, folic acid, multi-vit - Seizure precaution New onset A. Fib with RVR - rate control - Cardiology said he is not a candidate for anticoagulation Alcohol intoxication - CIWA protocol with ativan, patient is confused in the morning and need Ativan - Start thiamine, folic acid, multi-vit DM type 2 - Continue Accu check ACHS - insulin coverage per sliding scale PRN Anxiety - Likely due to alcohol withdrawal, we'll monitor Metabolic Encephalopathy - Improving Thrombocytopenia - Likely due to alcohol DVT prophylaxis - SCDs because of thrombocytopenia Disposition - Possible discharge tomorrow History Interval history: Patient was seen and evaluated at the bedside, patient was sleepy, but alert and oriented after he woke up. Per the nurse patient is confused and agitated. Hospitalist Physical - Physical exam Narrative exam: Not in cardiopulmonary distress. The patient appeared well nourished and normally developed. Vital signs as documented. Head exam is unremarkable. No scleral icterus . Neck is without jugular venous distension, thyromegaly, or carotid bruits. Lungs are clear to auscultation. Cardiac exam reveals regular rate and Rhythm. First and second heart sounds normal. No murmurs, rubs or gallops. Abdominal exam reveals normal bowel sounds, no masses, no organomegaly and no aortic enlargement. Extremities are nonedematous and both femoral and pedal pulses are normal. VP ACCOUNT DIRECTOR: Alert and oriented 3. No focal weakness. - Constitutional Vitals: Temp Pulse Resp BP Pulse Ox 99.7 F H 83 14 108/56 100 02/19/18 15:25 02/19/18 15:10 02/19/18 15:10 02/19/18 15:10 02/19/18 15:10 General appearance: Present: mild distress, disheveled Results - Labs CBC & Chem 7: 02/18/18 04:42 02/19/18 05:05 Labs: Laboratory Last Values WBC 3.7 K/mm3 (4.5-11.0) L 02/18/18 04:42 RBC 2.56 M/mm3 (3.65-5.03) L 02/18/18 04:42 Hgb 8.5 gm/dl (11.8-15.2) L 02/18/18 04:42 Hct 24.6 % (35.5-45.6) L 02/18/18 04:42 MCV 96 fl (84-94) H 02/18/18 04:42 MCH 33 pg (28-32) H 02/18/18 04:42 MCHC 35 % (32-34) H 02/18/18 04:42 RDW 13.3 % (13.2-15.2) 02/18/18 04:42 Plt Count 85 K/mm3 (140-440) L 02/18/18 04:42 Lymph % (Auto) 16.9 % (13.4-35.0) 02/15/18 03:54 [place] % (Auto) 11.4 % (0.0-7.3) H 02/15/18 03:54 Eos % (Auto) 0.1 % (0.0-4.3) 02/15/18 03:54 Baso % (Auto) 0.2 % (0.0-1.8) 02/15/18 03:54 Lymph # 1.5 K/mm3 (1.2-5.4) 02/15/18 03:54 [place] # 1.0 K/mm3 (0.0-0.8) H 02/15/18 03:54 Eos # 0.0 K/mm3 (0.0-0.4) 02/15/18 03:54 Baso # 0.0 K/mm3 (0.0-0.1) 02/15/18 03:54 Seg Neutrophils % 71.4 % (40.0-70.0) H 02/15/18 03:54 Seg Neutrophils # 6.2 K/mm3 (1.8-7.7) 02/15/18 03:54 PT 13.5 Sec. (12.2-14.9) 02/14/18 21:11 INR 0.98 (0.87-1.13) 02/14/18 21:11 Sodium 134 mmol/L (137-145) L 02/19/18 05:05 Potassium 4.2 mmol/L (3.6-5.0) 02/19/18 05:05 Chloride 95.0 mmol/L (98-107) L 02/19/18 05:05 Carbon Dioxide 28 mmol/L (22-30) 02/19/18 05:05 Anion Gap 15 mmol/L 02/19/18 05:05 BUN 7 mg/dL (9-20) L 02/19/18 05:05 Creatinine 0.7 mg/dL (0.8-1.5) L 02/19/18 05:05 Estimated GFR > 60 ml/min 02/19/18 05:05 BUN/Creatinine Ratio 10 % 02/19/18 05:05 Glucose 101 mg/dL (75-100) H 02/19/18 05:05 POC Glucose 171 (70-105) H 02/19/18 11:24 Osmolality 279 Mosm/kg 02/15/18 07:05 Calcium 8.4 mg/dL (8.4-10.2) 02/19/18 05:05 Phosphorus 4.60 mg/dL (2.5-4.5) H 02/19/18 05:05 Magnesium 1.90 mg/dL (1.7-2.3) 02/19/18 05:05 Total Bilirubin 0.50 mg/dL (0.1-1.2) 02/18/18 04:42 Direct Bilirubin 0.3 mg/dL (0-0.2) H 02/14/18 21:11 Indirect Bilirubin 0.7 mg/dL 02/14/18 21:11 AST 32 units/L (5-40) 02/18/18 04:42 ALT 26 units/L (7-56) 02/18/18 04:42 Alkaline Phosphatase 57 units/L (35-129) 02/18/18 04:42 Ammonia 40.0 umol/L (25-60) 02/14/18 23:04 Total Creatine Kinase 364 units/L (55-170) H 02/15/18 07:05 CK-MB (CK-2) 7.4 ng/mL (0.0-4.0) H 02/15/18 07:05 CK-MB (CK-2) Rel Index 2.0 (0-4) 02/15/18 07:05 Troponin T < 0.010 ng/mL (0.00-0.029) 02/15/18 07:05 Total Protein 5.8 g/dL (6.3-8.2) L 02/18/18 04:42 Albumin 3.1 g/dL (3.9-5) L 02/18/18 04:42 Albumin/Globulin Ratio 1.1 % 02/18/18 04:42 TSH 2.620 mlU/mL (0.270-4.200) 02/15/18 03:54 Salicylates 1.0 mg/dL (2.8-20.0) L 02/14/18 21:11 Acetaminophen < 5.0 ug/mL (10.0-30.0) L 02/14/18 21:11 Plasma/Serum Alcohol 0.33 % (0-0.07) H 02/14/18 21:11
[2018-02-19] MEDS: DESYREL PO SCH (22:03)
[2018-02-19] MEDS ORDERED: AMBIEN PO PRN (23:11)
[2018-02-20] MEDS: CARDIZEM PO SCH ×2 (01:01→12:15)
[2018-02-20 06:46] LABS: BUN/Creatinine Ratio 9; Blood Urea Nitrogen 7 mg/dL (9-20); Calcium 8.8 mg/dL (8.4-10.2); Hemolysis Index 13
--- NOTE | 2018-02-20 08:02 | Progress Note ---
Assessment and Plan 1. Hyponatremia: Significant hyponatremia in the setting of alcohol abuse. Sodium level has improved. 2. Metabolic acidosis: Improved. 3. Volume depletion: Improved. 4. A.fib with RVR: Controlled. 5. Seizures. 6. Alcohol intoxication. Subjective Date of service: 02/20/18 Principal diagnosis: Alcohol withdrawal Interval history: Patient was seen and examined at the bedside. Doing better and eating well. Objective - Vital Signs Vital signs: Vital Signs - 12hr 02/19/18 02/19/18 02/19/18 20:10 20:20 20:30 Temperature Pulse Rate 91 H 82 87 Pulse Rate [ From Monitor] Respiratory 11 L 15 9 L Rate Respiratory Rate [chest] Blood Pressure 78/51 78/51 96/54 O2 Sat by Pulse 99 100 98 Oximetry 02/19/18 02/19/18 02/19/18 20:40 20:50 21:00 Temperature Pulse Rate 84 86 88 Pulse Rate [ From Monitor] Respiratory 11 L 16 11 L Rate Respiratory Rate [chest] Blood Pressure 78/51 78/51 90/63 O2 Sat by Pulse 99 97 Oximetry 02/19/18 02/19/18 02/19/18 21:10 21:20 21:30 Temperature Pulse Rate 91 H 85 94 H Pulse Rate [ From Monitor] Respiratory 12 11 L 7 L Rate Respiratory Rate [chest] Blood Pressure 90/63 90/63 90/63 O2 Sat by Pulse 100 99 99 Oximetry 02/19/18 02/19/18 02/19/18 21:40 21:50 22:00 Temperature Pulse Rate 85 95 H 86 Pulse Rate [ From Monitor] Respiratory 9 L 12 12 Rate Respiratory Rate [chest] Blood Pressure 90/63 90/63 100/59 O2 Sat by Pulse Oximetry 02/19/18 02/19/18 02/19/18 22:10 22:20 22:30 Temperature Pulse Rate 92 H 91 H 95 H Pulse Rate [ From Monitor] Respiratory 15 15 20 Rate Respiratory Rate [chest] Blood Pressure 100/59 100/59 100/59 O2 Sat by Pulse Oximetry 02/19/18 02/19/18 02/19/18 22:40 22:50 23:00 Temperature Pulse Rate 95 H 79 89 Pulse Rate [ From Monitor] Respiratory 12 12 9 L Rate Respiratory 14 Rate [chest] Blood Pressure 100/59 100/59 97/54 O2 Sat by Pulse Oximetry 02/19/18 02/19/18 02/19/18 23:10 23:12 23:20 Temperature Pulse Rate 75 84 97 H Pulse Rate [ From Monitor] Respiratory 14 14 11 L Rate Respiratory Rate [chest] Blood Pressure 97/54 97/54 97/54 O2 Sat by Pulse Oximetry 02/19/18 02/19/18 02/19/18 23:30 23:40 23:50 Temperature Pulse Rate 75 80 76 Pulse Rate [ From Monitor] Respiratory 10 L 9 L 11 L Rate Respiratory Rate [chest] Blood Pressure 97/54 97/54 97/54 O2 Sat by Pulse Oximetry 02/20/18 02/20/18 02/20/18 00:00 00:10 00:20 Temperature 99.0 F Pulse Rate 72 85 86 Pulse Rate [ 78 From Monitor] Respiratory 13 14 11 L Rate Respiratory Rate [chest] Blood Pressure 89/55 89/55 89/55 O2 Sat by Pulse 100 Oximetry 02/20/18 02/20/18 02/20/18 00:30 00:40 00:50 Temperature Pulse Rate 82 79 77 Pulse Rate [ From Monitor] Respiratory 14 14 13 Rate Respiratory Rate [chest] Blood Pressure 89/55 89/55 89/55 O2 Sat by Pulse 99 Oximetry 02/20/18 02/20/18 02/20/18 01:00 01:01 01:10 Temperature Pulse Rate 81 79 82 Pulse Rate [ From Monitor] Respiratory 11 L 11 L Rate Respiratory Rate [chest] Blood Pressure 87/54 87/54 87/54 O2 Sat by Pulse 98 99 Oximetry 02/20/18 02/20/18 02/20/18 01:20 01:30 01:40 Temperature Pulse Rate 78 69 80 Pulse Rate [ From Monitor] Respiratory 13 13 12 Rate Respiratory Rate [chest] Blood Pressure 87/54 87/54 87/54 O2 Sat by Pulse 99 98 Oximetry 02/20/18 02/20/18 02/20/18 01:50 02:00 02:10 Temperature Pulse Rate 93 H 82 83 Pulse Rate [ From Monitor] Respiratory 13 10 L 13 Rate Respiratory Rate [chest] Blood Pressure 87/54 87/54 94/64 O2 Sat by Pulse Oximetry 02/20/18 02/20/18 02/20/18 02:20 02:30 02:40 Temperature Pulse Rate 83 83 70 Pulse Rate [ From Monitor] Respiratory 10 L 11 L 11 L Rate Respiratory Rate [chest] Blood Pressure 94/64 94/64 94/64 O2 Sat by Pulse Oximetry 02/20/18 02/20/18 02/20/18 02:50 03:00 03:10 Temperature Pulse Rate 86 75 81 Pulse Rate [ From Monitor] Respiratory 12 11 L 12 Rate Respiratory 16 Rate [chest] Blood Pressure 94/64 96/50 96/50 O2 Sat by Pulse Oximetry 02/20/18 02/20/18 02/20/18 03:20 03:30 03:33 Temperature 98.9 F Pulse Rate 83 82 Pulse Rate [ From Monitor] Respiratory 13 11 L Rate Respiratory Rate [chest] Blood Pressure 96/50 96/50 O2 Sat by Pulse Oximetry 02/20/18 02/20/18 02/20/18 03:40 03:50 04:00 Temperature Pulse Rate 108 H 92 H Pulse Rate [ 73 From Monitor] Respiratory 21 16 Rate Respiratory Rate [chest] Blood Pressure 96/50 96/50 92/51 O2 Sat by Pulse 100 100 Oximetry 02/20/18 02/20/18 02/20/18 04:10 04:20 04:30 Temperature Pulse Rate 73 84 84 Pulse Rate [ From Monitor] Respiratory 9 L 9 L 12 Rate Respiratory Rate [chest] Blood Pressure 92/51 92/51 92/51 O2 Sat by Pulse Oximetry 02/20/18 02/20/18 02/20/18 04:40 04:50 05:00 Temperature Pulse Rate 76 80 81 Pulse Rate [ From Monitor] Respiratory 13 13 13 Rate Respiratory Rate [chest] Blood Pressure 92/51 92/51 92/51 O2 Sat by Pulse Oximetry 02/20/18 02/20/18 02/20/18 05:10 05:20 05:30 Temperature Pulse Rate 72 80 92 H Pulse Rate [ From Monitor] Respiratory 11 L 9 L 6 L Rate Respiratory Rate [chest] Blood Pressure 97/39 97/39 97/39 O2 Sat by Pulse Oximetry 02/20/18 02/20/18 02/20/18 05:40 05:50 06:00 Temperature Pulse Rate 80 84 96 H Pulse Rate [ From Monitor] Respiratory 8 L 13 11 L Rate Respiratory Rate [chest] Blood Pressure 97/39 97/39 97/39 O2 Sat by Pulse Oximetry 02/20/18 02/20/18 02/20/18 06:10 06:20 06:30 Temperature Pulse Rate 73 78 88 Pulse Rate [ From Monitor] Respiratory 11 L 12 12 Rate Respiratory Rate [chest] Blood Pressure 95/38 95/38 95/38 O2 Sat by Pulse Oximetry 02/20/18 02/20/18 06:40 06:50 Temperature Pulse Rate 80 78 Pulse Rate [ From Monitor] Respiratory 11 L 11 L Rate Respiratory Rate [chest] Blood Pressure 95/38 95/38 O2 Sat by Pulse 100 98 Oximetry - General Appearance General appearance: well-developed, well-nourished, appears stated age, other ( not in distress) EENT: ATNC, PERRL, mucous membranes moist, hearing intact Neck: supple Respiratory: Present: Clear to Ascultation Cardiology: irregularly irregular, S1S2, no murmurs Gastrointestinal: normoactive bowel sounds, no tenderness Integumentary: no rash, warm and dry Neurologic: no focal deficit, no asterixis Musculoskeletal: other (no edema) Psychiatric: cooperative - Lab 02/18/18 04:42 02/20/18 05:12 Most recent lab results Calcium 8.8 mg/dL (8.4-10.2) 02/20/18 05:12 Phosphorus 4.60 mg/dL (2.5-4.5) H 02/19/18 05:05 Magnesium 1.90 mg/dL (1.7-2.3) 02/19/18 05:05
[2018-02-20] MEDS: HumaLOG SUB-Q SCH ×2 (08:33→12:12)
[2018-02-20] MEDS: celeXA PO SCH (09:21)
[2018-02-20] MEDS: SODIUM CHLORIDE FLUSH SYRINGE 10 ML IV SCH (09:22)
--- NOTE | 2018-02-20 11:01 | Progress Note ---
Assessment and Plan Atrial fibrillation, rate controlled with diltiazem Normal TSH Not a candidate for oral anticoagulation due to history of alcohol abuse and thrombocytopenia Alcohol abuse/withdrawal Fatty liver on CT abdomen Seizure disorder NAP on brain CT Hyponatremia - resolved Thrombocytopenia Echocardiogram shows a normal LVEF. Continue rate controlling agents for persistent atrial fibrillation. Otherwise, conservative cardiac management. Subjective Date of service: 02/20/18 Principal diagnosis: Alcohol withdrawal Interval history: Patient has no cardiac complaints. Afib with a well controlled ventricular rate on telemetry. Objective Vital Signs Temp Pulse Pulse Resp Resp BP Pulse Ox 02/20/18 10:10 78 13 107/65 02/20/18 10:00 79 18 86/48 02/20/18 09:50 91 H 17 86/48 02/20/18 09:40 93 H 17 86/48 02/20/18 09:30 90 13 86/48 02/20/18 09:20 99 H 15 86/48 02/20/18 09:10 91 H 13 86/48 02/20/18 09:00 90 15 109/63 02/20/18 08:50 114 H 11 L 109/63 02/20/18 08:40 99 H 14 109/63 02/20/18 08:30 69 10 L 109/63 02/20/18 08:20 87 10 L 109/63 02/20/18 08:10 83 10 L 109/63 02/20/18 08:00 98.9 F 82 79 14 109/63 100 02/20/18 07:50 75 7 L 103/62 98 02/20/18 07:40 78 10 L 103/62 98 02/20/18 07:30 79 11 L 103/62 99 02/20/18 07:20 89 8 L 103/62 98 02/20/18 07:10 76 11 L 103/62 99 02/20/18 07:00 78 11 L 103/62 98 02/20/18 06:50 78 11 L 95/38 98 02/20/18 06:40 80 11 L 95/38 100 02/20/18 06:30 88 12 95/38 02/20/18 06:20 78 12 95/38 02/20/18 06:10 73 11 L 95/38 02/20/18 06:00 96 H 11 L 97/39 02/20/18 05:50 84 13 97/39 09/27/18 05:40 80 8 L 97/39 18 05:30 92 H 6 L 97/39 18 05:20 80 9 L 97/39 18 05:10 72 11 L 97/39 18 05:00 81 13 92/51 18 04:50 80 13 92/51 18 04:40 76 13 92/51 18 04:30 84 12 92/51 18 04:20 84 9 L 92/51 18 04:10 73 9 L 92/51 02/20/18 04:00 92 H 73 16 92/51 100 02/20/18 03:50 96/50 100 02/20/18 03:40 108 H 21 96/50 02/20/18 03:33 98.9 F 02/20/18 03:30 82 11 L 96/50 18 03:20 83 13 96/50 02/20/18 03:10 81 12 96/50 02/20/18 03:00 75 11 L 16 96/50 18 02:50 86 12 94/64 18 02:40 70 11 L 94/64 02/20/18 02:30 83 11 L 94/64 02/20/18 02:20 83 10 L 94/64 02/20/18 02:10 83 13 94/64 02/20/18 02:00 82 10 L 87/54 02/20/18 01:50 93 H 13 87/54 18 01:40 80 12 87/54 02/20/18 01:30 69 13 87/54 98 18 01:20 78 13 87/54 99 02/20/18 01:10 82 11 L 87/54 99 18 01:01 79 87/54 02/20/18 01:00 81 11 L 87/54 98 02/20/18 00:50 77 13 89/55 99 18 00:40 79 14 89/55 18 00:30 82 14 89/55 18 00:20 86 11 L 89/55 18 00:10 85 14 89/55 02/20/18 00:00 99.0 F 72 78 13 89/55 100 02/19/18 23:50 76 11 L 97/54 02/19/18 23:40 80 9 L 97/54 02/19/18 23:30 75 10 L 97/54 02/19/18 23:20 97 H 11 L 97/54 02/19/18 23:12 84 14 97/54 02/19/18 23:10 75 14 97/54 02/19/18 23:00 89 9 L 14 97/54 02/19/18 22:50 79 12 100/59 02/19/18 22:40 95 H 12 100/59 02/19/18 22:30 95 H 20 100/59 02/19/18 22:20 91 H 15 100/59 02/19/18 22:10 92 H 15 100/59 02/19/18 22:00 86 12 100/59 02/19/18 21:50 95 H 12 90/63 02/19/18 21:40 85 9 L 90/63 02/19/18 21:30 94 H 7 L 90/63 99 02/19/18 21:20 85 11 L 90/63 99 02/19/18 21:10 91 H 12 90/63 100 02/19/18 21:00 88 11 L 90/63 97 02/19/18 20:50 86 16 78/51 99 18 20:40 84 11 L 78/51 02/19/18 20:30 87 9 L 96/54 98 02/19/18 20:20 82 15 78/51 100 02/19/18 20:10 91 H 11 L 78/51 99 02/19/18 20:00 99.3 F 92 H 87 16 78/51 100 02/19/18 19:56 101 H 11 L 111/55 88 02/19/18 19:20 96 H 12 96/54 02/19/18 19:10 127 H 96/54 02/19/18 19:00 157 H 22 14 111/55 02/19/18 18:52 149 H 18 111/55 02/19/18 18:40 93 H 16 111/55 99 02/19/18 18:30 98 H 12 111/55 99 02/19/18 18:20 92 H 14 111/55 99 02/19/18 18:10 85 17 111/55 99 09/26/18 18:00 104 H 11 L 154/77 99 02/19/18 17:50 101 H 13 154/77 100 02/19/18 17:40 92 H 12 154/77 99 02/19/18 17:30 106 H 18 154/77 96 02/19/18 17:20 118 H 14 154/77 98 02/19/18 17:10 103 H 13 154/77 99 02/19/18 17:00 105 H 17 106/66 99 02/19/18 16:50 94 H 9 L 106/66 100 02/19/18 16:40 77 7 L 106/66 100 02/19/18 16:30 83 10 L 106/66 99 02/19/18 16:20 85 8 L 106/66 99 02/19/18 16:10 77 10 L 106/66 99 02/19/18 16:00 88 87 10 L 106/66 99 02/19/18 15:50 81 9 L 108/56 100 02/19/18 15:40 88 9 L 108/56 100 02/19/18 15:30 81 12 108/56 98 02/19/18 15:25 99.7 F H 02/19/18 15:20 83 15 108/56 99 02/19/18 15:10 83 14 108/56 100 02/19/18 15:00 79 13 108/56 100 02/19/18 14:50 87 9 L 107/67 100 02/19/18 14:40 93 H 12 107/67 99 02/19/18 14:30 97 H 10 L 107/67 98 02/19/18 14:20 98 H 11 L 107/67 99 02/19/18 14:10 102 H 14 107/67 99 02/19/18 14:00 95 H 16 107/67 98 02/19/18 13:50 91 H 13 90/49 99 02/19/18 13:40 94 H 19 90/49 98 02/19/18 13:30 90/49 98 02/19/18 13:20 90/49 99 02/19/18 13:10 90/49 99 02/19/18 13:00 100/61 100 02/19/18 12:50 107 H 13 100/61 100 02/19/18 12:40 98 H 14 100/61 100 02/19/18 12:30 100 H 19 /61 97 02/19/18 12:20 93 H 19 /61 99 02/19/18 12:10 99 H 14 100/61 100 02/19/18 12:00 83 15 100/61 98 02/19/18 11:52 81 95/56 02/19/18 11:50 78 15 /69 99 02/19/18 11:40 98.4 F 79 12 /69 99 02/19/18 11:30 90 10 L / 99 02/19/18 11:20 100/63 96 - Physical Examination General: No Apparent Distress HEENT: Positive: PERRL Neck: Positive: trachea midline Cardiac: Positive: irregularly irregular Extremities: Absent: edema - Labs and Meds Comprehensive Metabolic Panel 02/20/18 Range/Units 05:12 Sodium 139 (137-145) mmol/L Potassium 4.5 (3.6-5.0) mmol/L Chloride 100.3 (98-107) mmol/L Carbon Dioxide 28 (22-30) mmol/L BUN 7 L (9-20) mg/dL Creatinine 0.8 (0.8-1.5) mg/dL Glucose 118 H (75-100) mg/dL Calcium 8.8 (8.4-10.2) mg/dL - Imaging and Cardiology EKG: image reviewed
--- NOTE | 2018-02-20 11:47 | Discharge Summary ---
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 Christie spoke with Dr. Rollins @ [phone] Consulting Provider: CHERYL ROLLINS Physician Instructions: Reason For Exam: hyponatremia 02/15/18 01:09 Consult to Physician [CONS] Routine Comment: Consulting Provider: JAMIL BERMEO Physician Instructions: Reason For Exam: afib 02/18/18 13:44 Physical Therapy Evaluation and Treat [CONS] Routine Comment: Reason For Exam: Debility Primary care physician: LAWN MOWER Hospitalization Reason for admission: Alcohol withdrawal seizure, a.fib Condition: Stable Hospital course: 67-year-old female with medical history significant for diabetes mellitus, alcohol abuse presented to the emergency department for the complaints of seizure episodes. Patient has 2 episodes of seizure and administer his alcohol withdrawal seizure. Patient was managed according to CIWA protocol and patient didn't have any further seizure. On telemetry monitoring patient had episodes of A. fib with RVR, and cardiology was consulted and recommended rate control with diltiazem, patient is not a candidate for anticoagulation due to his recurrent fall. Patient was evaluated by PT and recommended home health. Patient said he wants to follow with his psychiatrist and PCP. Patient was hemodynamically stable at the time of discharge. patient discharged home with home health. . Disposition: DC/[place]- HOME UNDER HOME [facility] Time spent for discharge: 34 minutes - Discharge Diagnoses (1) A-fib Status: Acute (2) Alcohol intoxication Status: Acute Qualifiers: Complication of substance-induced condition: with unspecified complication Qualified Code(s): F10.929 - Alcohol use, unspecified with intoxication, unspecified (3) Alcohol withdrawal Status: Acute Qualifiers: Complication of substance-induced condition: with unspecified complication Qualified Code(s): F10.239 - Alcohol dependence with withdrawal, unspecified (4) Hyponatremia syndrome Status: Acute (5) Thrombocytopenia concurrent with and due to alcoholism Status: Acute Core Measure Documentation - Palliative Care Palliative Care/ Comfort Measures: Not Applicable - Core Measures Any of the following diagnoses?: none Exam - Physical Exam Narrative exam: Not in cardiopulmonary distress. The patient appeared well nourished and normally developed. Vital signs as documented. Head exam is unremarkable. No scleral icterus . Neck is without jugular venous distension, thyromegaly, or carotid bruits. Lungs are clear to auscultation. Cardiac exam reveals regular rate and Rhythm. Abdominal exam reveals normal bowel sounds, no masses, no organomegaly and no aortic enlargement. Extremities are nonedematous and both femoral and pedal pulses are normal. METEOROLOGICAL TECHNICIAN: Alert and oriented 3. No focal weakness. - Constitutional Vitals: Temp Pulse Resp BP Pulse Ox 98.9 F 77 9 L 84/53 100 02/20/18 08:00 02/20/18 11:30 02/20/18 11:30 02/20/18 11:30 02/20/18 08:00 Plan Activity: advance as tolerated Weight Bearing Status: Weight Bear as Tolerated Diet: diabetic Special Instructions: physical therapy Additional Instructions: Follow up with your PCP and psychitryas an O/P Follow up with: PRIMARY CAREMD [Primary Care Provider] - 3-5 Days Prescriptions: dilTIAZem [Cardizem] 30 mg PO Q6HR #120 tablet
[2018-02-20 14:29] VITALS: BP 94/61
== END 2018-02-20 14:45 | disposition home health service (06) | DRG 100 ==
LOC: ED 18:59 → IMCU 23:37
PROVIDERS: ADMIT Internal Medicine; ATTEND Internal Medicine
DX: G40.509 Epileptic seizures related to external causes, not intractable, without status epilepticus (principal); G93.41 Metabolic encephalopathy; I48.1 Persistent atrial fibrillation; E87.1 Hypo-osmolality and hyponatremia; E87.2 Acidosis; F32.1 Major depressive disorder, single episode, moderate; F10.239 Alcohol dependence with withdrawal, unspecified; E11.9 Type 2 diabetes mellitus without complications; F41.9 Anxiety disorder, unspecified; F32.9 Major depressive disorder, single episode, unspecified; I10 Essential (primary) hypertension; F17.210 Nicotine dependence, cigarettes, uncomplicated; D69.6 Thrombocytopenia, unspecified; F10.229 Alcohol dependence with intoxication, unspecified; E78.5 Hyperlipidemia, unspecified; E86.9 Volume depletion, unspecified; Z83.3 Family history of diabetes mellitus; Z79.84 Long term (current) use of oral hypoglycemic drugs; Z90.49 Acquired absence of other specified parts of digestive tract
CPT/HCPCS: 36415; 70450; 71045; 72125; 74176; 80048; 80053; 80074; 80320; 82140; 82550; 82553; 82962; 83735; 83930; 84100; 84295; 84443; 84484; 85025; 85027; 85610; 93005; 93010; 93306; 94760; 96374; 96375; G0480; G8978-GP; G8979-GP; J1160; J1650; J1815; J2060; J3411; J3475; J7030; J7040; J7042; J7050

== ENCOUNTER 2018-12-19 07:32 | Inpatient (IN) | payer MEDICARE ==
--- NOTE | 2018-12-19 08:12 | Emergency Department Report ---
ED Head Trauma HPI - General Chief complaint: Fall Stated complaint: FALL Time Seen by Provider: 12/19/18 08:07 Source: patient Mode of arrival: Ambulatory Limitations: No Limitations - History of Present Illness Initial comments: 68-year-old male with history of alcohol abuse presents to ED with headache. Patient states he fell into the bathtub 2 days ago while in going to the bathroom, hitting his head. Denies LOC. Denies nausea or vomiting. Patient reports he drinks alcohol daily. States he lives with his girlfriend. States she called EMS this morning due to his complaint of headache. Denies taking any blood thinners. Patient states last drink was last night. Family reports over the last 6 months, pt has had increasingly unsteady gait, frequent falls, and increased cravings for alcohol. Girlfriend reports pt has some memory problems as well. MD Complaint: fall -: days(s) (4) Mechanism of Injury: mechanical fall Location: frontal Loss of Consciousness: no Place: home Severity: moderate Quality: aching Consistency: constant Other Injuries: none Associated Symptoms: denies: nausea, vomiting, neck pain - Related Data Home Medications Medication Instructions Recorded Confirmed Last Taken ALPRAZolam [Xanax TAB] 1 mg PO BID PRN 12/19/18 12/19/18 Unknown Zolpidem [Ambien] 10 mg PO QHS PRN 12/19/18 12/19/18 Unknown Previous Rx's Medication Instructions Recorded Last Taken Type Citalopram [Celexa] 40 mg PO QDAY 30 Days tablet 03/04/17 Unknown Rx Multivitamin with Folic Acid [One 400 mcg PO DAILY #30 tablet 03/04/17 Unknown Rx Daily Multivitamin Tablet] metFORMIN [Glucophage] 500 mg PO TID #90 tablet 03/04/17 Unknown Rx Allergies/Adverse reactions: Allergies Allergy/AdvReac Type Severity Reaction Status Date / Time No Known Allergies Allergy Verified 02/27/15 02:13 ED Review of Systems ROS: Stated complaint: FALL Other details as noted in HPI Comment: All other systems reviewed and negative Respiratory: denies: shortness of breath Cardiovascular: denies: chest pain Gastrointestinal: denies: nausea, vomiting Neurological: headache ED Past Medical Hx - Past Medical History Previous Medical History?: Yes Hx Hypertension: Yes (high cholesterol) Hx Heart Attack/AMI: No Hx Congestive Heart Failure: No Hx Diabetes: Yes Hx Seizures: Yes Hx Asthma: No Hx COPD: No Hx HIV: No Additional medical history: Alcoholism, depression - Surgical History Past Surgical History?: Yes Additional Surgical History: appendix - Social History Smoking Status: Never Smoker Substance Use Type: Alcohol - Medications Home Medications: Home Medications Medication Instructions Recorded Confirmed Last Taken Type Citalopram [Celexa] 40 mg PO QDAY 30 Days tablet 03/04/17 12/19/18 Unknown Rx Multivitamin with Folic Acid [One 400 mcg PO DAILY #30 tablet 03/04/17 12/19/18 Unknown Rx Daily Multivitamin Tablet] metFORMIN [Glucophage] 500 mg PO TID #90 tablet 03/04/17 12/19/18 Unknown Rx ALPRAZolam [Xanax TAB] 1 mg PO BID PRN 12/19/18 12/19/18 Unknown History Zolpidem [Ambien] 10 mg PO QHS PRN 12/19/18 12/19/18 Unknown History ED Physical Exam - General Limitations: No Limitations General appearance: alert, in no apparent distress - Head Head exam: Present: atraumatic, normocephalic - Eye Eye exam: Present: normal appearance, PERRL, EOMI - ENT ENT exam: Present: mucous membranes moist - Neck Neck exam: Present: normal inspection. Absent: tenderness - Respiratory Respiratory exam: Present: normal lung sounds bilaterally. Absent: respiratory distress - Cardiovascular Cardiovascular Exam: Present: regular rate, normal rhythm - GI/Abdominal GI/Abdominal exam: Present: soft. Absent: distended, tenderness - Extremities Exam Extremities exam: Present: normal inspection - Neurological Exam Neurological exam: Present: alert, oriented X3 - Psychiatric Psychiatric exam: Present: normal affect, normal mood - Skin Skin exam: Present: warm, dry, intact, normal color ED Course Vital Signs 12/19/18 12/19/18 12/19/18 07:40 07:47 07:50 Temperature 99 F Pulse Rate Respiratory 16 16 Rate Blood Pressure 91/74 O2 Sat by Pulse 93 97 97 Oximetry 12/19/18 12/19/18 12/19/18 07:51 08:00 08:11 Temperature Pulse Rate 71 67 74 Respiratory 8 L 16 9 L Rate Blood Pressure 91/64 101/57 101/57 O2 Sat by Pulse 95 92 99 Oximetry 12/19/18 12/19/18 12/19/18 08:21 08:39 08:41 Temperature Pulse Rate 73 Respiratory 12 Rate Blood Pressure 101/57 91/64 91/64 O2 Sat by Pulse 97 99 100 Oximetry 12/19/18 12/19/18 12/19/18 08:51 09:00 09:31 Temperature Pulse Rate Respiratory Rate Blood Pressure 91/64 105/60 101/57 O2 Sat by Pulse 98 96 100 Oximetry 12/19/18 12/19/18 12/19/18 10:00 10:31 11:00 Temperature Pulse Rate Respiratory Rate Blood Pressure 97/47 96/56 109/66 O2 Sat by Pulse 95 99 98 Oximetry 12/19/18 12/19/18 12/19/18 11:30 12:00 12:31 Temperature Pulse Rate Respiratory Rate Blood Pressure 104/59 112/57 115/85 O2 Sat by Pulse 95 98 96 Oximetry 12/19/18 12/19/18 12/19/18 13:00 13:31 13:38 Temperature Pulse Rate 93 H Respiratory Rate Blood Pressure 110/69 108/63 O2 Sat by Pulse 99 98 Oximetry 12/19/18 14:00 Temperature Pulse Rate Respiratory Rate Blood Pressure 110/69 O2 Sat by Pulse 97 Oximetry - Reevaluation(s) Reevaluation #1: 12/19/18 10:50 Girlfriend at bedside. States she would like to speak to a social work specialist b/c she feels as if she is unable to take care of pt by herself due to his frequent falls and increased cravings for ETOH. Pt beginning to have tremors, so ativan was given. Girlfriend reports history of withdrawal seizures. - Lab Data Result diagrams: 12/19/18 11:55 12/19/18 11:55 Lab Results 12/19/18 12/19/18 12/19/18 Range/Units 11:55 11:55 11:55 WBC 4.5 (4.5-11.0) K/mm3 RBC 3.80 (3.65-5.03) M/mm3 Hgb 12.3 (11.8-15.2) gm/dl Hct 35.7 (35.5-45.6) % MCV 94 (84-94) fl MCH 32 (28-32) pg MCHC 35 H (32-34) % RDW 14.5 (13.2-15.2) % Plt Count 94 L (140-440) K/mm3 Lymph % (Auto) 32.4 (13.4-35.0) % [place] % (Auto) 11.0 H (0.0-7.3) % Eos % (Auto) 1.2 (0.0-4.3) % Baso % (Auto) 1.2 (0.0-1.8) % Lymph # 1.5 (1.2-5.4) K/mm3 [place] # 0.5 (0.0-0.8) K/mm3 Eos # 0.1 (0.0-0.4) K/mm3 Baso # 0.1 (0.0-0.1) K/mm3 Seg Neutrophils % 54.2 (40.0-70.0) % Seg Neutrophils # 2.5 (1.8-7.7) K/mm3 Sodium 138 (137-145) mmol/L Potassium 4.8 (3.6-5.0) mmol/L Chloride 102.5 (98-107) mmol/L Carbon Dioxide 19 L (22-30) mmol/L Anion Gap 21 mmol/L BUN 9 (9-20) mg/dL Creatinine 0.7 L (0.8-1.5) mg/dL Estimated GFR > 60 ml/min BUN/Creatinine Ratio 13 % Glucose 109 H (75-100) mg/dL Calcium 8.1 L (8.4-10.2) mg/dL Total Bilirubin 0.50 (0.1-1.2) mg/dL AST 27 (5-40) units/L ALT 15 (7-56) units/L Alkaline Phosphatase 78 (35-129) units/L Total Protein 7.9 (6.3-8.2) g/dL Albumin 4.2 (3.9-5) g/dL Albumin/Globulin Ratio 1.1 % Urine Color (Yellow) Urine Turbidity (Clear) Urine pH (5.0-7.0) Ur Specific Price (1.003-1.030) Urine Protein (Negative) mg/dL Urine Glucose (UA) (Negative) mg/dL Urine Ketones (Negative) mg/dL Urine Blood (Negative) Urine Nitrite (Negative) Urine Bilirubin (Negative) Urine Urobilinogen (<2.0) mg/dL Ur Leukocyte Esterase (Negative) Urine WBC (Auto) (0.0-6.0) /HPF Urine RBC (Auto) (0.0-6.0) /HPF Urine Bacteria (Auto) (Negative) /HPF Plasma/Serum Alcohol 0.19 H (0-0.07) % 12/19/ Range/Units 12:57 WBC (4.5-11.0) K/mm3 RBC (3.65-5.03) M/mm3 Hgb (11.8-15.2) gm/dl Hct (35.5-45.6) % MCV (84-94) fl MCH (28-32) pg MCHC (32-34) % RDW (13.2-15.2) % Plt Count (140-440) K/mm3 Lymph % (Auto) (13.4-35.0) % [place] % (Auto) (0.0-7.3) % Eos % (Auto) (0.0-4.3) % Baso % (Auto) (0.0-1.8) % Lymph # (1.2-5.4) K/mm3 [place] # (0.0-0.8) K/mm3 Eos # (0.0-0.4) K/mm3 Baso # (0.0-0.1) K/mm3 Seg Neutrophils % (40.0-70.0) % Seg Neutrophils # (1.8-7.7) K/mm3 Sodium (137-145) mmol/L Potassium (3.6-5.0) mmol/L Chloride (98-107) mmol/L Carbon Dioxide (22-30) mmol/L Anion Gap mmol/L BUN (9-20) mg/dL Creatinine (0.8-1.5) mg/dL Estimated GFR ml/min BUN/Creatinine Ratio % Glucose (75-100) mg/dL Calcium (8.4-10.2) mg/dL Total Bilirubin (0.1-1.2) mg/dL AST (5-40) units/L ALT (7-56) units/L Alkaline Phosphatase (35-129) units/L Total Protein (6.3-8.2) g/dL Albumin (3.9-5) g/dL Albumin/Globulin Ratio % Urine Color Yellow (Yellow) Urine Turbidity Clear (Clear) Urine pH 5.0 (5.0-7.0) Ur Specific Price 1.008 (1.003-1.030) Urine Protein <15 mg/dl (Negative) mg/dL Urine Glucose (UA) Neg (Negative) mg/dL Urine Ketones Neg (Negative) mg/dL Urine Blood Neg (Negative) Urine Nitrite Neg (Negative) Urine Bilirubin Neg (Negative) Urine Urobilinogen < 2.0 (<2.0) mg/dL Ur Leukocyte Esterase Neg (Negative) Urine WBC (Auto) 4.0 (0.0-6.0) /HPF Urine RBC (Auto) 2.0 (0.0-6.0) /HPF Urine Bacteria (Auto) 1+ (Negative) /HPF Plasma/Serum Alcohol (0-0.07) % - Radiology Data Radiology results: report reviewed, image reviewed - Medical Decision Making 68-year-old male with chronic alcoholism presents following head injury amauri tained 2 days ago. Live-in girlfriend states patient has been having unsteady gait and multiple falls over the last 6 months, becoming increasingly worse. Also craving alcohol more frequently. She is unable to care for him alone. Pt currently tremulous and requesting something for withdrawal. Ativan given. Pt will be admitted to hospitalist for further management. - Differential Diagnosis intracranial injury, fracture, alcohol dependence, alcohol withdrawal Critical care attestation.: If time is entered above; I have spent that time in minutes in the direct care of this critically ill patient, excluding procedure time. ED Disposition Clinical Impression: Chronic alcohol abuse, Unsteady gait, Head injury, acute, Alcohol withdrawal Disposition: DC-09 OP ADMIT IP TO THIS HOSP Is pt being admited?: Yes Condition: Stable Time of Disposition: 12:37
--- NOTE | 2018-12-19 09:40 | Cat Scan Report ---
CT CERVICAL SPINE: 11/19/2018 INDICATION / CLINICAL INFORMATION: Trauma. COMPARISON: 02/14/2018 FINDINGS: CT images of the cervical spine were obtained. Images are evaluated in the axial, coronal, and sagit bay planes. There is no evidence of acute intracranial abnormality. Reversal of cervical lordosis centered at the C5 level as result of degenerative disc and facet delatorre es. Degenerative anterolisthesis is present at C3-4 and C4-5. Degenerative disc and facet changes are present throughout the mid and lower cervical spine, and at t he anterior atlantoaxial joint. CRANIOCERVICAL JUNCTION: Unremarkable. PARASPINAL STRUCTURES: Unremarkable. There is been no significant change when compared to the prior exam. IMPRESSION: No acute abnormality. Degenerative changes. All CT scans at this location are performed using dose reduction to ALARA by means of automated expos ure control. Signer Name: Reilly Jacobo MD Signed: 12/19/2018 9:35 AM Workstation Name: [id number]
[2018-12-19] MEDS ORDERED: ATIVAN IM ONE (10:05)
[2018-12-19] MEDS ORDERED: NACL 0.9% 1000 ML 1,000 ML ONE (10:22)
[2018-12-19] MEDS ORDERED: NACL 0.9% 1000 ML 1,000 ML IV ONE (10:40)
--- NOTE | 2018-12-19 10:41 | Cat Scan Report ---
CT HEAD WITHOUT CONTRAST INDICATION: Fall TECHNIQUE: All CT scans at this location are performed using CT dose reduction for ALARA by means of automated exposure control. COMPARISON: 02/14/2018 FINDINGS: BRAIN: No hemorrhage or mass effect are seen. No evidence of acute infarction is noted. Mild atrophic changes are again seen. Slight white matter microvascular changes are again noted. ORBITS: Normal as visualized. SOFT TISSUES OF HEAD: Normal. CALVARIUM: Normal. VISUALIZED PARANASAL SINUSES AND MASTOID AIR CELLS: Left maxillary mucosal thickening is unchanged. N o air-fluid levels are seen. ADDITIONAL FINDINGS: None. IMPRESSION: No acute intracranial abnormality. Signer Name: Ulysses Olivera MD Signed: 12/19/2018 10:37 AM Workstation Name: [id number]
[2018-12-19 12:11] LABS: Basophils # (Auto) 0.1 K/mm3 (0.0-0.1); Basophils % (Auto) 1.2 % (0.0-1.8); Eosinophils # (Auto) 0.1 K/mm3 (0.0-0.4); Eosinophils % (Auto) 1.2 % (0.0-4.3); Hematocrit 35.7 % (35.5-45.6); Hemoglobin 12.3 gm/dl (11.8-15.2); Lymphocytes # (Auto) 1.5 K/mm3 (1.2-5.4); Lymphocytes % (Auto) 32.4 % (13.4-35.0); Mean Corpuscular HGB Conc 35 % (32-34); Mean Corpuscular Volume 94 fl (84-94); Monocytes # (Auto) 0.5 K/mm3 (0.0-0.8); Red Cell Distribution Width 14.5 % (13.2-15.2)
[2018-12-19] MEDS ORDERED: SODIUM CHLORIDE FLUSH SYRINGE 10 ML IV PRN (12:19)
[2018-12-19] MEDS ORDERED: PROVENTIL IH PRN (12:19)
[2018-12-19] MEDS ORDERED: ZOFRAN IV PRN (12:19)
[2018-12-19 12:28] LABS: Alanine Aminotransferase 15 units/L (7-56); Albumin 4.2 g/dL (3.9-5); BUN/Creatinine Ratio 13; Blood Urea Nitrogen 9 mg/dL (9-20); Calcium 8.1 mg/dL (8.4-10.2); Hemolysis Index 12; Platelet Count 94 K/mm3 (140-440)
[2018-12-19] MEDS ORDERED: THERAGRAN Tab PO ONE (12:28)
--- NOTE | 2018-12-19 12:51 | History and Physical Report ---
History of Present Illness Chief complaint: He is confused, he keeps shaking, and he keeps falling History of present illness: 68 YO Male with DM, Depression, HLD, Anxiety, ETOH Dependence with most recent ingestion of ETOH overnight. Pt has decreased his daily intake of ETOH over the past 2 days as per his . Pt and presents to ED for evaluation. Pt is confused with tangential thinking, tremulous, diaphoretic and unable to provide detailed history at time of my exam. Pt Pt is at bedside and provides detailed history. As per , the patient has experienced 2 seizures over the past 24 hours, with each seizure lasting several minutes. Pt seizures followed by prolonged period of confusion, and weakness. Pt transported to [facility] via private vehicle. Pt seen and evaluated in ED and found to have Delirium Tremens, as well as Encephalopathy. Pt admitted to medical floor, and initiated on ETOH Withdrawl protocol. Pt is unable to provide further history. Prior admission on 02/14/18 reviewed. All listed medication reconciled at time of admission. Pt is confused but is able to protect his airway. Additional +30 minutes spent discussing care plan with patient and , as well as ETOH Cessation. Past History Past Medical History: diabetes, hypertension, other (ETOH Dependence, Depression, Anxiety) Past Surgical History: No surgical history, Other (reviewed) Social history: , lives with family, alcohol abuse Family history: hypertension Medications and Allergies Allergies Allergy/AdvReac Type Severity Reaction Status Date / Time No Known Allergies Allergy Verified 02/27/15 02:13 Home Medications Medication Instructions Recorded Confirmed Last Taken Type Citalopram [Celexa] 40 mg PO QDAY 30 Days tablet 03/04/17 12/19/18 Unknown Rx Multivitamin with Folic Acid [One 400 mcg PO DAILY #30 tablet 03/04/17 12/19/18 Unknown Rx Daily Multivitamin Tablet] metFORMIN [Glucophage] 500 mg PO TID #90 tablet 03/04/17 12/19/18 Unknown Rx ALPRAZolam [Xanax TAB] 1 mg PO BID PRN 12/19/18 12/19/18 Unknown History Zolpidem [Ambien] 10 mg PO QHS PRN 12/19/18 12/19/18 Unknown History Active Meds: Active Medications Acetaminophen (Tylenol) 650 mg PO Q4H PRN PRN Reason: Pain MILD(1-3)/Fever >100.5/JOE Albuterol (Proventil) 2.5 mg IH Q4HRT PRN PRN Reason: Shortness Of Breath Citalopram Hydrobromide (Celexa) 40 mg PO QDAY IVANA Diltiazem HCl (Cardizem) 30 mg PO Q6HR IVANA Folic Acid (Folvite) 1 mg PO QDAY IVANA Galantamine Hydrobromide (Razadyne) 4 mg PO BID IVANA Thiamine HCl 100 mg/ Folic Acid 1 mg/ Multivitamins/Minerals 10 ml/ Sodium Chloride 1,011.2 mls @ 250 mls/hr IV ONCE ONE Stop: 12/19/18 17:30 Lorazepam (Ativan) 2 mg IV Q1HR PRN PRN Reason: CIWA-Ar 8-15 Miscellaneous Medication (Enalapril Maleate [Vasotec]) 2.5 mg PO DAILY [facility] Multivitamins (Theragran Tab) 1 each PO DAILY [facility] Ondansetron HCl (Zofran) 4 mg IV Q8H PRN PRN Reason: Nausea And Vomiting Oxycodone/Acetaminophen (Percocet 5/325) 1 tab PO Q6HR PRN PRN Reason: Pain Pantoprazole Sodium (Protonix) 40 mg PO BID IVANA Ropinirole HCl (Requip) 1 mg PO BID [facility] Sodium Chloride (Sodium Chloride Flush Syringe 10 Ml) 10 ml IV BID IVANA Sodium Chloride (Sodium Chloride Flush Syringe 10 Ml) 10 ml IV PRN PRN PRN Reason: LINE FLUSH Thiamine HCl (Vitamin B-1) 100 mg PO ONCE ONE Stop: 12/19/18 13:01 Trazodone HCl (Desyrel) 50 mg PO QHS [facility] Review of Systems ROS unobtainable: due to mental status Exam - Constitutional Vitals: Temp Pulse Resp BP Pulse Ox 99 F 73 12 91/64 98 12/19/18 07:47 12/19/18 08:21 12/19/18 08:21 12/19/18 08:51 12/19/18 08:51 General appearance: Present: mild distress - EENT Eyes: Present: miosis - Neck Neck: Present: supple, normal ROM - Respiratory Respiratory effort: normal Respiratory: bilateral: CTA - Cardiovascular Heart Sounds: Present: S1 & S2. Absent: rub, click - Extremities Extremities: pulses symmetrical, No edema Peripheral Pulses: within normal limits - Musculoskeletal Musculoskeletal: generalized weakness - Psychiatric Psychiatric: no appropriate mood/affect, no intact judgment & insight, no memory intact, agitated - Neurologic Neurologic: CNII-XII intact, focal deficits, moves all extremities, no gait normal Results - Labs CBC & Chem 7: 12/19/18 11:55 12/19/18 11:55 Labs: Abnormal lab results 12/19/18 12/19/18 12/19/18 Range/Units 11:55 11:55 11:55 MCHC 35 H (32-34) % Plt Count 94 L (140-440) K/mm3 [place] % (Auto) 11.0 H (0.0-7.3) % Carbon Dioxide 19 L (22-30) mmol/L Creatinine 0.7 L (0.8-1.5) mg/dL Glucose 109 H (75-100) mg/dL Calcium 8.1 L (8.4-10.2) mg/dL Plasma/Serum Alcohol 0.19 H (0-0.07) % Assessment and Plan - Patient Problems (1) Metabolic encephalopathy Current Visit: Yes Status: Acute Plan to address problem: CMP, neuro checks, CT head, seizure precautions, fall precautions, aspiration precautions. (2) Dementia Current Visit: Yes Status: Acute Qualifiers: Dementia type: vascular dementia Plan to address problem: supportive care, blood pressure control, neuro checks. Outpatient neurology f/u care. (3) Falls frequently Current Visit: Yes Status: Acute Plan to address problem: Fall precautions, supportive care. (4) Delirium tremens Current Visit: Yes Status: Acute Plan to address problem: Ativan PRN, CIWA protocol, cmp, banana bag, supportive care. (5) Alcohol withdrawal Current Visit: Yes Status: Acute Qualifiers: Complication of substance-induced condition: with delirium Qualified Code(s): F10.231 - Alcohol dependence with withdrawal delirium Plan to address problem: CIWA protocol, thiamine, folic acid, multivitamin daily, IVF resuscitation therapy (6) DVT prophylaxis Current Visit: Yes Status: Acute Plan to address problem: SCD to BLE while in bed, prophylactic lovenox
[2018-12-19] MEDS ORDERED: VITAMIN B-1 PO ONE (13:00)
[2018-12-19] MEDS: ATIVAN IV PRN ×3 (13:09→22:48)
[2018-12-19 13:19] LABS: Bacteria,Urine 1+ /HPF (Negative); Bilirubin,Urine NEG (Negative); Blood,Urine NEG (Negative); Color,Urine Yellow (Yellow); Protein,Urine <15 mg/dL mg/dL (Negative); Urobilinogen,Urine < 2.0 mg/dL (<2.0)
[2018-12-19] MEDS ORDERED: VITAMIN B-1 100 MG, FOLVITE 1 MG, INFUVITE 10 ML in NACL 0.9% 1000 ML 1,000 ML IV ONE (13:28)
[2018-12-19] MEDS: CARDIZEM PO SCH (17:59)
[2018-12-19] MEDS: DESYREL PO SCH (21:20)
[2018-12-19] MEDS: REQUIP PO SCH (21:20)
[2018-12-19] MEDS: LOVENOX SUB-Q SCH (21:20)
[2018-12-19] MEDS: RAZADYNE PO SCH (21:21)
[2018-12-19] MEDS: PROTONIX PO SCH (21:25)
[2018-12-19] MEDS: SODIUM CHLORIDE FLUSH SYRINGE 10 ML IV SCH (22:17)
[2018-12-20] MEDS: CARDIZEM PO SCH ×5 (01:15→22:17)
[2018-12-20] MEDS: TYLENOL PO PRN (01:17)
[2018-12-20] MEDS: ATIVAN IV PRN ×6 (04:02→23:01)
[2018-12-20] MEDS: PERCOCET 5/325 PO PRN ×2 (08:00→17:44)
[2018-12-20] MEDS: REQUIP PO SCH ×2 (09:15→21:11)
[2018-12-20] MEDS: PROTONIX PO SCH ×2 (09:15→21:11)
[2018-12-20] MEDS: FOLVITE PO SCH (09:15)
[2018-12-20] MEDS: THERAGRAN Tab PO SCH (09:15)
[2018-12-20] MEDS: ZESTRIL PO SCH (09:23)
[2018-12-20] MEDS: SODIUM CHLORIDE FLUSH SYRINGE 10 ML IV SCH ×2 (09:27→21:11)
[2018-12-20] MEDS: celeXA PO SCH (09:34)
[2018-12-20] MEDS ORDERED: ENALAPRIL MALEATE 2.5 MG PO SCH (10:00)
[2018-12-20] MEDS: RAZADYNE PO SCH ×2 (10:43→22:08)
--- NOTE | 2018-12-20 14:20 | Progress Note ---
Assessment and Plan (1) Metabolic encephalopathy Current Visit: Yes Status: Acute Plan to address problem: CMP, neuro checks, CT head, seizure precautions, fall precautions, aspiration precautions. (2) Dementia Current Visit: Yes Status: Acute Qualifiers: Dementia type: vascular dementia Plan to address problem: supportive care, blood pressure control, neuro checks. Outpatient neurology f/u care. (3) Falls frequently Current Visit: Yes Status: Acute Plan to address problem: Fall precautions, supportive care. (4) Delirium tremens Current Visit: Yes Status: Acute Plan to address problem: Ativan PRN, CIWA protocol, cmp, banana bag, supportive care. (5) Alcohol withdrawal Current Visit: Yes Status: Acute Qualifiers: Complication of substance-induced condition: with delirium Qualified Code(s): F10.231 - Alcohol dependence with withdrawal delirium Plan to address problem: CIWA protocol, thiamine, folic acid, multivitamin daily, IVF resuscitation therapy (6) DVT prophylaxis Current Visit: Yes Status: Acute Plan to address problem: SCD to BLE while in bed, prophylactic lovenox Subjective Date of service: 12/20/18 Principal diagnosis: Metabolic encephalopathy Interval history: Synotinatuclly better Objective - Constitutional Vitals: Vital Signs - 12hr 12/20/18 12/20/18 12/20/18 03:48 05:43 07:54 Temperature 98.3 F Pulse Rate 74 74 77 Respiratory 18 Rate Blood Pressure 124/69 127/72 O2 Sat by Pulse 98 Oximetry 12/20/18 12/20/18 12/20/18 08:00 08:59 09:23 Temperature Pulse Rate 83 Respiratory 22 Rate Blood Pressure 118/63 O2 Sat by Pulse 98 Oximetry 12/20/18 11:12 Temperature Pulse Rate 75 Respiratory Rate Blood Pressure 132/74 O2 Sat by Pulse Oximetry General appearance: Present: no acute distress, well-nourished - EENT Eyes: PERRL, EOM intact ENT: hearing intact, clear oral mucosa Ears: bilateral: normal - Neck Neck: supple, normal ROM - Respiratory Respiratory effort: normal Respiratory: bilateral: CTA - Breasts Breasts: normal - Cardiovascular Rhythm: regular Heart Sounds: Present: S1 & S2. Absent: gallop, rub Extremities: pulses intact, No edema, normal color, Full ROM - Gastrointestinal General gastrointestinal: Present: soft, non-tender, non-distended, normal bowel sounds - Genitourinary Male genitourinary: normal - Integumentary Integumentary: clear, warm, dry - Musculoskeletal Musculoskeletal: 1, strength equal bilaterally - Neurologic Neurologic: moves all extremities - Psychiatric Psychiatric: memory intact, appropriate mood/affect, intact judgment & insight - Labs CBC & Chem 7: 12/19/18 11:55 12/19/18 11:55
[2018-12-20] MEDS: LOVENOX SUB-Q SCH (21:10)
[2018-12-20] MEDS: DESYREL PO SCH (22:08)
[2018-12-20] MEDS ORDERED: ATIVAN ONE (22:56)
[2018-12-21] MEDS: ATIVAN IV PRN ×6 (00:09→22:42)
[2018-12-21] MEDS ORDERED: HALDOL IM ONE ×2 (01:20→23:00)
[2018-12-21] MEDS: ATIVAN PO PRN (03:35)
[2018-12-21] MEDS: CARDIZEM PO SCH ×3 (05:18→17:22)
[2018-12-21] MEDS: TYLENOL PO PRN (07:20)
[2018-12-21] MEDS: REQUIP PO SCH ×2 (10:24→21:48)
[2018-12-21] MEDS: THERAGRAN Tab PO SCH (10:24)
[2018-12-21] MEDS: celeXA PO SCH (10:24)
[2018-12-21] MEDS: ZESTRIL PO SCH (10:25)
[2018-12-21] MEDS: PROTONIX PO SCH ×2 (10:25→21:48)
[2018-12-21] MEDS: FOLVITE PO SCH (10:25)
[2018-12-21] MEDS: SODIUM CHLORIDE FLUSH SYRINGE 10 ML IV SCH ×2 (10:25→22:30)
[2018-12-21] MEDS: RAZADYNE PO SCH ×2 (11:00→22:37)
--- NOTE | 2018-12-21 12:59 | Progress Note ---
Assessment and Plan (1) Metabolic encephalopathy Current Visit: Yes Status: Acute Plan to address problem: improving (2) Dementia Current Visit: Yes Status: Acute Qualifiers: Dementia type: vascular dementia Plan to address problem: supportive care, blood pressure control, neuro checks. Outpatient neurology f/u care. (3) Falls frequently Current Visit: Yes Status: Acute Plan to address problem: Fall precautions, supportive care. (4) Delirium tremens Current Visit: Yes Status: Acute Plan to address problem: Ativan PRN, CIWA protocol, cmp, banana bag, supportive care. (5) Alcohol withdrawal Current Visit: Yes Status: Acute Qualifiers: Complication of substance-induced condition: with delirium Qualified Code(s): F10.231 - Alcohol dependence with withdrawal delirium Plan to address problem: CIWA protocol, thiamine, folic acid, multivitamin daily, IVF resuscitation therapy (6) DVT prophylaxis Current Visit: Yes Status: Acute Plan to address problem: SCD to BLE while in bed, prophylactic lovenox Subjective Date of service: 12/21/18 Principal diagnosis: Metabolic encephalopathy Interval history: Synotinatuclly better Objective - Constitutional Vitals: Vital Signs - 12hr 12/21/18 12/21/18 12/21/18 01:31 04:16 05:18 Temperature 96.8 F L Pulse Rate 113 H 85 85 Respiratory 20 Rate Blood Pressure 158/69 158/69 O2 Sat by Pulse 96 Oximetry 12/21/18 12/21/18 12/21/18 07:20 07:21 10:20 Temperature 97.4 F L Pulse Rate 76 74 Respiratory 18 18 Rate Blood Pressure 122/64 124/67 O2 Sat by Pulse 95 97 Oximetry 12/21/18 12/21/18 12/21/18 10:23 10:25 12:37 Temperature 98 F 99.4 F Pulse Rate 74 84 Respiratory 18 Rate Blood Pressure 124/67 129/67 O2 Sat by Pulse 97 Oximetry General appearance: Present: no acute distress, well-nourished - EENT Eyes: PERRL, EOM intact ENT: hearing intact, clear oral mucosa Ears: bilateral: normal - Neck Neck: supple, normal ROM - Respiratory Respiratory effort: normal Respiratory: bilateral: CTA - Breasts Breasts: normal - Cardiovascular Heart rate: 78 Rhythm: regular Heart Sounds: Present: S1 & S2. Absent: gallop, rub Extremities: no ischemia, pulses intact, No edema, normal color, Full ROM - Gastrointestinal General gastrointestinal: Present: soft, non-tender, non-distended, normal bowel sounds - Genitourinary Male genitourinary: normal - Integumentary Integumentary: clear, warm, dry - Musculoskeletal Musculoskeletal: 1, strength equal bilaterally - Neurologic Neurologic: moves all extremities - Psychiatric Psychiatric: memory intact, appropriate mood/affect, intact judgment & insight - Labs CBC & Chem 7: 12/19/18 11:55 12/19/18 11:55
[2018-12-21] MEDS: PERCOCET 5/325 PO PRN (15:33)
[2018-12-21] MEDS: LOVENOX SUB-Q SCH (21:47)
[2018-12-21] MEDS: DESYREL PO SCH (21:48)
[2018-12-22] MEDS: CARDIZEM PO SCH ×5 (01:03→23:14)
[2018-12-22 05:38] LABS: Hematocrit 33.7 % (35.5-45.6); Hemoglobin 11.9 gm/dl (11.8-15.2); Mean Corpuscular HGB Conc 35 % (32-34); Mean Corpuscular Volume 94 fl (84-94); Red Cell Distribution Width 14.2 % (13.2-15.2)
[2018-12-22 06:00] LABS: Alanine Aminotransferase 20 units/L (7-56); Albumin 4.1 g/dL (3.9-5); BUN/Creatinine Ratio 13; Blood Urea Nitrogen 9 mg/dL (9-20); Calcium 8.8 mg/dL (8.4-10.2); Hemolysis Index 22
[2018-12-22 07:38] LABS: Total Cells Counted 100
[2018-12-22 07:39] LABS: Anisocytosis 1+; Platelet Count 68 K/mm3 (140-440); Platelet Estimate Consistent w Auto
--- NOTE | 2018-12-22 09:12 | Progress Note ---
Assessment and Plan (1) Metabolic encephalopathy Current Visit: Yes Status: Acute Plan to address problem: improving (2) Dementia Current Visit: Yes Status: Acute Qualifiers: Dementia type: vascular dementia Plan to address problem: supportive care, blood pressure control, neuro checks. Outpatient neurology f/u care. (3) Falls frequently Current Visit: Yes Status: Acute Plan to address problem: Fall precautions, supportive care. PT//OT (4) Delirium tremens Current Visit: Yes Status: Acute Plan to address problem: Ativan PRN, CIWA protocol, cmp, banana bag, supportive care. (5) Alcohol withdrawal Current Visit: Yes Status: Acute Qualifiers: Complication of substance-induced condition: with delirium Qualified Code(s): F10.231 - Alcohol dependence with withdrawal delirium Plan to address problem: CIWA protocol, thiamine, folic acid, multivitamin daily, IVF resuscitation therapy (6) DVT prophylaxis Current Visit: Yes Status: Acute Plan to address problem: SCD to BLE while in bed, prophylactic lovenox Subjective Date of service: 12/22/18 Principal diagnosis: Metabolic encephalopathy Interval history: Still Lethargic and confused Objective - Constitutional Vitals: Vital Signs - 12hr 12/22/18 12/22/18 02:47 04:00 Temperature 98.7 F 98.7 F Pulse Rate 80 98 H Respiratory 18 18 Rate Blood Pressure 155/85 Blood Pressure 158/85 [158/85] O2 Sat by Pulse 97 97 Oximetry General appearance: Present: mild distress, well-nourished - EENT Eyes: PERRL, EOM intact ENT: hearing intact, clear oral mucosa Ears: bilateral: normal - Neck Neck: supple, normal ROM - Respiratory Respiratory effort: normal Respiratory: bilateral: CTA - Breasts Breasts: normal - Cardiovascular Heart rate: 88 Rhythm: regular Heart Sounds: Present: S1 & S2. Absent: gallop, rub Extremities: no ischemia, pulses intact, No edema, normal color, Full ROM - Gastrointestinal General gastrointestinal: Present: soft, non-tender, non-distended, normal bowel sounds - Genitourinary Male genitourinary: normal - Integumentary Integumentary: clear, warm, dry - Musculoskeletal Musculoskeletal: generalized weakness - Neurologic Neurologic: CNII-XII intact, moves all extremities - Psychiatric Psychiatric: agitated, depressed, other (Lethargic) - Allied health notes Allied health notes reviewed: nursing, case management - Labs CBC & Chem 7: 12/22/18 05:19 12/22/18 05:19 Labs: Abnormal lab results 12/22/18 12/22/18 Range/Units 05:19 05:19 RBC 3.60 L (3.65-5.03) M/mm3 Hct 33.7 L (35.5-45.6) % MCH 33 H (28-32) pg MCHC 35 H (32-34) % Plt Count 68 L (140-440) K/mm3 Monocytes % (Manual) 16.0 H (0.0-7.3) % Monocytes # (Manual) 1.2 H (0.0-0.8) K/mm3 Creatinine 0.7 L (0.8-1.5) mg/dL Glucose 110 H (75-100) mg/dL AST 44 H (5-40) units/L
[2018-12-22] MEDS: REQUIP PO SCH ×2 (09:40→23:13)
[2018-12-22] MEDS: RAZADYNE PO SCH ×2 (09:40→23:14)
[2018-12-22] MEDS: PROTONIX PO SCH ×2 (09:40→23:14)
[2018-12-22] MEDS: THERAGRAN Tab PO SCH (09:40)
[2018-12-22] MEDS: FOLVITE PO SCH (09:41)
[2018-12-22] MEDS: SODIUM CHLORIDE FLUSH SYRINGE 10 ML IV SCH ×2 (09:41→23:15)
[2018-12-22] MEDS: ZESTRIL PO SCH (09:42)
[2018-12-22] MEDS: celeXA PO SCH (12:28)
--- NOTE | 2018-12-22 14:30 | Consultation ---
History of Present Illness - Reason for Consult Consult date: 12/22/18 Reason for consult: Mental Health Evaluation Requesting physician: VICENTA SILVERIO - Chief Complaint Chief complaint: "The patient is lethargoc" - History of Present Psychiatric Illness 68-year-old male with history of alcohol abuse presents to ED with headache. Psychiatry was consulted to see the patient for ETOH dependence. Today the patent was lethargic during the assessment. The psy assessment could not be completed because of the patient's condition. Medications and Allergies Allergies Allergy/AdvReac Type Severity Reaction Status Date / Time No Known Allergies Allergy Verified 02/27/15 02:13 Home Medications Medication Instructions Recorded Confirmed Last Taken Type Citalopram [Celexa] 40 mg PO QDAY 30 Days tablet 03/04/17 12/19/18 Unknown Rx Multivitamin with Folic Acid [One 400 mcg PO DAILY #30 tablet 03/04/17 12/19/18 Unknown Rx Daily Multivitamin Tablet] metFORMIN [Glucophage] 500 mg PO TID #90 tablet 03/04/17 12/19/18 Unknown Rx ALPRAZolam [Xanax TAB] 1 mg PO BID PRN 12/19/18 12/19/18 Unknown History Zolpidem [Ambien] 10 mg PO QHS PRN 12/19/18 12/19/18 Unknown History Active Meds: Active Medications Acetaminophen (Tylenol) 650 mg PO Q4H PRN PRN Reason: Pain MILD(1-3)/Fever >100.5/JOE Last Admin: 12/21/18 07:20 Dose: 650 mg Documented by: Albuterol (Proventil) 2.5 mg IH Q4HRT PRN PRN Reason: Shortness Of Breath Citalopram Hydrobromide (Celexa) 40 mg PO QDAY [facility] Last Admin: 12/22/18 12:28 Dose: 40 mg Documented by: Diltiazem HCl (Cardizem) 30 mg PO Q6HR [facility] Last Admin: 12/22/18 12:03 Dose: 30 mg Documented by: Enoxaparin Sodium (Lovenox) 40 mg SUB-Q QDAY@2200 [facility] Last Admin: 12/21/18 21:47 Dose: 40 mg Documented by: Folic Acid (Folvite) 1 mg PO QDAY [facility] Last Admin: 12/22/18 09:41 Dose: 1 mg Documented by: Galantamine Hydrobromide (Razadyne) 4 mg PO BID [facility] Last Admin: 12/22/18 09:40 Dose: 4 mg Documented by: Lisinopril (Zestril) 2.5 mg PO DAILY [facility] Last Admin: 12/22/18 09:42 Dose: 2.5 mg Documented by: Lorazepam (Ativan) 2 mg IV Q1HR PRN PRN Reason: CIWA-Ar 8-15 Last Admin: 12/21/18 22:42 Dose: 2 mg Documented by: Lorazepam (Ativan) 2 mg PO Q4H PRN PRN Reason: Agitation Last Admin: 12/21/18 03:35 Dose: 2 mg Documented by: Multivitamins (Theragran Tab) 1 each PO DAILY [facility] Last Admin: 12/22/18 09:40 Dose: 1 each Documented by: Ondansetron HCl (Zofran) 4 mg IV Q8H PRN PRN Reason: Nausea And Vomiting Oxycodone/Acetaminophen (Percocet 5/325) 1 tab PO Q6HR PRN PRN Reason: Pain Last Admin: 12/21/18 15:33 Dose: 1 tab Documented by: Pantoprazole Sodium (Protonix) 40 mg PO BID [facility] Last Admin: 12/22/18 09:40 Dose: 40 mg Documented by: Ropinirole HCl (Requip) 1 mg PO BID [facility] Last Admin: 12/22/18 09:40 Dose: 1 mg Documented by: Sodium Chloride (Sodium Chloride Flush Syringe 10 Ml) 10 ml IV BID [facility] Last Admin: 12/22/18 09:41 Dose: 10 ml Documented by: Sodium Chloride (Sodium Chloride Flush Syringe 10 Ml) 10 ml IV PRN PRN PRN Reason: LINE FLUSH Trazodone HCl (Desyrel) 50 mg PO QHS [facility] Last Admin: 12/21/18 21:48 Dose: 50 mg Documented by: Past psychiatric history - Past Medical History Past Medical History: other (Unable to obtain) Past Surgical History: Other (Unable to obtain ) - past Psychiatric treatment and history psychiatric treatment history: Unable to obtain a psy hx and a fam psy hx. - Social History Social history: other (Unable to obtain ) Mental Status Exam - Vital signs Last Vital Signs Temp 99.1 F 12/22/18 12:01 Pulse 97 H 12/22/18 12:03 Resp 18 12/22/18 12:01 BP 148/95 12/22/18 12:03 Pulse Ox 96 12/22/18 12:01 - Exam Narrative exam: Unable to complete the MSE because of the patient's condition. Results Result Diagrams: 12/22/18 05:19 12/22/18 05:19 Abnormal lab results 12/22/18 12/22/18 Range/Units 05:19 05:19 RBC 3.60 L (3.65-5.03) M/mm3 Hct 33.7 L (35.5-45.6) % MCH 33 H (28-32) pg MCHC 35 H (32-34) % Plt Count 68 L (140-440) K/mm3 Monocytes % (Manual) 16.0 H (0.0-7.3) % Monocytes # (Manual) 1.2 H (0.0-0.8) K/mm3 Creatinine 0.7 L (0.8-1.5) mg/dL Glucose 110 H (75-100) mg/dL AST 44 H (5-40) units/L All other labs normal. Assessment and Plan Assessment and plan: Impression: Today th4 was lethargic during the assessment. Alcohol level 0.19 on admission. Recommendation/Plan: Attempt to assess the patient in 24 hours. Will staff with Dr Dylon Purdy.
[2018-12-22] MEDS: ATIVAN IV PRN (17:31)
[2018-12-22] MEDS: TYLENOL PO PRN (17:34)
[2018-12-22] MEDS: LOVENOX SUB-Q SCH (23:14)
[2018-12-22] MEDS: DESYREL PO SCH (23:14)
[2018-12-23] MEDS: TYLENOL PO PRN (04:43)
[2018-12-23] MEDS: ATIVAN PO PRN ×3 (04:46→21:34)
[2018-12-23] MEDS: CARDIZEM PO SCH ×4 (05:00→23:25)
--- NOTE | 2018-12-23 09:01 | Progress Note ---
Subjective - Reason for Consult Consult date: 12/23/18 Reason for consult: Psychiatry Follow-up - Chief Complaint Chief complaint: "I am okay today" 68-year-old male with history of alcohol abuse presents to ED with headache. Psychiatry was consulted to see the patient for ETOH dependence. Today the patent was lethargic during the assessment. He stated that he has a hx of alcoholism for the past 40 yrs. He stated that he "enjoy" drinking and deny havi ng any triggers. He stated that his father was a 'alcoholic." He stated that he has tried rehab services in the past, but relapsed withing months after being sober. He denies a mood/psychotic do. He stated that he would like to try rehab services again. He denies SI/HI's and AVH's. Mental Status Exam - Vital signs Last Vital Signs Temp 98.7 F 12/23/18 07:21 Pulse 64 12/23/18 07:21 Resp 18 12/23/18 07:21 BP 136/75 12/23/18 07:21 Pulse Ox 97 12/23/18 07:21 - Exam Narrative exam: MSE: Appearance: calm, cooperative Behavior: regular eye contact Speech: regular eye contact Mood: "okay" Affect: congruent to mood Thought Process: logical Thought Content: denies SI/HI's and AVH's Motor Activity: sitting up in bed Cognition: A/O x3 Insight: fair Judgment: fair Assessment and Plan Impression: Alcohol Use DO. Today th4 was calm and cooperative during the assessment. Mild tremors noted. DDx: R/O Mood DO Recommendation/Plan: Continue CIWA. Discussed the importance to abstain from alcohol consumption (etoh), he verbalized understanding. psy sign off. . Dispo: The patient will be given a outpatient referral for rehab services for his local area. Will staff with Dr Dylon Purdy.
[2018-12-23] MEDS: ZESTRIL PO SCH (10:04)
[2018-12-23] MEDS: THERAGRAN Tab PO SCH (10:06)
[2018-12-23] MEDS: FOLVITE PO SCH (10:06)
[2018-12-23] MEDS: PROTONIX PO SCH ×2 (10:06→21:34)
[2018-12-23] MEDS: RAZADYNE PO SCH ×2 (10:07→21:34)
[2018-12-23] MEDS: SODIUM CHLORIDE FLUSH SYRINGE 10 ML IV SCH ×2 (10:08→21:35)
[2018-12-23] MEDS: PERCOCET 5/325 PO PRN ×2 (10:16→22:34)
--- NOTE | 2018-12-23 11:12 | Progress Note ---
Assessment and Plan Assessment and plan: Delirium tremens/alcohol withdrawal syndrome Admitted to [facility] unit Tremors both hands Cont CIWA protocol Diabetes mellitus type 2 fingerstick qac and hs Hypertension. monitor BP Frequent falls Consult Physical therapy DVT propylaxis Full code status History Interval history: Gen weakness Tremors frequent falls Hospitalist Physical - Physical exam Narrative exam: Gen: Not in acute distress, lying in bed HEENT: Normocephalic, atraumatic Neck: supple, no JVD Heart: S1 and S2 reg, no murmurs, rubs or gallop Lungs: Clear to auscultation, no wheeze Abd: soft, non tender, non distended, normal BS, Ext: No edema, no clubbing, no cyanosis Neuro: Awake,alert, Oriented in person, place, not time, tremors both hands - Constitutional Vitals: Temp Pulse Resp BP Pulse Ox 98.7 F 64 18 136/75 97 12/23/18 07:21 12/23/18 10:04 12/23/18 07:21 12/23/18 10:04 12/23/18 07:21 General appearance: Present: mild distress, well-nourished Results - Labs CBC & Chem 7: 12/22/18 05:19 12/22/18 05:19 Labs: Laboratory Last Values WBC 7.6 K/mm3 (4.5-11.0) 12/22/18 05:19 RBC 3.60 M/mm3 (3.65-5.03) L 12/22/18 05:19 Hgb 11.9 gm/dl (11.8-15.2) 12/22/18 05:19 Hct 33.7 % (35.5-45.6) L 12/22/18 05:19 MCV 94 fl (84-94) 12/22/18 05:19 MCH 33 pg (28-32) H 12/22/18 05:19 MCHC 35 % (32-34) H 12/22/18 05:19 RDW 14.2 % (13.2-15.2) 12/22/18 05:19 Plt Count 68 K/mm3 (140-440) L 12/22/18 05:19 Lymph % (Auto) 32.4 % (13.4-35.0) 12/19/18 11:55 [place] % (Auto) [employer] 12/22/18 05:19 Eos % (Auto) 1.2 % (0.0-4.3) 12/19/18 11:55 Baso % (Auto) 1.2 % (0.0-1.8) 12/19/18 11:55 Lymph # 1.5 K/mm3 (1.2-5.4) 12/19/18 11:55 [place] # 0.5 K/mm3 (0.0-0.8) 12/19/18 11:55 Eos # 0.1 K/mm3 (0.0-0.4) 12/19/18 11:55 Baso # 0.1 K/mm3 (0.0-0.1) 12/19/18 11:55 Add Manual Diff Complete 12/22/18 05:19 Total Counted 100 12/22/18 05:19 Seg Neutrophils % 54.2 % (40.0-70.0) 12/19/18 11:55 Seg Neuts % (Manual) 56.0 % (40.0-70.0) 12/22/18 05:19 0 % 12/22/18 05:19 22.0 % (13.4-35.0) 12/22/18 05:19 Reactive Lymphs % (Man) 1.0 % 12/22/18 05:19 16.0 % (0.0-7.3) H 12/22/18 05:19 4.0 % (0.0-4.3) 12/22/18 05:19 1.0 % (0.0-1.8) 12/22/18 05:19 0 % 12/22/18 05:19 0 % 12/22/18 05:19 0 % 12/22/18 05:19 0 % 12/22/18 05:19 Nucleated RBC % Not Reportable 12/22/18 05:19 Seg Neutrophils # 2.5 K/mm3 (1.8-7.7) 12/19/18 11:55 Seg Neutrophils # Man 4.3 K/mm3 (1.8-7.7) 12/22/18 05:19 Band Neutrophils # 0.0 K/mm3 12/22/18 05:19 1.7 K/mm3 (1.2-5.4) 12/22/18 05:19 Abs React Lymphs (Man) 0.1 K/mm3 12/22/18 05:19 1.2 K/mm3 (0.0-0.8) H 12/22/18 05:19 0.3 K/mm3 (0.0-0.4) 12/22/18 05:19 0.1 K/mm3 (0.0-0.1) 12/22/18 05:19 0.0 K/mm3 12/22/18 05:19 0.0 K/mm3 12/22/18 05:19 0.0 K/mm3 12/22/18 05:19 Blast Cells # 0.0 K/mm3 12/22/18 05:19 WBC Morphology Not Reportable 12/22/18 05:19 Hypersegmented Neuts Not Reportable 12/22/18 05:19 Hyposegmented Neuts Not Reportable 12/22/18 05:19 Hypogranular Neuts Not Reportable 12/22/18 05:19 Not Reportable 12/22/18 05:19 Not Reportable 12/22/18 05:19 Not Reportable 12/22/18 05:19 Not Reportable 12/22/18 05:19 Not Reportable 12/22/18 05:19 Not Reportable 12/22/18 05:19 Consistent w auto 12/22/18 05:19 Not Reportable 12/22/18 05:19 Plt Clumps, EDTA Not Reportable 12/22/18 05:19 Not Reportable 12/22/18 05:19 Not Reportable 12/22/18 05:19 Not Reportable 12/22/18 05:19 Plt Morphology Comment Not Reportable 12/22/18 05:19 RBC Morphology Not Reportable 12/22/18 05:19 Dimorphic RBCs Not Reportable 12/22/18 05:19 Not Reportable 12/22/18 05:19 Not Reportable 12/22/18 05:19 Not Reportable 12/22/18 05:19 1+ 12/22/18 05:19 Not Reportable 12/22/18 05:19 Not Reportable 12/22/18 05:19 Not Reportable 12/22/18 05:19 Not Reportable 12/22/18 05:19 Not Reportable 12/22/18 05:19 Not Reportable 12/22/18 05:19 Not Reportable 12/22/18 05:19 Not Reportable 12/22/18 05:19 Not Reportable 12/22/18 05:19 Not Reportable 12/22/18 05:19 Not Reportable 12/22/18 05:19 Not Reportable 12/22/18 05:19 Not Reportable 12/22/18 05:19 Not Reportable 12/22/18 05:19 Not Reportable 12/22/18 05:19 Acanthocytes (Spur) Not Reportable 12/22/18 05:19 Rouleaux Not Reportable 12/22/18 05:19 Not Reportable 12/22/18 05:19 Not Reportable 12/22/18 05:19 Not Reportable 12/22/18 05:19 Not Reportable 12/22/18 05:19 Hem Pathologist Commnt No 12/22/18 05:19 Sodium 140 mmol/L (137-145) 12/22/18 05:19 Potassium 4.1 mmol/L (3.6-5.0) 12/22/18 05:19 Chloride 102.1 mmol/L (98-107) 12/22/18 05:19 Carbon Dioxide 26 mmol/L (22-30) D 12/22/18 05:19 16 mmol/L 12/22/18 05:19 BUN 9 mg/dL (9-20) 12/22/18 05:19 0.7 mg/dL (0.8-1.5) L 12/22/18 05:19 Estimated GFR > 60 ml/min 12/22/18 05:19 13 % 12/22/18 05:19 Glucose 110 mg/dL (75-100) H 12/22/18 05:19 Calcium 8.8 mg/dL (8.4-10.2) 12/22/18 05:19 0.50 mg/dL (0.1-1.2) 12/22/18 05:19 AST 44 units/L (5-40) H 12/22/18 05:19 ALT 20 units/L (7-56) 12/22/18 05:19 80 units/L (35-129) 12/22/18 05:19 34.0 umol/L (25-60) 12/22/18 05:19 7.9 g/dL (6.3-8.2) 12/22/18 05:19 4.1 g/dL (3.9-5) 12/22/18 05:19 1.1 % 12/22/18 05:19 Yellow (Yellow) 12/19/18 12:57 Clear (Clear) 12/19/18 12:57 5.0 (5.0-7.0) 12/19/18 12:57 Ur Specific [place] 1.008 (1.003-1.030) 12/19/18 12:57 <15 mg/dl mg/dL (Negative) 12/19/18 12:57 Neg mg/dL (Negative) 12/19/18 12:57 Neg mg/dL (Negative) 12/19/18 12:57 Neg (Negative) 12/19/18 12:57 Neg (Negative) 12/19/18 12:57 Neg (Negative) 12/19/18 12:57 < 2.0 mg/dL (<2.0) 12/19/18 12:57 Ur Leukocyte Esterase Neg (Negative) 12/19/18 12:57 4.0 /HPF (0.0-6.0) 12/19/18 12:57 2.0 /HPF (0.0-6.0) 12/19/18 12:57 1+ /HPF (Negative) 12/19/18 12:57 Plasma/Serum Alcohol 0.19 % (0-0.07) H 12/19/18 11:55 Active Medications - Current Medications Current Medications: Generic Name Dose Route Start Last Admin Trade Name Freq PRN Reason Stop Dose Admin Acetaminophen 650 mg 12/19/18 12:19 12/23/18 04:43 Tylenol PO 650 mg Q4H PRN Administration Pain MILD(1-3)/Fever >100.5/JOE Albuterol 2.5 mg 12/19/18 12:19 Proventil IH Q4HRT PRN Shortness Of Breath Citalopram Hydrobromide 40 mg 12/20/18 10:00 12/22/18 12:28 Celexa PO 40 mg QDAY [facility] Administration Diltiazem HCl 30 mg 12/19/18 18:00 12/23/18 05:00 Cardizem PO 30 mg Q6HR [facility] Administration Enoxaparin Sodium 40 mg 12/19/18 22:00 12/22/18 23:14 Lovenox SUB-Q 40 mg QDAY@2200 [facility] Administration Folic Acid 1 mg 12/20/18 10:00 12/23/18 10:06 Folvite PO 1 mg QDAY [facility] Administration Galantamine Hydrobromide 4 mg 12/19/18 22:00 12/23/18 10:07 Razadyne PO 4 mg BID [facility] Administration Lisinopril 2.5 mg 12/20/18 10:00 12/23/18 10:04 Zestril PO 2.5 mg DAILY [facility] Administration Lorazepam 2 mg 12/19/18 12:29 12/22/18 17:31 Ativan IV 2 mg Q1HR PRN Administration CIWA-Ar 8-15 Lorazepam 2 mg 12/20/18 22:19 12/23/18 04:46 Ativan PO 2 mg Q4H PRN Administration Agitation Multivitamins 1 each 12/20/18 10:00 12/23/18 10:06 Theragran Tab PO 1 each DAILY [facility] Administration Ondansetron HCl 4 mg 12/19/18 12:19 Zofran IV Q8H PRN Nausea And Vomiting Oxycodone/Acetaminophen 1 tab 12/19/18 12:29 12/23/18 10:16 Percocet 5/325 PO 1 tab Q6HR PRN Administration Pain Pantoprazole Sodium 40 mg 12/19/18 22:00 12/23/18 10:06 Protonix PO 40 mg BID [facility] Administration Ropinirole HCl 1 mg 12/19/18 22:00 12/22/18 23:13 Requip PO 1 mg BID [facility] Administration Sodium Chloride 10 ml 12/19/18 22:00 12/23/18 10:08 Sodium Chloride Flush Syringe 10 Ml IV 10 ml BID [facility] Administration Sodium Chloride 10 ml 12/19/18 12:19 Sodium Chloride Flush Syringe 10 Ml IV PRN PRN LINE FLUSH Trazodone HCl 50 mg 12/19/18 22:00 12/22/18 23:14 Desyrel PO 50 mg QHS [facility] Administration
[2018-12-23] MEDS: celeXA PO SCH (11:14)
[2018-12-23] MEDS: REQUIP PO SCH ×2 (11:14→21:34)
[2018-12-23] MEDS: DESYREL PO SCH (21:34)
[2018-12-23] MEDS: LOVENOX SUB-Q SCH (21:34)
[2018-12-24] MEDS: CARDIZEM PO SCH ×2 (06:01→13:13)
[2018-12-24] MEDS: ATIVAN PO PRN (06:06)
[2018-12-24] MEDS: celeXA PO SCH (10:24)
[2018-12-24] MEDS: FOLVITE PO SCH (10:24)
[2018-12-24] MEDS: ZESTRIL PO SCH (10:26)
[2018-12-24] MEDS: PROTONIX PO SCH (10:26)
[2018-12-24] MEDS: THERAGRAN Tab PO SCH (10:27)
[2018-12-24] MEDS: RAZADYNE PO SCH (10:29)
[2018-12-24] MEDS: SODIUM CHLORIDE FLUSH SYRINGE 10 ML IV SCH (10:29)
[2018-12-24] MEDS: REQUIP PO SCH (10:42)
--- NOTE | 2018-12-24 13:11 | Discharge Summary ---
Providers - Providers Date of Admission: 12/19/18 13:05 Date of discharge: 12/24/18 Attending physician: AURELIO FLORES 12/19/18 10:50 Consult to Case Management [CONS] Stat Services Needed at Discharge: Transfer Station Operator Notified:: no Additional Physician Instructions: 12/22/18 09:12 Consult to Mental Health [CONS] Routine Reason For Exam: For placement and ETOH dependence Place consult to:: mental health Notified:: yes Phone number called:: [phone] Was contact made?: Yes If yes, spoke with:: maria c Time called:: 10:30 Comment:: praneeth 12/23/18 15:59 Physical Therapy Evaluation and Treat [CONS] Routine Comment: Reason For Exam: generalized weakness Primary care physician: KELTON JOHNSON Hospitalization Condition: Fair Disposition: DC-01 TO HOME OR SELFCARE Core Measure Documentation - Palliative Care Palliative Care/ Comfort Measures: Not Applicable - Core Measures Any of the following diagnoses?: none Exam - Constitutional Vitals: Temp Pulse Resp BP Pulse Ox 98.3 F 79 18 116/62 98 12/24/18 07:38 12/24/18 10:26 12/24/18 07:38 12/24/18 10:26 12/24/18 07:38 Plan Activity: advance as tolerated Diet: low fat, low cholesterol, low salt Special Instructions: physical therapy, home health RN Durable Medical Equipment Needed Upon Discharge: Bedside Commode Additional Instructions: 1.Follow up with PCP or Salvatore katz in 1 week. 2.Follow [facility] with [facility]3 days Follow up with: SALVATORE ORTIZ MD [Referring] - 3-5 Days Prescriptions: Folic Acid [Folvite] 1 mg PO QDAY #30 tablet Multivitamin Tab [Multiple Vitamin TAB (Theragran)] 1 each PO DAILY #30 tablet Pantoprazole [Protonix TAB] 40 mg PO BID #60 tablet
[2018-12-24 13:19] VITALS: BP 152/79
== END 2018-12-24 16:50 | disposition home health service (06) | DRG 71 ==
LOC: ED 07:32 → 2B-ACE 13:05
PROVIDERS: ADMIT Internal Medicine; ATTEND Internal Medicine
DX: G93.41 Metabolic encephalopathy (principal); F10.231 Alcohol dependence with withdrawal delirium; E11.9 Type 2 diabetes mellitus without complications; I10 Essential (primary) hypertension; F32.9 Major depressive disorder, single episode, unspecified; F01.50 Vascular dementia, unspecified severity, without behavioral disturbance, psychotic disturbance, mood disturbance, and anxiety; F41.9 Anxiety disorder, unspecified; R26.81 Unsteadiness on feet; Z79.899 Other long term (current) drug therapy; Z82.49 Family history of ischemic heart disease and other diseases of the circulatory system
CPT/HCPCS: 36415; 70450; 72125; 80053; 80320; 81001; 82140; 85007; 85025; 93005; 93010; 94640; 96361; 96372; 96374; 99406; G0378; G0480; J1630; J1650; J2060; J3246; J3411; J7030